=== PATIENT | male | born 1935 | race Caucasian/White ===

== ENCOUNTER 2016-10-10 18:34 | Inpatient (IN) | payer MEDICARE, OTHER ==
[2016-10-10] MEDS: Acetaminophen 325 MG Tab PO PRN (19:20)
--- NOTE | 2016-10-10 19:22 | EDM.PDOC ---
ED HPI GENERAL MEDICAL PROBLEM - General Chief Complaint: Respiratory Problem Stated Complaint: SHORT OF BREATH Time Seen by Provider: 10/10/16 18:40 Source of Information: Reports: Patient History Limitations: Reports: No Limitations - History of Present Illness INITIAL COMMENTS - FREE TEXT/NARRATIVE: Pt is 81 year old male with PMH of COPD, bladder CA with CAD. Who claims was fine until today afternoon. He had sudden onset of chills around 2 PM and did not feel good. Soon fever started and mild cough. He claims he started to feel weak and short of breath around 5 PM which progressively got worse and hence EMT was called. When EMT went home.Pt's SPO2 was 80% and hence was placed on ` 15 litres non-rebreather and brought into emergency room. PT is not severely short of breath but very anxious. No chest pain, or chest tightness. No sweating. No nausea or vomiting. He is maintaining SPO2 around 91-92% on 3 litres of oxygen. breathing around 16-18/minutes. Pt claims he has not had appetite and has been drinking fluid today, feels dry in his mouth. Onset: Today Onset Date: 10/10/16 Onset Time: 14:00 Duration: Getting Worse Location: Reports: Chest Quality: Reports: Other (shortness ) Severity: Moderate Improves with: Reports: None Worsens with: Reports: None Associated Symptoms: Reports: Cough, Fever/Chills, Shortness of Breath, Weakness. Denies: Confusion, Chest Pain, Diaphoresis, Headaches, Loss of Appetite, Nausea/Vomiting - Related Data Allergies Allergy/AdvReac Type Severity Reaction Status Date / Time quinine [Quinine] Allergy Rash Verified 06/14/16 22:02 monohydrochloride Allergy Rash Uncoded 06/14/16 22:02 Home Meds: Home Meds Fluticasone/Salmeterol [Advair 250-50] 1 puff INH BID 08/27/14 [History] Lisinopril 20 mg PO DAILY 08/27/14 [History] Nebivolol [Bystolic] 10 mg PO DAILY 08/27/14 [History] Simvastatin 40 mg PO QPM 08/27/14 [History] Multivit-Min/FA/Lycopene/Lut [Sentry Senior Tablet] 1 each PO DAILY 02/19/15 [ History] Sertraline HCl 50 mg PO DAILY 02/19/15 [History] Aspirin/Dipyridamole [Aggrenox 200-25 MG] 1 cap PO BID 11/02/15 [History] Naproxen Sodium [Aleve] 220 mg PO BID PRN 03/14/16 [History] Oxybutynin [Oxybutynin ER] 10 mg PO BID 03/14/16 [History] Albuterol/Ipratropium [DuoNeb 3.0-0.5 MG/3 ML] 3 ml NEB QID PRN 03/28/16 [ History] Docusate Sodium [Colace] 100 mg PO DAILY PRN 03/28/16 [History] Levofloxacin [Levaquin] 750 mg PO Q24H 06/14/16 [History] Furosemide [Lasix] 20 mg PO DAILY #30 tab 06/15/16 [Rx] Past Medical History HEENT History: Reports: Hard of Hearing, Other (See Below) Other HEENT History: Wears hearing aids Cardiovascular History: Reports: CAD, Heart Failure, High Cholesterol, Hypertension, [place], SOB on Exertion, Stents Respiratory History: Reports: COPD Genitourinary History: Reports: Other (See Below) Other Genitourinary History: Bladder Ca Neurological History: Reports: CVA 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 Oncologic (Cancer) History: Reports: Bladder - Infectious Disease History Infectious Disease History: Reports: Chicken Pox, Measles, Mumps, Shingles - Past Surgical History HEENT Surgical History: Reports: Cataract Surgery Cardiovascular Surgical History: Reports: Coronary Artery Stent GI Surgical History: Reports: Colonoscopy, Hernia, Inguinal, Hernia Repair/Other Social & Family History - Family History Family Medical History: Noncontributory - Tobacco Use Smoking Status *Q: Former Smoker Years of Tobacco use: 60 Packs/Tins Daily: 2 Used Tobacco, but Quit: Yes Month Tobacco Last Used: October Second Hand Smoke Exposure: No - Caffeine Use Caffeine Use: Reports: Coffee Caffeine Use Comment: 3 cups coffee a day - Alcohol Use Days Per Week of Alcohol Use: 0 Number of Drinks Per Day: 1 Total Drinks Per Week: 0 - Recreational Drug Use Recreational Drug Use: No ED ROS GENERAL - Review of Systems Review Of Systems: See Below Constitutional: Reports: Fever, Chills, Weakness. Denies: Night Sweats, Diaphoresis HEENT: Denies: Rhinitis, Throat Pain, Throat Swelling Respiratory: Reports: Shortness of Breath, Wheezing, Cough, Sputum Cardiovascular: Denies: Chest Pain, Lightheadedness GI/Abdominal: Denies: Abdominal Pain, Nausea, Vomiting Musculoskeletal: Denies: Foot Pain, Joint Pain, Joint Swelling Skin: Denies: Pruritis, Rash Neurological: Reports: Weakness. Denies: Dizziness, Headache, Numbness, Syncope , Tingling Psychiatric: Reports: Anxiety. Denies: Agitation ED EXAM, GENERAL - Physical Exam Exam: See Below Exam Limited By: No Limitations General Appearance: Alert, WD/WN, No Apparent Distress, Anxious Eye Exam: Bilateral Eye: EOMI, PERRL Ears: Normal External Exam, Normal Canal, Hearing Grossly Normal, Normal TMs Ear Exam: Bilateral Ear: TM normal Nose: Normal Inspection, Normal Mucosa, No Blood Throat/Mouth: Normal Inspection, Normal Lips, Normal Teeth, Normal Gums, Normal Oropharynx, Normal Voice, No Airway Compromise Head: Atraumatic, Normocephalic Neck: Normal Inspection, Supple, Non-Tender, Full Range of Motion Respiratory/Chest: No Respiratory Distress, Lungs Clear, Normal Breath Sounds, No Accessory Muscle Use, Chest Non-Tender, Decreased Breath Sounds (left base), Crackles (left base), Rhonchi (scatterred all over the lung [place]) Cardiovascular: Regular Rate, Rhythm, No Edema Peripheral Pulses: 2+: Radial (L), Radial (R), Posterior Tibial (L), Posterior Tibial (R) GI/Abdominal: Normal Bowel Sounds, Soft, Non-Tender, No Organomegaly, No Distention, No Abnormal Bruit, No Mass Back Exam: Normal Inspection, Full Range of Motion, NT Extremities: Normal Inspection, Normal Range of Motion, Non-Tender, Normal Capillary Refill, No Pedal Edema Neurological: Alert, Oriented, CN II-XII Intact, Normal Cognition Skin Exam: Warm, Intact Course - Vital Signs Text/Narrative:: Pt's Temp was 105.9F, we did recheck and it was 105.9F. Pt is shaky with chills. He is not acutely short of breath. he is breathing around 16-18 breaths a minutes. No use of accessory msucles. He does have decreased breath sound in the left base, with crackles. His chest xray shows left lower lobe consolidation.His white count is 10K with neutros of 87%. He has acute left lower lobe pneumonia. Pt was started on oxygen he is maintaining SPO2 of 92-93% on 3 litres oxygen. He did receive Duonebs and his breathing improved. Blood culture was drawn. He was started on rocephin 1gm and zithromax 500mg IV. Pt will be admitted to hosptial as inpatient and closely monitroed. Will repeat CBC in Am - Orders/Labs/Meds Orders: Active Orders 24 hr Category Date Time Status RT Aerosol Therapy [RC] ASDIRECTED Care 10/10/16 19:15 Ordered Chest 1V Frontal [CR] Stat Exams 10/10/16 18:52 Taken COMPREHENSIVE METABOLIC PN,CMP [CHEM] Stat Lab 10/10/16 19:12 Ordered CULTURE BLOOD [BC] Stat Lab 10/10/16 19:12 Ordered Acetaminophen [Tylenol] Med 10/10/16 19:13 Ordered 650 mg PO Q6H PRN Medication Orders Acetaminophen (Tylenol) 650 mg PO Q6H PRN PRN Reason: Fever Labs: Laboratory Tests 10/10/16 Range/Units 19:00 WBC 10.0 D (4.0-11.0) K/uL RBC 4.49 L (4.50-6.50) M/uL Hgb 13.5 (13.0-18.0) g/dL Hct 40.6 (40.0-54.0) % MCV 90 (76-96) fL MCH 30.1 (27.0-32.0) pg MCHC 33.3 (31.0-35.0) g/dL RDW 14.0 (11.0-16.0) % Plt Count 182 D (150-400) K/uL MPV 8.7 (6.0-10.0) fL Neut % (Auto) 86.5 H (45.0-70.0) % Lymph % (Auto) 6.3 L (20.0-40.0) % [place] % (Auto) 6.6 (3.0-10.0) % Eos % (Auto) 0.5 L (1.0-5.0) % Baso % (Auto) 0.1 (0.0-0.5) % Neut # (Auto) 8.62 H (2.00-7.50) K/uL Lymph # (Auto) 0.63 L (1.50-4.00) K/uL [place] # (Auto) 0.66 (0.20-0.80) K/uL Eos # (Auto) 0.05 (0.04-0.40) K/uL Baso # (Auto) 0.01 L (0.02-0.10) K/uL Meds: Medications Generic Name Dose Route Start Last Admin Trade Name Freq PRN Reason Stop Dose Admin Acetaminophen 650 mg 10/10/16 19:13 Tylenol PO Q6H PRN Fever Discontinued Medications Generic Name Dose Route Start Last Admin Trade Name Freq PRN Reason Stop Dose Admin Albuterol/Ipratropium 3 ml 10/10/16 19:14 Duoneb 3.0-0.5 Mg/3 Ml NEB 10/10/16 19:15 STAT STA Departure - Departure Time of Disposition: 20:00 Disposition: Admitted As Inpatient 65 Condition: fair Clinical Impression: Left lower lobe pneumonia - Discharge Information Forms: ED Department Discharge - Problem List & Annotations (1) Left lower lobe pneumonia SNOMED Code(s): 581000524 Code(s): J18.1 - LOBAR PNEUMONIA, UNSPECIFIED ORGANISM Status: Acute - Problem List Review Problem List Initiated/Reviewed/Updated: Yes - My Orders Last 24 Hours: My Active Orders 10/10/16 18:52 Chest 1V Frontal [CR] Stat 10/10/16 19:12 COMPREHENSIVE METABOLIC PN,CMP [CHEM] Stat CULTURE BLOOD [BC] Stat 10/10/16 19:13 Acetaminophen [Tylenol] 650 mg PO Q6H PRN 10/10/16 19:15 RT Aerosol Therapy [RC] ASDIRECTED - Assessment/Plan Last 24 Hours: My Active Orders 10/10/16 18:52 Chest 1V Frontal [CR] Stat 10/10/16 19:12 COMPREHENSIVE METABOLIC PN,CMP [CHEM] Stat CULTURE BLOOD [BC] Stat 10/10/16 19:13 Acetaminophen [Tylenol] 650 mg PO Q6H PRN 10/10/16 19:15 RT Aerosol Therapy [RC] ASDIRECTED Assessment:: Left lower lobe pneumonia Plan: Pt's Temp was 105.9F, we did recheck and it was 105.9F. Pt is shaky with chills. He is not acutely short of breath. he is breathing around 16-18 breaths a minutes. No use of accessory msucles. He does have decreased breath sound in the left base, with crackles. His chest xray shows left lower lobe consolidation.His white count is 10K with neutros of 87%. He has acute left lower lobe pneumonia. Pt was started on oxygen he is maintaining SPO2 of 92-93% on 3 litres oxygen. He did receive Duonebs and his breathing improved. Blood culture was drawn. He was started on rocephin 1gm and zithromax 500mg IV. Pt will be admitted to hospital as inpatient and closely monitored. Will repeat CBC in Am
[2016-10-10] MEDS: Albuterol/Ipratropium 3.0-0.5 MG/3 ML Neb Soln NEB STA (19:24)
[2016-10-10] MEDS: cefTRIAXone 1 GM in Sodium Chloride 0.9% 50 ML IV SCH (19:37)
[2016-10-10] MEDS ORDERED: Sodium Chloride 0.9% 10 ML Syringe FLUSH PRN (19:39)
[2016-10-10] MEDS ORDERED: Sodium Chloride 0.9% 500 ML IV SCH (19:45)
[2016-10-10] MEDS: Azithromycin 500 MG in Sodium Chloride 0.9% 250 ML IV SCH (20:42)
[2016-10-10] MEDS: Sodium Chloride 0.9% 1,000 ML IV SCH (23:45)
[2016-10-11] MEDS ORDERED: Docusate Sodium 100 MG Cap PO PRN (00:42)
[2016-10-11] MEDS: Acetaminophen 325 MG Tab PO PRN ×2 (00:57→12:50)
[2016-10-11] MEDS: Albuterol/Ipratropium 3.0-0.5 MG/3 ML Neb Soln NEB SCH ×4 (00:58→19:26)
[2016-10-11] MEDS: guaiFENesin 600 MG Tab.ER PO SCH ×3 (00:58→19:54)
[2016-10-11] MEDS: Albuterol/Ipratropium 3.0-0.5 MG/3 ML Neb Soln NEB STA (00:58)
[2016-10-11] MEDS: Fluticasone/Salmeterol 250-50 MCG Inhalation Powder 14/Diskus INH SCH ×2 (07:55→20:38)
[2016-10-11] MEDS: Oxybutynin 5 MG Tab.ER PO SCH ×2 (07:57→19:54)
[2016-10-11] MEDS: Furosemide 20 MG Tab PO SCH (07:57)
[2016-10-11] MEDS: Aspirin/Dipyridamole 200-25 MG Cap.ER PO SCH ×2 (07:57→19:55)
[2016-10-11] MEDS: Lisinopril 20 MG Tab PO SCH (07:57)
[2016-10-11] MEDS: Sertraline 50 MG Tab PO SCH (07:58)
[2016-10-11] MEDS: NEBIVOLOL 10 MG PO SCH (07:58)
[2016-10-11] MEDS: MINERALS PO SCH (08:45)
[2016-10-11] MEDS: MULTIVITAMINS PO SCH (08:45)
[2016-10-11] MEDS: LUTEIN PO SCH (08:45)
[2016-10-11] MEDS: Sodium Chloride 0.9% 1,000 ML IV SCH (12:04)
--- NOTE | 2016-10-11 12:50 | PCM.PN ---
- General Info Date of Service: 10/11/16 Subjective Update: Pt claims that he feels fine. His morning temp was 99.1F. He claims he is not short of breath any more. He is maintain SPO2 of 94-95 % on 2 litres [place] oxygen. HE has noticed some cough today and has been getting mucoid sputum. No chest pain or discomfort. tolerating diet, but does not have good appetite. Still on IV fluids at 75cc/hr. Functional Status: Reports: tolerating diet, ambulating, urinating, incentive spirometry - Review of Systems General: Denies: Fever, Weakness, Fatigue HEENT: Denies: headaches, sinus congestion Pulmonary: Reports: cough, sputum. Denies: shortness of breath, hemoptysis, wheezing Cardiovascular: Denies: Chest Pain, Lightheadedness Gastrointestinal: Denies: Abdominal pain, Nausea, Vomiting Genitourinary: Denies: frequency, burning Musculoskeletal: Denies: joint pain, joint swelling Skin: Denies: pruritis, rash Neurological: Denies: Dizziness, Headache, Weakness - Patient Data Vitals - most recent: Last Vital Signs Temp 99.3 F 10/11/16 06:17 Pulse 62 10/11/16 06:17 Resp 20 10/11/16 06:17 BP 102/58 L 10/11/16 07:57 Pulse Ox 90 L 10/11/16 06:17 Weight - most recent: 75.863 kg Lab Results last 24 hrs: Laboratory Results - last 24 hr 10/11/16 Range/Units 08:50 WBC 14.5 H D (4.0-11.0) K/uL RBC 3.93 L (4.50-6.50) M/uL Hgb 12.0 L (13.0-18.0) g/dL Hct 36.0 L (40.0-54.0) % MCV 92 (76-96) fL MCH 30.5 (27.0-32.0) pg MCHC 33.3 (31.0-35.0) g/dL RDW 13.8 (11.0-16.0) % Plt Count 149 L (150-400) K/uL MPV 9.2 (6.0-10.0) fL Neut % (Auto) 83.7 H (45.0-70.0) % Lymph % (Auto) 8.4 L (20.0-40.0) % [place] % (Auto) 7.2 (3.0-10.0) % Eos % (Auto) 0.5 L (1.0-5.0) % Baso % (Auto) 0.2 (0.0-0.5) % Neut # (Auto) 12.16 H (2.00-7.50) K/uL Lymph # (Auto) 1.22 L (1.50-4.00) K/uL [place] # (Auto) 1.04 H (0.20-0.80) K/uL Eos # (Auto) 0.07 (0.04-0.40) K/uL Baso # (Auto) 0.03 (0.02-0.10) K/uL Med Orders - Current: Current Medications Acetaminophen (Tylenol) 650 mg PO Q6H PRN PRN Reason: Fever Last Admin: 10/11/16 00:57 Dose: 650 mg Albuterol/Ipratropium (Duoneb 3.0-0.5 Mg/3 Ml) 3 ml NEB Q6H [facility] Last Admin: 10/11/16 11:13 Dose: 3 ml Dipyridamole/Aspirin (Aggrenox 200-25 Mg) 1 cap PO BID [facility] Last Admin: 10/11/16 07:57 Dose: 1 cap Docusate Sodium (Colace) 100 mg PO DAILY PRN PRN Reason: Constipation Furosemide (Lasix) 20 mg PO DAILY [facility] Last Admin: 10/11/16 07:57 Dose: 20 mg Guaifenesin (Mucinex) 600 mg PO BID [facility] Last Admin: 10/11/16 07:57 Dose: 600 mg Azithromycin 500 mg/ Sodium (Chloride) 250 mls @ 250 mls/hr IV Q24H [facility] Last Admin: 10/10/16 20:42 Dose: 250 mls/hr Ceftriaxone Sodium 1 gm/ (Sodium Chloride) 50 mls @ 100 mls/hr IV Q24H [facility] Last Admin: 10/10/16 19:37 Dose: 100 mls/hr Sodium Chloride (Normal Saline) 500 mls @ 999 mls/hr IV .BOLUS [facility] Last Admin: 10/10/16 19:07 Dose: 500 mls/hr Sodium Chloride (Normal Saline) 1,000 mls @ 75 mls/hr IV ASDIRECTED [facility] Last Admin: 10/11/16 12:04 Dose: 75 mls/hr Lisinopril (Prinivil) 20 mg PO DAILY [facility] Last Admin: 10/11/16 07:57 Dose: Not Given Multivitamins/Minerals (Certavite Sr With Lutein) 1 tab PO DAILY [facility] Last Admin: 10/11/16 08:45 Dose: 1 tab Naproxen (Naproxen Sodium) 220 mg PO BID PRN PRN Reason: Pain Non-Formulary Medication (Nebivolol [Bystolic]) 10 mg PO DAILY [facility] Last Admin: 10/11/16 07:58 Dose: 10 mg Oxybutynin Chloride (Oxybutynin Er) 10 mg PO BID [facility] Last Admin: 10/11/16 07:57 Dose: 10 mg Fluticasone/Salmeterol (Advair Diskus 250-50) 1 puff INH BID [facility] Last Admin: 10/11/16 07:55 Dose: 1 puff Sertraline HCl (Zoloft) 50 mg PO DAILY [facility] Last Admin: 10/11/16 07:58 Dose: 50 mg Simvastatin (Zocor) 40 mg PO QPM [facility] Sodium Chloride (Saline Flush) 10 ml FLUSH ASDIRECTED PRN PRN Reason: Keep Vein Open Discontinued Medications Albuterol/Ipratropium (Duoneb 3.0-0.5 Mg/3 Ml) 3 ml NEB STAT STA Stop: 10/10/16 19:15 Last Admin: 10/11/16 00:58 Dose: 3 ml - Exam Quality Assessment: supplemental oxygen General: alert, oriented HEENT: Pupils equal, Pupils reactive, EOMI, Mucous membr. moist/pink Neck: supple Lungs: Normal respiratory effort, Decreased breath sounds (left base), Crackles (coarswe expiratory in left base) Cardiovascular: Regular Rate, Regular Rhythm Abdomen: bowel sounds present, soft, no tenderness, no distension Skin: warm, intact Neurological: no new focal deficit Psy/Mental Status: alert, normal mood - Problem List & Annotations (1) Left lower lobe pneumonia SNOMED Code(s): 678891042 Code(s): J18.1 - LOBAR PNEUMONIA, UNSPECIFIED ORGANISM Status: Acute Current Visit: Yes - Problem List Review Problem List Initiated/Reviewed/Updated: Yes - My Orders Last 24 Hours: My Active Orders 10/10/16 19:47 Incentive Spirometry [RT Incentive Spirometry] [RC] 16,20 10/10/16 20:00 guaiFENesin [Mucinex] 600 mg PO BID 10/10/16 22:00 CULTURE MRSA SURVEY [RM] Routine 10/10/16 22:49 RT Aerosol Therapy [RC] ASDIRECTED 10/10/16 23:00 Albuterol/Ipratropium [DuoNeb 3.0-0.5 MG/3 ML] 3 ml NEB Q6H 10/11/16 00:42 Docusate Sodium [Colace] 100 mg PO DAILY PRN 10/11/16 00:45 Sodium Chloride 0.9% [Normal Saline] 1,000 ml IV ASDIRECTED 10/11/16 01:00 Naproxen Sodium 220 mg PO BID PRN 10/11/16 08:00 Aspirin/Dipyridamole [Aggrenox 200-25 MG] 1 cap PO BID Fluticasone/Salmeterol [Advair Diskus 250-50] 1 puff INH BID Furosemide [Lasix] 20 mg PO DAILY Lisinopril [Prinivil] 20 mg PO DAILY Multivitamins/Minerals/Lutein [Certavite SR with Lutein] 1 tab PO DAILY Nebivolol [Bystolic] 10 mg PO DAILY Oxybutynin [Oxybutynin ER] 10 mg PO BID Sertraline [Zoloft] 50 mg PO DAILY 10/11/16 20:00 Simvastatin [Zocor] 40 mg PO QPM - Assessment Assessment:: Acute left lower lobe pneumonia - Plan Plan:: 10/11/16 : pt is feeling better. No shortness or breath. He is starting ot cough. I have encourage incentive spirometry every 2 hrs. Will continue rocephin and zithromax. I have continued his IV fluids at 75cc/hr due to poor oral intake. His cbc shows white count of 14.5 but his differential shows dropping neutrophils. In the next 24 hrs his white count should improving, considering significant clinical improvement in patient condition. Will repeat CBC in am and followup.
[2016-10-11] MEDS: Azithromycin 500 MG in Sodium Chloride 0.9% 250 ML IV SCH ×2 (19:28→19:29)
[2016-10-11] MEDS: Simvastatin 40 MG Tab PO SCH (19:54)
[2016-10-11] MEDS: cefTRIAXone 1 GM in Sodium Chloride 0.9% 50 ML IV SCH (20:37)
[2016-10-12] MEDS: Albuterol/Ipratropium 3.0-0.5 MG/3 ML Neb Soln NEB SCH ×4 (00:53→18:38)
[2016-10-12] MEDS: Fluticasone/Salmeterol 250-50 MCG Inhalation Powder 14/Diskus INH SCH ×2 (08:03→20:07)
[2016-10-12] MEDS: Furosemide 20 MG Tab PO SCH (08:03)
[2016-10-12] MEDS: LUTEIN PO SCH (08:04)
[2016-10-12] MEDS: Oxybutynin 5 MG Tab.ER PO SCH ×2 (08:04→20:07)
[2016-10-12] MEDS: NEBIVOLOL 10 MG PO SCH (08:04)
[2016-10-12] MEDS: Aspirin/Dipyridamole 200-25 MG Cap.ER PO SCH ×2 (08:04→20:07)
[2016-10-12] MEDS: MULTIVITAMINS PO SCH (08:04)
[2016-10-12] MEDS: MINERALS PO SCH (08:04)
[2016-10-12] MEDS: Sertraline 50 MG Tab PO SCH (08:04)
[2016-10-12] MEDS: guaiFENesin 600 MG Tab.ER PO SCH ×2 (08:04→20:07)
[2016-10-12] MEDS: Lisinopril 20 MG Tab PO SCH (08:04)
--- NOTE | 2016-10-12 09:05 | PCM.PN ---
- General Info Date of Service: 10/12/16 Subjective Update: Pt is feeling better. HE claims that he had lot of productive cough all night, but feels better now. He is still spiking fever. Tmax of 101.4 F and Tc of 100.1F. Pt has been feeding well. Appetite has improved. No shortness of breath. No chest pain or tightness. His WBC today is at 11.9 down from14.5. Functional Status: Reports: pain controlled, tolerating diet, ambulating, urinating, incentive spirometry - Review of Systems General: Reports: Fever. Denies: Weakness, Fatigue HEENT: Denies: sinus congestion, sore throat Pulmonary: Reports: cough, sputum. Denies: shortness of breath, pleuritic chest pain, wheezing Cardiovascular: Denies: Chest Pain, Lightheadedness Gastrointestinal: Denies: Abdominal pain, Nausea, Vomiting Genitourinary: Denies: dysuria, frequency Musculoskeletal: Denies: joint pain, joint swelling Skin: Denies: pruritis, rash Neurological: Denies: Confusion, Dizziness - Patient Data Vitals - most recent: Last Vital Signs Temp 100.1 F 10/12/16 06:52 Pulse 72 10/12/16 06:52 Resp 19 10/12/16 06:52 BP 133/71 10/12/16 08:04 Pulse Ox 90 L 10/12/16 06:52 Weight - most recent: 75.863 kg I&O - last 24 hours: Intake & Output 10/11/16 10/12/16 10/12/16 22:59 06:59 14:59 Intake Total 3460 750 Output Total 1080 1350 Balance 2380 -600 Lab Results last 24 hrs: Laboratory Results - last 24 hr 10/11/16 10/12/16 Range/Units 08:50 08:00 WBC 14.5 H D 11.9 H (4.0-11.0) K/uL RBC 3.93 L 4.23 L (4.50-6.50) M/uL Hgb 12.0 L 12.8 L (13.0-18.0) g/dL Hct 36.0 L 38.0 L (40.0-54.0) % MCV 92 90 (76-96) fL MCH 30.5 30.3 (27.0-32.0) pg MCHC 33.3 33.7 (31.0-35.0) g/dL RDW 13.8 13.7 (11.0-16.0) % Plt Count 149 L 154 (150-400) K/uL MPV 9.2 9.1 (6.0-10.0) fL Neut % (Auto) 83.7 H 83.1 H (45.0-70.0) % Lymph % (Auto) 8.4 L 9.0 L (20.0-40.0) % [place] % (Auto) 7.2 6.8 (3.0-10.0) % Eos % (Auto) 0.5 L 0.8 L (1.0-5.0) % Baso % (Auto) 0.2 0.3 (0.0-0.5) % Neut # (Auto) 12.16 H 9.86 H (2.00-7.50) K/uL Lymph # (Auto) 1.22 L 1.07 L (1.50-4.00) K/uL [place] # (Auto) 1.04 H 0.80 (0.20-0.80) K/uL Eos # (Auto) 0.07 0.09 (0.04-0.40) K/uL Baso # (Auto) 0.03 0.03 (0.02-0.10) K/uL Ilya Results last 24 hrs: Microbiology 10/10/16 22:00 MRSA Surveillance Culture - Final Nasal, Left NO MRSA ISOLATED Med Orders - Current: Current Medications Acetaminophen (Tylenol) 650 mg PO Q6H PRN PRN Reason: Fever Last Admin: 10/11/16 12:50 Dose: 650 mg Albuterol/Ipratropium (Duoneb 3.0-0.5 Mg/3 Ml) 3 ml NEB Q6H [facility] Last Admin: 10/12/16 06:38 Dose: 3 ml Dipyridamole/Aspirin (Aggrenox 200-25 Mg) 1 cap PO BID [facility] Last Admin: 10/12/16 08:04 Dose: 1 cap Docusate Sodium (Colace) 100 mg PO DAILY PRN PRN Reason: Constipation Furosemide (Lasix) 20 mg PO DAILY [facility] Last Admin: 10/12/16 08:03 Dose: 20 mg Guaifenesin (Mucinex) 600 mg PO BID [facility] Last Admin: 10/12/16 08:04 Dose: 600 mg Azithromycin 500 mg/ Sodium (Chloride) 250 mls @ 250 mls/hr IV Q24H [facility] Last Admin: 10/11/16 19:29 Dose: Not Given Ceftriaxone Sodium 1 gm/ (Sodium Chloride) 50 mls @ 100 mls/hr IV Q24H [facility] Last Admin: 10/11/16 20:37 Dose: 100 mls/hr Sodium Chloride (Normal Saline) 500 mls @ 999 mls/hr IV .BOLUS [facility] Last Admin: 10/10/16 19:07 Dose: 500 mls/hr Sodium Chloride (Normal Saline) 1,000 mls @ 75 mls/hr IV ASDIRECTED [facility] Last Admin: 10/11/16 12:04 Dose: 75 mls/hr Lisinopril (Prinivil) 20 mg PO DAILY [facility] Last Admin: 10/12/16 08:04 Dose: 20 mg Multivitamins/Minerals (Certavite Sr With Lutein) 1 tab PO DAILY [facility] Last Admin: 10/12/16 08:04 Dose: 1 tab Naproxen (Naproxen Sodium) 220 mg PO BID PRN PRN Reason: Pain Non-Formulary Medication (Nebivolol [Bystolic]) 10 mg PO DAILY [facility] Last Admin: 10/12/16 08:04 Dose: 10 mg Oxybutynin Chloride (Oxybutynin Er) 10 mg PO BID [facility] Last Admin: 10/12/16 08:04 Dose: 10 mg Fluticasone/Salmeterol (Advair Diskus 250-50) 1 puff INH BID [facility] Last Admin: 10/12/16 08:03 Dose: 1 puff Sertraline HCl (Zoloft) 50 mg PO DAILY [facility] Last Admin: 10/12/16 08:04 Dose: 50 mg Simvastatin (Zocor) 40 mg PO QPM [facility] Last Admin: 10/11/16 19:54 Dose: 40 mg Sodium Chloride (Saline Flush) 10 ml FLUSH ASDIRECTED PRN PRN Reason: Keep Vein Open Discontinued Medications Albuterol/Ipratropium (Duoneb 3.0-0.5 Mg/3 Ml) 3 ml NEB STAT STA Stop: 10/10/16 19:15 Last Admin: 10/11/16 00:58 Dose: 3 ml - Exam Quality Assessment: supplemental oxygen General: alert, oriented HEENT: Pupils equal, Pupils reactive, EOMI, Mucous membr. moist/pink Neck: supple Lungs: Normal respiratory effort, Crackles (fine expiratory crakles in left base , good air entry) Cardiovascular: Regular Rate, Regular Rhythm Abdomen: bowel sounds present, soft, no tenderness, no distension Extremities: no edema Peripheral Pulses: 2+: Radial (L), Radial (R) Skin: warm, intact Neurological: no new focal deficit - Problem List & Annotations (1) Left lower lobe pneumonia SNOMED Code(s): 641033844 Code(s): J18.1 - LOBAR PNEUMONIA, UNSPECIFIED ORGANISM Status: Acute Current Visit: Yes - Problem List Review Problem List Initiated/Reviewed/Updated: Yes - My Orders Last 24 Hours: My Active Orders 10/11/16 08:00 Aspirin/Dipyridamole [Aggrenox 200-25 MG] 1 cap PO BID Fluticasone/Salmeterol [Advair Diskus 250-50] 1 puff INH BID Furosemide [Lasix] 20 mg PO DAILY Lisinopril [Prinivil] 20 mg PO DAILY Multivitamins/Minerals/Lutein [Certavite SR with Lutein] 1 tab PO DAILY Nebivolol [Bystolic] 10 mg PO DAILY Oxybutynin [Oxybutynin ER] 10 mg PO BID Sertraline [Zoloft] 50 mg PO DAILY 10/11/16 14:35 CULTURE SPUTUM + SMEAR [RM] Routine 10/11/16 19:26 CULTURE MRSA SURVEY [RM] Routine 10/11/16 20:00 Simvastatin [Zocor] 40 mg PO QPM 10/11/16 21:24 Convert IV to Peripheral Lock [Convert IV to Saline Lock] [OM.PC] Stat - Assessment Assessment:: Acute left lower lobe pneumonia improving - Plan Plan:: 10/11/16 : pt is feeling better. No shortness or breath. He is starting ot cough. I have encourage incentive spirometry every 2 hrs. Will continue rocephin and zithromax. I have continued his IV fluids at 75cc/hr due to poor oral intake. His cbc shows white count of 14.5 but his differential shows dropping neutrophils. In the next 24 hrs his white count should improving, considering significant clinical improvement in patient condition. Will repeat CBC in am and followup. 10/12/16L: Pt has been feeling better. Still spiking low grade fever. His white count is down to 11.9. Blood culture is negative. Significant clinical improvement. Will continue IV antibiotics. Encourage ambulation. Continue incentive spirometry and deep breathing exercise.
[2016-10-12] MEDS: Sodium Chloride 0.9% 10 ML Syringe FLUSH SCH ×2 (10:06→20:08)
[2016-10-12] MEDS: Simvastatin 40 MG Tab PO SCH (20:07)
[2016-10-12] MEDS: cefTRIAXone 1 GM in Sodium Chloride 0.9% 50 ML IV SCH (20:08)
[2016-10-12] MEDS ORDERED: Magnesium Hydroxide 400 MG/5 ML Susp 30 ML Cup PO PRN (20:42)
[2016-10-12] MEDS ORDERED: Magnesium Hydroxide 400 MG/5 ML Susp 30 ML Cup ONE (20:47)
[2016-10-12] MEDS: Azithromycin 500 MG in Sodium Chloride 0.9% 250 ML IV SCH (21:03)
--- NOTE | 2016-10-13 00:09 | CR ---
DATE OF SERVICE: 10/10/2016 CLINICAL DATA: Fever, dyspnea. PA CHEST Comparison is made to a prior exam dated 06/14/2016. The heart is enlarged. It does appear to be slightly larger than on a prior exam. The pulmonary vascular congestion on the prior exam does appear to be slightly improved. The interstitial infiltrates on the prior exam do appear to be slightly improved. There is a new poorly defined infiltrate in the left mid and lower lung. There is also increased density in the right lung base consistent with infiltrate or atelectasis. Pneumonia is suspected. The exam is otherwise unchanged from the prior. No pleural effusion. [id number] [facility]
[2016-10-13] MEDS: Furosemide 20 MG Tab PO SCH (07:58)
[2016-10-13] MEDS: Albuterol/Ipratropium 3.0-0.5 MG/3 ML Neb Soln NEB SCH ×3 (07:58→14:28)
[2016-10-13] MEDS: Fluticasone/Salmeterol 250-50 MCG Inhalation Powder 14/Diskus INH SCH (07:58)
[2016-10-13] MEDS: Aspirin/Dipyridamole 200-25 MG Cap.ER PO SCH (07:58)
[2016-10-13] MEDS: guaiFENesin 600 MG Tab.ER PO SCH (07:59)
[2016-10-13] MEDS: Oxybutynin 5 MG Tab.ER PO SCH (07:59)
[2016-10-13] MEDS: Lisinopril 20 MG Tab PO SCH (07:59)
[2016-10-13] MEDS: NEBIVOLOL 10 MG PO SCH (08:00)
[2016-10-13] MEDS: Sodium Chloride 0.9% 10 ML Syringe FLUSH SCH (08:00)
[2016-10-13] MEDS: Sertraline 50 MG Tab PO SCH (08:00)
[2016-10-13] MEDS: MINERALS PO SCH (08:04)
[2016-10-13] MEDS: MULTIVITAMINS PO SCH (08:04)
[2016-10-13] MEDS: LUTEIN PO SCH (08:04)
--- NOTE | 2016-10-13 09:53 | PCM.PN ---
- General Info Date of Service: 10/13/16 Functional Status: Reports: tolerating diet, ambulating - Review of Systems General: Reports: No Symptoms HEENT: Reports: no symptoms Pulmonary: Reports: cough Cardiovascular: Reports: No Symptoms Gastrointestinal: Reports: No symptoms Genitourinary: Reports: no symptoms Musculoskeletal: Reports: no symptoms Skin: Reports: no symptoms Neurological: Reports: No Symptoms Psychiatric: Reports: no symptoms - Patient Data Vitals - most recent: Last Vital Signs Temp 37.1 C 10/13/16 08:00 Pulse 62 10/13/16 08:00 Resp 18 10/13/16 08:00 BP 116/66 10/13/16 08:00 Pulse Ox 95 10/13/16 08:00 Weight - most recent: 75.75 kg I&O - last 24 hours: Intake & Output 10/12/16 10/13/16 10/13/16 22:59 06:59 14:59 Intake Total 960 791 Output Total 1400 Balance 960 -609 Lab Results last 24 hrs: Laboratory Results - last 24 hr 10/12/16 10/13/16 Range/Units 13:40 08:30 WBC 8.9 D (4.0-11.0) K/uL RBC 4.15 L (4.50-6.50) M/uL Hgb 12.6 L (13.0-18.0) g/dL Hct 37.4 L (40.0-54.0) % MCV 90 (76-96) fL MCH 30.4 (27.0-32.0) pg MCHC 33.7 (31.0-35.0) g/dL RDW 13.6 (11.0-16.0) % Plt Count 162 (150-400) K/uL MPV 9.0 (6.0-10.0) fL Neut % (Auto) 74.6 H (45.0-70.0) % Lymph % (Auto) 14.5 L (20.0-40.0) % [place] % (Auto) 9.3 (3.0-10.0) % Eos % (Auto) 1.4 (1.0-5.0) % Baso % (Auto) 0.2 (0.0-0.5) % Neut # (Auto) 6.61 (2.00-7.50) K/uL Lymph # (Auto) 1.28 L (1.50-4.00) K/uL [place] # (Auto) 0.82 H (0.20-0.80) K/uL Eos # (Auto) 0.12 (0.04-0.40) K/uL Baso # (Auto) 0.02 (0.02-0.10) K/uL POC Glucose Cancelled Ilya Results last 24 hrs: Microbiology 10/11/16 14:35 Gram Stain - Final Sputum - Expectorated 10/10/16 22:00 MRSA Surveillance Culture - Final Nasal, Left NO MRSA ISOLATED Med Orders - Current: Current Medications Acetaminophen (Tylenol) 650 mg PO Q6H PRN PRN Reason: Fever Last Admin: 10/11/16 12:50 Dose: 650 mg Albuterol/Ipratropium (Duoneb 3.0-0.5 Mg/3 Ml) 3 ml NEB Q6H [facility] Last Admin: 10/13/16 08:27 Dose: Not Given Dipyridamole/Aspirin (Aggrenox 200-25 Mg) 1 cap PO BID [facility] Last Admin: 10/13/16 07:58 Dose: 1 cap Docusate Sodium (Colace) 100 mg PO DAILY PRN PRN Reason: Constipation Last Admin: 10/12/16 20:49 Dose: 100 mg Furosemide (Lasix) 20 mg PO DAILY [facility] Last Admin: 10/13/16 07:58 Dose: 20 mg Guaifenesin (Mucinex) 600 mg PO BID [facility] Last Admin: 10/13/16 07:59 Dose: 600 mg Azithromycin 500 mg/ Sodium (Chloride) 250 mls @ 250 mls/hr IV Q24H [facility] Last Admin: 10/12/16 21:03 Dose: 250 mls/hr Ceftriaxone Sodium 1 gm/ (Sodium Chloride) 50 mls @ 100 mls/hr IV Q24H [facility] Last Admin: 10/12/16 20:08 Dose: 100 mls/hr Lisinopril (Prinivil) 20 mg PO DAILY [facility] Last Admin: 10/13/16 07:59 Dose: 20 mg Magnesium Hydroxide (Milk Of Magnesia) 30 ml PO BEDTIME PRN PRN Reason: Constipation Last Admin: 10/12/16 20:51 Dose: 30 ml Multivitamins/Minerals (Certavite Sr With Lutein) 1 tab PO DAILY [facility] Last Admin: 10/13/16 08:04 Dose: 1 tab Naproxen (Naproxen Sodium) 220 mg PO BID PRN PRN Reason: Pain Nebivolol [Bystolic] (10 MgOwn Med) 10 mg PO DAILY [facility] Last Admin: 10/13/16 08:00 Dose: 10 mg Oxybutynin Chloride (Oxybutynin Er) 10 mg PO BID [facility] Last Admin: 10/13/16 07:59 Dose: 10 mg Fluticasone/Salmeterol (Advair Diskus 250-50) 1 puff INH BID [facility] Last Admin: 10/13/16 07:58 Dose: 1 puff Sertraline HCl (Zoloft) 50 mg PO DAILY [facility] Last Admin: 10/13/16 08:00 Dose: 50 mg Simvastatin (Zocor) 40 mg PO QPM [facility] Last Admin: 10/12/16 20:07 Dose: 40 mg Sodium Chloride (Saline Flush) 10 ml FLUSH ASDIRECTED PRN PRN Reason: Keep Vein Open Sodium Chloride (Saline Flush) 10 ml FLUSH BID [facility] Last Admin: 10/13/16 08:00 Dose: 10 ml Discontinued Medications Albuterol/Ipratropium (Duoneb 3.0-0.5 Mg/3 Ml) 3 ml NEB STAT STA Stop: 10/10/16 19:15 Last Admin: 10/11/16 00:58 Dose: 3 ml Sodium Chloride (Normal Saline) 500 mls @ 999 mls/hr IV .BOLUS [facility] Last Admin: 10/10/16 19:07 Dose: 500 mls/hr Sodium Chloride (Normal Saline) 1,000 mls @ 75 mls/hr IV ASDIRECTED [facility] Last Admin: 10/11/16 12:04 Dose: 75 mls/hr Magnesium Hydroxide (Milk Of Magnesia) Confirm Administered Dose 30 ml .ROUTE .STK-MED ONE Stop: 10/12/16 20:48 Last Admin: 10/12/16 21:02 Dose: Not Given - Exam General: alert, oriented HEENT: Pupils equal, Pupils reactive, EOMI Neck: supple Lungs: Crackles (b/l lower bases), Rales Cardiovascular: Regular Rate, Regular Rhythm Abdomen: bowel sounds present, soft, no tenderness Extremities: no edema Peripheral Pulses: 2+: Dorsalis Pedis (L), Dorsalis Pedis (R) Skin: warm, dry, intact Neurological: no new focal deficit Psy/Mental Status: alert, normal affect, normal mood - Problem List Review Problem List Initiated/Reviewed/Updated: Yes - Assessment Assessment:: Acute left lower lobe pneumonia improving - Plan Plan:: 10/11/16 : pt is feeling better. No shortness or breath. He is starting ot cough. I have encourage incentive spirometry every 2 hrs. Will continue rocephin and zithromax. I have continued his IV fluids at 75cc/hr due to poor oral intake. His cbc shows white count of 14.5 but his differential shows dropping neutrophils. In the next 24 hrs his white count should improving, considering significant clinical improvement in patient condition. Will repeat CBC in am and followup. 10/12/16L: Pt has been feeling better. Still spiking low grade fever. His white count is down to 11.9. Blood culture is negative. Significant clinical improvement. Will continue IV antibiotics. Encourage ambulation. Continue incentive spirometry and deep breathing exercise. 10/13/16: Patient states he feels well and would like to go home but was told he needs to be afebrile for 24hrs. We will f/u CBC today and monitor vitals for further assessment and discharge planning.
[2016-10-13 14:12] VITALS: BP 110/68
[2016-10-13] MEDS: Azithromycin 500 MG in Sodium Chloride 0.9% 250 ML IV SCH (14:32)
[2016-10-13] MEDS: cefTRIAXone 1 GM in Sodium Chloride 0.9% 50 ML IV SCH (14:33)
[2016-10-13] MEDS ORDERED: Pneumococcal 13-Valent Conjugate Vaccine 0.5 ML Syringe IM ONE ×2 (15:19→15:45)
--- NOTE | 2016-10-13 15:32 | PCM.DCSUM1 ---
Discharge Summary - Discharge Data Discharge Date: 10/13/16 Discharge Disposition: Home, Self-Care 01 Condition: Good - Patient Instructions Diet: Heart Healthy Diet Activity: As Tolerated Driving: Do Not Drive - Discharge Plan Home Medications: Home Meds Fluticasone/Salmeterol [Advair 250-50] 1 puff INH BID 08/27/14 [History] Lisinopril 20 mg PO DAILY 08/27/14 [History] Nebivolol [Bystolic] 10 mg PO DAILY 08/27/14 [History] Simvastatin 40 mg PO QPM 08/27/14 [History] Multivit-Min/FA/Lycopene/Lut [Sentry Senior Tablet] 1 each PO DAILY 02/19/15 [ History] Sertraline HCl 50 mg PO DAILY 02/19/15 [History] Aspirin/Dipyridamole [Aggrenox 200-25 MG] 1 cap PO BID 11/02/15 [History] Naproxen Sodium [Aleve] 220 mg PO BID PRN 03/14/16 [History] Oxybutynin [Oxybutynin ER] 10 mg PO BID 03/14/16 [History] Albuterol/Ipratropium [DuoNeb 3.0-0.5 MG/3 ML] 3 ml NEB QID PRN 03/28/16 [ History] Docusate Sodium [Colace] 100 mg PO DAILY PRN 03/28/16 [History] Furosemide [Lasix] 20 mg PO DAILY #30 tab 06/15/16 [Rx] Patient Handouts: Community-Acquired Pneumonia, Adult Forms: ED Department Discharge - Discharge Summary/Plan Comment DC Time >30 min.: Yes Discharge Summary/Plan Comment: Patient counseled on close monitoring and finishing course of oral antibiotics. Patient to f/u in clinic with PCP and f/u as needed in ER or clinic if symptoms return. - Patient Data Vitals - Most Recent: Last Vital Signs Temp 37.1 C 10/13/16 12:00 Pulse 59 L 10/13/16 12:00 Resp 18 10/13/16 12:00 BP 110/68 10/13/16 12:00 Pulse Ox 97 10/13/16 12:00 Weight - Most Recent: 76.657 kg I&O - Last 24 hours: Intake & Output 10/13/16 10/13/16 10/13/16 06:59 14:59 22:59 Intake Total 791 Output Total 1400 Balance -609 Lab Results - Last 24 hrs: Laboratory Results - last 24 hr 10/12/16 10/13/16 Range/Units 13:40 08:30 WBC 8.9 D (4.0-11.0) K/uL RBC 4.15 L (4.50-6.50) M/uL Hgb 12.6 L (13.0-18.0) g/dL Hct 37.4 L (40.0-54.0) % MCV 90 (76-96) fL MCH 30.4 (27.0-32.0) pg MCHC 33.7 (31.0-35.0) g/dL RDW 13.6 (11.0-16.0) % Plt Count 162 (150-400) K/uL MPV 9.0 (6.0-10.0) fL Neut % (Auto) 74.6 H (45.0-70.0) % Lymph % (Auto) 14.5 L (20.0-40.0) % [place] % (Auto) 9.3 (3.0-10.0) % Eos % (Auto) 1.4 (1.0-5.0) % Baso % (Auto) 0.2 (0.0-0.5) % Neut # (Auto) 6.61 (2.00-7.50) K/uL Lymph # (Auto) 1.28 L (1.50-4.00) K/uL [place] # (Auto) 0.82 H (0.20-0.80) K/uL Eos # (Auto) 0.12 (0.04-0.40) K/uL Baso # (Auto) 0.02 (0.02-0.10) K/uL POC Glucose Cancelled Med Orders - Current: Current Medications Acetaminophen (Tylenol) 650 mg PO Q6H PRN PRN Reason: Fever Last Admin: 10/11/16 12:50 Dose: 650 mg Albuterol/Ipratropium (Duoneb 3.0-0.5 Mg/3 Ml) 3 ml NEB Q6H [facility] Last Admin: 10/13/16 14:28 Dose: 3 ml Dipyridamole/Aspirin (Aggrenox 200-25 Mg) 1 cap PO BID [facility] Last Admin: 10/13/16 07:58 Dose: 1 cap Docusate Sodium (Colace) 100 mg PO DAILY PRN PRN Reason: Constipation Last Admin: 10/12/16 20:49 Dose: 100 mg Furosemide (Lasix) 20 mg PO DAILY [facility] Last Admin: 10/13/16 07:58 Dose: 20 mg Guaifenesin (Mucinex) 600 mg PO BID [facility] Last Admin: 10/13/16 07:59 Dose: 600 mg Azithromycin 500 mg/ Sodium (Chloride) 250 mls @ 250 mls/hr IV Q24H [facility] Last Admin: 10/13/16 14:32 Dose: 250 mls/hr Ceftriaxone Sodium 1 gm/ (Sodium Chloride) 50 mls @ 100 mls/hr IV Q24H [facility] Last Admin: 10/13/16 14:33 Dose: 100 mls/hr Lisinopril (Prinivil) 20 mg PO DAILY [facility] Last Admin: 10/13/16 07:59 Dose: 20 mg Magnesium Hydroxide (Milk Of Magnesia) 30 ml PO BEDTIME PRN PRN Reason: Constipation Last Admin: 10/12/16 20:51 Dose: 30 ml Multivitamins/Minerals (Certavite Sr With Lutein) 1 tab PO DAILY [facility] Last Admin: 10/13/16 08:04 Dose: 1 tab Naproxen (Naproxen Sodium) 220 mg PO BID PRN PRN Reason: Pain Nebivolol [Bystolic] (10 MgOwn Med) 10 mg PO DAILY [facility] Last Admin: 10/13/16 08:00 Dose: 10 mg Oxybutynin Chloride (Oxybutynin Er) 10 mg PO BID [facility] Last Admin: 10/13/16 07:59 Dose: 10 mg Fluticasone/Salmeterol (Advair Diskus 250-50) 1 puff INH BID [facility] Last Admin: 10/13/16 07:58 Dose: 1 puff Sertraline HCl (Zoloft) 50 mg PO DAILY [facility] Last Admin: 10/13/16 08:00 Dose: 50 mg Simvastatin (Zocor) 40 mg PO QPM [facility] Last Admin: 10/12/16 20:07 Dose: 40 mg Sodium Chloride (Saline Flush) 10 ml FLUSH ASDIRECTED PRN PRN Reason: Keep Vein Open Sodium Chloride (Saline Flush) 10 ml FLUSH BID [facility] Last Admin: 10/13/16 08:00 Dose: 10 ml Discontinued Medications Albuterol/Ipratropium (Duoneb 3.0-0.5 Mg/3 Ml) 3 ml NEB STAT STA Stop: 10/10/16 19:15 Last Admin: 10/11/16 00:58 Dose: 3 ml Sodium Chloride (Normal Saline) 500 mls @ 999 mls/hr IV .BOLUS [facility] Last Admin: 10/10/16 19:07 Dose: 500 mls/hr Sodium Chloride (Normal Saline) 1,000 mls @ 75 mls/hr IV ASDIRECTED [facility] Last Admin: 10/11/16 12:04 Dose: 75 mls/hr Magnesium Hydroxide (Milk Of Magnesia) Confirm Administered Dose 30 ml .ROUTE .STK-MED ONE Stop: 10/12/16 20:48 Last Admin: 10/12/16 21:02 Dose: Not Given Pneumococcal 13-Valent Conj Vacc (Prevnar 13) 0.5 ml IM .ONCE ONE Stop: 10/13/16 15:20 *Q Meaningful Use (DIS) - VTE *Q VTE Criteria *Q: - Stroke *Q Stroke Criteria *Q: - AMI *Q AMI Criteria *Q:
== END 2016-10-13 16:35 | disposition home or self-care (01) | DRG 190 ==
LOC: LB.ED 18:34 → LB.MS 19:39 → UNDOADMIN 20:30
PROVIDERS: ADMIT Family Medicine; ATTEND Family Medicine
PROC: 3E0234Z Introduction of Serum, Toxoid and Vaccine into Muscle, Percutaneous Approach (ICD-10-PCS; principal; 2016-10-13)
DX: J44.0 Chronic obstructive pulmonary disease with (acute) lower respiratory infection (principal); J18.1 Lobar pneumonia, unspecified organism; I69.354 Hemiplegia and hemiparesis following cerebral infarction affecting left non-dominant side; C67.9 Malignant neoplasm of bladder, unspecified; I25.10 Atherosclerotic heart disease of native coronary artery without angina pectoris; I50.9 Heart failure, unspecified; E78.5 Hyperlipidemia, unspecified; I25.2 Old myocardial infarction; Z23 Encounter for immunization
CPT/HCPCS: 36415; 71010; 80053; 85025; 87040; A9270; J0696; J7040; J7050; J7620; 82962; 87070; 87205; 90670; 96365; 99284-25; A0425; A0429; G0009; J0456

== ENCOUNTER 2017-06-08 21:47 | Inpatient (IN) | payer MEDICARE, OTHER ==
[2017-06-08] MEDS: Albuterol/Ipratropium 3.0-0.5 MG/3 ML Neb Soln NEB SCH (22:10)
--- NOTE | 2017-06-08 22:10 | EDM.PDOC ---
ED HPI GENERAL MEDICAL PROBLEM - General Chief Complaint: Fever Stated Complaint: fall at home , fever Time Seen by Provider: 06/08/17 22:10 Source of Information: Reports: Patient, EMS, Family, RN - History of Present Illness INITIAL COMMENTS - FREE TEXT/NARRATIVE: 81 yr male presents from EMS, had fallen at home some time after 3pm and called 911 for assist. Pt states pain to left chest with coughing and he tries to not cough. States not coughing anything up. States fell onto left side at home. No bruising to chest noted. Skin tear to left forearm. EMS states temp 103 at home, family states cough for several days. Has been doctoring for prostate concerns and had scans done for this. In process of clinic visit to see Dr Vidales this week and possibly check on urology visits in [place] if needed. Congested cough noted and bradycardia noted. He does take Bistolic and lisinopril. He does not have a medical alert bracelet to access EMS in emergencies, but will consider after this visit. Nebulizer, duoneb on admit. EKG done with sinus bradycardia. Left Chest Pain Score (Numeric/FACES): 7 - Related Data Allergies Allergy/AdvReac Type Severity Reaction Status Date / Time quinine [Quinine] Allergy Rash Verified 10/10/16 19:57 monohydrochloride Allergy Rash Uncoded 06/14/16 22:02 Home Meds: Home Meds Fluticasone/Salmeterol [Advair 250-50] 1 puff INH BID 08/27/14 [History] Lisinopril 20 mg PO DAILY 08/27/14 [History] Nebivolol [Bystolic] 10 mg PO DAILY 08/27/14 [History] Simvastatin 40 mg PO QPM 08/27/14 [History] Multivit-Min/FA/Lycopene/Lut [Sentry Senior Tablet] 1 each PO DAILY 02/19/15 [ History] Sertraline HCl 50 mg PO DAILY 02/19/15 [History] Aspirin/Dipyridamole [Aggrenox 200-25 MG] 1 cap PO BID 11/02/15 [History] Naproxen Sodium [Aleve] 220 mg PO BID PRN 03/14/16 [History] Oxybutynin [Oxybutynin ER] 10 mg PO BID 03/14/16 [History] Albuterol/Ipratropium [DuoNeb 3.0-0.5 MG/3 ML] 3 ml NEB QID PRN 03/28/16 [ History] Docusate Sodium [Colace] 100 mg PO DAILY PRN 03/28/16 [History] Furosemide [Lasix] 20 mg PO DAILY #30 tab 06/15/16 [Rx] Past Medical History HEENT History: Reports: Hard of Hearing, Other (See Below) Other HEENT History: Wears hearing aids Cardiovascular History: Reports: CAD, Heart Failure, High Cholesterol, Hypertension, CO, SOB on Exertion, Stents Respiratory History: Reports: COPD Genitourinary History: Reports: Other (See Below) Other Genitourinary History: Bladder Ca Neurological History: Reports: CVA 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 Oncologic (Cancer) History: Reports: Bladder - Infectious Disease History Infectious Disease History: Reports: Chicken Pox, Measles, Mumps, Shingles - Past Surgical History HEENT Surgical History: Reports: Cataract Surgery Cardiovascular Surgical History: Reports: Coronary Artery Stent GI Surgical History: Reports: Colonoscopy, Hernia, Inguinal, Hernia Repair/Other Social & Family History - Family History Family Medical History: Noncontributory - Tobacco Use Smoking Status *Q: Former Smoker Years of Tobacco use: 50 Packs/Tins Daily: 1 Used Tobacco, but Quit: Yes Month Tobacco Last Used: none Second Hand Smoke Exposure: No - Caffeine Use Caffeine Use: Reports: Coffee Caffeine Use Comment: 3 cups coffee a day - Alcohol Use Days Per Week of Alcohol Use: 0 Number of Drinks Per Day: 1 Total Drinks Per Week: 0 - Recreational Drug Use Recreational Drug Use: No ED ROS GENERAL - Review of Systems Review Of Systems: See Below Constitutional: Reports: Fever, Weakness HEENT: Reports: No Symptoms Respiratory: Reports: Shortness of Breath, Cough. Denies: Sputum Cardiovascular: Reports: Chest Pain. Denies: Edema GI/Abdominal: Reports: No Symptoms, Other (Thinks he had supper, but can't remember what he ate) : Reports: No Symptoms Musculoskeletal: Reports: Other (pain to left chest/ribs) Skin: Reports: Other (Skin tear left forearm) Neurological: Reports: Other (Forgot son's phone number and was able to call 911 ) ED EXAM, GENERAL - Physical Exam Exam: See Below Exam Limited By: No Limitations General Appearance: Alert, Mild Distress Ears: Hearing Loss, Other (bilateral hearing aides) Nose: Normal Inspection Throat/Mouth: Normal Inspection, Normal Lips, No Airway Compromise Head: Atraumatic, Normocephalic Neck: Normal Inspection, Supple, Non-Tender Respiratory/Chest: Decreased Breath Sounds (bases bilaterally), Crackles (Right lower lobe). No: Wheezing Cardiovascular: Normal Peripheral Pulses, Regular Rate, Rhythm, No Edema GI/Abdominal: Soft, Non-Tender, No Distention Back Exam: Normal Inspection Extremities: Non-Tender, No Pedal Edema, Normal Capillary Refill Neurological: Alert, Normal Cognition Skin Exam: Warm, Dry, Normal Color EKG INTERPRETATION EKG Date: 06/08/17 Time: 21:57 Rhythm: Other (bradycardia 46) P-Wave: Present QRS: Wide Course - Vital Signs Last Recorded V/S: Last Vital Signs Temp 98.6 F 06/09/17 04:00 Pulse 58 L 06/09/17 04:00 Resp 22 H 06/09/17 04:00 BP 110/57 L 06/09/17 04:00 Pulse Ox 86 L 06/09/17 07:15 - Orders/Labs/Meds Orders: Active Orders 24 hr Category Date Time Status Cardiac Monitoring [RC] CONTINUOUS Care 06/08/17 22:40 Active EKG Documentation Completion [RC] ASDIRECTED Care 06/08/17 22:22 Active Blood Catheter Insertion [Insert Urinary Catheter] [OM. Care 06/08/17 23:30 Ordered PC] Q24H Oxygen Therapy [RC] PRN Care 06/08/17 22:40 Active RT Aerosol Therapy [RC] ASDIRECTED Care 06/08/17 22:23 Active Urinary Catheter Assessment [RC] ASDIRECTED Care 06/08/17 23:26 Active Chest 1V Frontal [CR] Stat Exams 06/08/17 22:13 Taken CULTURE BLOOD [BC] Stat Lab 06/08/17 22:45 Received Albuterol/Ipratropium [DuoNeb 3.0-0.5 MG/3 ML] Med 06/08/17 22:30 Active 3 ml NEB Q6H Azithromycin [Zithromax] 500 mg Med 06/08/17 23:30 Active Sodium Chloride 0.9% [Normal Saline] 250 ml IV Q24H Sodium Chloride 0.9% [Normal Saline] 1,000 ml Med 06/08/17 22:15 Active IV ASDIRECTED cefTRIAXone [Rocephin] 1 gm Med 06/08/17 22:45 Active Sodium Chloride 0.9% [Normal Saline] 50 ml IV Q24H Medication Orders Acetaminophen (Tylenol) 650 mg PO Q6H PRN PRN Reason: analgesia/fever Last Admin: 06/09/17 06:44 Dose: 650 mg Albuterol/Ipratropium (Duoneb 3.0-0.5 Mg/3 Ml) 3 ml NEB Q6H [facility] Last Admin: 06/09/17 04:05 Dose: 3 ml Admin: 06/08/17 22:10 Dose: 3 ml Dipyridamole/Aspirin (Aggrenox 200-25 Mg) 1 cap PO BID [facility] Docusate Sodium (Colace) 100 mg PO DAILY PRN PRN Reason: Constipation Furosemide (Lasix) 20 mg PO DAILY [facility] Last Admin: 06/09/17 07:52 Dose: Sodium Chloride (Normal Saline) 1,000 mls @ 100 mls/hr IV ASDIRECTED [facility] Last Admin: 06/08/17 22:20 Dose: 100 mls/hr Ceftriaxone Sodium 1 gm/ (Sodium Chloride) 50 mls @ 200 mls/hr IV Q24H [facility] Last Admin: 06/08/17 22:52 Dose: 200 mls/hr Azithromycin 500 mg/ Sodium (Chloride) 250 mls @ 250 mls/hr IV Q24H [facility] Last Admin: 06/08/17 23:49 Dose: 250 mls/hr Lisinopril (Prinivil) 20 mg PO DAILY [facility] Multivitamins/Minerals (Thera M Plus) 1 tab PO DAILY [facility] Non-Formulary Medication (Fluticasone/Salmeterol [Advair 250-50]) 1 puff INH BID [facility] Oxybutynin Chloride (Oxybutynin Er) 10 mg PO BID [facility] Sertraline HCl (Zoloft) 50 mg PO DAILY [facility] Simvastatin (Zocor) 40 mg PO QPM [facility] Labs: Laboratory Tests 06/08/17 06/08/17 06/08/17 Range/Units 22:45 22:45 22:45 WBC 11.2 H D (4.0-11.0) K/uL RBC 4.20 L (4.50-6.50) M/uL Hgb 12.5 L (13.0-18.0) g/dL Hct 37.4 L (40.0-54.0) % MCV 89 (76-96) fL MCH 29.8 (27.0-32.0) pg MCHC 33.4 (31.0-35.0) g/dL RDW 13.6 (11.0-16.0) % Plt Count 153 D (150-400) K/uL MPV 9.6 (6.0-10.0) fL Neut % (Auto) 85.9 H (45.0-70.0) % Lymph % (Auto) 5.6 L (20.0-40.0) % [place] % (Auto) 7.2 (3.0-10.0) % Eos % (Auto) 1.2 (1.0-5.0) % Baso % (Auto) 0.1 (0.0-0.5) % Neut # (Auto) 9.64 H (2.00-7.50) K/uL Lymph # (Auto) 0.63 L (1.50-4.00) K/uL [place] # (Auto) 0.81 H (0.20-0.80) K/uL Eos # (Auto) 0.14 (0.04-0.40) K/uL Baso # (Auto) 0.01 L (0.02-0.10) K/uL Sodium 143 (136-145) mmol/L Potassium 4.2 (3.5-5.1) mmol/L Chloride 106 (98-107) mmol/L Carbon Dioxide 26.0 (21.0-32.0) mmol/L Anion Gap 15.2 H (5.0-15.0) mmol/L BUN 22 D (8-26) mg/dL Creatinine 1.38 H D (0.70-1.30) mg/dL Est Cr Clr Drug Dosing 43.69 mL/min Estimated GFR (MDRD) 49 L (>60) MLS/MIN BUN/Creatinine Ratio 15.9 (6-25) Glucose 168 H D (74-100) mg/dL Calcium 8.5 (8.5-10.1) mg/dL Total Bilirubin 0.7 D (0.0-1.0) mg/dL AST 24 (15-37) U/L ALT 19 (12-78) U/L Alkaline Phosphatase 60 (46-116) U/L Troponin I 0.027 D (0.000-0.060) ng/mL B-Natriuretic Peptide 1159 H D (0-450) pg/mL Total Protein 7.3 (6.4-8.2) g/dL Albumin 3.4 (3.4-5.0) g/dL Globulin 3.9 (2.2-4.2) g/dL Albumin/Globulin Ratio 0.9 (0.8-2.0) Urine Color Urine Appearance (CLEAR) Urine pH (5.0-8.0) Ur Specific [place] (1.003-1.030) Urine Protein (NEGATIVE) mg/dL Urine Glucose (UA) (NEGATIVE) mg/dL Urine Ketones (NEGATIVE) mg/dL Urine Occult Blood (NEGATIVE) Urine Nitrite (NEGATIVE) Urine Bilirubin (NEGATIVE) Urine Urobilinogen (0.2-1.0) E.U./dL Ur Leukocyte Esterase (NEGATIVE) Urine RBC /HPF Urine WBC /HPF Urine Bacteria /HPF 06/08/17 Range/Units 23:28 WBC (4.0-11.0) K/uL RBC (4.50-6.50) M/uL Hgb (13.0-18.0) g/dL Hct (40.0-54.0) % MCV (76-96) fL MCH (27.0-32.0) pg MCHC (31.0-35.0) g/dL RDW (11.0-16.0) % Plt Count (150-400) K/uL MPV (6.0-10.0) fL Neut % (Auto) (45.0-70.0) % Lymph % (Auto) (20.0-40.0) % [place] % (Auto) (3.0-10.0) % Eos % (Auto) (1.0-5.0) % Baso % (Auto) (0.0-0.5) % Neut # (Auto) (2.00-7.50) K/uL Lymph # (Auto) (1.50-4.00) K/uL [place] # (Auto) (0.20-0.80) K/uL Eos # (Auto) (0.04-0.40) K/uL Baso # (Auto) (0.02-0.10) K/uL Sodium (136-145) mmol/L Potassium (3.5-5.1) mmol/L Chloride (98-107) mmol/L Carbon Dioxide (21.0-32.0) mmol/L Anion Gap (5.0-15.0) mmol/L BUN (8-26) mg/dL Creatinine (0.70-1.30) mg/dL Est Cr Clr Drug Dosing mL/min Estimated GFR (MDRD) (>60) MLS/MIN BUN/Creatinine Ratio (6-25) Glucose (74-100) mg/dL Calcium (8.5-10.1) mg/dL Total Bilirubin (0.0-1.0) mg/dL AST (15-37) U/L ALT (12-78) U/L Alkaline Phosphatase (46-116) U/L Troponin I (0.000-0.060) ng/mL B-Natriuretic Peptide (0-450) pg/mL Total Protein (6.4-8.2) g/dL Albumin (3.4-5.0) g/dL Globulin (2.2-4.2) g/dL Albumin/Globulin Ratio (0.8-2.0) Urine Color Yellow Urine Appearance Slightly cloudy (CLEAR) Urine pH 5.5 (5.0-8.0) Ur Specific [place] 1.025 (1.003-1.030) Urine Protein 100 H (NEGATIVE) mg/dL Urine Glucose (UA) Negative (NEGATIVE) mg/dL Urine Ketones Trace H (NEGATIVE) mg/dL Urine Occult Blood Large H (NEGATIVE) Urine Nitrite Negative (NEGATIVE) Urine Bilirubin Negative (NEGATIVE) Urine Urobilinogen 1.0 (0.2-1.0) E.U./dL Ur Leukocyte Esterase Small H (NEGATIVE) Urine RBC 20-30 H /HPF Urine WBC 10-20 H /HPF Urine Bacteria Many H /HPF Meds: Medications Generic Name Dose Route Start Last Admin Trade Name Freq PRN Reason Stop Dose Admin Acetaminophen 650 mg 06/08/17 23:57 06/09/17 06:44 Tylenol PO 650 mg Q6H PRN Administration analgesia/fever Albuterol/Ipratropium 3 ml 06/08/17 22:30 06/09/17 04:05 Duoneb 3.0-0.5 Mg/3 Ml NEB 3 ml Q6H JACOB Administration Dipyridamole/Aspirin 1 cap 06/09/17 08:00 Aggrenox 200-25 Mg PO BID JACOB Docusate Sodium 100 mg 06/09/17 00:03 Colace PO DAILY PRN Constipation Furosemide 20 mg 06/09/17 08:00 06/09/17 07:52 Lasix PO Not Given DAILY JACOB Sodium Chloride 1,000 mls @ 100 mls/hr 06/08/17 22:15 06/08/17 22:20 Normal Saline IV 100 mls/hr ASDIRECTED JACOB Administration Ceftriaxone Sodium 1 gm/ 50 mls @ 200 mls/hr 06/08/17 22:45 06/08/17 22:52 Sodium Chloride IV 200 mls/hr Q24H JACOB Administration Azithromycin 500 mg/ Sodium 250 mls @ 250 mls/hr 06/08/17 23:30 06/08/17 23: 49 Chloride IV 250 mls/hr Q24H JACOB Administration Lisinopril 20 mg 06/09/17 08:00 Prinivil PO DAILY [facility] Multivitamins/Minerals 1 tab 06/09/17 08:00 Thera M Plus PO DAILY [facility] Non-Formulary Medication 1 puff 06/09/17 08:00 Fluticasone/Salmeterol [Advair 250-50] INH BID [facility] Oxybutynin Chloride 10 mg 06/09/17 08:00 Oxybutynin Er PO BID [facility] Sertraline HCl 50 mg 06/09/17 08:00 Zoloft PO DAILY JACOB Simvastatin 40 mg 06/09/17 20:00 Zocor PO QPM JACOB Discontinued Medications Generic Name Dose Route Start Last Admin Trade Name Freq PRN Reason Stop Dose Admin Hydrocodone Bitart/Acetaminophen Confirm 06/09/17 07:15 [place] 325-5 Mg Administered 06/09/17 07:16 Dose 1 tab .ROUTE .STK-MED ONE Albuterol Confirm 06/09/17 07:03 06/09/17 07:06 Proventil Neb Soln Administered 06/09/17 07:04 2.5 mg Dose Administration 2.5 mg .ROUTE .STK-MED ONE Ceftriaxone Sodium Confirm 06/08/17 22:53 06/09/17 01:49 Rocephin Administered 06/08/17 22:54 Not Given Dose 1 gm .ROUTE .STK-MED ONE Furosemide Confirm 06/08/17 23:24 06/08/17 23:40 Lasix Administered 06/08/17 23:25 Not Given Dose 40 mg .ROUTE .STK-MED ONE Furosemide 20 mg 06/08/17 23:29 06/08/17 23:41 Lasix IVPUSH 06/08/17 23:30 20 mg NOW ONE Administration Furosemide Confirm 06/09/17 07:23 Lasix Administered 06/09/17 07:24 Dose 20 mg .ROUTE .STK-MED ONE Morphine Sulfate Confirm 06/09/17 07:15 Morphine Administered 06/09/17 07:16 Dose 2 mg .ROUTE .STK-MED ONE - Re-Assessments/Exams Free Text/Narrative Re-Assessment/Exam: 06/08/17 23:38 Chest x-ray completed and quick read done with no consolidation noted, but chronic COPD noted. WBC elevated with temperature. Will draw blood cultures and U/A and start Rocephin 1 gm IV. BNP elevated with crackles to right base, will give Lasix 20mg IV and indwelling blood catheter for I/O. Noted pt has had Azithromycin in past, will start Azithromycin 500mg IV. Will continue with duoneb every 6 hour. Troponins are negative. Pt states feeling some better. SpO2 96% with non-rebreather face mask. Pt trying to have BM now on bedpan. Will admit with acute on chronic bronchitis. Departure - Departure Time of Disposition: 23:57 Disposition: Admitted As Inpatient 65 Condition: Good Clinical Impression: Acute bronchitis with COPD, CHF exacerbation - Discharge Information - Problem List & Annotations (1) Acute bronchitis with COPD SNOMED Code(s): 111099902234998 Code(s): J44.0 - CHRONIC OBSTRUCTIVE PULMON DISEASE W ACUTE LOWER RESP INFCT ; J20.9 - ACUTE BRONCHITIS, UNSPECIFIED Status: Acute Current Visit: Yes (2) CHF exacerbation SNOMED Code(s): 40200914 Code(s): I50.9 - HEART FAILURE, UNSPECIFIED Status: Acute Current Visit: Yes Onset Date: 06/08/17 Annotation/Comment:: 06-08-2017- Congestive heart failure exacerbation. Also an elevated temperature. - Problem List Review Problem List Initiated/Reviewed/Updated: Yes - My Orders Last 24 Hours: My Active Orders 06/08/17 22:13 Chest 1V Frontal [CR] Stat 06/08/17 22:15 Sodium Chloride 0.9% [Normal Saline] 1,000 ml IV ASDIRECTED 06/08/17 22:22 EKG Documentation Completion [RC] ASDIRECTED 06/08/17 22:23 RT Aerosol Therapy [RC] ASDIRECTED 06/08/17 22:30 Albuterol/Ipratropium [DuoNeb 3.0-0.5 MG/3 ML] 3 ml NEB Q6H 06/08/17 22:40 Cardiac Monitoring [RC] CONTINUOUS Oxygen Therapy [RC] PRN 06/08/17 22:45 CULTURE BLOOD [BC] Stat cefTRIAXone [Rocephin] 1 gm Sodium Chloride 0.9% [Normal Saline] 50 ml IV Q24H 06/08/17 23:26 Urinary Catheter Assessment [RC] ASDIRECTED 06/08/17 23:30 Blood Catheter Insertion [Insert Urinary Catheter] [OM.PC] Q24H Azithromycin [Zithromax] 500 mg Sodium Chloride 0.9% [Normal Saline] 250 ml IV Q24H - Assessment/Plan Last 24 Hours: My Active Orders 06/08/17 22:13 Chest 1V Frontal [CR] Stat 06/08/17 22:15 Sodium Chloride 0.9% [Normal Saline] 1,000 ml IV ASDIRECTED 06/08/17 22:22 EKG Documentation Completion [RC] ASDIRECTED 06/08/17 22:23 RT Aerosol Therapy [RC] ASDIRECTED 06/08/17 22:30 Albuterol/Ipratropium [DuoNeb 3.0-0.5 MG/3 ML] 3 ml NEB Q6H 06/08/17 22:40 Cardiac Monitoring [RC] CONTINUOUS Oxygen Therapy [RC] PRN 06/08/17 22:45 CULTURE BLOOD [BC] Stat cefTRIAXone [Rocephin] 1 gm Sodium Chloride 0.9% [Normal Saline] 50 ml IV Q24H 06/08/17 23:26 Urinary Catheter Assessment [RC] ASDIRECTED 06/08/17 23:30 Blood Catheter Insertion [Insert Urinary Catheter] [OM.PC] Q24H Azithromycin [Zithromax] 500 mg Sodium Chloride 0.9% [Normal Saline] 250 ml IV Q24H Assessment:: Acute on chronic bronchitis: CHF exacerbation: Plan: Will admit pt with acute bronchitis and chronic COPD with CHF exacerbation. Will continue with Rocephin 1 gm IV daily and Azithromycin 250 mg daily after the 500 mg IV one time in ER. Indwelling blood catheter for I/O with use of Lasix 20 mg IV in ER. Blood cultures pending. Influenza screen negative. Leukocytosis noted with elevated temperature of 103 at home per EMS. Temperature 100.5 on admit to ER. Continue with duoneb every 6 hour and Oxygen continuous, wean to Oxygen cannula as able to keep SpO2>92 %. IV fluid NACL.
[2017-06-08] MEDS: Sodium Chloride 0.9% 1,000 ML IV SCH (22:20)
[2017-06-08] MEDS ORDERED: Albuterol/Ipratropium 3.0-0.5 MG/3 ML Neb Soln ONE (22:45)
[2017-06-08] MEDS: cefTRIAXone 1 GM in Sodium Chloride 0.9% 50 ML IV SCH (22:52)
[2017-06-08] MEDS ORDERED: cefTRIAXone 1 GM Vial ONE (22:53)
[2017-06-08] MEDS ORDERED: Furosemide 40 MG/4 ML VIAL ONE (23:24)
[2017-06-08] MEDS ORDERED: Furosemide 40 MG/4 ML VIAL IVPUSH ONE (23:29)
[2017-06-08] MEDS: Azithromycin 500 MG in Sodium Chloride 0.9% 250 ML IV SCH (23:49)
[2017-06-08] MEDS ORDERED: Acetaminophen 325 MG Tab PO PRN (23:57)
[2017-06-09] MEDS ORDERED: Docusate Sodium 100 MG Cap PO PRN (00:03)
[2017-06-09] MEDS: Albuterol/Ipratropium 3.0-0.5 MG/3 ML Neb Soln NEB SCH ×5 (04:05→22:42)
[2017-06-09] MEDS ORDERED: Albuterol 0.083% 2.5 MG/3 ML Neb Soln ONE (07:03)
[2017-06-09] MEDS ORDERED: Acetaminophen/HYDROcodone 325-5 MG Tab ONE ×2 (07:15→12:37)
[2017-06-09] MEDS ORDERED: Morphine 2 MG/ML Syringe ONE ×2 (07:15→22:20)
[2017-06-09] MEDS ORDERED: Furosemide 20 MG/2 ML VIAL ONE (07:23)
[2017-06-09] MEDS ORDERED: Furosemide 20 MG Tab PO SCH (08:00)
[2017-06-09] MEDS ORDERED: Non-Formulary Medication 1 Each (Fluticasone/Salmeterol [Advair 250-50] 1 PUFF) INH SCH (08:00)
[2017-06-09] MEDS: Formoterol/Mometasone 200-5 MCG 8.8 GM Inhaler IH SCH ×2 (08:30→20:20)
[2017-06-09] MEDS: Oxybutynin 5 MG Tab.ER PO SCH ×2 (08:31→20:20)
[2017-06-09] MEDS: Aspirin/Dipyridamole 200-25 MG Cap.ER PO SCH ×2 (08:31→20:20)
[2017-06-09] MEDS: Lisinopril 20 MG Tab PO SCH (08:32)
[2017-06-09] MEDS: Multivitamins with Iron/Calcium/Folic Acid/Minerals Tab PO SCH (08:33)
[2017-06-09] MEDS: Sertraline 50 MG Tab PO SCH (08:34)
--- NOTE | 2017-06-09 08:34 | PCM.PN ---
- General Info Date of Service: 06/09/17 Admission Dx/Problem (Free Text): Acute bronchitis with COPD and exacerbation CHF Functional Status: Reports: Pain Controlled, Incentive Spirometry - Review of Systems General: Reports: Weakness Cardiovascular: Reports: Other (left rib pain) Gastrointestinal: Reports: Decreased Appetite Skin: Reports: No Symptoms Neurological: Reports: No Symptoms Psychiatric: Reports: No Symptoms - Patient Data Vitals - Most Recent: Last Vital Signs Temp 98.6 F 06/09/17 04:00 Pulse 58 L 06/09/17 04:00 Resp 22 H 06/09/17 04:00 BP 110/57 L 06/09/17 04:00 Pulse Ox 86 L 06/09/17 07:15 Weight - Most Recent: 165 lb I&O - Last 24 Hours: Intake & Output 06/08/17 06/09/17 06/09/17 22:59 06:59 14:59 Intake Total 1131 Output Total 900 Balance 231 Lab Results Last 24 Hours: Laboratory Results - last 24 hr 06/09/17 Range/Units 07:30 WBC 12.2 H (4.0-11.0) K/uL RBC 4.76 (4.50-6.50) M/uL Hgb 14.0 (13.0-18.0) g/dL Hct 42.7 (40.0-54.0) % MCV 90 (76-96) fL MCH 29.4 (27.0-32.0) pg MCHC 32.8 (31.0-35.0) g/dL RDW 13.9 (11.0-16.0) % Plt Count 213 D (150-400) K/uL MPV 9.1 (6.0-10.0) fL Neut % (Auto) 72.9 H (45.0-70.0) % Lymph % (Auto) 19.3 L (20.0-40.0) % [place] % (Auto) 7.5 (3.0-10.0) % Eos % (Auto) 0.1 L (1.0-5.0) % Baso % (Auto) 0.2 (0.0-0.5) % Neut # (Auto) 8.90 H (2.00-7.50) K/uL Lymph # (Auto) 2.35 (1.50-4.00) K/uL [place] # (Auto) 0.91 H (0.20-0.80) K/uL Eos # (Auto) 0.01 L (0.04-0.40) K/uL Baso # (Auto) 0.02 (0.02-0.10) K/uL Med Orders - Current: Current Medications Acetaminophen (Tylenol) 650 mg PO Q6H PRN PRN Reason: analgesia/fever Last Admin: 06/09/17 06:44 Dose: 650 mg Albuterol/Ipratropium (Duoneb 3.0-0.5 Mg/3 Ml) 3 ml NEB Q6H JACOB Last Admin: 06/09/17 04:05 Dose: 3 ml Dipyridamole/Aspirin (Aggrenox 200-25 Mg) 1 cap PO BID JACOB Docusate Sodium (Colace) 100 mg PO DAILY PRN PRN Reason: Constipation Furosemide (Lasix) 20 mg PO DAILY [facility] Last Admin: 06/09/17 07:52 Dose: Not Given Sodium Chloride (Normal Saline) 1,000 mls @ 100 mls/hr IV ASDIRECTED [facility] Last Admin: 06/08/17 22:20 Dose: 100 mls/hr Ceftriaxone Sodium 1 gm/ (Sodium Chloride) 50 mls @ 200 mls/hr IV Q24H [facility] Last Admin: 06/08/17 22:52 Dose: 200 mls/hr Azithromycin 500 mg/ Sodium (Chloride) 250 mls @ 250 mls/hr IV Q24H [facility] Last Admin: 06/08/17 23:49 Dose: 250 mls/hr Lisinopril (Prinivil) 20 mg PO DAILY [facility] Mometasone Furoate/Formoterol Fumar (Dulera 200-5 Mcg) 2 puff IH BID [facility] Multivitamins/Minerals (Thera M Plus) 1 tab PO DAILY [facility] Oxybutynin Chloride (Oxybutynin Er) 10 mg PO BID [facility] Sertraline HCl (Zoloft) 50 mg PO DAILY [facility] Simvastatin (Zocor) 40 mg PO QPM [facility] Discontinued Medications Hydrocodone Bitart/Acetaminophen ([place] 325-5 Mg) Confirm Administered Dose 1 tab .ROUTE .STK-MED ONE Stop: 06/09/17 07:16 Albuterol (Proventil Neb Soln) Confirm Administered Dose 2.5 mg .ROUTE .STK-MED ONE Stop: 06/09/17 07:04 Last Admin: 06/09/17 07:06 Dose: 2.5 mg Ceftriaxone Sodium (Rocephin) Confirm Administered Dose 1 gm .ROUTE .STK-MED ONE Stop: 06/08/17 22:54 Last Admin: 06/09/17 01:49 Dose: Not Given Furosemide (Lasix) Confirm Administered Dose 40 mg .ROUTE .STK-MED ONE Stop: 06/08/17 23:25 Last Admin: 06/08/17 23:40 Dose: Not Given Furosemide (Lasix) 20 mg IVPUSH NOW ONE Stop: 06/08/17 23:30 Last Admin: 06/08/17 23:41 Dose: 20 mg Furosemide (Lasix) Confirm Administered Dose 20 mg .ROUTE .STK-MED ONE Stop: 06/09/17 07:24 Morphine Sulfate (Morphine) Confirm Administered Dose 2 mg .ROUTE .STK-MED ONE Stop: 06/09/17 07:16 - Exam Quality Assessment: Supplemental Oxygen, Urine Catheter General: Alert, Oriented, Cooperative HEENT: Mucous Membr. Moist/[place] Neck: Supple Lungs: Decreased Breath Sounds (to bases), Rhonchi (end expiratory bilaterally) GI/Abdominal Exam: Normal Bowel Sounds, Soft, Non-Tender Extremities: Normal Inspection, Non-Tender, No Pedal Edema, Normal Capillary Refill Skin: Warm, Dry Neurological: No New Focal Deficit Psy/Mental Status: Alert, Normal Affect, Normal Mood - Problem List & Annotations (1) Acute bronchitis with COPD SNOMED Code(s): 930580926784824 Code(s): J44.0 - CHRONIC OBSTRUCTIVE PULMON DISEASE W ACUTE LOWER RESP INFCT ; J20.9 - ACUTE BRONCHITIS, UNSPECIFIED Status: Acute Current Visit: Yes (2) CHF exacerbation SNOMED Code(s): 39971500 Code(s): I50.9 - HEART FAILURE, UNSPECIFIED Status: Acute Current Visit: Yes Onset Date: 06/08/17 Annotation/Comment:: 06-08-2017- Congestive heart failure exacerbation. Also an elevated temperature. - Problem List Review Problem List Initiated/Reviewed/Updated: Yes - My Orders Last 24 Hours: My Active Orders 06/09/17 00:03 Docusate Sodium [Colace] 100 mg PO DAILY PRN 06/09/17 01:16 CULTURE MRSA SURVEY [RM] Stat 06/09/17 08:00 Aspirin/Dipyridamole [Aggrenox 200-25 MG] 1 cap PO BID Furosemide [Lasix] 20 mg PO DAILY Lisinopril [Prinivil] 20 mg PO DAILY Multivitamins w-Iron/Ca/FA/Min [Thera M Plus] 1 tab PO DAILY Oxybutynin [Oxybutynin ER] 10 mg PO BID Sertraline [Zoloft] 50 mg PO DAILY 06/09/17 20:00 Mometasone/Formoterol [Dulera 200-5 MCG] 2 puff IH BID Simvastatin [Zocor] 40 mg PO QPM - Plan Plan:: Pt is feeling some better this am. He continues to have shortness of breath, but improved. He states he doesn't want to take a deep breath or cough related to pain to his ribs. SpO2 is improved and on nasal cannula at 4LPM. MS 2 mg IV this am and will start [place] every 4-6 hr for pain relief. Lasix 20 mg IV this am and continue blood catheter for I/O. Heart rate continues at 48. Will continue with telemetry. WBC slighlty elevated this am, but improved neutrophils noted. Will continue with IV Rocephin and IV Azithromycin. Will continue with incentive spirometry and nebulizers and inhalers. U/A shows small positive leuk estrase and WBC. Will discuss pt status with Dr Vidales,his primary physician.
--- NOTE | 2017-06-09 10:47 | CR ---
DATE OF SERVICE: 06/08/17 CLINICAL DATA: cough AP PORTABLE CHEST: Comparison is made to a prior exam dated 01/22/17. The heart size is stable. The patient has taken a poor inspiration. The pulmonary vasculature does appear more prominent than on the prior exam with some cephalization of flow suggesting mild pulmonary venous congestion. There are mild interstitial changes throughout both lungs with progression from the prior exam. There are mild atelectatic changes in the left lung base. The lungs are otherwise clear. No pneumothorax. No pleural effusions. [id number] [facility]
[2017-06-09] MEDS: Sodium Chloride 0.9% 1,000 ML IV SCH ×2 (12:44→22:51)
[2017-06-09] MEDS: Furosemide 40 MG/4 ML VIAL IVPUSH SCH (16:05)
--- NOTE | 2017-06-09 16:09 | PCM.SN ---
- Free Text/Narrative Note: Called one call [phone] and discussed plan of care with Dr. Mars and Dr. Catalan. Discussed plan of care and per Cardiology - they feel he is not a candidate due to recent fractures and contusion of the lungs. He would only be a candidate for Cardiac monitoring. Discussed plan if troponins were to elevated and the plan for monitoring would not change and patient would not go for any intervention either. Discussed monitoring Bradycardia and only if it were symptomatic hong would he require further intervention. Patient plan will be to continue monitoring here in inpatient services and will not be transferred.
[2017-06-09] MEDS ORDERED: Simvastatin 40 MG Tab PO SCH (20:00)
[2017-06-09] MEDS: Acetaminophen/HYDROcodone 325-5 MG Tab PO PRN (20:18)
--- NOTE | 2017-06-09 21:03 | CT ---
DATE OF SERVICE: 06/09/2017 CLINICAL DATA: Fall, abdominal pain. UNENHANCED CHEST CT: Multislice acquisition through the chest without IV contrast was performed. No priors. There are emphysematous changes throughout both lungs. There is extensive infiltrate and consolidation in the left lower lobe with air bronchograms. There is a small area of atelectasis and consolidation in the right lung base posteriorly also. There are linear densities in both lower lungs consistent with linear atelectasis or fibrosis. No other pulmonary parenchymal abnormalities. No pleural effusions. The heart is enlarged. There are coronary artery calcifications. No hilar or mediastinal adenopathy. There are atherosclerotic changes of the thoracic aorta. No aneurysm. There are multiple rib fractures posterolaterally on the left. No other significant findings. IMPRESSION: Multiple left rib fractures. Infiltrate and consolidation of left lower lobe. The differential includes pneumonia and pulmonary contusion. There is also a small area of consolidation in the right lower lobe and pneumonia should be considered. No pneumothorax. Followup exam is recommended to confirm resolution. UNENHANCED ABDOMEN AND PELVIC CT: Multislice acquisition through the abdomen and pelvis without IV or oral contrast was performed. The extensive consolidation in the left lower lobe is again seen. See chest CT dictation. The unenhanced liver appears normal. There are multiple calcified gallstones in the dependent gallbladder. No pericholecystic fluid. The spleen appears normal. The pancreas appears normal. The right adrenal appears normal. There is a 2.2 cm low-density mass within the left adrenal. It is most likely benign. 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 There is a small nonobstructing renal calculi on the left. The kidneys otherwise appear normal. No hydronephrosis or hydroureter. The appendix is minimally dilated measuring 7 mm in outside diameter. No periappendiceal fat stranding or fluid. There is severe diverticulosis of the descending and sigmoid colon. No evidence of diverticulitis. There is Ghosh catheter within the bladder. The bladder is not adequately seen to exclude pathology. No free air. No free fluid. No dilated loops of bowel. There is a bilobed abdominal aortic aneurysm. 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 The maximum diameter of the abdominal aorta is 4.2 cm. No evidence of leakage. It does not appear changed from a prior CT scan dated . The remainder of the exam is unchanged from the prior. IMPRESSION: Multiple findings as discussed above. [id number] [facility]
[2017-06-09] MEDS: cefTRIAXone 1 GM in Sodium Chloride 0.9% 50 ML IV SCH (22:42)
[2017-06-09] MEDS: Azithromycin 500 MG in Sodium Chloride 0.9% 250 ML IV SCH (23:51)
[2017-06-10] MEDS: Albuterol/Ipratropium 3.0-0.5 MG/3 ML Neb Soln NEB SCH ×5 (03:33→22:27)
[2017-06-10] MEDS: Acetaminophen/HYDROcodone 325-5 MG Tab PO PRN ×4 (03:33→20:39)
[2017-06-10] MEDS: Sertraline 50 MG Tab PO SCH (07:31)
[2017-06-10] MEDS: Multivitamins with Iron/Calcium/Folic Acid/Minerals Tab PO SCH (07:32)
[2017-06-10] MEDS: Oxybutynin 5 MG Tab.ER PO SCH ×2 (07:32→20:39)
[2017-06-10] MEDS: Aspirin/Dipyridamole 200-25 MG Cap.ER PO SCH ×2 (07:32→20:39)
--- NOTE | 2017-06-10 08:34 | PCM.PN ---
- General Info Date of Service: 06/10/17 Subjective Update: Patient states he feels much better. He is currently sitting comfortably in the recliner eating breakfast. He continues to have left chest wall and abdominal pain and tenderness. He states that has improved greatly with the medication. Denies any shortness of breath or chest pain. Functional Status: Reports: Pain Controlled - Review of Systems General: Reports: Weakness HEENT: Reports: No Symptoms Pulmonary: Reports: Pleuritic Chest Pain Cardiovascular: Reports: No Symptoms Gastrointestinal: Reports: No Symptoms Genitourinary: Reports: No Symptoms Musculoskeletal: Reports: No Symptoms Neurological: Reports: Weakness Psychiatric: Reports: No Symptoms - Patient Data Vitals - Most Recent: Last Vital Signs Temp 37.1 C 06/10/17 03:40 Pulse 83 06/10/17 03:40 Resp 17 06/10/17 03:40 BP 96/59 L 06/10/17 03:40 Pulse Ox 86 L 06/10/17 05:58 Weight - Most Recent: 74.843 kg I&O - Last 24 Hours: Intake & Output 06/09/17 06/10/17 06/10/17 22:59 06:59 14:59 Intake Total 1140 930 Output Total 400 150 Balance 740 780 Lab Results Last 24 Hours: Laboratory Results - last 24 hr 06/09/17 06/10/17 06/10/17 Range/Units 14:30 07:10 07:10 WBC 12.8 H (4.0-11.0) K/uL RBC 4.22 L (4.50-6.50) M/uL Hgb 12.4 L (13.0-18.0) g/dL Hct 37.6 L (40.0-54.0) % MCV 89 (76-96) fL MCH 29.4 (27.0-32.0) pg MCHC 33.0 (31.0-35.0) g/dL RDW 14.0 (11.0-16.0) % Plt Count 189 (150-400) K/uL MPV 9.1 (6.0-10.0) fL Neut % (Auto) 87.3 H (45.0-70.0) % Lymph % (Auto) 6.0 L (20.0-40.0) % [place] % (Auto) 6.2 (3.0-10.0) % Eos % (Auto) 0.3 L (1.0-5.0) % Baso % (Auto) 0.2 (0.0-0.5) % Neut # (Auto) 11.19 H (2.00-7.50) K/uL Lymph # (Auto) 0.77 L (1.50-4.00) K/uL [place] # (Auto) 0.79 (0.20-0.80) K/uL Eos # (Auto) 0.04 (0.04-0.40) K/uL Baso # (Auto) 0.03 (0.02-0.10) K/uL Sodium 140 (136-145) mmol/L Potassium 3.7 (3.5-5.1) mmol/L Chloride 103 (98-107) mmol/L Carbon Dioxide 27.0 (21.0-32.0) mmol/L Anion Gap 13.7 (5.0-15.0) mmol/L BUN 34 H D (8-26) mg/dL Creatinine 1.44 H (0.70-1.30) mg/dL Est Cr Clr Drug Dosing 41.87 mL/min Estimated GFR (MDRD) 47 L (>60) MLS/MIN BUN/Creatinine Ratio 23.6 (6-25) Glucose 125 H (74-100) mg/dL Calcium 8.3 L (8.5-10.1) mg/dL Total Bilirubin 0.8 (0.0-1.0) mg/dL AST 21 (15-37) U/L ALT 16 (12-78) U/L Alkaline Phosphatase 55 (46-116) U/L Troponin I 0.077 H* D (0.000-0.060) ng/mL Total Protein 7.0 (6.4-8.2) g/dL Albumin 3.0 L (3.4-5.0) g/dL Globulin 4.0 (2.2-4.2) g/dL Albumin/Globulin Ratio 0.8 (0.8-2.0) 06/10/17 Range/Units 07:10 WBC (4.0-11.0) K/uL RBC (4.50-6.50) M/uL Hgb (13.0-18.0) g/dL Hct (40.0-54.0) % MCV (76-96) fL MCH (27.0-32.0) pg MCHC (31.0-35.0) g/dL RDW (11.0-16.0) % Plt Count (150-400) K/uL MPV (6.0-10.0) fL Neut % (Auto) (45.0-70.0) % Lymph % (Auto) (20.0-40.0) % [place] % (Auto) (3.0-10.0) % Eos % (Auto) (1.0-5.0) % Baso % (Auto) (0.0-0.5) % Neut # (Auto) (2.00-7.50) K/uL Lymph # (Auto) (1.50-4.00) K/uL [place] # (Auto) (0.20-0.80) K/uL Eos # (Auto) (0.04-0.40) K/uL Baso # (Auto) (0.02-0.10) K/uL Sodium (136-145) mmol/L Potassium (3.5-5.1) mmol/L Chloride (98-107) mmol/L Carbon Dioxide (21.0-32.0) mmol/L Anion Gap (5.0-15.0) mmol/L BUN (8-26) mg/dL Creatinine (0.70-1.30) mg/dL Est Cr Clr Drug Dosing mL/min Estimated GFR (MDRD) (>60) MLS/MIN BUN/Creatinine Ratio (6-25) Glucose (74-100) mg/dL Calcium (8.5-10.1) mg/dL Total Bilirubin (0.0-1.0) mg/dL AST (15-37) U/L ALT (12-78) U/L Alkaline Phosphatase (46-116) U/L Troponin I 0.024 D (0.000-0.060) ng/mL Total Protein (6.4-8.2) g/dL Albumin (3.4-5.0) g/dL Globulin (2.2-4.2) g/dL Albumin/Globulin Ratio (0.8-2.0) Med Orders - Current: Current Medications Acetaminophen (Tylenol) 650 mg PO Q6H PRN PRN Reason: analgesia/fever Last Admin: 06/09/17 06:44 Dose: 650 mg Hydrocodone Bitart/Acetaminophen ([place] 325-5 Mg) 1 tab PO Q4H PRN PRN Reason: Pain Last Admin: 06/10/17 07:31 Dose: 1 tab Albuterol/Ipratropium (Duoneb 3.0-0.5 Mg/3 Ml) 3 ml NEB Q6H [facility] Last Admin: 06/10/17 03:33 Dose: 3 ml Dipyridamole/Aspirin (Aggrenox 200-25 Mg) 1 cap PO BID [facility] Last Admin: 06/10/17 07:32 Dose: 1 cap Docusate Sodium (Colace) 100 mg PO DAILY PRN PRN Reason: Constipation Furosemide (Lasix) 40 mg IVPUSH DAILY [facility] Last Admin: 06/09/17 16:05 Dose: Not Given Ceftriaxone Sodium 1 gm/ (Sodium Chloride) 50 mls @ 200 mls/hr IV Q24H [facility] Last Admin: 06/09/17 22:42 Dose: 200 mls/hr Azithromycin 500 mg/ Sodium (Chloride) 250 mls @ 250 mls/hr IV Q24H [facility] Last Admin: 06/09/17 23:51 Dose: 250 mls/hr Sodium Chloride (Normal Saline) 1,000 mls @ 30 mls/hr IV ASDIRECTED [facility] Last Admin: 06/09/17 22:51 Dose: 30 mls/hr Lisinopril (Prinivil) 20 mg PO DAILY [facility] Last Admin: 06/09/17 08:32 Dose: 20 mg Mometasone Furoate/Formoterol Fumar (Dulera 200-5 Mcg) 2 puff IH BID [facility] Last Admin: 06/09/17 20:20 Dose: 2 puff Morphine Sulfate (Morphine) 1 mg IVPUSH Q2H PRN PRN Reason: Breakthrough Pain Multivitamins/Minerals (Thera M Plus) 1 tab PO DAILY [facility] Last Admin: 06/10/17 07:32 Dose: 1 tab Oxybutynin Chloride (Oxybutynin Er) 10 mg PO BID [facility] Last Admin: 06/10/17 07:32 Dose: 10 mg Senna/Docusate Sodium (Senna Plus) 1 tab PO BID [facility] Last Admin: 06/10/17 07:32 Dose: 1 tab Sertraline HCl (Zoloft) 50 mg PO DAILY [facility] Last Admin: 06/10/17 07:31 Dose: 50 mg Simvastatin (Zocor) 40 mg PO QPM [facility] Discontinued Medications Hydrocodone Bitart/Acetaminophen ([place] 325-5 Mg) Confirm Administered Dose 1 tab .ROUTE .STK-MED ONE Stop: 06/09/17 07:16 Last Admin: 06/09/17 07:30 Dose: 1 tab Hydrocodone Bitart/Acetaminophen ([place] 325-5 Mg) Confirm Administered Dose 1 tab .ROUTE .STK-MED ONE Stop: 06/09/17 12:38 Last Admin: 06/09/17 12:40 Dose: 1 tab Albuterol (Proventil Neb Soln) Confirm Administered Dose 2.5 mg .ROUTE .STK-MED ONE Stop: 06/09/17 07:04 Last Admin: 06/09/17 07:06 Dose: 2.5 mg Albuterol/Ipratropium (Duoneb 3.0-0.5 Mg/3 Ml) 3 ml .ROUTE .STK-MED ONE Stop: 06/08/17 22:46 Ceftriaxone Sodium (Rocephin) Confirm Administered Dose 1 gm .ROUTE .STK-MED ONE Stop: 06/08/17 22:54 Last Admin: 06/09/17 01:49 Dose: Not Given Furosemide (Lasix) Confirm Administered Dose 40 mg .ROUTE .STK-MED ONE Stop: 06/08/17 23:25 Last Admin: 06/08/17 23:40 Dose: Not Given Furosemide (Lasix) 20 mg IVPUSH NOW ONE Stop: 06/08/17 23:30 Last Admin: 06/08/17 23:41 Dose: 20 mg Furosemide (Lasix) 20 mg PO DAILY [facility] Last Admin: 06/09/17 07:52 Dose: Not Given Furosemide (Lasix) Confirm Administered Dose 20 mg .ROUTE .STK-MED ONE Stop: 06/09/17 07:24 Last Admin: 06/09/17 07:15 Dose: 20 mg Sodium Chloride (Normal Saline) 1,000 mls @ 100 mls/hr IV ASDIRECTED [facility] Last Admin: 06/09/17 12:44 Dose: 100 mls/hr Morphine Sulfate (Morphine) Confirm Administered Dose 2 mg .ROUTE .STK-MED ONE Stop: 06/09/17 07:16 Last Admin: 06/09/17 07:10 Dose: 2 mg Morphine Sulfate (Morphine) Confirm Administered Dose 2 mg .ROUTE .STK-MED ONE Stop: 06/09/17 22:21 Last Admin: 06/09/17 22:30 Dose: 1 mg Simvastatin (Zocor) 40 mg PO QPM [facility] Last Admin: 06/09/17 20:20 Dose: 40 mg - Exam Quality Assessment: Supplemental Oxygen General: Alert, Oriented, Cooperative HEENT: Pupils Equal, Pupils Reactive, EOMI Neck: Supple Lungs: Normal Respiratory Effort, Rales Cardiovascular: Regular Rhythm, Bradycardia GI/Abdominal Exam: Normal Bowel Sounds, Soft Back Exam: Normal Inspection Extremities: Normal Inspection - Problem List Review Problem List Initiated/Reviewed/Updated: Yes - My Orders Last 24 Hours: My Active Orders 06/09/17 14:15 Furosemide [Lasix] 40 mg IVPUSH DAILY 06/09/17 20:00 Docusate Sodium/Sennosides [Senna Plus] 1 tab PO BID 06/09/17 22:14 Morphine 1 mg IVPUSH Q2H PRN 06/09/17 22:15 Sodium Chloride 0.9% [Normal Saline] 1,000 ml IV ASDIRECTED 06/10/17 00:16 Resuscitation Status Routine - Plan Plan:: Pt is feeling some better this am. He continues to have shortness of breath, but improved. He states he doesn't want to take a deep breath or cough related to pain to his ribs. SpO2 is improved and on nasal cannula at 4LPM. MS 2 mg IV this am and will start [place] every 4-6 hr for pain relief. Lasix 20 mg IV this am and continue blood catheter for I/O. Heart rate continues at 48. Will continue with telemetry. WBC slighlty elevated this am, but improved neutrophils noted. Will continue with IV Rocephin and IV Azithromycin. Will continue with incentive spirometry and nebulizers and inhalers. U/A shows small positive leuk estrase and WBC. Will discuss pt status with Dr Vidales,his primary physician. 06/10/17 Improved symptoms. Patient states he is much better day to day and even much more today. He is able to get out of bed with assistance into the recliner. Discussed labs and discussed troponins elevating and normalizing today. Discussed renal dysfunction, pulmonary contusion, rib fractures, PT/OT and further management. Discussed re-evaluation and possible swing patient admission tomorrow.
[2017-06-10] MEDS: Furosemide 40 MG/4 ML VIAL IVPUSH SCH (09:17)
[2017-06-10] MEDS: Lisinopril 20 MG Tab PO SCH (09:18)
[2017-06-10] MEDS: Formoterol/Mometasone 200-5 MCG 8.8 GM Inhaler IH SCH ×2 (09:46→20:43)
[2017-06-10] MEDS ORDERED: Levofloxacin/Dextrose 5%-Water 100 ML IV SCH (10:30)
[2017-06-10] MEDS: Morphine 2 MG/ML Syringe IVPUSH PRN (13:13)
[2017-06-10] MEDS: Simvastatin 40 MG Tab PO SCH (20:39)
[2017-06-10] MEDS: Sodium Chloride 0.9% 1,000 ML IV SCH (22:21)
[2017-06-11] MEDS: Ondansetron 4 MG Tab.DIS PO PRN (00:05)
[2017-06-11] MEDS ORDERED: Aluminum Hydroxide/Magnesium Hydroxide/Simethicone Susp 30 ML Cup ONE (02:27)
[2017-06-11] MEDS ORDERED: Ondansetron 4 MG/2 ML SDV ONE (02:55)
[2017-06-11] MEDS ORDERED: Promethazine 25 MG/ML SDV ONE (04:15)
[2017-06-11] MEDS: Albuterol/Ipratropium 3.0-0.5 MG/3 ML Neb Soln NEB SCH ×4 (04:26→23:05)
[2017-06-11] MEDS: Promethazine 12.5 MG in Sodium Chloride 0.9% 50 ML IV PRN ×2 (04:27→07:34)
[2017-06-11] MEDS: Multivitamins with Iron/Calcium/Folic Acid/Minerals Tab PO SCH (07:30)
[2017-06-11] MEDS: Sertraline 50 MG Tab PO SCH (07:31)
[2017-06-11] MEDS: Aspirin/Dipyridamole 200-25 MG Cap.ER PO SCH ×2 (07:31→19:57)
[2017-06-11] MEDS: Furosemide 40 MG/4 ML VIAL IVPUSH SCH (07:31)
[2017-06-11] MEDS: Lisinopril 20 MG Tab PO SCH (07:31)
[2017-06-11] MEDS: Oxybutynin 5 MG Tab.ER PO SCH ×2 (07:31→19:57)
[2017-06-11] MEDS: Levofloxacin/Dextrose 5%-Water 50 ML IV SCH (07:32)
[2017-06-11] MEDS: Formoterol/Mometasone 200-5 MCG 8.8 GM Inhaler IH SCH ×2 (10:47→20:02)
[2017-06-11] MEDS ORDERED: Metoprolol Tartrate 25 MG Tab PO ONE (13:05)
[2017-06-11] MEDS: Metoclopramide 10 MG/2 ML SDV IV PRN (13:26)
--- NOTE | 2017-06-11 14:08 | PCM.PN ---
- General Info Date of Service: 06/11/17 Subjective Update: Patient feels nauseated today. He was nauseated all last night and threw up once last night and once after getting his pills and feels improved. He denies any chest pain or shortness of breath. Patient does continue to have left sided rib pain and abdominal pain. He has had a BM yesterday. Functional Status: Reports: Pain Controlled, New Symptoms (nausea, vomiting) - Review of Systems General: Reports: Weakness HEENT: Reports: No Symptoms Pulmonary: Reports: Pleuritic Chest Pain Cardiovascular: Reports: No Symptoms Gastrointestinal: Reports: Nausea, Vomiting Genitourinary: Reports: No Symptoms Musculoskeletal: Reports: No Symptoms Skin: Reports: No Symptoms Neurological: Reports: No Symptoms Psychiatric: Reports: No Symptoms - Patient Data Vitals - Most Recent: Last Vital Signs Temp 37.8 C 06/11/17 08:00 Pulse 106 H 06/11/17 13:27 Resp 16 06/11/17 08:00 BP 109/67 06/11/17 13:27 Pulse Ox 91 L 06/11/17 08:00 Weight - Most Recent: 76.566 kg I&O - Last 24 Hours: Intake & Output 06/10/17 06/11/17 06/11/17 22:59 06:59 14:59 Intake Total 730 832 Output Total 250 450 Balance 480 382 Lab Results Last 24 Hours: Laboratory Results - last 24 hr 06/11/17 06/11/17 06/11/17 Range/Units 07:00 07:10 07:10 WBC 12.3 H (4.0-11.0) K/uL RBC 4.15 L (4.50-6.50) M/uL Hgb 12.4 L (13.0-18.0) g/dL Hct 36.7 L (40.0-54.0) % MCV 88 (76-96) fL MCH 29.9 (27.0-32.0) pg MCHC 33.8 (31.0-35.0) g/dL RDW 13.8 (11.0-16.0) % Plt Count 193 (150-400) K/uL MPV 9.2 (6.0-10.0) fL Neut % (Auto) 89.3 H (45.0-70.0) % Lymph % (Auto) 4.6 L (20.0-40.0) % [place] % (Auto) 5.9 (3.0-10.0) % Eos % (Auto) 0.2 L (1.0-5.0) % Baso % (Auto) 0.0 (0.0-0.5) % Neut # (Auto) 10.94 H (2.00-7.50) K/uL Lymph # (Auto) 0.57 L (1.50-4.00) K/uL [place] # (Auto) 0.72 (0.20-0.80) K/uL Eos # (Auto) 0.03 L (0.04-0.40) K/uL Baso # (Auto) 0.00 L (0.02-0.10) K/uL Sodium 140 (136-145) mmol/L Potassium 3.7 (3.5-5.1) mmol/L Chloride 101 (98-107) mmol/L Carbon Dioxide 28.0 (21.0-32.0) mmol/L Anion Gap 14.7 (5.0-15.0) mmol/L BUN 34 H (8-26) mg/dL Creatinine 1.36 H (0.70-1.30) mg/dL Est Cr Clr Drug Dosing 44.60 mL/min Estimated GFR (MDRD) 50 L (>60) MLS/MIN BUN/Creatinine Ratio 25.0 (6-25) Glucose 126 H (74-100) mg/dL Calcium 8.7 (8.5-10.1) mg/dL Total Bilirubin 0.8 (0.0-1.0) mg/dL AST 27 (15-37) U/L ALT 17 (12-78) U/L Alkaline Phosphatase 59 (46-116) U/L Troponin I < 0.017 D (0.000-0.060) ng/mL Total Protein 7.2 (6.4-8.2) g/dL Albumin 3.0 L (3.4-5.0) g/dL Globulin 4.2 (2.2-4.2) g/dL Albumin/Globulin Ratio 0.7 L (0.8-2.0) Ilya Results Last 24 Hours: Microbiology 06/09/17 08:00 Urine Culture - Final Urine, Catheterized NO GROWTH AFTER 2 DAYS 06/09/17 01:16 MRSA Surveillance Culture - Final Nose, Unspecified NO MRSA ISOLATED Med Orders - Current: Current Medications Acetaminophen (Tylenol) 650 mg PO Q6H PRN PRN Reason: analgesia/fever Last Admin: 06/09/17 06:44 Dose: 650 mg Hydrocodone Bitart/Acetaminophen ([place] 325-5 Mg) 1 tab PO Q4H PRN PRN Reason: Pain Last Admin: 06/10/17 20:39 Dose: 1 tab Albuterol/Ipratropium (Duoneb 3.0-0.5 Mg/3 Ml) 3 ml NEB Q6H [facility] Last Admin: 06/11/17 10:30 Dose: 3 ml Dipyridamole/Aspirin (Aggrenox 200-25 Mg) 1 cap PO BID [facility] Last Admin: 06/11/17 07:31 Dose: 1 cap Docusate Sodium (Colace) 100 mg PO DAILY PRN PRN Reason: Constipation Furosemide (Lasix) 40 mg IVPUSH DAILY [facility] Last Admin: 06/11/17 07:31 Dose: 40 mg Sodium Chloride (Normal Saline) 1,000 mls @ 80 mls/hr IV ASDIRECTED [facility] Last Infusion: 06/11/17 00:06 Dose: 80 mls/hr Levofloxacin/Dextrose (Levaquin In D5w 250 Mg/50 Ml) 50 mls @ 50 mls/hr IV DAILY [facility] Stop: 06/17/17 12:00 Last Admin: 06/11/17 07:32 Dose: 50 mls/hr Promethazine HCl 12.5 mg/ (Sodium Chloride) 50.5 mls @ 200 mls/hr IV Q6H PRN PRN Reason: Nausea/Vomiting Last Admin: 06/11/17 07:34 Dose: 200 mls/hr Lisinopril (Prinivil) 20 mg PO DAILY [facility] Last Admin: 06/11/17 07:31 Dose: 20 mg Metoclopramide HCl (Reglan) 5 mg IV Q4H PRN PRN Reason: Nausea Last Admin: 06/11/17 13:26 Dose: 5 mg Mometasone Furoate/Formoterol Fumar (Dulera 200-5 Mcg) 2 puff IH BID [facility] Last Admin: 06/11/17 10:47 Dose: 2 puff Morphine Sulfate (Morphine) 1 mg IVPUSH Q2H PRN PRN Reason: Breakthrough Pain Last Admin: 06/10/17 13:13 Dose: 1 mg Multivitamins/Minerals (Thera M Plus) 1 tab PO DAILY [facility] Last Admin: 06/11/17 07:30 Dose: 1 tab Nebivolol (Bystolic) 10 mg PO DAILY [facility] Last Admin: 06/11/17 13:28 Dose: Not Given Ondansetron HCl (Zofran Odt) 4 mg PO Q4H PRN PRN Reason: Nausea/Vomiting Last Admin: 06/11/17 00:05 Dose: 4 mg Oxybutynin Chloride (Oxybutynin Er) 10 mg PO BID [facility] Last Admin: 06/11/17 07:31 Dose: 10 mg Senna/Docusate Sodium (Senna Plus) 1 tab PO BID [facility] Last Admin: 06/11/17 07:31 Dose: 1 tab Sertraline HCl (Zoloft) 50 mg PO DAILY [facility] Last Admin: 06/11/17 07:31 Dose: 50 mg Simvastatin (Zocor) 40 mg PO QPM [facility] Last Admin: 06/10/17 20:39 Dose: 40 mg Discontinued Medications Hydrocodone Bitart/Acetaminophen ([place] 325-5 Mg) Confirm Administered Dose 1 tab .ROUTE .STK-MED ONE Stop: 06/09/17 07:16 Last Admin: 06/09/17 07:30 Dose: 1 tab Hydrocodone Bitart/Acetaminophen ([place] 325-5 Mg) Confirm Administered Dose 1 tab .ROUTE .STK-MED ONE Stop: 06/09/17 12:38 Last Admin: 06/09/17 12:40 Dose: 1 tab Al Hydroxide/Mg Hydroxide (Mag-Al Plus) Confirm Administered Dose 30 ml .ROUTE .STK-MED ONE Stop: 06/11/17 02:28 Last Admin: 06/11/17 02:30 Dose: 30 ml Albuterol (Proventil Neb Soln) Confirm Administered Dose 2.5 mg .ROUTE .STK-MED ONE Stop: 06/09/17 07:04 Last Admin: 06/09/17 07:06 Dose: 2.5 mg Albuterol/Ipratropium (Duoneb 3.0-0.5 Mg/3 Ml) 3 ml .ROUTE .STK-MED ONE Stop: 06/08/17 22:46 Ceftriaxone Sodium (Rocephin) Confirm Administered Dose [address] .[address] .[facility] ONE Stop: 06/08/17 22:54 Last Admin: 06/09/17 01:49 Dose: Not Given Furosemide (Lasix) Confirm Administered Dose 40 mg .ROUTE .[facility] ONE Stop: 06/08/17 23:25 Last Admin: 06/08/17 23:40 Dose: Not Given Furosemide (Lasix) 20 mg IVPUSH NOW ONE Stop: 06/08/17 23:30 Last Admin: 06/08/17 23:41 Dose: 20 mg Furosemide (Lasix) 20 mg PO DAILY [facility] Last Admin: 06/09/17 07:52 Dose: Not Given Furosemide (Lasix) Confirm Administered Dose 20 mg .ROUTE .[facility] ONE Stop: 06/09/17 07:24 Last Admin: 06/09/17 07:15 Dose: 20 mg Sodium Chloride (Normal Saline) 1,000 mls @ 100 mls/hr IV ASDIRECTED [facility] Last Admin: 06/09/17 12:44 Dose: 100 mls/hr Ceftriaxone Sodium 1 gm/ (Sodium Chloride) 50 mls @ 200 mls/hr IV Q24H [facility] Last Admin: 06/09/17 22:42 Dose: 200 mls/hr Azithromycin 500 mg/ Sodium (Chloride) 250 mls @ 250 mls/hr IV Q24H [facility] Last Admin: 06/09/17 23:51 Dose: 250 mls/hr Levofloxacin/Dextrose (Levaquin In D5w 500 Mg/100 Ml) 100 mls @ 100 mls/hr IV ASDIRECTED [facility] Stop: 06/10/17 13:00 Last Admin: 06/10/17 10:40 Dose: 100 mls/hr Morphine Sulfate (Morphine) Confirm Administered Dose 2 mg .ROUTE .[facility] ONE Stop: 06/09/17 07:16 Last Admin: 06/09/17 07:10 Dose: 2 mg Morphine Sulfate (Morphine) Confirm Administered Dose 2 mg .ROUTE .[facility] ONE Stop: 06/09/17 22:21 Last Admin: 06/09/17 22:30 Dose: 1 mg Ondansetron HCl (Zofran) Confirm Administered Dose 4 mg .ROUTE .[facility] ONE Stop: 06/11/17 02:56 Last Admin: 06/11/17 03:00 Dose: 4 mg Promethazine HCl (Phenergan) Confirm Administered Dose 25 mg .ROUTE .STK-MED ONE Stop: 06/11/17 04:16 Last Admin: 06/11/17 04:28 Dose: Not Given Simvastatin (Zocor) 40 mg PO QPM [facility] Last Admin: 06/09/17 20:20 Dose: 40 mg - Exam Quality Assessment: Supplemental Oxygen General: Alert, Oriented HEENT: Pupils Equal, Pupils Reactive, EOMI Neck: Supple Lungs: Clear to Auscultation, Normal Respiratory Effort Cardiovascular: Regular Rate, Regular Rhythm GI/Abdominal Exam: Normal Bowel Sounds, Soft, Non-Tender Back Exam: Normal Inspection Extremities: Normal Inspection, No Pedal Edema Peripheral Pulses: 2+: Dorsalis Pedis (L), Dorsalis Pedis (R) Skin: Warm, Dry, Intact Neurological: No New Focal Deficit Psy/Mental Status: Alert, Normal Affect, Normal Mood - Problem List & Annotations (1) Paroxysmal atrial fibrillation with RVR SNOMED Code(s): 070279972 Code(s): I48.0 - PAROXYSMAL ATRIAL FIBRILLATION Status: Acute Priority: High Current Visit: Yes (2) Nausea and vomiting SNOMED Code(s): 12182650 Code(s): R11.2 - NAUSEA WITH VOMITING, UNSPECIFIED Status: Acute Priority : High Current Visit: Yes Qualifiers: Vomiting type: bilious vomiting Qualified Code(s): R11.14 - Bilious vomiting - Problem List Review Problem List Initiated/Reviewed/Updated: Yes - My Orders Last 24 Hours: My Active Orders 06/10/17 23:56 Ondansetron [Zofran ODT] 4 mg PO Q4H PRN 06/11/17 04:12 Promethazine [Phenergan] 12.5 mg Sodium Chloride 0.9% [Normal Saline] 50 ml IV Q6H 06/11/17 08:27 Abdomen Pelvis wo Cont [CT] Routine 06/11/17 12:59 EKG Documentation Completion [RC] ASDIRECTED 06/11/17 13:00 Metoclopramide [Reglan] 5 mg IV Q4H PRN - Plan Plan:: Pt is feeling some better this am. He continues to have shortness of breath, but improved. He states he doesn't want to take a deep breath or cough related to pain to his ribs. SpO2 is improved and on nasal cannula at 4LPM. MS 2 mg IV this am and will start [place] every 4-6 hr for pain relief. Lasix 20 mg IV this am and continue blood catheter for I/O. Heart rate continues at 48. Will continue with telemetry. WBC slighlty elevated this am, but improved neutrophils noted. Will continue with IV Rocephin and IV Azithromycin. Will continue with incentive spirometry and nebulizers and inhalers. U/A shows small positive leuk estrase and WBC. Will discuss pt status with Dr Vidales,his primary physician. 06/10/17 Improved symptoms. Patient states he is much better day to day and even much more today. He is able to get out of bed with assistance into the recliner. Discussed labs and discussed troponins elevating and normalizing today. Discussed renal dysfunction, pulmonary contusion, rib fractures, PT/OT and further management. Discussed re-evaluation and possible swing patient admission tomorrow. 06/11/17 Nausea and vomiting last night and this am. Patient was given phenergan and has improved symptoms. CT abd/pelvis repeated due to increasing nausea and vomit with bile present. Patient labs stable with no acute changes. WBC continues to be elevated. During the day nursing reported irregular rhythm and what appears to be paroxysmal atrial fibrillation. He was on Bystolic but that was discontinued after discussion with Cardiology when he was bradycardic. Now patient is tachycardic and shows irregular rhythm and elevated rate. We will start on Bystolic again, follow up CT results and consider swing bed admission after management of paroxysmal atrial fibrillation.
[2017-06-11] MEDS: Morphine 2 MG/ML Syringe IVPUSH PRN (14:11)
[2017-06-11] MEDS: Dextrose 5%-0.9% NaCl 1,000 ML IV SCH (15:17)
[2017-06-11] MEDS: Simvastatin 40 MG Tab PO SCH (19:57)
[2017-06-11] MEDS: Acetaminophen/HYDROcodone 325-5 MG Tab PO PRN (20:05)
--- NOTE | 2017-06-11 20:09 | CT ---
DATE OF SERVICE: 06/11/2017 CLINICAL DATA: Abdominal discomfort, intractable vomiting. UNENHANCED ABDOMEN AND PELVIC CT: Multislice acquisition through the abdomen and pelvis without IV or oral contrast was performed. Comparison is made to a prior unenhanced abdomen and pelvic CT dated 06/09/2017. There is progressive infiltrate and consolidation in the left lower lobe. There is also extensive infiltrate and consolidation in the right lower and right middle lobes with marked progression from the prior exam. Pulmonary contusion versus pneumonia. No pleural effusion. The multiple left rib fractures are again seen. The unenhanced liver is stable. The gallbladder is distended when compared to the prior exam. There is persistent cholelithiasis. No definite pericholecystic fluid. The spleen, pancreas, and both adrenals are stable when compared to the prior study. There is minimal hydronephrosis and hydroureter on the right on today's study that was not present on the prior exam. The kidneys and collecting systems are otherwise stable. The stomach is gas and fluid filled and significantly distended. There are multiple gas and fluid filled, distended loops of small bowel throughout the abdomen containing air-fluid levels. Findings are consistent with an ileus or obstruction. There is a Ghosh catheter within the bladder. It is not adequately seen to evaluate for bladder pathology. The exam is otherwise unchanged from the prior. No free air. IMPRESSION: Abnormal exam. Changes as discussed above from the prior exam. [id number]
[2017-06-12] MEDS: Dextrose 5%-0.9% NaCl 1,000 ML IV SCH (00:57)
[2017-06-12] MEDS: Albuterol/Ipratropium 3.0-0.5 MG/3 ML Neb Soln NEB SCH ×4 (04:23→23:32)
[2017-06-12] MEDS ORDERED: Non-Formulary Medication 1 Each PO SCH (08:00)
[2017-06-12] MEDS: Oxybutynin 5 MG Tab.ER PO SCH (08:05)
[2017-06-12] MEDS: Lisinopril 20 MG Tab PO SCH (08:05)
[2017-06-12] MEDS: Formoterol/Mometasone 200-5 MCG 8.8 GM Inhaler IH SCH ×2 (08:05→20:10)
[2017-06-12] MEDS: Aspirin/Dipyridamole 200-25 MG Cap.ER PO SCH (08:05)
[2017-06-12] MEDS: Sertraline 50 MG Tab PO SCH (08:05)
[2017-06-12] MEDS: Multivitamins with Iron/Calcium/Folic Acid/Minerals Tab PO SCH (08:06)
[2017-06-12] MEDS: Furosemide 40 MG/4 ML VIAL IVPUSH SCH (08:12)
[2017-06-12] MEDS: Levofloxacin/Dextrose 5%-Water 50 ML IV SCH (08:18)
--- NOTE | 2017-06-12 10:33 | PCM.PN ---
- General Info Date of Service: 06/12/17 Subjective Update: Pt is still distended. He claims he has passed some flatus last night. No nausea or vomiting. NG insertion was tried to decompress stomach, but was unsuccessful. No fever or chills. No SOB. No other compalints. Functional Status: Reports: Ambulating, Incentive Spirometry. Denies: Tolerating Diet - Review of Systems General: Reports: Weakness. Denies: Fever, Fatigue, Malaise HEENT: Denies: Sinus Congestion, Rhinitis Pulmonary: Reports: Pleuritic Chest Pain. Denies: Shortness of Breath, Cough, Sputum Cardiovascular: Denies: Chest Pain, Palpitations, Dyspnea on Exertion Gastrointestinal: Reports: Abdominal Pain. Denies: Nausea, Vomiting Genitourinary: Denies: Dysuria, Frequency Musculoskeletal: Denies: Joint Pain, Joint Swelling Skin: Denies: Jaundice, Mottled, Pallor Neurological: Denies: Dizziness, Headache, Numbness, Syncope, Tingling, Trouble Speaking Psychiatric: Denies: Anxiety, Agitation - Patient Data Vitals - Most Recent: Last Vital Signs Temp 98.4 F 06/12/17 08:00 Pulse 71 06/12/17 08:06 Resp 20 06/12/17 08:00 BP 132/73 06/12/17 08:12 Pulse Ox 87 L 06/12/17 08:00 Weight - Most Recent: 76.566 kg I&O - Last 24 Hours: Intake & Output 06/11/17 06/12/17 06/12/17 22:59 06:59 14:59 Intake Total 30 1300 Output Total 600 375 Balance -570 925 Lab Results Last 24 Hours: Laboratory Results - last 24 hr 06/12/17 06/12/17 Range/Units 07:15 07:15 WBC 11.4 H (4.0-11.0) K/uL RBC 3.94 L (4.50-6.50) M/uL Hgb 11.7 L (13.0-18.0) g/dL Hct 34.9 L (40.0-54.0) % MCV 89 (76-96) fL MCH 29.7 (27.0-32.0) pg MCHC 33.5 (31.0-35.0) g/dL RDW 13.9 (11.0-16.0) % Plt Count 207 (150-400) K/uL MPV 9.4 (6.0-10.0) fL Neut % (Auto) 85.1 H (45.0-70.0) % Lymph % (Auto) 7.7 L (20.0-40.0) % [place] % (Auto) 6.7 (3.0-10.0) % Eos % (Auto) 0.4 L (1.0-5.0) % Baso % (Auto) 0.1 (0.0-0.5) % Neut # (Auto) 9.72 H (2.00-7.50) K/uL Lymph # (Auto) 0.88 L (1.50-4.00) K/uL [place] # (Auto) 0.77 (0.20-0.80) K/uL Eos # (Auto) 0.05 (0.04-0.40) K/uL Baso # (Auto) 0.01 L (0.02-0.10) K/uL Sodium 143 (136-145) mmol/L Potassium 3.3 L (3.5-5.1) mmol/L Chloride 103 (98-107) mmol/L Carbon Dioxide 30.2 (21.0-32.0) mmol/L Anion Gap 13.1 (5.0-15.0) mmol/L BUN 29 H (8-26) mg/dL Creatinine 1.04 D (0.70-1.30) mg/dL Est Cr Clr Drug Dosing 58.33 mL/min Estimated GFR (MDRD) > 60 (>60) MLS/MIN BUN/Creatinine Ratio 27.9 H (6-25) Glucose 151 H (74-100) mg/dL Calcium 8.7 (8.5-10.1) mg/dL Total Bilirubin 0.9 (0.0-1.0) mg/dL AST 30 (15-37) U/L ALT 16 (12-78) U/L Alkaline Phosphatase 55 (46-116) U/L Total Protein 6.6 (6.4-8.2) g/dL Albumin 2.7 L (3.4-5.0) g/dL Globulin 3.9 (2.2-4.2) g/dL Albumin/Globulin Ratio 0.7 L (0.8-2.0) Ilya Results Last 24 Hours: Microbiology 06/09/17 08:00 Urine Culture - Final Urine, Catheterized NO GROWTH AFTER 2 DAYS Med Orders - Current: Current Medications Albuterol/Ipratropium (Duoneb 3.0-0.5 Mg/3 Ml) [address] [facility] Last Admin: 06/12/17 04:23 Dose: 3 ml Docusate Sodium (Colace) 100 mg PO DAILY PRN PRN Reason: Constipation Furosemide (Lasix) [address] [facility] Last Admin: 06/12/17 08:12 Dose: 40 mg Levofloxacin/Dextrose (Levaquin In D5w 250 Mg/50 Ml) 50 mls @ 50 mls/hr IV DAILY [facility] Stop: 06/17/17 12:00 Last Admin: 06/12/17 08:18 Dose: 50 mls/hr Promethazine HCl 12.5 mg/ (Sodium Chloride) 50.5 mls @ 200 mls/hr IV Q6H PRN PRN Reason: Nausea/Vomiting Last Admin: 06/11/17 07:34 Dose: 200 mls/hr Dextrose/Sodium Chloride (Dextrose 5%-Normal Saline) 1,000 mls @ 100 mls/hr IV ASDIRECTED [facility] Last Admin: 06/12/17 00:57 Dose: 100 mls/hr Potassium Chloride/Dextrose/Sod Cl (D5 Ns With 20 Meq Kcl) 1,000 mls @ 125 mls/ hr IV ASDIRECTED [facility] Metoclopramide HCl (Reglan) 5 mg IV Q4H PRN PRN Reason: Nausea Last Admin: 06/11/17 13:26 Dose: 5 mg Mometasone Furoate/Formoterol Fumar (Dulera 200-5 Mcg) [address] [facility] Last Admin: 06/12/17 08:05 Dose: 2 puff Morphine Sulfate (Morphine) 1 mg IVPUSH Q2H PRN PRN Reason: Breakthrough Pain Last Admin: 06/11/17 14:11 Dose: 1 mg Multivitamins/Minerals (Thera M Plus) [address] [facility] Last Admin: 06/12/17 08:06 Dose: 1 tab Ondansetron HCl (Zofran Odt) 4 mg PO Q4H PRN PRN Reason: Nausea/Vomiting Last Admin: 06/11/17 00:05 Dose: 4 mg Discontinued Medications Acetaminophen (Tylenol) 650 mg PO Q6H PRN PRN Reason: analgesia/fever Last Admin: 06/09/17 06:44 Dose: 650 mg Hydrocodone Bitart/Acetaminophen ([place] 325-5 Mg) Confirm Administered Dose 1 tab .ROUTE .STK-MED ONE Stop: 06/09/17 07:16 Last Admin: 06/09/17 07:30 Dose: 1 tab Hydrocodone Bitart/Acetaminophen ([place] 325-5 Mg) Confirm Administered Dose 1 tab .ROUTE .STK-MED ONE Stop: 06/09/17 12:38 Last Admin: 06/09/17 12:40 Dose: 1 tab Hydrocodone Bitart/Acetaminophen ([place] 325-5 Mg) 1 tab PO Q4H PRN PRN Reason: Pain Last Admin: 06/11/17 20:05 Dose: 1 tab Al Hydroxide/Mg Hydroxide (Mag-Al Plus) Confirm Administered Dose 30 ml .ROUTE .STK-MED ONE Stop: 06/11/17 02:28 Last Admin: 06/11/17 02:30 Dose: 30 ml Albuterol (Proventil Neb Soln) Confirm Administered Dose 2.5 mg .ROUTE .STK-MED ONE Stop: 06/09/17 07:04 Last Admin: 06/09/17 07:06 Dose: 2.5 mg Albuterol/Ipratropium (Duoneb 3.0-0.5 Mg/3 Ml) 3 ml .ROUTE .STK-MED ONE Stop: 06/08/17 22:46 Ceftriaxone Sodium (Rocephin) Confirm Administered Dose 1 gm .ROUTE .STK-MED ONE Stop: 06/08/17 22:54 Last Admin: 06/09/17 01:49 Dose: Not Given Dipyridamole/Aspirin (Aggrenox 200-25 Mg) 1 cap PO BID [facility] Last Admin: 06/12/17 08:05 Dose: 1 cap Furosemide (Lasix) Confirm Administered Dose 40 mg .ROUTE .STK-MED ONE Stop: 06/08/17 23:25 Last Admin: 06/08/17 23:40 Dose: Not Given Furosemide (Lasix) 20 mg IVPUSH NOW ONE Stop: 06/08/17 23:30 Last Admin: 06/08/17 23:41 Dose: 20 mg Furosemide (Lasix) [address] [facility] Last Admin: 06/09/17 07:52 Dose: Not Given Furosemide (Lasix) Confirm Administered Dose [address] ONE Stop: 06/09/17 07:24 Last Admin: 06/09/17 07:15 Dose: 20 mg Sodium Chloride (Normal Saline) 1,000 mls @ 100 mls/hr IV ASDIRECTED [facility] Last Admin: 06/09/17 12:44 Dose: 100 mls/hr Ceftriaxone Sodium 1 gm/ (Sodium Chloride) 50 mls @ 200 mls/hr IV Q24H [facility] Last Admin: 06/09/17 22:42 Dose: 200 mls/hr Azithromycin 500 mg/ Sodium (Chloride) 250 mls @ 250 mls/hr IV Q24H [facility] Last Admin: 06/09/17 23:51 Dose: 250 mls/hr Sodium Chloride (Normal Saline) 1,000 mls @ 80 mls/hr IV ASDIRECTED [facility] Last Infusion: 06/11/17 00:06 Dose: 80 mls/hr Levofloxacin/Dextrose (Levaquin In D5w 500 Mg/100 Ml) 100 mls @ 100 mls/hr IV ASDIRECTED [facility] Stop: 06/10/17 13:00 Last Admin: 06/10/17 10:40 Dose: 100 mls/hr Lisinopril (Prinivil) [address] [facility] Last Admin: 06/12/17 08:05 Dose: 20 mg Morphine Sulfate (Morphine) Confirm Administered Dose [address] ONE Stop: 06/09/17 07:16 Last Admin: 06/09/17 07:10 Dose: 2 mg Morphine Sulfate (Morphine) Confirm Administered Dose 2 [address] .[facility] ONE Stop: 06/09/17 22:21 Last Admin: 06/09/17 22:30 Dose: 1 mg Nebivolol (Bystolic) [address] [facility] Last Admin: 06/12/17 08:06 Dose: 10 mg Ondansetron HCl (Zofran) Confirm Administered Dose 4 mg .ROUTE .[facility] Stop: 06/11/17 02:56 Last Admin: 06/11/17 03:00 Dose: 4 mg Oxybutynin Chloride (Oxybutynin Er) [address] [facility] Last Admin: 06/12/17 08:05 Dose: 10 mg Promethazine HCl (Phenergan) Confirm Administered Dose 25 mg .ROUTE .STK-MED ONE Stop: 06/11/17 04:16 Last Admin: 06/11/17 04:28 Dose: Not Given Senna/Docusate Sodium (Senna Plus) [address] [facility] Last Admin: 06/12/17 08:06 Dose: 1 tab Sertraline HCl (Zoloft) [address] [facility] Last Admin: 06/12/17 08:05 Dose: 50 mg Simvastatin (Zocor) [address] [facility] Last Admin: 06/09/17 20:20 Dose: 40 mg Simvastatin (Zocor) [address] [facility] Last Admin: 06/11/17 19:57 Dose: 40 mg - Exam General: Alert, Oriented HEENT: Pupils Equal, Pupils Reactive, EOMI, Mucous Membr. Moist/[place] Neck: Supple Lungs: Clear to Auscultation, Normal Respiratory Effort, Other (chest wqall tenderness with palpation from rib fractures) Cardiovascular: Regular Rate, Regular Rhythm GI/Abdominal Exam: Non-Tender, No Mass, Distended, Abnormal Bowel Sounds ( hypoactive) Extremities: Normal Inspection, Normal Range of Motion, No Pedal Edema, Normal Capillary Refill - Problem List & Annotations (1) Small bowel obstruction SNOMED Code(s): 408292725 Code(s): K56.609 - UNSP INTESTNL OBST, UNSP TO PARTIAL VERSUS COMPLETE OBST Status: Acute Current Visit: Yes (2) Pneumonia SNOMED Code(s): 388680600 Code(s): J18.9 - PNEUMONIA, UNSPECIFIED ORGANISM Status: Acute Priority: High Current Visit: No Onset Date: 11/05/15 Qualifiers: Pneumonia type: due to unspecified organism Laterality: bilateral Lung location: unspecified part of lung Qualified Code(s): J18.9 - Pneumonia, unspecified organism - Problem List Review Problem List Initiated/Reviewed/Updated: Yes - My Orders Last 24 Hours: My Active Orders 06/12/17 08:09 Abdomen 1V Upright [CR] Routine 06/12/17 10:30 Dextrose 5%-Normal Saline with KCl 20 mEq @ 125 mL/Hr (1000 mL) Dextrose 5%-0.9 % NaCl with KCl [D5 NS with 20 mEq KCl] 1,000 ml IV ASDIRECTED 06/13/17 07:30 BASIC METABOLIC PANEL,BMP [CHEM] Routine - Assessment Assessment:: Rib fractures Small bowel obstruction possible Opiod induced - Plan Plan:: Pt is feeling some better this am. He continues to have shortness of breath, but improved. He states he doesn't want to take a deep breath or cough related to pain to his ribs. SpO2 is improved and on nasal cannula at 4LPM. MS 2 mg IV this am and will start [place] every 4-6 hr for pain relief. Lasix 20 mg IV this am and continue blood catheter for I/O. Heart rate continues at 48. Will continue with telemetry. WBC slighlty elevated this am, but improved neutrophils noted. Will continue with IV Rocephin and IV Azithromycin. Will continue with incentive spirometry and nebulizers and inhalers. U/A shows small positive leuk estrase and WBC. Will discuss pt status with Dr Vidales,his primary physician. 06/10/17 Improved symptoms. Patient states he is much better day to day and even much more today. He is able to get out of bed with assistance into the recliner. Discussed labs and discussed troponins elevating and normalizing today. Discussed renal dysfunction, pulmonary contusion, rib fractures, PT/OT and further management. Discussed re-evaluation and possible swing patient admission tomorrow. 06/11/17 Nausea and vomiting last night and this am. Patient was given phenergan and has improved symptoms. CT abd/pelvis repeated due to increasing nausea and vomit with bile present. Patient labs stable with no acute changes. WBC continues to be elevated. During the day nursing reported irregular rhythm and what appears to be paroxysmal atrial fibrillation. He was on Bystolic but that was discontinued after discussion with Cardiology when he was bradycardic. Now patient is tachycardic and shows irregular rhythm and elevated rate. We will start on Bystolic again, follow up CT results and consider swing bed admission after management of paroxysmal atrial fibrillation. 06/12/17 Pt claims he feels better. His AXR done today still shows multiple air fluid levels with a large gastric distension with air fluid level. I have stopped all oral medication, as it will not be absorbed secondary to obstruction. Will continue Injectable and nebulizers. Also his potassium is at 3.3, and hence have added KCl 20 meq to his IV fluids. Plan is to keep him NPO, repeat AXR and BMP in am. I have advised patient to sit in the chair and be active which would help with resolving SBO.If his obstruction does not relive in 72 hrs, might need surgical intervention. Will monitor patient closely.
--- NOTE | 2017-06-12 12:33 | CR ---
DATE OF SERVICE: 06/12/17 CLINICAL DATA: Small bowel obstruction SUPINE AND UPRIGHT ABDOMEN: There are gas-filled distended loops of small bowel throughout the abdomen and pelvis that contain air-fluid levels on the upright film. There is gas and stool present throughout the colon and rectum. Findings are consistent with a small bowel ileus or partial obstruction. No free air. There are numerous surgical clips in the pelvis. [id number] [facility]
[2017-06-12] MEDS: Dextrose 5%-0.9% NaCl with KCl 1,000 ML IV SCH ×2 (12:35→20:09)
[2017-06-12] MEDS: Morphine 2 MG/ML Syringe IVPUSH PRN (18:11)
[2017-06-13] MEDS: Albuterol/Ipratropium 3.0-0.5 MG/3 ML Neb Soln NEB SCH ×5 (03:47→22:30)
[2017-06-13] MEDS: Dextrose 5%-0.9% NaCl with KCl 1,000 ML IV SCH ×3 (03:47→19:46)
[2017-06-13] MEDS: Levofloxacin/Dextrose 5%-Water 50 ML IV SCH (08:48)
[2017-06-13] MEDS: Morphine 2 MG/ML Syringe IVPUSH PRN ×3 (09:01→20:50)
[2017-06-13] MEDS: Formoterol/Mometasone 200-5 MCG 8.8 GM Inhaler IH SCH ×2 (09:09→19:47)
[2017-06-13] MEDS: Multivitamins with Iron/Calcium/Folic Acid/Minerals Tab PO SCH (09:24)
[2017-06-13] MEDS: Furosemide 40 MG/4 ML VIAL IVPUSH SCH (09:24)
--- NOTE | 2017-06-13 19:18 | PCM.PN ---
- General Info Date of Service: 06/13/17 Admission Dx/Problem (Free Text): Acute bronchitis with COPD and exacerbation CHF Subjective Update: Pt is still distended. He claims he has passed some flatus last night. No nausea or vomiting. NG insertion was tried to decompress stomach, but was unsuccessful. No fever or chills. No SOB. No other compalints. Functional Status: Reports: Pain Controlled - Review of Systems General: Reports: Fatigue, Other (Insomnia) HEENT: Reports: No Symptoms Pulmonary: Reports: Shortness of Breath, Cough Cardiovascular: Reports: No Symptoms Gastrointestinal: Reports: No Symptoms Genitourinary: Reports: No Symptoms Musculoskeletal: Reports: Other (Rib pain.) Skin: Reports: No Symptoms Neurological: Reports: No Symptoms Psychiatric: Reports: No Symptoms - Patient Data Vitals - Most Recent: Last Vital Signs Temp 37.7 C 06/13/17 12:00 Pulse 71 06/13/17 16:00 Resp 20 06/13/17 03:54 BP 155/76 H 06/13/17 16:00 Pulse Ox 97 06/13/17 16:00 Weight - Most Recent: 76.204 kg I&O - Last 24 Hours: Intake & Output 06/13/17 06/13/17 06/13/17 06:59 14:59 22:59 Intake Total 1385 1435 Output Total 450 1925 Balance 935 -490 Lab Results Last 24 Hours: Laboratory Results - last 24 hr 06/13/17 06/13/17 Range/Units 05:40 05:40 WBC 9.8 (4.0-11.0) K/uL RBC 3.51 L (4.50-6.50) M/uL Hgb 10.3 L (13.0-18.0) g/dL Hct 31.4 L (40.0-54.0) % MCV 90 (76-96) fL MCH 29.3 (27.0-32.0) pg MCHC 32.8 (31.0-35.0) g/dL RDW 14.1 (11.0-16.0) % Plt Count 178 (150-400) K/uL MPV 8.9 (6.0-10.0) fL Neut % (Auto) 83.1 H (45.0-70.0) % Lymph % (Auto) 6.2 L (20.0-40.0) % [place] % (Auto) 10.5 H (3.0-10.0) % Eos % (Auto) 0.2 L (1.0-5.0) % Baso % (Auto) 0.0 (0.0-0.5) % Neut # (Auto) 8.14 H (2.00-7.50) K/uL Lymph # (Auto) 0.61 L (1.50-4.00) K/uL [place] # (Auto) 1.03 H (0.20-0.80) K/uL Eos # (Auto) 0.02 L (0.04-0.40) K/uL Baso # (Auto) 0.00 L (0.02-0.10) K/uL Sodium 144 (136-145) mmol/L Potassium 3.5 (3.5-5.1) mmol/L Chloride 110 H (98-107) mmol/L Carbon Dioxide 28.6 (21.0-32.0) mmol/L Anion Gap 8.9 (5.0-15.0) mmol/L BUN 22 D (8-26) mg/dL Creatinine 0.93 (0.70-1.30) mg/dL Est Cr Clr Drug Dosing 65.22 mL/min Estimated GFR (MDRD) > 60 (>60) MLS/MIN BUN/Creatinine Ratio 23.7 (6-25) Glucose 153 H (74-100) mg/dL Calcium 8.1 L (8.5-10.1) mg/dL Med Orders - Current: Current Medications Albuterol/Ipratropium (Duoneb 3.0-0.5 Mg/3 Ml) 3 ml NEB Q6H [facility] Last Admin: 06/13/17 16:32 Dose: 3 ml Docusate Sodium (Colace) 100 mg PO DAILY PRN PRN Reason: Constipation Furosemide (Lasix) 40 mg IVPUSH DAILY [facility] Last Admin: 06/13/17 09:24 Dose: 40 mg Levofloxacin/Dextrose (Levaquin In D5w 250 Mg/50 Ml) 50 mls @ 50 mls/hr IV DAILY [facility] Stop: 06/17/17 12:00 Last Admin: 06/13/17 08:48 Dose: 50 mls/hr Promethazine HCl 12.5 mg/ (Sodium Chloride) 50.5 mls @ 200 mls/hr IV Q6H PRN PRN Reason: Nausea/Vomiting Last Admin: 06/11/17 07:34 Dose: 200 mls/hr Potassium Chloride/Dextrose/Sod Cl (D5 Ns With 20 Meq Kcl) 1,000 mls @ 125 mls/ hr IV ASDIRECTED [facility] Last Admin: 06/13/17 13:01 Dose: 125 mls/hr Metoclopramide HCl (Reglan) 5 mg IV Q4H PRN PRN Reason: Nausea Last Admin: 06/11/17 13:26 Dose: 5 mg Mometasone Furoate/Formoterol Fumar (Dulera 200-5 Mcg) 2 puff IH BID [facility] Last Admin: 06/13/17 09:09 Dose: 2 puff Morphine Sulfate (Morphine) 1 mg IVPUSH Q2H PRN PRN Reason: Breakthrough Pain Last Admin: 06/13/17 15:48 Dose: 1 mg Multivitamins/Minerals (Thera M Plus) 1 tab PO DAILY [facility] Last Admin: 06/13/17 09:24 Dose: Not Given Ondansetron HCl (Zofran Odt) 4 mg PO Q4H PRN PRN Reason: Nausea/Vomiting Last Admin: 06/11/17 00:05 Dose: 4 mg Discontinued Medications Acetaminophen (Tylenol) 650 mg PO Q6H PRN PRN Reason: analgesia/fever Last Admin: 06/09/17 06:44 Dose: 650 mg Hydrocodone Bitart/Acetaminophen ([place] 325-5 Mg) Confirm Administered Dose 1 tab .ROUTE .[facility] ONE Stop: 06/09/17 07:16 Last Admin: 06/09/17 07:30 Dose: 1 tab Hydrocodone Bitart/Acetaminophen ([place] 325-5 Mg) Confirm Administered Dose 1 tab .ROUTE .ST[facility]-MED ONE Stop: 06/09/17 12:38 Last Admin: 06/09/17 12:40 Dose: 1 tab Hydrocodone Bitart/Acetaminophen ([place] 325-5 Mg) 1 tab PO Q4H PRN PRN Reason: Pain Last Admin: 06/11/17 20:05 Dose: 1 tab Al Hydroxide/Mg Hydroxide (Mag-Al Plus) Confirm Administered Dose 30 ml .ROUTE .[facility]-MED ONE Stop: 06/11/17 02:28 Last Admin: 06/11/17 02:30 Dose: 30 ml Albuterol (Proventil Neb Soln) Confirm Administered Dose 2.5 mg .ROUTE .[facility] ONE Stop: 06/09/17 07:04 Last Admin: 06/09/17 07:06 Dose: 2.5 mg Albuterol/Ipratropium (Duoneb 3.0-0.5 Mg/3 Ml) 3 ml .ROUTE .[facility] ONE Stop: 06/08/17 22:46 Ceftriaxone Sodium (Rocephin) Confirm Administered Dose 1 gm .ROUTE .[facility] ONE Stop: 06/08/17 22:54 Last Admin: 06/09/17 01:49 Dose: Not Given Dipyridamole/Aspirin (Aggrenox 200-25 Mg) 1 cap PO BID [facility] Last Admin: 06/12/17 08:05 Dose: 1 cap Furosemide (Lasix) Confirm Administered Dose 40 mg .ROUTE .[facility] ONE Stop: 06/08/17 23:25 Last Admin: 06/08/17 23:40 Dose: Not Given Furosemide (Lasix) 20 mg IVPUSH NOW ONE Stop: 06/08/17 23:30 Last Admin: 06/08/17 23:41 Dose: 20 mg Furosemide (Lasix) 20 mg PO DAILY [facility] Last Admin: 06/09/17 07:52 Dose: Not Given Furosemide (Lasix) Confirm Administered Dose 20 mg .ROUTE .[facility] ONE Stop: 06/09/17 07:24 Last Admin: 06/09/17 07:15 Dose: 20 mg Sodium Chloride (Normal Saline) 1,000 mls @ 100 mls/hr IV ASDIRECTED [facility] Last Admin: 06/09/17 12:44 Dose: 100 mls/hr Ceftriaxone Sodium 1 gm/ (Sodium Chloride) 50 mls @ 200 mls/hr IV Q24H [facility] Last Admin: 06/09/17 22:42 Dose: 200 mls/hr Azithromycin 500 mg/ Sodium (Chloride) 250 mls @ 250 mls/hr IV Q24H [facility] Last Admin: 06/09/17 23:51 Dose: 250 mls/hr Sodium Chloride (Normal Saline) 1,000 mls @ 80 mls/hr IV ASDIRECTED [facility] Last Infusion: 06/11/17 00:06 Dose: 80 mls/hr Levofloxacin/Dextrose (Levaquin In D5w 500 Mg/100 Ml) 100 mls @ 100 mls/hr IV ASDIRECTED [facility] Stop: 06/10/17 13:00 Last Admin: 06/10/17 10:40 Dose: 100 mls/hr Dextrose/Sodium Chloride (Dextrose 5%-Normal Saline) 1,000 mls @ 100 mls/hr IV ASDIRECTED [facility] Last Admin: 06/12/17 00:57 Dose: 100 mls/hr Lisinopril (Prinivil) 20 mg PO DAILY [facility] Last Admin: 06/12/17 08:05 Dose: 20 mg Morphine Sulfate (Morphine) Confirm Administered Dose 2 mg .ROUTE .[facility] ONE Stop: 06/09/17 07:16 Last Admin: 06/09/17 07:10 Dose: 2 mg Morphine Sulfate (Morphine) Confirm Administered Dose 2 mg .ROUTE .[facility] ONE Stop: 06/09/17 22:21 Last Admin: 06/09/17 22:30 Dose: 1 mg Nebivolol (Bystolic) 10 mg PO DAILY [facility] Last Admin: 06/12/17 08:06 Dose: 10 mg Ondansetron HCl (Zofran) Confirm Administered Dose 4 mg .ROUTE .[facility] ONE Stop: 06/11/17 02:56 Last Admin: 06/11/17 03:00 Dose: 4 mg Oxybutynin Chloride (Oxybutynin Er) 10 mg PO BID [facility] Last Admin: 06/12/17 08:05 Dose: 10 mg Promethazine HCl (Phenergan) Confirm Administered Dose 25 mg .ROUTE .[facility] ONE Stop: 06/11/17 04:16 Last Admin: 06/11/17 04:28 Dose: Not Given Senna/Docusate Sodium (Senna Plus) 1 tab PO BID [facility] Last Admin: 06/12/17 08:06 Dose: 1 tab Sertraline HCl (Zoloft) 50 mg PO DAILY [facility] Last Admin: 06/12/17 08:05 Dose: 50 mg Simvastatin (Zocor) 40 mg PO QPM [facility] Last Admin: 06/09/17 20:20 Dose: 40 mg Simvastatin (Zocor) 40 mg PO QPM [facility] Last Admin: 06/11/17 19:57 Dose: 40 mg - Exam Quality Assessment: Supplemental Oxygen General: Alert, Oriented HEENT: Pupils Equal, Pupils Reactive, EOMI, Mucous Membr. Moist/Media Neck: Supple Lungs: Clear to Auscultation Cardiovascular: Regular Rate, Regular Rhythm GI/Abdominal Exam: Normal Bowel Sounds, Soft, Non-Tender, No Organomegaly, No Distention, No Abnormal Bruit, No Mass, Pelvis Stable - Problem List Review Problem List Initiated/Reviewed/Updated: Yes - My Orders Last 24 Hours: My Active Orders 06/13/17 09:27 Abdomen 2V AP Flat Upright [CR] Urgent - Assessment Assessment:: Rib fractures Small bowel obstruction possible Opiod induced - Plan Plan:: Pt is feeling some better this am. He continues to have shortness of breath, but improved. He states he doesn't want to take a deep breath or cough related to pain to his ribs. SpO2 is improved and on nasal cannula at 4LPM. MS 2 mg IV this am and will start [place] every 4-6 hr for pain relief. Lasix 20 mg IV this am and continue blood catheter for I/O. Heart rate continues at 48. Will continue with telemetry. WBC slighlty elevated this am, but improved neutrophils noted. Will continue with IV Rocephin and IV Azithromycin. Will continue with incentive spirometry and nebulizers and inhalers. U/A shows small positive leuk estrase and WBC. Will discuss pt status with Dr Vidales,his primary physician. 06/10/17 Improved symptoms. Patient states he is much better day to day and even much more today. He is able to get out of bed with assistance into the recliner. Discussed labs and discussed troponins elevating and normalizing today. Discussed renal dysfunction, pulmonary contusion, rib fractures, PT/OT and further management. Discussed re-evaluation and possible swing patient admission tomorrow. 06/11/17 Nausea and vomiting last night and this am. Patient was given phenergan and has improved symptoms. CT abd/pelvis repeated due to increasing nausea and vomit with bile present. Patient labs stable with no acute changes. WBC continues to be elevated. During the day nursing reported irregular rhythm and what appears to be paroxysmal atrial fibrillation. He was on Bystolic but that was discontinued after discussion with Cardiology when he was bradycardic. Now patient is tachycardic and shows irregular rhythm and elevated rate. We will start on Bystolic again, follow up CT results and consider swing bed admission after management of paroxysmal atrial fibrillation. 06/12/17 Pt claims he feels better. His AXR done today still shows multiple air fluid levels with a large gastric distension with air fluid level. I have stopped all oral medication, as it will not be absorbed secondary to obstruction. Will continue Injectable and nebulizers. Also his potassium is at 3.3, and hence have added KCl 20 meq to his IV fluids. Plan is to keep him NPO, repeat AXR and BMP in am. I have advised patient to sit in the chair and be active which would help with resolving SBO.If his obstruction does not relive in 72 hrs, might need surgical intervention. Will monitor patient closely.
[2017-06-13] MEDS: Zolpidem 5 MG Tab PO SCH (19:46)
[2017-06-14] MEDS: Albuterol/Ipratropium 3.0-0.5 MG/3 ML Neb Soln NEB SCH ×4 (04:26→21:47)
[2017-06-14] MEDS: Morphine 2 MG/ML Syringe IVPUSH PRN ×5 (04:28→22:41)
[2017-06-14] MEDS: Dextrose 5%-0.9% NaCl with KCl 1,000 ML IV SCH ×3 (04:29→21:44)
[2017-06-14] MEDS: Multivitamins with Iron/Calcium/Folic Acid/Minerals Tab PO SCH (09:11)
[2017-06-14] MEDS: Levofloxacin/Dextrose 5%-Water 50 ML IV SCH (09:15)
[2017-06-14] MEDS: Formoterol/Mometasone 200-5 MCG 8.8 GM Inhaler IH SCH ×2 (09:33→19:44)
[2017-06-14] MEDS: Furosemide 40 MG/4 ML VIAL IVPUSH SCH (09:41)
[2017-06-14] MEDS ORDERED: Bisacodyl 10 MG Supp RECTAL ONE (11:55)
--- NOTE | 2017-06-14 13:28 | PCM.PN ---
- General Info Date of Service: 06/14/17 Functional Status: Reports: Pain Controlled, Tolerating Diet - Review of Systems General: Reports: No Symptoms HEENT: Reports: No Symptoms Pulmonary: Reports: No Symptoms Cardiovascular: Reports: No Symptoms Gastrointestinal: Reports: Decreased Appetite, Flatus Genitourinary: Reports: No Symptoms Musculoskeletal: Reports: No Symptoms Skin: Reports: No Symptoms Neurological: Reports: No Symptoms Psychiatric: Reports: No Symptoms - Patient Data Vitals - Most Recent: Last Vital Signs Temp 36.6 C 06/14/17 08:00 Pulse 70 06/14/17 08:00 Resp 18 06/14/17 04:00 BP 128/80 06/14/17 09:41 Pulse Ox 92 L 06/14/17 04:00 Weight - Most Recent: 76.204 kg I&O - Last 24 Hours: Intake & Output 06/13/17 06/14/17 06/14/17 22:59 06:59 14:59 Intake Total 1435 1740 Output Total 1925 450 Balance -490 1290 Med Orders - Current: Current Medications Albuterol/Ipratropium (Duoneb 3.0-0.5 Mg/3 Ml) 3 ml NEB Q6H [facility] Last Admin: 06/14/17 04:26 Dose: 3 ml Docusate Sodium (Colace) 100 mg PO DAILY PRN PRN Reason: Constipation Furosemide (Lasix) 40 mg IVPUSH DAILY [facility] Last Admin: 06/14/17 09:41 Dose: 40 mg Levofloxacin/Dextrose (Levaquin In D5w 250 Mg/50 Ml) 50 mls @ 50 mls/hr IV DAILY [facility] Stop: 06/17/17 12:00 Last Admin: 06/14/17 09:15 Dose: 50 mls/hr Promethazine HCl 12.5 mg/ (Sodium Chloride) 50.5 mls @ 200 mls/hr IV Q6H PRN PRN Reason: Nausea/Vomiting Last Admin: 06/11/17 07:34 Dose: 200 mls/hr Potassium Chloride/Dextrose/Sod Cl (D5 Ns With 20 Meq Kcl) 1,000 mls @ 125 mls/ hr IV ASDIRECTED [facility] Last Admin: 06/14/17 04:29 Dose: 125 mls/hr Metoclopramide HCl (Reglan) 5 mg IV Q4H PRN PRN Reason: Nausea Last Admin: 06/11/17 13:26 Dose: 5 mg Mometasone Furoate/Formoterol Fumar (Dulera 200-5 Mcg) 2 puff IH BID [facility] Last Admin: 06/14/17 09:33 Dose: 2 puff Morphine Sulfate (Morphine) 1 mg IVPUSH Q2H PRN PRN Reason: Breakthrough Pain Last Admin: 06/14/17 09:55 Dose: 1 mg Multivitamins/Minerals (Thera M Plus) 1 tab PO DAILY [facility] Last Admin: 06/14/17 09:11 Dose: Not Given Ondansetron HCl (Zofran Odt) 4 mg PO Q4H PRN PRN Reason: Nausea/Vomiting Last Admin: 06/11/17 00:05 Dose: 4 mg Zolpidem Tartrate (Ambien) 5 mg PO BEDTIME [facility] Last Admin: 06/13/17 19:46 Dose: 5 mg Discontinued Medications Acetaminophen (Tylenol) 650 mg PO Q6H PRN PRN Reason: analgesia/fever Last Admin: 06/09/17 06:44 Dose: 650 mg Hydrocodone Bitart/Acetaminophen ([place] 325-5 Mg) Confirm Administered Dose 1 tab .ROUTE .[facility] ONE Stop: 06/09/17 07:16 Last Admin: 06/09/17 07:30 Dose: 1 tab Hydrocodone Bitart/Acetaminophen ([place] 325-5 Mg) Confirm Administered Dose 1 tab .ROUTE .[facility] ONE Stop: 06/09/17 12:38 Last Admin: 06/09/17 12:40 Dose: 1 tab Hydrocodone Bitart/Acetaminophen ([place] 325-5 Mg) 1 tab PO Q4H PRN PRN Reason: Pain Last Admin: 06/11/17 20:05 Dose: 1 tab Al Hydroxide/Mg Hydroxide (Mag-Al Plus) Confirm Administered Dose 30 ml .ROUTE .[facility] ONE Stop: 06/11/17 02:28 Last Admin: 06/11/17 02:30 Dose: 30 ml Albuterol (Proventil Neb Soln) Confirm Administered Dose 2.5 mg .ROUTE .[facility] ONE Stop: 06/09/17 07:04 Last Admin: 06/09/17 07:06 Dose: 2.5 mg Albuterol/Ipratropium (Duoneb 3.0-0.5 Mg/3 Ml) 3 ml .ROUTE .[facility] ONE Stop: 06/08/17 22:46 Bisacodyl (Dulcolax) 10 mg RECTAL ONETIME ONE Stop: 06/14/17 11:56 Ceftriaxone Sodium (Rocephin) Confirm Administered Dose 1 gm .ROUTE .[facility] ONE Stop: 06/08/17 22:54 Last Admin: 06/09/17 01:49 Dose: Not Given Dipyridamole/Aspirin (Aggrenox 200-25 Mg) 1 cap PO BID [facility] Last Admin: 06/12/17 08:05 Dose: 1 cap Furosemide (Lasix) Confirm Administered Dose 40 mg .ROUTE .[facility] ONE Stop: 06/08/17 23:25 Last Admin: 06/08/17 23:40 Dose: Not Given Furosemide (Lasix) 20 mg IVPUSH NOW ONE Stop: 06/08/17 23:30 Last Admin: 06/08/17 23:41 Dose: 20 mg Furosemide (Lasix) 20 mg PO DAILY [facility] Last Admin: 06/09/17 07:52 Dose: Not Given Furosemide (Lasix) Confirm Administered Dose 20 mg .ROUTE .[facility] ONE Stop: 06/09/17 07:24 Last Admin: 06/09/17 07:15 Dose: 20 mg Sodium Chloride (Normal Saline) 1,000 mls @ 100 mls/hr IV ASDIRECTED [facility] Last Admin: 06/09/17 12:44 Dose: 100 mls/hr Ceftriaxone Sodium 1 gm/ (Sodium Chloride) 50 mls @ 200 mls/hr IV Q24H [facility] Last Admin: 06/09/17 22:42 Dose: 200 mls/hr Azithromycin 500 mg/ Sodium (Chloride) 250 mls @ 250 mls/hr IV Q24H [facility] Last Admin: 06/09/17 23:51 Dose: 250 mls/hr Sodium Chloride (Normal Saline) 1,000 mls @ 80 mls/hr IV ASDIRECTED [facility] Last Infusion: 06/11/17 00:06 Dose: 80 mls/hr Levofloxacin/Dextrose (Levaquin In D5w 500 Mg/100 Ml) 100 mls @ 100 mls/hr IV ASDIRECTED [facility] Stop: 06/10/17 13:00 Last Admin: 06/10/17 10:40 Dose: 100 mls/hr Dextrose/Sodium Chloride (Dextrose 5%-Normal Saline) 1,000 mls @ 100 mls/hr IV ASDIRECTED [facility] Last Admin: 06/12/17 00:57 Dose: 100 mls/hr Lisinopril (Prinivil) 20 mg PO DAILY [facility] Last Admin: 06/12/17 08:05 Dose: 20 mg Morphine Sulfate (Morphine) Confirm Administered Dose 2 mg .ROUTE .STK-MED ONE Stop: 06/09/17 07:16 Last Admin: 06/09/17 07:10 Dose: 2 mg Morphine Sulfate (Morphine) Confirm Administered Dose 2 mg .ROUTE .STK-MED ONE Stop: 06/09/17 22:21 Last Admin: 06/09/17 22:30 Dose: 1 mg Nebivolol (Bystolic) 10 mg PO DAILY [facility] Last Admin: 06/12/17 08:06 Dose: 10 mg Ondansetron HCl (Zofran) Confirm Administered Dose 4 mg .ROUTE [facility] ONE Stop: 06/11/17 02:56 Last Admin: 06/11/17 03:00 Dose: 4 mg Oxybutynin Chloride (Oxybutynin Er) 10 mg PO BID [facility] Last Admin: 06/12/17 08:05 Dose: 10 mg Promethazine HCl (Phenergan) Confirm Administered Dose 25 mg .ROUTE [facility] ONE Stop: 06/11/17 04:16 Last Admin: 06/11/17 04:28 Dose: Not Given Senna/Docusate Sodium (Senna Plus) 1 tab PO BID [facility] Last Admin: 06/12/17 08:06 Dose: 1 tab Sertraline HCl (Zoloft) 50 mg PO DAILY [facility] Last Admin: 06/12/17 08:05 Dose: 50 mg Simvastatin (Zocor) 40 mg PO QPM [facility] Last Admin: 06/09/17 20:20 Dose: 40 mg Simvastatin (Zocor) 40 mg PO QPM [facility] Last Admin: 06/11/17 19:57 Dose: 40 mg - Exam Quality Assessment: Supplemental Oxygen General: Alert, Oriented Neck: Supple Lungs: Clear to Auscultation, Normal Respiratory Effort Cardiovascular: Regular Rate, Regular Rhythm GI/Abdominal Exam: Normal Bowel Sounds, Soft, Non-Tender, No Organomegaly, No Distention, No Abnormal Bruit, No Mass, Pelvis Stable - Problem List Review Problem List Initiated/Reviewed/Updated: Yes - My Orders Last 24 Hours: My Active Orders 06/13/17 20:00 Zolpidem [Ambien] 5 mg PO BEDTIME 06/14/17 Dinner Clear Liquid Diet [DIET] - Assessment Assessment:: Rib fractures Small bowel obstruction possible Opiod induced - Plan Plan:: Pt is feeling some better this am. He continues to have shortness of breath, but improved. He states he doesn't want to take a deep breath or cough related to pain to his ribs. SpO2 is improved and on nasal cannula at 4LPM. MS 2 mg IV this am and will start [place] every 4-6 hr for pain relief. Lasix 20 mg IV this am and continue blood catheter for I/O. Heart rate continues at 48. Will continue with telemetry. WBC slighlty elevated this am, but improved neutrophils noted. Will continue with IV Rocephin and IV Azithromycin. Will continue with incentive spirometry and nebulizers and inhalers. U/A shows small positive leuk estrase and WBC. Will discuss pt status with Dr Vidales,his primary physician. 06/10/17 Improved symptoms. Patient states he is much better day to day and even much more today. He is able to get out of bed with assistance into the recliner. Discussed labs and discussed troponins elevating and normalizing today. Discussed renal dysfunction, pulmonary contusion, rib fractures, PT/OT and further management. Discussed re-evaluation and possible swing patient admission tomorrow. 06/11/17 Nausea and vomiting last night and this am. Patient was given phenergan and has improved symptoms. CT abd/pelvis repeated due to increasing nausea and vomit with bile present. Patient labs stable with no acute changes. WBC continues to be elevated. During the day nursing reported irregular rhythm and what appears to be paroxysmal atrial fibrillation. He was on Bystolic but that was discontinued after discussion with Cardiology when he was bradycardic. Now patient is tachycardic and shows irregular rhythm and elevated rate. We will start on Bystolic again, follow up CT results and consider swing bed admission after management of paroxysmal atrial fibrillation. 06/12/17 Pt claims he feels better. His AXR done today still shows multiple air fluid levels with a large gastric distension with air fluid level. I have stopped all oral medication, as it will not be absorbed secondary to obstruction. Will continue Injectable and nebulizers. Also his potassium is at 3.3, and hence have added KCl 20 meq to his IV fluids. Plan is to keep him NPO, repeat AXR and BMP in am. I have advised patient to sit in the chair and be active which would help with resolving SBO.If his obstruction does not relive in 72 hrs, might need surgical intervention. Will monitor patient closely.
[2017-06-14] MEDS: Zolpidem 5 MG Tab PO SCH (19:44)
[2017-06-15] MEDS: Morphine 2 MG/ML Syringe IVPUSH PRN ×4 (01:24→13:38)
[2017-06-15] MEDS: Albuterol/Ipratropium 3.0-0.5 MG/3 ML Neb Soln NEB SCH ×4 (04:44→22:19)
[2017-06-15] MEDS: Dextrose 5%-0.9% NaCl with KCl 1,000 ML IV SCH ×3 (05:56→23:39)
--- NOTE | 2017-06-15 07:57 | CR ---
DATE OF SERVICE: 06/13/17 CLINICAL DATA: Bowel obstruction SUPINE AND UPRIGHT ABDOMEN: Comparison is made to a prior exam dated 06/12/17. There is a moderate amount of gas and stool present throughout the colon and rectum. The stomach is gas and fluid-filled and mildly distended. There are multiple gas-filled loops of small bowel within the mid and upper abdomen that do contain scattered air-fluid levels on the upright film. These are moderately distended. The findings are consistent with a localized ileus or small bowel obstruction. No free air. No other significant interval changes from the prior study. [id number] [facility]
[2017-06-15] MEDS: Levofloxacin/Dextrose 5%-Water 50 ML IV SCH (08:01)
[2017-06-15] MEDS: Multivitamins with Iron/Calcium/Folic Acid/Minerals Tab PO SCH (08:01)
[2017-06-15] MEDS: Furosemide 40 MG/4 ML VIAL IVPUSH SCH (08:01)
[2017-06-15] MEDS: Formoterol/Mometasone 200-5 MCG 8.8 GM Inhaler IH SCH ×2 (08:02→20:16)
--- NOTE | 2017-06-15 09:02 | PCM.PN ---
- General Info Date of Service: 06/15/17 Subjective Update: Patient denies any concerns today. He is tolerating his diet. He is drinking and pain is under control. Patient denies any shortness of breath or chest pains. Functional Status: Reports: Pain Controlled, Tolerating Diet, Other (up to chair and PT/OT) - Review of Systems General: Reports: Weakness HEENT: Reports: No Symptoms Pulmonary: Reports: Pleuritic Chest Pain Cardiovascular: Reports: No Symptoms Gastrointestinal: Reports: Decreased Appetite Genitourinary: Reports: No Symptoms Musculoskeletal: Reports: Other (rib pain) Skin: Reports: No Symptoms Neurological: Reports: Weakness Psychiatric: Reports: No Symptoms - Patient Data Vitals - Most Recent: Last Vital Signs Temp 37.2 C 06/15/17 04:45 Pulse 112 H 06/15/17 06:25 Resp 20 06/15/17 04:45 BP 121/80 06/15/17 06:25 Pulse Ox 94 L 06/15/17 04:45 Weight - Most Recent: 76.204 kg I&O - Last 24 Hours: Intake & Output 06/14/17 06/15/17 06/15/17 22:59 06:59 14:59 Intake Total 1949 1590 Output Total 1600 475 Balance 349 1115 Lab Results Last 24 Hours: Laboratory Results - last 24 hr 06/15/17 06/15/17 06/15/17 Range/Units 07:30 07:30 07:30 WBC 8.3 (4.0-11.0) K/uL RBC 3.78 L (4.50-6.50) M/uL Hgb 11.2 L (13.0-18.0) g/dL Hct 33.7 L (40.0-54.0) % MCV 89 (76-96) fL MCH 29.6 (27.0-32.0) pg MCHC 33.2 (31.0-35.0) g/dL RDW 14.8 (11.0-16.0) % Plt Count 226 D (150-400) K/uL MPV 8.9 (6.0-10.0) fL Neut % (Auto) 75.8 H (45.0-70.0) % Lymph % (Auto) 12.3 L (20.0-40.0) % [place] % (Auto) 9.8 (3.0-10.0) % Eos % (Auto) 1.9 (1.0-5.0) % Baso % (Auto) 0.2 (0.0-0.5) % Neut # (Auto) 6.29 (2.00-7.50) K/uL Lymph # (Auto) 1.02 L (1.50-4.00) K/uL [place] # (Auto) 0.81 H (0.20-0.80) K/uL Eos # (Auto) 0.16 (0.04-0.40) K/uL Baso # (Auto) 0.02 (0.02-0.10) K/uL Sodium 142 (136-145) mmol/L Potassium 3.7 (3.5-5.1) mmol/L Chloride 110 H (98-107) mmol/L Carbon Dioxide 25.7 (21.0-32.0) mmol/L Anion Gap 10.0 (5.0-15.0) mmol/L BUN 10 D (8-26) mg/dL Creatinine 0.86 (0.70-1.30) mg/dL Est Cr Clr Drug Dosing 70.53 mL/min Estimated GFR (MDRD) > 60 (>60) MLS/MIN BUN/Creatinine Ratio 11.6 (6-25) Glucose 149 H (74-100) mg/dL Calcium 8.3 L (8.5-10.1) mg/dL Total Bilirubin 1.9 H D (0.0-1.0) mg/dL AST 28 (15-37) U/L ALT 23 (12-78) U/L Alkaline Phosphatase 65 (46-116) U/L Troponin I 0.038 D (0.000-0.060) ng/mL Total Protein 6.2 L (6.4-8.2) g/dL Albumin 2.3 L (3.4-5.0) g/dL Globulin 3.9 (2.2-4.2) g/dL Albumin/Globulin Ratio 0.6 L (0.8-2.0) Med Orders - Current: Current Medications Albuterol/Ipratropium (Duoneb 3.0-0.5 Mg/3 Ml) 3 ml NEB Q6H [facility] Last Admin: 06/15/17 04:44 Dose: 3 ml Docusate Sodium (Colace) 100 mg PO DAILY PRN PRN Reason: Constipation Furosemide (Lasix) 40 mg IVPUSH DAILY [facility] Last Admin: 06/15/17 08:01 Dose: 40 mg Levofloxacin/Dextrose (Levaquin In D5w 250 Mg/50 Ml) 50 mls @ 50 mls/hr IV DAILY [facility] Stop: 06/17/17 12:00 Last Admin: 06/15/17 08:01 Dose: 50 mls/hr Promethazine HCl 12.5 mg/ (Sodium Chloride) 50.5 mls @ 200 mls/hr IV Q6H PRN PRN Reason: Nausea/Vomiting Last Admin: 06/11/17 07:34 Dose: 200 mls/hr Potassium Chloride/Dextrose/Sod Cl (D5 Ns With 20 Meq Kcl) 1,000 mls @ 125 mls/ hr IV ASDIRECTED [facility] Last Admin: 06/15/17 05:56 Dose: 125 mls/hr Metoclopramide HCl (Reglan) 5 mg IV Q4H PRN PRN Reason: Nausea Last Admin: 06/11/17 13:26 Dose: 5 mg Mometasone Furoate/Formoterol Fumar (Dulera 200-5 Mcg) 2 puff IH BID [facility] Last Admin: 06/15/17 08:02 Dose: 2 puff Morphine Sulfate (Morphine) 1 mg IVPUSH Q2H PRN PRN Reason: Breakthrough Pain Last Admin: 06/15/17 05:43 Dose: 1 mg Multivitamins/Minerals (Thera M Plus) 1 tab PO DAILY [facility] Last Admin: 06/15/17 08:01 Dose: 1 tab Nebivolol (Bystolic) 10 mg PO DAILY [facility] Last Admin: 06/15/17 08:00 Dose: Not Given Ondansetron HCl (Zofran Odt) 4 mg PO Q4H PRN PRN Reason: Nausea/Vomiting Last Admin: 06/11/17 00:05 Dose: 4 mg Zolpidem Tartrate (Ambien) 5 mg PO BEDTIME [facility] Last Admin: 06/14/17 19:44 Dose: 5 mg Discontinued Medications Acetaminophen (Tylenol) 650 mg PO Q6H PRN PRN Reason: analgesia/fever Last Admin: 06/09/17 06:44 Dose: 650 mg Hydrocodone Bitart/Acetaminophen ([place] 325-5 Mg) Confirm Administered Dose 1 tab .ROUTE .STK-MED ONE Stop: 06/09/17 07:16 Last Admin: 06/09/17 07:30 Dose: 1 tab Hydrocodone Bitart/Acetaminophen ([place] 325-5 Mg) Confirm Administered Dose 1 tab .ROUTE .STK-MED ONE Stop: 06/09/17 12:38 Last Admin: 06/09/17 12:40 Dose: 1 tab Hydrocodone Bitart/Acetaminophen ([place] 325-5 Mg) 1 tab PO Q4H PRN PRN Reason: Pain Last Admin: 06/11/17 20:05 Dose: 1 tab Al Hydroxide/Mg Hydroxide (Mag-Al Plus) Confirm Administered Dose 30 ml .ROUTE .STK-MED ONE Stop: 06/11/17 02:28 Last Admin: 06/11/17 02:30 Dose: 30 ml Albuterol (Proventil Neb Soln) Confirm Administered Dose 2.5 mg .ROUTE .STK-MED ONE Stop: 06/09/17 07:04 Last Admin: 06/09/17 07:06 Dose: 2.5 mg Albuterol/Ipratropium (Duoneb 3.0-0.5 Mg/3 Ml) 3 ml .ROUTE .STK-MED ONE Stop: 06/08/17 22:46 Bisacodyl (Dulcolax) 10 mg RECTAL ONETIME ONE Stop: 06/14/17 11:56 Last Admin: 06/14/17 13:34 Dose: 10 mg Ceftriaxone Sodium (Rocephin) Confirm Administered Dose 1 gm .ROUTE .STK-MED ONE Stop: 06/08/17 22:54 Last Admin: 06/09/17 01:49 Dose: Not Given Dipyridamole/Aspirin (Aggrenox 200-25 Mg) 1 cap PO BID [facility] Last Admin: 06/12/17 08:05 Dose: 1 cap Furosemide (Lasix) Confirm Administered Dose 40 mg .ROUTE .STK-MED ONE Stop: 06/08/17 23:25 Last Admin: 06/08/17 23:40 Dose: Not Given Furosemide (Lasix) 20 mg IVPUSH NOW ONE Stop: 06/08/17 23:30 Last Admin: 06/08/17 23:41 Dose: 20 mg Furosemide (Lasix) 20 mg PO DAILY [facility] Last Admin: 06/09/17 07:52 Dose: Not Given Furosemide (Lasix) Confirm Administered Dose 20 mg .ROUTE .STK-MED ONE Stop: 06/09/17 07:24 Last Admin: 06/09/17 07:15 Dose: 20 mg Sodium Chloride (Normal Saline) 1,000 mls @ 100 mls/hr IV ASDIRECTED [facility] Last Admin: 06/09/17 12:44 Dose: 100 mls/hr Ceftriaxone Sodium 1 gm/ (Sodium Chloride) 50 mls @ 200 mls/hr IV Q24H [facility] Last Admin: 06/09/17 22:42 Dose: 200 mls/hr Azithromycin 500 mg/ Sodium (Chloride) 250 mls @ 250 mls/hr IV Q24H [facility] Last Admin: 06/09/17 23:51 Dose: 250 mls/hr Sodium Chloride (Normal Saline) 1,000 mls @ 80 mls/hr IV ASDIRECTED [facility] Last Infusion: 06/11/17 00:06 Dose: 80 mls/hr Levofloxacin/Dextrose (Levaquin In D5w 500 Mg/100 Ml) 100 mls @ 100 mls/hr IV ASDIRECTED [facility] Stop: 06/10/17 13:00 Last Admin: 06/10/17 10:40 Dose: 100 mls/hr Dextrose/Sodium Chloride (Dextrose 5%-Normal Saline) 1,000 mls @ 100 mls/hr IV ASDIRECTED [facility] Last Admin: 06/12/17 00:57 Dose: 100 mls/hr Lisinopril (Prinivil) 20 mg PO DAILY [facility] Last Admin: 06/12/17 08:05 Dose: 20 mg Morphine Sulfate (Morphine) Confirm Administered Dose 2 mg .ROUTE .STK-MED ONE Stop: 06/09/17 07:16 Last Admin: 06/09/17 07:10 Dose: 2 mg Morphine Sulfate (Morphine) Confirm Administered Dose 2 mg .ROUTE .[facility] ONE Stop: 06/09/17 22:21 Last Admin: 06/09/17 22:30 Dose: 1 mg Nebivolol (Bystolic) 10 mg PO DAILY [facility] Last Admin: 06/12/17 08:06 Dose: 10 mg Ondansetron HCl (Zofran) Confirm Administered Dose 4 mg .ROUTE .[facility] ONE Stop: 06/11/17 02:56 Last Admin: 06/11/17 03:00 Dose: 4 mg Oxybutynin Chloride (Oxybutynin Er) 10 mg PO BID [facility] Last Admin: 06/12/17 08:05 Dose: 10 mg Promethazine HCl (Phenergan) Confirm Administered Dose 25 mg .ROUTE .STK-MED ONE Stop: 06/11/17 04:16 Last Admin: 06/11/17 04:28 Dose: Not Given Senna/Docusate Sodium (Senna Plus) 1 tab PO BID [facility] Last Admin: 06/12/17 08:06 Dose: 1 tab Sertraline HCl (Zoloft) 50 mg PO DAILY [facility] Last Admin: 06/12/17 08:05 Dose: 50 mg Simvastatin (Zocor) 40 mg PO QPM [facility] Last Admin: 06/09/17 20:20 Dose: 40 mg Simvastatin (Zocor) 40 mg PO QPM [facility] Last Admin: 06/11/17 19:57 Dose: 40 mg - Exam Quality Assessment: Supplemental Oxygen General: Alert, Oriented, Cooperative HEENT: Pupils Equal, Pupils Reactive Neck: Supple Lungs: Decreased Breath Sounds Cardiovascular: Regular Rate, Regular Rhythm GI/Abdominal Exam: Abnormal Bowel Sounds (decreased) Extremities: Normal Inspection - Problem List & Annotations (1) Paroxysmal atrial fibrillation with RVR SNOMED Code(s): 971629547 Code(s): I48.0 - PAROXYSMAL ATRIAL FIBRILLATION Status: Acute Priority: High Current Visit: Yes (2) Nausea and vomiting SNOMED Code(s): 54658941 Code(s): R11.2 - NAUSEA WITH VOMITING, UNSPECIFIED Status: Acute Priority : High Current Visit: Yes Qualifiers: Vomiting type: bilious vomiting Qualified Code(s): R11.14 - Bilious vomiting (3) CHF exacerbation SNOMED Code(s): 66808333 Code(s): I50.9 - HEART FAILURE, UNSPECIFIED Status: Chronic Current Visit : Yes Onset Date: 06/08/17 Qualifiers: Congestive heart failure type: unspecified congestive heart failure type Qualified Code(s): I50.9 - Heart failure, unspecified Annotation/Comment:: 06-08-2017- Congestive heart failure exacerbation. Also an elevated temperature. (4) Small bowel obstruction SNOMED Code(s): 545561900 Code(s): K56.609 - UNSP INTESTNL OBST, UNSP TO PARTIAL VERSUS COMPLETE OBST Status: Acute Current Visit: Yes Annotation/Comment:: Resolving - advancing diet as tolerated and monitoring (5) Left lower lobe pneumonia SNOMED Code(s): 720728817 Code(s): J18.1 - LOBAR PNEUMONIA, UNSPECIFIED ORGANISM Status: Suspected Priority: High Current Visit: Yes Qualifiers: Pneumonia type: due to unspecified organism Qualified Code(s): J18.1 - Lobar pneumonia, unspecified organism (6) COLD, Chronic obstructive lung disease SNOMED Code(s): 18585587 Code(s): J44.9 - CHRONIC OBSTRUCTIVE PULMONARY DISEASE, UNSPECIFIED Status : Chronic Priority: Medium Current Visit: Yes - Problem List Review Problem List Initiated/Reviewed/Updated: Yes - My Orders Last 24 Hours: My Active Orders 06/15/17 06:27 EKG Documentation Completion [RC] ASDIRECTED 06/15/17 08:00 Nebivolol [Bystolic] 10 mg PO DAILY - Assessment Assessment:: Rib fractures Small bowel obstruction possible Opiod induced - Plan Plan:: Pt is feeling some better this am. He continues to have shortness of breath, but improved. He states he doesn't want to take a deep breath or cough related to pain to his ribs. SpO2 is improved and on nasal cannula at 4LPM. MS 2 mg IV this am and will start [place] every 4-6 hr for pain relief. Lasix 20 mg IV this am and continue blood catheter for I/O. Heart rate continues at 48. Will continue with telemetry. WBC slighlty elevated this am, but improved neutrophils noted. Will continue with IV Rocephin and IV Azithromycin. Will continue with incentive spirometry and nebulizers and inhalers. U/A shows small positive leuk estrase and WBC. Will discuss pt status with Dr Vidales,his primary physician. 06/10/17 Improved symptoms. Patient states he is much better day to day and even much more today. He is able to get out of bed with assistance into the recliner. Discussed labs and discussed troponins elevating and normalizing today. Discussed renal dysfunction, pulmonary contusion, rib fractures, PT/OT and further management. Discussed re-evaluation and possible swing patient admission tomorrow. 06/11/17 Nausea and vomiting last night and this am. Patient was given phenergan and has improved symptoms. CT abd/pelvis repeated due to increasing nausea and vomit with bile present. Patient labs stable with no acute changes. WBC continues to be elevated. During the day nursing reported irregular rhythm and what appears to be paroxysmal atrial fibrillation. He was on Bystolic but that was discontinued after discussion with Cardiology when he was bradycardic. Now patient is tachycardic and shows irregular rhythm and elevated rate. We will start on Bystolic again, follow up CT results and consider swing bed admission after management of paroxysmal atrial fibrillation. 06/12/17 Pt claims he feels better. His AXR done today still shows multiple air fluid levels with a large gastric distension with air fluid level. I have stopped all oral medication, as it will not be absorbed secondary to obstruction. Will continue Injectable and nebulizers. Also his potassium is at 3.3, and hence have added KCl 20 meq to his IV fluids. Plan is to keep him NPO, repeat AXR and BMP in am. I have advised patient to sit in the chair and be active which would help with resolving SBO.If his obstruction does not relive in 72 hrs, might need surgical intervention. Will monitor patient closely. 06/15/17 Patient will be monitored for tachycardia. Patient had some changing ST segments during telemetry this am. No elevation in troponins. EKG done with no changes. Patient currently in sinus and normal rate. Bystolic given early in AM. Patient tolerating diet and we will advance slowly as tolerated. Up to chair and PT/OT as regular. Repeat labs in am.
[2017-06-15] MEDS ORDERED: LORazepam 2 MG/ML SDV IVPUSH PRN ×2 (15:26→16:49)
[2017-06-15] MEDS ORDERED: Diltiazem IR 60 MG Tab ONE (15:53)
[2017-06-15] MEDS: Diltiazem IR 60 MG Tab PO SCH ×2 (15:56→20:14)
[2017-06-15] MEDS ORDERED: Ketorolac 30 MG/ML SDV ONE (17:02)
[2017-06-15] MEDS: Metoclopramide 10 MG/2 ML SDV IV PRN ×3 (17:20→23:08)
[2017-06-15] MEDS: Ketorolac 30 MG/ML SDV IVPUSH SCH ×2 (17:22→22:48)
[2017-06-15] MEDS: Promethazine 12.5 MG in Sodium Chloride 0.9% 50 ML IV PRN (17:23)
[2017-06-15] MEDS: Zolpidem 5 MG Tab PO SCH (20:14)
[2017-06-16] MEDS ORDERED: Furosemide 40 MG/4 ML VIAL IVPUSH ONE (00:09)
[2017-06-16] MEDS: Ketorolac 30 MG/ML SDV IVPUSH SCH ×4 (00:25→16:15)
[2017-06-16] MEDS: Albuterol/Ipratropium 3.0-0.5 MG/3 ML Neb Soln NEB SCH ×4 (05:30→23:45)
[2017-06-16] MEDS: Diltiazem IR 60 MG Tab PO SCH ×2 (07:40→20:01)
[2017-06-16] MEDS: Furosemide 40 MG/4 ML VIAL IVPUSH SCH (07:40)
[2017-06-16] MEDS: Levofloxacin/Dextrose 5%-Water 50 ML IV SCH (07:42)
[2017-06-16] MEDS: Dextrose 5%-0.9% NaCl with KCl 1,000 ML IV SCH (07:43)
[2017-06-16] MEDS: Multivitamins with Iron/Calcium/Folic Acid/Minerals Tab PO SCH (07:43)
[2017-06-16] MEDS: Formoterol/Mometasone 200-5 MCG 8.8 GM Inhaler IH SCH ×2 (08:00→20:03)
[2017-06-16] MEDS ORDERED: Sodium Chloride 0.45% with KCl 1,000 ML ONE (09:21)
[2017-06-16] MEDS ORDERED: Sodium Chloride 0.45% with KCl 1,000 ML IV SCH (10:00)
--- NOTE | 2017-06-16 14:23 | PCM.PN ---
- General Info Date of Service: 06/16/17 Subjective Update: Patient was having increasing difficulty with breathing, pain of the abdomen and distension last night around midnight. Patient assessed and abdomen was distended with gas, crackles b/l bases of the lungs, with oxygen saturation at 92%. Patient was placed on IV lasix, given toradol IV, and placed back on NPO status. This was likely due to worsening ileus or small bowel obstruction from his advancing diet. He was continually tachcardic and his Bystolic was raised to BID. Patient doing well this am. He has no concerns and states he is feeling the best he has been without any pain. Functional Status: Reports: Pain Controlled - Review of Systems General: Reports: Weakness HEENT: Reports: No Symptoms Pulmonary: Reports: No Symptoms Cardiovascular: Reports: No Symptoms Gastrointestinal: Reports: No Symptoms Genitourinary: Reports: No Symptoms Musculoskeletal: Reports: No Symptoms Skin: Reports: No Symptoms Neurological: Reports: No Symptoms - Patient Data Vitals - Most Recent: Last Vital Signs Temp 36.7 C 06/16/17 12:00 Pulse 63 06/16/17 12:00 Resp 20 06/16/17 12:00 BP 119/60 06/16/17 12:00 Pulse Ox 92 L 06/16/17 12:00 Weight - Most Recent: 76.204 kg I&O - Last 24 Hours: Intake & Output 06/15/17 06/16/17 06/16/17 22:59 06:59 14:59 Intake Total 1660 1830 Output Total 2300 750 Balance -640 1080 Lab Results Last 24 Hours: Laboratory Results - last 24 hr 06/16/17 06/16/17 Range/Units 07:20 07:20 WBC 7.7 (4.0-11.0) K/uL RBC 3.71 L (4.50-6.50) M/uL Hgb 10.8 L (13.0-18.0) g/dL Hct 33.2 L (40.0-54.0) % MCV 90 (76-96) fL MCH 29.1 (27.0-32.0) pg MCHC 32.5 (31.0-35.0) g/dL RDW 15.1 (11.0-16.0) % Plt Count 283 D (150-400) K/uL MPV 9.2 (6.0-10.0) fL Neut % (Auto) 74.9 H (45.0-70.0) % Lymph % (Auto) 13.0 L (20.0-40.0) % [place] % (Auto) 10.1 H (3.0-10.0) % Eos % (Auto) 1.7 (1.0-5.0) % Baso % (Auto) 0.3 (0.0-0.5) % Neut # (Auto) 5.78 (2.00-7.50) K/uL Lymph # (Auto) 1.00 L (1.50-4.00) K/uL [place] # (Auto) 0.78 (0.20-0.80) K/uL Eos # (Auto) 0.13 (0.04-0.40) K/uL Baso # (Auto) 0.02 (0.02-0.10) K/uL Sodium 149 H (136-145) mmol/L Potassium 3.8 (3.5-5.1) mmol/L Chloride 111 H (98-107) mmol/L Carbon Dioxide 27.3 (21.0-32.0) mmol/L Anion Gap 14.5 (5.0-15.0) mmol/L BUN 16 D (8-26) mg/dL Creatinine 0.96 (0.70-1.30) mg/dL Est Cr Clr Drug Dosing 63.19 mL/min Estimated GFR (MDRD) > 60 (>60) MLS/MIN BUN/Creatinine Ratio 16.7 (6-25) Glucose 141 H (74-100) mg/dL Calcium 8.1 L (8.5-10.1) mg/dL Total Bilirubin 2.0 H (0.0-1.0) mg/dL AST 28 (15-37) U/L ALT 26 (12-78) U/L Alkaline Phosphatase 63 (46-116) U/L Total Protein 6.2 L (6.4-8.2) g/dL Albumin 2.3 L (3.4-5.0) g/dL Globulin 3.9 (2.2-4.2) g/dL Albumin/Globulin Ratio 0.6 L (0.8-2.0) Med Orders - Current: Current Medications Albuterol/Ipratropium (Duoneb 3.0-0.5 Mg/3 Ml) 3 ml NEB Q6H [facility] Last Admin: 06/16/17 11:30 Dose: 3 ml Diltiazem HCl (Cardizem) 60 mg PO Q12HR [facility] Last Admin: 06/16/17 07:40 Dose: 60 mg Docusate Sodium (Colace) 100 mg PO DAILY PRN PRN Reason: Constipation Last Admin: 06/15/17 13:51 Dose: 100 mg Furosemide (Lasix) 40 mg IVPUSH DAILY [facility] Last Admin: 06/16/17 07:40 Dose: 40 mg Levofloxacin/Dextrose (Levaquin In D5w 250 Mg/50 Ml) 50 mls @ 50 mls/hr IV DAILY [facility] Stop: 06/17/17 12:00 Last Admin: 06/16/17 07:42 Dose: 50 mls/hr Promethazine HCl 12.5 mg/ (Sodium Chloride) 50.5 mls @ 200 mls/hr IV Q6H PRN PRN Reason: Nausea/Vomiting Last Admin: 06/15/17 17:23 Dose: 200 mls/hr Potassium Chloride/Sodium Chloride (1/2 Ns With 20 Meq Kcl) 1,000 mls @ 125 mls /hr IV ASDIRECTED [facility] Ketorolac Tromethamine (Toradol) 15 mg IVPUSH Q6H [facility] Stop: 06/20/17 16:48 Last Admin: 06/16/17 12:30 Dose: 15 mg Lorazepam (Ativan) 0.5 mg IVPUSH Q6H PRN PRN Reason: Agitation Last Admin: 06/16/17 03:48 Dose: 0.5 mg Metoclopramide HCl (Reglan) 5 mg IV Q4H PRN PRN Reason: Nausea Last Admin: 06/15/17 23:08 Dose: 5 mg Mometasone Furoate/Formoterol Fumar (Dulera 200-5 Mcg) 2 puff IH BID [facility] Last Admin: 06/16/17 08:00 Dose: 2 puff Multivitamins/Minerals (Thera M Plus) 1 tab PO DAILY [facility] Last Admin: 06/16/17 07:43 Dose: Not Given Nebivolol (Bystolic) 10 mg PO BID [facility] Last Admin: 06/16/17 11:48 Dose: Not Given Ondansetron HCl (Zofran Odt) 4 mg PO Q4H PRN PRN Reason: Nausea/Vomiting Last Admin: 06/11/17 00:05 Dose: 4 mg Zolpidem Tartrate (Ambien) 5 mg PO BEDTIME [facility] Last Admin: 06/15/17 20:14 Dose: 5 mg Discontinued Medications Acetaminophen (Tylenol) 650 mg PO Q6H PRN PRN Reason: analgesia/fever Last Admin: 06/09/17 06:44 Dose: 650 mg Hydrocodone Bitart/Acetaminophen ([place] 325-5 Mg) Confirm Administered Dose 1 tab .ROUTE .STK-MED ONE Stop: 06/09/17 07:16 Last Admin: 06/09/17 07:30 Dose: 1 tab Hydrocodone Bitart/Acetaminophen ([place] 325-5 Mg) Confirm Administered Dose 1 tab .ROUTE .STK-MED ONE Stop: 06/09/17 12:38 Last Admin: 06/09/17 12:40 Dose: 1 tab Hydrocodone Bitart/Acetaminophen ([place] 325-5 Mg) 1 tab PO Q4H PRN PRN Reason: Pain Last Admin: 06/11/17 20:05 Dose: 1 tab Al Hydroxide/Mg Hydroxide (Mag-Al Plus) Confirm Administered Dose 30 ml .ROUTE .STK-MED ONE Stop: 06/11/17 02:28 Last Admin: 06/11/17 02:30 Dose: 30 ml Albuterol (Proventil Neb Soln) Confirm Administered Dose 2.5 mg .ROUTE .STK-MED ONE Stop: 06/09/17 07:04 Last Admin: 06/09/17 07:06 Dose: 2.5 mg Albuterol/Ipratropium (Duoneb 3.0-0.5 Mg/3 Ml) 3 ml .ROUTE .STK-MED ONE Stop: 06/08/17 22:46 Bisacodyl (Dulcolax) 10 mg RECTAL ONETIME ONE Stop: 06/14/17 11:56 Last Admin: 06/14/17 13:34 Dose: 10 mg Ceftriaxone Sodium (Rocephin) Confirm Administered Dose 1 gm .ROUTE .STK-MED ONE Stop: 06/08/17 22:54 Last Admin: 06/09/17 01:49 Dose: Not Given Diltiazem HCl (Cardizem) Confirm Administered Dose 60 mg .ROUTE .[facility] ONE Stop: 06/15/17 15:54 Last Admin: 06/15/17 21:29 Dose: Not Given Dipyridamole/Aspirin (Aggrenox 200-25 Mg) 1 cap PO BID [facility] Last Admin: 06/12/17 08:05 Dose: 1 cap Furosemide (Lasix) Confirm Administered Dose 40 mg .ROUTE .[facility] ONE Stop: 06/08/17 23:25 Last Admin: 06/08/17 23:40 Dose: Not Given Furosemide (Lasix) 20 mg IVPUSH NOW ONE Stop: 06/08/17 23:30 Last Admin: 06/08/17 23:41 Dose: 20 mg Furosemide (Lasix) 20 mg PO DAILY [facility] Last Admin: 06/09/17 07:52 Dose: Not Given Furosemide (Lasix) Confirm Administered Dose 20 mg .ROUTE .[facility] ONE Stop: 06/09/17 07:24 Last Admin: 06/09/17 07:15 Dose: 20 mg Furosemide (Lasix) 40 mg IVPUSH NOW ONE Stop: 06/16/17 00:10 Last Admin: 06/16/17 00:28 Dose: 40 mg Sodium Chloride (Normal Saline) 1,000 mls @ 100 mls/hr IV ASDIRECTED [facility] Last Admin: 06/09/17 12:44 Dose: 100 mls/hr Ceftriaxone Sodium 1 gm/ (Sodium Chloride) 50 mls @ 200 mls/hr IV Q24H [facility] Last Admin: 06/09/17 22:42 Dose: 200 mls/hr Azithromycin 500 mg/ Sodium (Chloride) 250 mls @ 250 mls/hr IV Q24H [facility] Last Admin: 06/09/17 23:51 Dose: 250 mls/hr Sodium Chloride (Normal Saline) 1,000 mls @ 80 mls/hr IV ASDIRECTED [facility] Last Infusion: 06/11/17 00:06 Dose: 80 mls/hr Levofloxacin/Dextrose (Levaquin In D5w 500 Mg/100 Ml) 100 mls @ 100 mls/hr IV ASDIRECTED [facility] Stop: 06/10/17 13:00 Last Admin: 06/10/17 10:40 Dose: 100 mls/hr Dextrose/Sodium Chloride (Dextrose 5%-Normal Saline) 1,000 mls @ 100 mls/hr IV ASDIRECTED [facility] Last Admin: 06/12/17 00:57 Dose: 100 mls/hr Potassium Chloride/Dextrose/Sod Cl (D5 Ns With 20 Meq Kcl) 1,000 mls @ 125 mls/ hr IV ASDIRECTED [facility] Last Admin: 06/16/17 07:43 Dose: 125 mls/hr Potassium Chloride/Sodium Chloride (1/2 Ns With 20 Meq Kcl) Confirm Administered Dose 1,000 mls @ as directed .ROUTE .[facility] ONE Stop: 06/16/17 09:22 Last Admin: 06/16/17 09:25 Dose: 125 ml Ketorolac Tromethamine (Toradol) Confirm Administered Dose 30 mg .ROUTE .[facility] ONE Stop: 06/15/17 17:03 Last Admin: 06/15/17 21:29 Dose: Not Given Lisinopril (Prinivil) 20 mg PO DAILY [facility] Last Admin: 06/12/17 08:05 Dose: 20 mg Lorazepam (Ativan) 0.25 mg IVPUSH Q6H PRN PRN Reason: Agitation Last Admin: 06/15/17 15:57 Dose: 0.25 mg Morphine Sulfate (Morphine) Confirm Administered Dose 2 mg .ROUTE .[facility] ONE Stop: 06/09/17 07:16 Last Admin: 06/09/17 07:10 Dose: 2 mg Morphine Sulfate (Morphine) 1 mg IVPUSH Q2H PRN PRN Reason: Breakthrough Pain Last Admin: 06/15/17 13:38 Dose: 1 mg Morphine Sulfate (Morphine) Confirm Administered Dose 2 mg .ROUTE .[facility] ONE Stop: 06/09/17 22:21 Last Admin: 06/09/17 22:30 Dose: 1 mg Nebivolol (Bystolic) 10 mg PO DAILY [facility] Last Admin: 06/12/17 08:06 Dose: 10 mg Nebivolol (Bystolic) 10 mg PO DAILY [facility] Last Admin: 06/15/17 08:00 Dose: Not Given Ondansetron HCl (Zofran) Confirm Administered Dose 4 mg .ROUTE .[facility] ONE Stop: 06/11/17 02:56 Last Admin: 06/11/17 03:00 Dose: 4 mg Oxybutynin Chloride (Oxybutynin Er) 10 mg PO BID [facility] Last Admin: 06/12/17 08:05 Dose: 10 mg Promethazine HCl (Phenergan) Confirm Administered Dose 25 mg .ROUTE .STK-MED ONE Stop: 06/11/17 04:16 Last Admin: 06/11/17 04:28 Dose: Not Given Senna/Docusate Sodium (Senna Plus) 1 tab PO BID [facility] Last Admin: 06/12/17 08:06 Dose: 1 tab Sertraline HCl (Zoloft) 50 mg PO DAILY [facility] Last Admin: 06/12/17 08:05 Dose: 50 mg Simvastatin (Zocor) 40 mg PO QPM [facility] Last Admin: 06/09/17 20:20 Dose: 40 mg Simvastatin (Zocor) 40 mg PO QPM [facility] Last Admin: 06/11/17 19:57 Dose: 40 mg - Exam General: Alert, Oriented HEENT: Pupils Equal, Pupils Reactive Neck: Supple Lungs: Normal Respiratory Effort, Crackles Cardiovascular: Regular Rate, Regular Rhythm GI/Abdominal Exam: Normal Bowel Sounds, Soft, Non-Tender Back Exam: Normal Inspection Extremities: Normal Inspection - Problem List & Annotations (1) Paroxysmal atrial fibrillation with RVR SNOMED Code(s): 961793081 Code(s): I48.0 - PAROXYSMAL ATRIAL FIBRILLATION Status: Acute Priority: High Current Visit: Yes (2) Nausea and vomiting SNOMED Code(s): 39483212 Code(s): R11.2 - NAUSEA WITH VOMITING, UNSPECIFIED Status: Acute Priority : High Current Visit: Yes Qualifiers: Vomiting type: bilious vomiting Qualified Code(s): R11.14 - Bilious vomiting (3) CHF exacerbation SNOMED Code(s): 76311193 Code(s): I50.9 - HEART FAILURE, UNSPECIFIED Status: Chronic Current Visit : Yes Onset Date: 06/08/17 Qualifiers: Congestive heart failure type: unspecified congestive heart failure type Qualified Code(s): I50.9 - Heart failure, unspecified Annotation/Comment:: 06-08-2017- Congestive heart failure exacerbation. Also an elevated temperature. (4) Small bowel obstruction SNOMED Code(s): 914694952 Code(s): K56.609 - UNSP INTESTNL OBST, UNSP TO PARTIAL VERSUS COMPLETE OBST Status: Acute Priority: High Current Visit: Yes Annotation/Comment: : Resolving - advancing diet as tolerated and monitoring (5) Left lower lobe pneumonia SNOMED Code(s): 033542326 Code(s): J18.1 - LOBAR PNEUMONIA, UNSPECIFIED ORGANISM Status: Suspected Priority: High Current Visit: Yes Qualifiers: Pneumonia type: due to unspecified organism Qualified Code(s): J18.1 - Lobar pneumonia, unspecified organism (6) COLD, Chronic obstructive lung disease SNOMED Code(s): 32870395 Code(s): J44.9 - CHRONIC OBSTRUCTIVE PULMONARY DISEASE, UNSPECIFIED Status : Chronic Priority: Medium Current Visit: Yes - Problem List Review Problem List Initiated/Reviewed/Updated: Yes - My Orders Last 24 Hours: My Active Orders 06/15/17 16:49 LORazepam [Ativan] 0.5 mg IVPUSH Q6H PRN 06/15/17 17:00 Ketorolac [Toradol] 15 mg IVPUSH Q6H 06/15/17 20:00 Diltiazem IR [Cardizem] 60 mg PO Q12HR 06/15/17 Dinner Full Liquid Diet [DIET] 06/16/17 08:00 Nebivolol [Bystolic] 10 mg PO BID 06/16/17 10:00 Sodium Chloride 0.45% with KCl [1/2 NS with 20 mEq KCl] 1,000 ml IV ASDIRECTED 06/16/17 Breakfast NPO [Nothing Per Oral Diet] [DIET] - Assessment Assessment:: Rib fractures Small bowel obstruction possible Opiod induced - Plan Plan:: Pt is feeling some better this am. He continues to have shortness of breath, but improved. He states he doesn't want to take a deep breath or cough related to pain to his ribs. SpO2 is improved and on nasal cannula at 4LPM. MS 2 mg IV this am and will start [place] every 4-6 hr for pain relief. Lasix 20 mg IV this am and continue blood catheter for I/O. Heart rate continues at 48. Will continue with telemetry. WBC slighlty elevated this am, but improved neutrophils noted. Will continue with IV Rocephin and IV Azithromycin. Will continue with incentive spirometry and nebulizers and inhalers. U/A shows small positive leuk estrase and WBC. Will discuss pt status with Dr Vidales,his primary physician. 06/10/17 Improved symptoms. Patient states he is much better day to day and even much more today. He is able to get out of bed with assistance into the recliner. Discussed labs and discussed troponins elevating and normalizing today. Discussed renal dysfunction, pulmonary contusion, rib fractures, PT/OT and further management. Discussed re-evaluation and possible swing patient admission tomorrow. 06/11/17 Nausea and vomiting last night and this am. Patient was given phenergan and has improved symptoms. CT abd/pelvis repeated due to increasing nausea and vomit with bile present. Patient labs stable with no acute changes. WBC continues to be elevated. During the day nursing reported irregular rhythm and what appears to be paroxysmal atrial fibrillation. He was on Bystolic but that was discontinued after discussion with Cardiology when he was bradycardic. Now patient is tachycardic and shows irregular rhythm and elevated rate. We will start on Bystolic again, follow up CT results and consider swing bed admission after management of paroxysmal atrial fibrillation. 06/12/17 Pt claims he feels better. His AXR done today still shows multiple air fluid levels with a large gastric distension with air fluid level. I have stopped all oral medication, as it will not be absorbed secondary to obstruction. Will continue Injectable and nebulizers. Also his potassium is at 3.3, and hence have added KCl 20 meq to his IV fluids. Plan is to keep him NPO, repeat AXR and BMP in am. I have advised patient to sit in the chair and be active which would help with resolving SBO.If his obstruction does not relive in 72 hrs, might need surgical intervention. Will monitor patient closely. 06/15/17 Patient will be monitored for tachycardia. Patient had some changing ST segments during telemetry this am. No elevation in troponins. EKG done with no changes. Patient currently in sinus and normal rate. Bystolic given early in AM. Patient tolerating diet and we will advance slowly as tolerated. Up to chair and PT/OT as regular. Repeat labs in am. 06/15/17 1150pm Patient was placed on Bystolic 10mg BID given 40mg IV lasix, given extra dose of toradol 15mg IV, and placed NPO due to complication of returning SBO or ileus. His abdomen was distended and tender to touch. 06/16/17 Patient to remain NPO. Discussed NG tube but patient refuses. His abdomen is very soft and Bowel Sounds are good at this time. Morphine was d/c yesterday. Continue Toradol. Monitor BP and pulse. Consider decreased Cardizem.
[2017-06-16] MEDS: Zolpidem 5 MG Tab PO SCH (20:04)
[2017-06-17] MEDS: Ketorolac 30 MG/ML SDV IVPUSH SCH ×5 (00:05→22:56)
[2017-06-17] MEDS: Albuterol/Ipratropium 3.0-0.5 MG/3 ML Neb Soln NEB SCH ×3 (05:00→16:39)
[2017-06-17] MEDS: Diltiazem IR 60 MG Tab PO SCH (09:14)
[2017-06-17] MEDS: Formoterol/Mometasone 200-5 MCG 8.8 GM Inhaler IH SCH (09:15)
[2017-06-17] MEDS: Multivitamins with Iron/Calcium/Folic Acid/Minerals Tab PO SCH (09:15)
[2017-06-17] MEDS: Furosemide 40 MG/4 ML VIAL IVPUSH SCH (09:16)
[2017-06-17] MEDS: Levofloxacin/Dextrose 5%-Water 50 ML IV SCH (09:19)
[2017-06-17 09:21] VITALS: BP 136/80
--- NOTE | 2017-06-17 09:38 | PCM.DCSUM1 ---
Discharge Summary - Discharge Data Discharge Date: 06/17/17 Discharge Disposition: DC/Tfer W/I Hosp To Swing [facility] Condition: Good - Discharge Diagnosis/Problem(s) (1) Paroxysmal atrial fibrillation with RVR SNOMED Code(s): 096054178 ICD Code: I48.0 - PAROXYSMAL ATRIAL FIBRILLATION Status: Acute Priority: High Current Visit: Yes (2) Nausea and vomiting SNOMED Code(s): 65024705 ICD Code: R11.2 - NAUSEA WITH VOMITING, UNSPECIFIED Status: Acute Priority: High Current Visit: Yes Qualifiers: Vomiting type: bilious vomiting Qualified Code(s): R11.14 - Bilious vomiting (3) CHF exacerbation SNOMED Code(s): 61791431 ICD Code: I50.9 - HEART FAILURE, UNSPECIFIED Status: Chronic Current Visit: Yes Onset Date: 06/08/17 Problem Details: 06-08-2017- Congestive heart failure exacerbation. Also an elevated temperature. (4) Small bowel obstruction SNOMED Code(s): 122126106 ICD Code: K56.609 - UNSP INTESTNL OBST, UNSP TO PARTIAL VERSUS COMPLETE OBST Status: Acute Priority: High Current Visit: Yes Problem Details: Resolving - advancing diet as tolerated and monitoring (5) Left lower lobe pneumonia SNOMED Code(s): 155328119 ICD Code: J18.1 - LOBAR PNEUMONIA, UNSPECIFIED ORGANISM Status: Suspected Priority: High Current Visit: Yes (6) COLD, Chronic obstructive lung disease SNOMED Code(s): 56896824 ICD Code: J44.9 - CHRONIC OBSTRUCTIVE PULMONARY DISEASE, UNSPECIFIED Status : Chronic Priority: Medium Current Visit: Yes - Patient Summary/Data Consults: Consultations 06/10/17 08:35 OT Evaluation and Treatment [CONS] Routine Please Evaluate and Treat. OT Reason for Consult: ADL's This query below is only for informational purposes and is not editable. Admission Diagnosis/Problem: Acute bronchitis with chronic obstructive pulmonary disease (COPD) PT Evaluation and Treatment [CONS] Routine Please Evaluate and Treat. PT Reason for Consult: Strengthening This query below is only for informational purposes and is not editable. Admission Diagnosis/Problem: Acute bronchitis with chronic obstructive pulmonary disease (COPD) - Discharge Plan Home Medications: Home Meds Fluticasone/Salmeterol [Advair 250-50] 1 puff INH BID 08/27/14 [History] Lisinopril 20 mg PO DAILY 08/27/14 [History] Nebivolol [Bystolic] 10 mg PO DAILY 08/27/14 [History] Simvastatin 40 mg PO QPM 08/27/14 [History] Multivit-Min/FA/Lycopene/Lut [Sentry Senior Tablet] 1 each PO DAILY 02/19/15 [ History] Sertraline HCl 50 mg PO DAILY 02/19/15 [History] Aspirin/Dipyridamole [Aggrenox 200-25 MG] 1 cap PO BID 11/02/15 [History] Naproxen Sodium [Aleve] 220 mg PO BID PRN 03/14/16 [History] Oxybutynin [Oxybutynin ER] 10 mg PO BID 03/14/16 [History] Albuterol/Ipratropium [DuoNeb 3.0-0.5 MG/3 ML] 3 ml NEB QID PRN 03/28/16 [ History] Docusate Sodium [Colace] 100 mg PO DAILY PRN 03/28/16 [History] Furosemide [Lasix] 20 mg PO DAILY #30 tab 06/15/16 [Rx] Forms: ED Department Discharge Referrals: PCP,None [Primary Care Provider] - - Discharge Summary/Plan Comment Discharge Summary/Plan Comment: Patient to be discharged to Swing bed for further monitoring of pain and management and rehabilitation for muscle deconditioning. Patient will be continually monitored for abdominal distention and SBO. We will advance diet very gradually. - Patient Data Vitals - Most Recent: Last Vital Signs Temp 37.2 C 06/17/17 04:00 Pulse 64 06/17/17 09:14 Resp 18 06/16/17 20:00 BP 136/80 06/17/17 09:14 Pulse Ox 94 L 06/17/17 04:00 Weight - Most Recent: 76.204 kg I&O - Last 24 hours: Intake & Output 06/16/17 06/17/17 06/17/17 22:59 06:59 14:59 Intake Total 300 1490 Output Total 1650 325 Balance -1350 1165 Med Orders - Current: Current Medications Albuterol/Ipratropium (Duoneb 3.0-0.5 Mg/3 Ml) 3 ml NEB Q6H JACOB Last Admin: 06/17/17 05:00 Dose: 3 ml Diltiazem HCl (Cardizem) 60 mg PO Q12HR [facility] Last Admin: 06/17/17 09:14 Dose: 60 mg Docusate Sodium (Colace) 100 mg PO DAILY PRN PRN Reason: Constipation Last Admin: 06/15/17 13:51 Dose: 100 mg Furosemide (Lasix) 40 mg IVPUSH DAILY [facility] Last Admin: 06/17/17 09:16 Dose: 40 mg Levofloxacin/Dextrose (Levaquin In D5w 250 Mg/50 Ml) 50 mls @ 50 mls/hr IV DAILY [facility] Stop: 06/17/17 12:00 Last Admin: 06/17/17 09:19 Dose: 50 mls/hr Promethazine HCl 12.5 mg/ (Sodium Chloride) 50.5 mls @ 200 mls/hr IV Q6H PRN PRN Reason: Nausea/Vomiting Last Admin: 06/15/17 17:23 Dose: 200 mls/hr Potassium Chloride/Sodium Chloride (1/2 Ns With 20 Meq Kcl) 1,000 mls @ 125 mls /hr IV ASDIRECTED [facility] Ketorolac Tromethamine (Toradol) 15 mg IVPUSH Q6H [facility] Stop: 06/20/17 16:48 Last Admin: 06/17/17 09:16 Dose: 15 mg Lorazepam (Ativan) 0.5 mg IVPUSH Q6H PRN PRN Reason: Agitation Last Admin: 06/16/17 03:48 Dose: 0.5 mg Metoclopramide HCl (Reglan) 5 mg IV Q4H PRN PRN Reason: Nausea Last Admin: 06/15/17 23:08 Dose: 5 mg Mometasone Furoate/Formoterol Fumar (Dulera 200-5 Mcg) 2 puff IH BID [facility] Last Admin: 06/17/17 09:15 Dose: 2 puff Multivitamins/Minerals (Thera M Plus) 1 tab PO DAILY [facility] Last Admin: 06/17/17 09:15 Dose: 1 tab Nebivolol (Bystolic) 10 mg PO BID [facility] Last Admin: 06/17/17 09:14 Dose: 10 mg Ondansetron HCl (Zofran Odt) 4 mg PO Q4H PRN PRN Reason: Nausea/Vomiting Last Admin: 06/11/17 00:05 Dose: 4 mg Zolpidem Tartrate (Ambien) 5 mg PO BEDTIME JACOB Last Admin: 06/16/17 20:04 Dose: 5 mg Discontinued Medications Acetaminophen (Tylenol) 650 mg PO Q6H PRN PRN Reason: analgesia/fever Last Admin: 06/09/17 06:44 Dose: 650 mg Hydrocodone Bitart/Acetaminophen ([place] 325-5 Mg) Confirm Administered Dose 1 tab .ROUTE .STK-MED ONE Stop: 06/09/17 07:16 Last Admin: 06/09/17 07:30 Dose: 1 tab Hydrocodone Bitart/Acetaminophen ([place] 325-5 Mg) Confirm Administered Dose 1 tab .ROUTE .STK-MED ONE Stop: 06/09/17 12:38 Last Admin: 06/09/17 12:40 Dose: 1 tab Hydrocodone Bitart/Acetaminophen ([place] 325-5 Mg) 1 tab PO Q4H PRN PRN Reason: Pain Last Admin: 06/11/17 20:05 Dose: 1 tab Al Hydroxide/Mg Hydroxide (Mag-Al Plus) Confirm Administered Dose 30 ml .ROUTE .STK-MED ONE Stop: 06/11/17 02:28 Last Admin: 06/11/17 02:30 Dose: 30 ml Albuterol (Proventil Neb Soln) Confirm Administered Dose 2.5 mg .ROUTE .STK-MED ONE Stop: 06/09/17 07:04 Last Admin: 06/09/17 07:06 Dose: 2.5 mg Albuterol/Ipratropium (Duoneb 3.0-0.5 Mg/3 Ml) 3 ml .ROUTE .STK-MED ONE Stop: 06/08/17 22:46 Bisacodyl (Dulcolax) 10 mg RECTAL ONETIME ONE Stop: 06/14/17 11:56 Last Admin: 06/14/17 13:34 Dose: 10 mg Ceftriaxone Sodium (Rocephin) Confirm Administered Dose 1 gm .ROUTE .STK-MED ONE Stop: 06/08/17 22:54 Last Admin: 06/09/17 01:49 Dose: Not Given Diltiazem HCl (Cardizem) Confirm Administered Dose 60 mg .ROUTE .STK-MED ONE Stop: 06/15/17 15:54 Last Admin: 06/15/17 21:29 Dose: Not Given Dipyridamole/Aspirin (Aggrenox 200-25 Mg) 1 cap PO BID [facility] Last Admin: 06/12/17 08:05 Dose: 1 cap Furosemide (Lasix) Confirm Administered Dose 40 mg .ROUTE .STK-MED ONE Stop: 06/08/17 23:25 Last Admin: 06/08/17 23:40 Dose: Not Given Furosemide (Lasix) 20 mg IVPUSH NOW ONE Stop: 06/08/17 23:30 Last Admin: 06/08/17 23:41 Dose: 20 mg Furosemide (Lasix) 20 mg PO DAILY [facility] Last Admin: 06/09/17 07:52 Dose: Not Given Furosemide (Lasix) Confirm Administered Dose 20 mg .ROUTE .[facility] ONE Stop: 06/09/17 07:24 Last Admin: 06/09/17 07:15 Dose: 20 mg Furosemide (Lasix) 40 mg IVPUSH NOW ONE Stop: 06/16/17 00:10 Last Admin: 06/16/17 00:28 Dose: 40 mg Sodium Chloride (Normal Saline) 1,000 mls @ 100 mls/hr IV ASDIRECTED [facility] Last Admin: 06/09/17 12:44 Dose: 100 mls/hr Ceftriaxone Sodium 1 gm/ (Sodium Chloride) 50 mls @ 200 mls/hr IV Q24H [facility] Last Admin: 06/09/17 22:42 Dose: 200 mls/hr Azithromycin 500 mg/ Sodium (Chloride) 250 mls @ 250 mls/hr IV Q24H [facility] Last Admin: 06/09/17 23:51 Dose: 250 mls/hr Sodium Chloride (Normal Saline) 1,000 mls @ 80 mls/hr IV ASDIRECTED [facility] Last Infusion: 06/11/17 00:06 Dose: 80 mls/hr Levofloxacin/Dextrose (Levaquin In D5w 500 Mg/100 Ml) 100 mls @ 100 mls/hr IV ASDIRECTED [facility] Stop: 06/10/17 13:00 Last Admin: 06/10/17 10:40 Dose: 100 mls/hr Dextrose/Sodium Chloride (Dextrose 5%-Normal Saline) 1,000 mls @ 100 mls/hr IV ASDIRECTED [facility] Last Admin: 06/12/17 00:57 Dose: 100 mls/hr Potassium Chloride/Dextrose/Sod Cl (D5 Ns With 20 Meq Kcl) 1,000 mls @ 125 mls/ hr IV ASDIRECTED [facility] Last Admin: 06/16/17 07:43 Dose: 125 mls/hr Potassium Chloride/Sodium Chloride (1/2 Ns With 20 Meq Kcl) Confirm Administered Dose 1,000 mls @ as directed .ROUTE .[facility] ONE Stop: 06/16/17 09:22 Last Admin: 06/16/17 09:25 Dose: 125 ml Ketorolac Tromethamine (Toradol) Confirm Administered Dose 30 mg .ROUTE .[facility] ONE Stop: 06/15/17 17:03 Last Admin: 06/15/17 21:29 Dose: Not Given Lisinopril (Prinivil) 20 mg PO DAILY [facility] Last Admin: 06/12/17 08:05 Dose: 20 mg Lorazepam (Ativan) 0.25 mg IVPUSH Q6H PRN PRN Reason: Agitation Last Admin: 06/15/17 15:57 Dose: 0.25 mg Morphine Sulfate (Morphine) Confirm Administered Dose 2 mg .ROUTE .[facility] ONE Stop: 06/09/17 07:16 Last Admin: 06/09/17 07:10 Dose: 2 mg Morphine Sulfate (Morphine) 1 mg IVPUSH Q2H PRN PRN Reason: Breakthrough Pain Last Admin: 06/15/17 13:38 Dose: 1 mg Morphine Sulfate (Morphine) Confirm Administered Dose 2 mg .ROUTE .[facility] ONE Stop: 06/09/17 22:21 Last Admin: 06/09/17 22:30 Dose: 1 mg Nebivolol (Bystolic) 10 mg PO DAILY [facility] Last Admin: 06/12/17 08:06 Dose: 10 mg Nebivolol (Bystolic) 10 mg PO DAILY [facility] Last Admin: 06/15/17 08:00 Dose: Not Given Ondansetron HCl (Zofran) Confirm Administered Dose 4 mg .ROUTE .[facility] ONE Stop: 06/11/17 02:56 Last Admin: 06/11/17 03:00 Dose: 4 mg Oxybutynin Chloride (Oxybutynin Er) 10 mg PO BID [facility] Last Admin: 06/12/17 08:05 Dose: 10 mg Promethazine HCl (Phenergan) Confirm Administered Dose 25 mg .ROUTE .[facility] ONE Stop: 06/11/17 04:16 Last Admin: 06/11/17 04:28 Dose: Not Given Senna/Docusate Sodium (Senna Plus) 1 tab PO BID [facility] Last Admin: 06/12/17 08:06 Dose: 1 tab Sertraline HCl (Zoloft) 50 mg PO DAILY [facility] Last Admin: 06/12/17 08:05 Dose: 50 mg Simvastatin (Zocor) 40 mg PO QPM [facility] Last Admin: 06/09/17 20:20 Dose: 40 mg Simvastatin (Zocor) 40 mg PO QPM [facility] Last Admin: 06/11/17 19:57 Dose: 40 mg *Q Meaningful Use (DIS) - VTE *Q VTE Criteria *Q: - Stroke *Q Stroke Criteria *Q: - AMI *Q AMI Criteria *Q:
[2017-06-17] MEDS: Ondansetron 4 MG Tab.DIS PO PRN (16:37)
[2017-06-17] MEDS: Metoclopramide 10 MG/2 ML SDV IV PRN (16:37)
== END 2017-06-17 17:00 | disposition swing bed (61) | DRG 190 ==
LOC: LB.ED 21:47 → LB.MS 23:57 → LB.ED 06-09 → UNDOADMIN 06-09 → LB.MS 06-09
PROVIDERS: ADMIT Nurse Practitioner Family; ATTEND Family Medicine
DX: J44.0 Chronic obstructive pulmonary disease with (acute) lower respiratory infection (principal); J18.1 Lobar pneumonia, unspecified organism; K56.609 Unspecified intestinal obstruction, unspecified as to partial versus complete obstruction; I69.954 Hemiplegia and hemiparesis following unspecified cerebrovascular disease affecting left non-dominant side; S22.42XA Multiple fractures of ribs, left side, initial encounter for closed fracture; J20.9 Acute bronchitis, unspecified; I50.9 Heart failure, unspecified; R00.1 Bradycardia, unspecified; Z87.891 Personal history of nicotine dependence; R05 Cough; R50.9 Fever, unspecified; I25.10 Atherosclerotic heart disease of native coronary artery without angina pectoris; W19.XXXA Unspecified fall, initial encounter; Y92.009 Unspecified place in unspecified non-institutional (private) residence as the place of occurrence of the external cause; Z66 Do not resuscitate; R74.8 Abnormal levels of other serum enzymes; R11.14 Bilious vomiting; I48.0 Paroxysmal atrial fibrillation; E87.6 Hypokalemia; E78.00 Pure hypercholesterolemia, unspecified; Z85.51 Personal history of malignant neoplasm of bladder; I25.2 Old myocardial infarction; H91.90 Unspecified hearing loss, unspecified ear; Z95.5 Presence of coronary angioplasty implant and graft; Z79.82 Long term (current) use of aspirin; Z88.8 Allergy status to other drugs, medicaments and biological substances
CPT/HCPCS: 36415; 51702; 71045; 80053; 81001; 83880; 84484; 85025; 87040; 87804 ×2; 93005; 96374; 99285; A0425; A0429; J0456; J0696; J1940; J7040; J7050 ×2; J7620 ×2; 71250; 74018; 74019; 74176; 80048; 87086; 97116-GP; 97161-GP; 97165-GO; 97530-GO; 97530-GP; 97535-GO; A9270-GY; J1885; J1956; J2060; J2270; J2405; J2550; J2765; J3480; J7030

== ENCOUNTER 2017-06-11 11:02 | Inpatient (IN) | payer MEDICARE, OTHER ==
[2017-06-17] MEDS ORDERED: Ondansetron 4 MG/2 ML SDV IV PRN (14:17)
[2017-06-17] MEDS ORDERED: Ketorolac 60 MG/2 ML SDV IVPUSH PRN (14:17)
[2017-06-17] MEDS ORDERED: Albuterol/Ipratropium 3.0-0.5 MG/3 ML Neb Soln NEB PRN ×2 (14:20→14:33)
[2017-06-17] MEDS ORDERED: Non-Formulary Medication 1 Each (Naproxen Sodium [Aleve] 220 MG) PO PRN (14:33)
--- NOTE | 2017-06-17 14:51 | PCM.HP ---
H&P History of Present Illness - General Date of Service: 06/17/17 Admit Problem/Dx: Admission Diagnosis/Problem Admission Diagnosis/Problem Weakness Source of Information: Patient History Limitations: Reports: No Limitations - History of Present Illness Initial Comments - Free Text/Narative: This is an 81yo M who was admitted for a recent fall, lung contusion, pneumonia , CHF and rib fractures. Patient had complications during his stay with small bowel obstruction and emesis with increasing abdominal distension and increasing pain and weakness. Other complications during his stay was his paroxysmal atrial fibrillation with RVR. His bowel obstruction has improved and has had some BM but started to get distended 3-4 days ago with advancement of diet and placed back on NPO and then symptoms improved with another BM and is not back on clear fluids. He requires further PT/OT for deconditioning. Onset of Symptoms: Reports: Gradual Duration of Symptoms: Reports: Day(s): Location: Reports: Generalized Associated Symptoms: Reports: Chest Pain (ribs and with deep breaths), Weakness - Related Data Allergies/Adverse Reactions: Allergies Allergy/AdvReac Type Severity Reaction Status Date / Time quinine [Quinine] Allergy Rash Verified 10/10/16 19:57 monohydrochloride Allergy Rash Uncoded 06/14/16 22:02 Home Medications: Home Meds Fluticasone/Salmeterol [Advair 250-50] 1 puff INH BID 08/27/14 [History] Lisinopril 20 mg PO DAILY 08/27/14 [History] Nebivolol [Bystolic] 10 mg PO DAILY 08/27/14 [History] Simvastatin 40 mg PO QPM 08/27/14 [History] Multivit-Min/FA/Lycopene/Lut [Sentry Senior Tablet] 1 each PO DAILY 02/19/15 [ History] Sertraline HCl 50 mg PO DAILY 02/19/15 [History] Aspirin/Dipyridamole [Aggrenox 200-25 MG] 1 cap PO BID 11/02/15 [History] Naproxen Sodium [Aleve] 220 mg PO BID PRN 03/14/16 [History] Oxybutynin [Oxybutynin ER] 10 mg PO BID 03/14/16 [History] Albuterol/Ipratropium [DuoNeb 3.0-0.5 MG/3 ML] 3 ml NEB QID PRN 03/28/16 [ History] Docusate Sodium [Colace] 100 mg PO DAILY PRN 03/28/16 [History] Furosemide [Lasix] 20 mg PO DAILY #30 tab 06/15/16 [Rx] Past Medical History HEENT History: Reports: Hard of Hearing, Other (See Below) Other HEENT History: Wears hearing aids Cardiovascular History: Reports: CAD, Heart Failure, High Cholesterol, Hypertension, AL, SOB on Exertion, Stents Respiratory History: Reports: COPD Genitourinary History: Reports: Other (See Below) Other Genitourinary History: Bladder Ca Neurological History: Reports: CVA 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 Oncologic (Cancer) History: Reports: Bladder - Infectious Disease History Infectious Disease History: Reports: Chicken Pox, Measles, Mumps, Shingles - Past Surgical History HEENT Surgical History: Reports: Cataract Surgery Cardiovascular Surgical History: Reports: Coronary Artery Stent GI Surgical History: Reports: Colonoscopy, Hernia, Inguinal, Hernia Repair/Other Social & Family History - Family History Family Medical History: Noncontributory - Tobacco Use Smoking Status *Q: Former Smoker Years of Tobacco use: 50 Packs/Tins Daily: 1 Used Tobacco, but Quit: Yes Month Tobacco Last Used: none Second Hand Smoke Exposure: No - Caffeine Use Caffeine Use: Reports: Coffee Caffeine Use Comment: 3 cups coffee a day - Alcohol Use Days Per Week of Alcohol Use: 0 Number of Drinks Per Day: 1 Total Drinks Per Week: 0 - Recreational Drug Use Recreational Drug Use: No H&P Review of Systems - Review of Systems: Review Of Systems: ROS reveals no pertinent complaints other than HPI. Exam - Exam Exam: See Below - Exam General: Alert, Oriented, Cooperative HEENT: PERRLA, Conjunctiva Clear Neck: Supple, Trachea Midline Lungs: Normal Respiratory Effort, Rales Cardiovascular: Regular Rate, Regular Rhythm GI/Abdominal Exam: Normal Bowel Sounds Back Exam: Normal Inspection Extremities: Normal Inspection *Q Meaningful Use (ADM) - VTE *Q VTE Criteria *Q: - Stroke *Q Stroke Criteria *Q: - AMI *Q AMI Criteria *Q: - Problem List (1) Severe muscle deconditioning SNOMED Code(s): 748844945 ICD Code: R29.898 - OTH SYMPTOMS AND SIGNS INVOLVING THE MUSCULOSKELETAL SYSTEM Status: Acute (2) Weakness generalized SNOMED Code(s): 63238417 ICD Code: R53.1 - WEAKNESS Status: Acute (3) Rib fractures SNOMED Code(s): 71351289 ICD Code: S22.39XA - FRACTURE OF ONE RIB, UNSP SIDE, INIT FOR CLOS FX Status: Acute (4) Pain management SNOMED Code(s): 877282814 ICD Code: R52 - PAIN, UNSPECIFIED Status: Acute (5) Paroxysmal atrial fibrillation with RVR SNOMED Code(s): 440245370 ICD Code: I48.0 - PAROXYSMAL ATRIAL FIBRILLATION Status: Acute Priority: High (6) Small bowel obstruction SNOMED Code(s): 414303815 ICD Code: K56.609 - UNSP INTESTNL OBST, UNSP TO PARTIAL VERSUS COMPLETE OBST Status: Acute Priority: High Problem Details: Resolving - advancing diet as tolerated and monitoring (7) CHF exacerbation SNOMED Code(s): 27475437 ICD Code: I50.9 - HEART FAILURE, UNSPECIFIED Status: Chronic Onset Date: 06/08/17 Problem Details: 06-08-2017- Congestive heart failure exacerbation. Also an elevated temperature. Qualifiers: (8) COLD, Chronic obstructive lung disease SNOMED Code(s): 03110347 ICD Code: J44.9 - CHRONIC OBSTRUCTIVE PULMONARY DISEASE, UNSPECIFIED Status : Chronic Priority: Medium (9) Left lower lobe pneumonia SNOMED Code(s): 105160984 ICD Code: J18.1 - LOBAR PNEUMONIA, UNSPECIFIED ORGANISM Status: Suspected Priority: High Qualifiers: Problem List Initiated/Reviewed/Updated: Yes Orders Last 24hrs: Active Orders 24 hr Category Date Time Status Patient Status [ADT] Routine ADT 06/17/17 14:17 Ordered Blood Glucose Check, Bedside [RC] BIDMEALS Care 06/17/17 14:17 Ordered Height and Weight [RC] DAILY Care 06/17/17 14:20 Ordered Insert Urinary Catheter [OM.PC] Q24H Care 06/17/17 14:30 Ordered Oxygen Therapy [RC] PRN Care 06/17/17 14:17 Ordered RT Aerosol Therapy [RC] ASDIRECTED Care 06/17/17 14:21 Ordered Urinary Catheter Assessment [RC] ASDIRECTED Care 06/17/17 14:21 Ordered VTE/DVT Education [RC] Per Unit Routine Care 06/17/17 14:17 Ordered Vital Signs [RC] PER UNIT ROUTINE Care 06/17/17 14:17 Ordered Consult to Case Management [CONS] Routine Cons 06/17/17 14:17 Ordered Consult to Bellstand Attendant [CONS] Routine Cons 06/17/17 14:17 Ordered OT Evaluation and Treatment [CONS] Routine Cons 06/17/17 14:17 Ordered PT Evaluation and Treatment [CONS] Routine Cons 06/17/17 14:17 Ordered Clear Liquid Diet [DIET] Diet 06/17/17 Dinner Ordered Acetaminophen [Tylenol] Med 06/17/17 14:20 Ordered 325 mg PO Q4H PRN Albuterol/Ipratropium [DuoNeb 3.0-0.5 MG/3 ML] Med 06/17/17 14:33 Ordered 3 ml NEB QID PRN Aspirin/Dipyridamole [Aggrenox 200-25 MG] Med 06/17/17 20:00 Ordered 1 cap PO BID Docusate Sodium [Colace] Med 06/17/17 14:33 Ordered 100 mg PO DAILY PRN Fluticasone/Salmeterol [Advair 250-50] Med 06/17/17 20:00 Ordered 1 puff INH BID Furosemide [Lasix] Med 06/18/17 08:00 Ordered 20 mg PO DAILY Ketorolac [Toradol] Med 06/17/17 14:17 Ordered 15 mg IVPUSH Q6H PRN Lisinopril [Prinivil] Med 06/18/17 08:00 Ordered 10 mg PO DAILY Multivit-Min/FA/Lycopene/Lut [Sentry Senior Tablet] Med 06/18/17 08:00 Ordered 1 each PO DAILY Naproxen Sodium [Aleve] Med 06/17/17 14:33 Ordered 220 mg PO BID PRN Nebivolol [Bystolic] Med 06/17/17 20:00 Ordered 10 mg PO BID Ondansetron [Zofran] Med 06/17/17 14:17 Ordered 4 mg IV Q4H PRN Oxybutynin [Oxybutynin ER] Med 06/17/17 20:00 Ordered 10 mg PO BID Sertraline [Zoloft] Med 06/18/17 08:00 Ordered 50 mg PO DAILY Simvastatin [Zocor] Med 06/17/17 20:00 Ordered 40 mg PO QPM Medication Orders Acetaminophen (Tylenol) 325 mg PO Q4H PRN PRN Reason: Pain Albuterol/Ipratropium (Duoneb 3.0-0.5 Mg/3 Ml) 3 ml NEB QID PRN PRN Reason: Shortness of Breath Dipyridamole/Aspirin (Aggrenox 200-25 Mg) 1 cap PO BID [facility] Docusate Sodium (Colace) 100 mg PO DAILY PRN PRN Reason: Constipation Furosemide (Lasix) 20 mg PO DAILY [facility] Ketorolac Tromethamine (Toradol) 15 mg IVPUSH Q6H PRN PRN Reason: Pain (moderate 4-6) Stop: 06/17/17 14:19 Lisinopril (Prinivil) 10 mg PO DAILY [facility] Nebivolol (Bystolic) 10 mg PO BID [facility] Non-Formulary Medication (Fluticasone/Salmeterol [Advair 250-50]) 1 puff INH BID [facility] Non-Formulary Medication (Multivit-Min/Fa/Lycopene/Lut [Sentry Senior Tablet]) 1 each PO DAILY [facility] Non-Formulary Medication (Naproxen Sodium [Aleve]) 220 mg PO BID PRN PRN Reason: Pain Ondansetron HCl (Zofran) 4 mg IV Q4H PRN PRN Reason: Nausea/Vomiting Oxybutynin Chloride (Oxybutynin Er) 10 mg PO BID [facility] Sertraline HCl (Zoloft) 50 mg PO DAILY JACOB Simvastatin (Zocor) 40 mg PO QPM [facility] Assessment/Plan Comment:: Patient admitted to Swing bed services for PT/OT due to deconditioning and weakness. We will continue to closely monitor CHF, Lung contusion, COPD, HTN, paroxysmal atrial fibrillation. Meds continued and adjusted to Bystolic 10mg BID, Colace as directed, and lisinopril decreased to 10mg daily. We will maintain telemetry for another 24hours and discontinue if no further rhythm changes. Toradol for pain control. We will not restart any narcotics due to recent obstruction of the small bowel. Follow up PT/OT plans.
[2017-06-17] MEDS ORDERED: Naproxen 250 MG Tab PO PRN (14:56)
[2017-06-17] MEDS ORDERED: Ketorolac 30 MG/ML SDV IVPUSH SCH (15:00)
[2017-06-17] MEDS ORDERED: Ketorolac 30 MG/ML SDV IVPUSH PRN (15:00)
[2017-06-17] MEDS ORDERED: Sertraline 50 MG Tab PO SCH (20:00)
[2017-06-17] MEDS ORDERED: Oxybutynin 5 MG Tab.ER PO SCH (20:00)
[2017-06-17] MEDS ORDERED: Non-Formulary Medication 1 Each (Fluticasone/Salmeterol [Advair 250-50] 1 PUFF) INH SCH (20:00)
[2017-06-17] MEDS ORDERED: Simvastatin 40 MG Tab PO SCH (20:00)
[2017-06-17] MEDS ORDERED: Aspirin/Dipyridamole 200-25 MG Cap.ER PO SCH (20:00)
[2017-06-17] MEDS: Formoterol/Mometasone 200-5 MCG 8.8 GM Inhaler IH SCH (20:49)
[2017-06-17] MEDS: Simvastatin 40 MG Tab PO SCH (20:51)
[2017-06-17] MEDS: Aspirin/Dipyridamole 200-25 MG Cap.ER PO SCH (20:51)
[2017-06-17] MEDS: Oxybutynin 5 MG Tab.ER PO SCH (20:51)
[2017-06-18] MEDS ORDERED: Zolpidem 5 MG Tab ONE ×2 (00:18→23:30)
[2017-06-18] MEDS: Acetaminophen 325 MG Tab PO PRN ×2 (01:09→23:38)
[2017-06-18] MEDS ORDERED: Lisinopril 20 MG Tab PO SCH ×2 (08:00)
[2017-06-18] MEDS ORDERED: [UNRECOGNIZED DRUG - OTHER] PO SCH (08:00)
[2017-06-18] MEDS ORDERED: Docusate Sodium 100 MG Cap PO SCH (08:00)
[2017-06-18] MEDS ORDERED: Furosemide 20 MG Tab PO SCH ×2 (08:00)
[2017-06-18] MEDS: Oxybutynin 5 MG Tab.ER PO SCH ×2 (09:00→19:49)
[2017-06-18] MEDS: Aspirin/Dipyridamole 200-25 MG Cap.ER PO SCH ×2 (09:00→19:49)
[2017-06-18] MEDS: Sertraline 50 MG Tab PO SCH (09:00)
[2017-06-18] MEDS: Formoterol/Mometasone 200-5 MCG 8.8 GM Inhaler IH SCH ×2 (09:00→19:50)
[2017-06-18] MEDS: Furosemide 40 MG Tab PO SCH (09:01)
[2017-06-18] MEDS: Multivitamins with Iron/Calcium/Folic Acid/Minerals Tab PO SCH (09:01)
[2017-06-18] MEDS: Lisinopril 20 MG Tab PO SCH (09:02)
[2017-06-18] MEDS: Dextrose 5%-0.45% NaCl 1,000 ML IV SCH (16:46)
[2017-06-18] MEDS: Simvastatin 40 MG Tab PO SCH (19:50)
[2017-06-19] MEDS: Aspirin/Dipyridamole 200-25 MG Cap.ER PO SCH ×2 (08:48→20:05)
[2017-06-19] MEDS: Furosemide 40 MG Tab PO SCH (08:53)
[2017-06-19] MEDS: Formoterol/Mometasone 200-5 MCG 8.8 GM Inhaler IH SCH ×2 (08:53→20:11)
[2017-06-19] MEDS: Oxybutynin 5 MG Tab.ER PO SCH ×2 (08:54→20:06)
[2017-06-19] MEDS: Lisinopril 20 MG Tab PO SCH (08:56)
[2017-06-19] MEDS: Sertraline 50 MG Tab PO SCH (08:57)
[2017-06-19] MEDS: Multivitamins with Iron/Calcium/Folic Acid/Minerals Tab PO SCH (08:57)
[2017-06-19] MEDS: Simvastatin 40 MG Tab PO SCH (20:05)
[2017-06-19] MEDS: Dextrose 5%-0.45% NaCl 1,000 ML IV SCH (21:29)
[2017-06-19] MEDS: Zolpidem 5 MG Tab PO PRN (23:57)
[2017-06-20] MEDS: Aspirin/Dipyridamole 200-25 MG Cap.ER PO SCH ×2 (08:21→19:38)
[2017-06-20] MEDS: Oxybutynin 5 MG Tab.ER PO SCH ×2 (08:23→19:37)
[2017-06-20] MEDS: Furosemide 40 MG Tab PO SCH (08:23)
[2017-06-20] MEDS: Formoterol/Mometasone 200-5 MCG 8.8 GM Inhaler IH SCH ×2 (08:23→19:38)
[2017-06-20] MEDS: Lisinopril 20 MG Tab PO SCH (08:24)
[2017-06-20] MEDS: Multivitamins with Iron/Calcium/Folic Acid/Minerals Tab PO SCH (08:25)
[2017-06-20] MEDS: Sertraline 50 MG Tab PO SCH (08:28)
[2017-06-20] MEDS: Simvastatin 40 MG Tab PO SCH (19:38)
[2017-06-20] MEDS: Sodium Chloride 0.9% 10 ML Syringe FLUSH SCH (19:54)
[2017-06-20] MEDS: Zolpidem 5 MG Tab PO PRN (22:14)
[2017-06-21] MEDS: Aspirin/Dipyridamole 200-25 MG Cap.ER PO SCH ×2 (08:40→19:51)
[2017-06-21] MEDS: Formoterol/Mometasone 200-5 MCG 8.8 GM Inhaler IH SCH ×2 (08:42→19:53)
[2017-06-21] MEDS: Furosemide 40 MG Tab PO SCH (08:42)
[2017-06-21] MEDS: Oxybutynin 5 MG Tab.ER PO SCH ×2 (08:42→19:51)
[2017-06-21] MEDS: Lisinopril 20 MG Tab PO SCH (08:43)
[2017-06-21] MEDS: Sodium Chloride 0.9% 10 ML Syringe FLUSH SCH ×2 (08:44→19:52)
[2017-06-21] MEDS: Multivitamins with Iron/Calcium/Folic Acid/Minerals Tab PO SCH (08:45)
[2017-06-21] MEDS: Sertraline 50 MG Tab PO SCH (08:47)
[2017-06-21] MEDS ORDERED: Oxybutynin 5 MG Tab ONE (19:22)
[2017-06-21] MEDS: Simvastatin 40 MG Tab PO SCH (19:53)
[2017-06-22] MEDS: Aspirin/Dipyridamole 200-25 MG Cap.ER PO SCH ×2 (08:09→19:59)
[2017-06-22] MEDS: Formoterol/Mometasone 200-5 MCG 8.8 GM Inhaler IH SCH ×2 (08:12→19:59)
[2017-06-22] MEDS: Furosemide 40 MG Tab PO SCH (08:12)
[2017-06-22] MEDS: Oxybutynin 5 MG Tab.ER PO SCH ×2 (08:12→19:59)
[2017-06-22] MEDS: Lisinopril 20 MG Tab PO SCH (08:13)
[2017-06-22] MEDS: Multivitamins with Iron/Calcium/Folic Acid/Minerals Tab PO SCH (08:14)
[2017-06-22] MEDS: Sertraline 50 MG Tab PO SCH (08:15)
[2017-06-22] MEDS ORDERED: Bisacodyl 10 MG Supp RECTAL ONE (10:19)
[2017-06-22] MEDS: Sodium Chloride 0.9% 10 ML Syringe FLUSH SCH (12:51)
[2017-06-22] MEDS ORDERED: Oxybutynin 5 MG Tab ONE (19:43)
[2017-06-22] MEDS: Simvastatin 40 MG Tab PO SCH (19:59)
[2017-06-23] MEDS: Sodium Chloride 0.9% 10 ML Syringe FLUSH SCH ×3 (05:25→20:00)
[2017-06-23] MEDS: Furosemide 40 MG Tab PO SCH (07:41)
[2017-06-23] MEDS: Multivitamins with Iron/Calcium/Folic Acid/Minerals Tab PO SCH (07:41)
[2017-06-23] MEDS: Lisinopril 20 MG Tab PO SCH (07:41)
[2017-06-23] MEDS: Sertraline 50 MG Tab PO SCH (07:42)
[2017-06-23] MEDS: Formoterol/Mometasone 200-5 MCG 8.8 GM Inhaler IH SCH ×2 (07:42→20:00)
[2017-06-23] MEDS: Aspirin/Dipyridamole 200-25 MG Cap.ER PO SCH ×2 (07:42→19:59)
[2017-06-23] MEDS: Oxybutynin 5 MG Tab.ER PO SCH ×2 (07:47→19:59)
[2017-06-23] MEDS ORDERED: Oxybutynin 5 MG Tab ONE (07:47)
--- NOTE | 2017-06-23 13:38 | PCM.PN ---
- General Info Date of Service: 06/23/17 Functional Status: Reports: Pain Controlled, Tolerating Diet, Ambulating - Review of Systems General: Reports: Weakness HEENT: Reports: No Symptoms Pulmonary: Reports: No Symptoms Cardiovascular: Reports: No Symptoms Gastrointestinal: Reports: No Symptoms Genitourinary: Reports: No Symptoms Musculoskeletal: Reports: Joint Pain Neurological: Reports: No Symptoms Psychiatric: Reports: No Symptoms - Patient Data Vitals - Most Recent: Last Vital Signs Temp 36.8 C 06/23/17 07:58 Pulse 57 L 06/23/17 07:58 Resp 20 06/23/17 07:58 BP 114/69 06/23/17 07:58 Pulse Ox 93 L 06/23/17 07:58 Weight - Most Recent: 70.035 kg I&O - Last 24 Hours: Intake & Output 06/22/17 06/23/17 06/23/17 22:59 06:59 14:59 Intake Total 240 240 Output Total 450 Balance 240 -210 Med Orders - Current: Current Medications Acetaminophen (Tylenol) 325 mg PO Q4H PRN PRN Reason: Pain Last Admin: 06/18/17 23:38 Dose: 325 mg Albuterol/Ipratropium (Duoneb 3.0-0.5 Mg/3 Ml) 3 ml NEB QID PRN PRN Reason: Shortness of Breath Dipyridamole/Aspirin (Aggrenox 200-25 Mg) 1 cap PO BID [facility] Last Admin: 06/23/17 07:42 Dose: 1 cap Docusate Sodium (Colace) 100 mg PO DAILY PRN PRN Reason: Constipation Furosemide (Lasix) 40 mg PO DAILY [facility] Last Admin: 06/23/17 07:41 Dose: 40 mg Ketorolac Tromethamine (Toradol) 15 mg IVPUSH Q6H PRN PRN Reason: PAIN Lisinopril (Prinivil) 20 mg PO DAILY [facility] Last Admin: 06/23/17 07:41 Dose: 20 mg Mometasone Furoate/Formoterol Fumar (Dulera 200-5 Mcg) 2 puff IH BID [facility] Last Admin: 06/23/17 07:42 Dose: 2 puff Multivitamins/Minerals (Thera M Plus) 1 tab PO DAILY [facility] Last Admin: 06/23/17 07:41 Dose: 1 tab Naproxen (Naprosyn) 250 mg PO BID PRN PRN Reason: MILD PAIN Nebivolol (Bystolic) 10 mg PO BID [facility] Last Admin: 06/23/17 07:41 Dose: 10 mg Ondansetron HCl (Zofran Odt) 4 mg PO Q4H PRN PRN Reason: NAUSEA Oxybutynin Chloride (Oxybutynin Er) 10 mg PO BID [facility] Last Admin: 06/23/17 07:47 Dose: 10 mg Sertraline HCl (Zoloft) 50 mg PO DAILY [facility] Last Admin: 06/23/17 07:42 Dose: 50 mg Simvastatin (Zocor) 40 mg PO QPM [facility] Last Admin: 06/22/17 19:59 Dose: 40 mg Sodium Chloride (Saline Flush) 10 ml FLUSH Q12HR [facility] Last Admin: 06/23/17 07:48 Dose: Not Given Zolpidem Tartrate (Ambien) 5 mg PO BEDTIME PRN PRN Reason: Insomnia Last Admin: 06/20/17 22:14 Dose: 5 mg Discontinued Medications Albuterol/Ipratropium (Duoneb 3.0-0.5 Mg/3 Ml) 3 ml NEB Q4H PRN PRN Reason: Shortness of Breath Bisacodyl (Dulcolax) 10 mg RECTAL ONETIME ONE Stop: 06/22/17 10:20 Last Admin: 06/22/17 10:30 Dose: 10 mg Dipyridamole/Aspirin (Aggrenox 200-25 Mg) 1 cap PO BID [facility] Docusate Sodium (Colace) 100 mg PO DAILY [facility] Furosemide (Lasix) 20 mg PO DAILY [facility] Dextrose/Sodium Chloride (Dextrose 5%-1/2 Ns) 1,000 mls @ 85 mls/hr IV ASDIRECTED [facility] Last Admin: 06/19/17 21:29 Dose: 85 mls/hr Ketorolac Tromethamine (Toradol) 15 mg IVPUSH Q6H [facility] Lisinopril (Prinivil) 20 mg PO DAILY [facility] Nebivolol (Bystolic) 10 mg PO BID [facility] Oxybutynin Chloride (Oxybutynin Er) 5 mg PO BEDTIME [facility] Oxybutynin Chloride (Oxybutynin) Confirm Administered Dose 10 mg .ROUTE .STK- MED ONE Stop: 06/21/17 19:23 Last Admin: 06/21/17 19:51 Dose: 10 mg Oxybutynin Chloride (Oxybutynin) Confirm Administered Dose 10 mg .ROUTE .STK- MED ONE Stop: 06/22/17 19:44 Last Admin: 06/22/17 19:58 Dose: Not Given Oxybutynin Chloride (Oxybutynin) Confirm Administered Dose 10 mg .ROUTE .STK- MED ONE Stop: 06/23/17 07:48 Last Admin: 06/23/17 08:56 Dose: Not Given Sertraline HCl (Zoloft) 50 mg PO BEDTIME [facility] Simvastatin (Zocor) 40 mg PO BEDTIME [facility] Zolpidem Tartrate (Ambien) Confirm Administered Dose 5 mg .ROUTE .STK-MED ONE Stop: 06/18/17 00:19 Last Admin: 06/18/17 01:08 Dose: 5 mg Zolpidem Tartrate (Ambien) Confirm Administered Dose 5 mg .ROUTE .STK-MED ONE Stop: 06/18/17 23:31 Last Admin: 06/18/17 23:37 Dose: 5 mg - Exam General: Alert, Oriented, Cooperative HEENT: Pupils Equal, Pupils Reactive Neck: Supple Lungs: Clear to Auscultation, Normal Respiratory Effort Cardiovascular: Regular Rate, Irregular Rhythm GI/Abdominal Exam: Normal Bowel Sounds Back Exam: Normal Inspection Extremities: Normal Inspection - Problem List & Annotations (1) Severe muscle deconditioning SNOMED Code(s): 084465426 Code(s): R29.898 - OTH SYMPTOMS AND SIGNS INVOLVING THE MUSCULOSKELETAL SYSTEM Status: Acute Current Visit: Yes (2) Weakness generalized SNOMED Code(s): 92577651 Code(s): R53.1 - WEAKNESS Status: Acute Current Visit: Yes (3) Rib fractures SNOMED Code(s): 29106846 Code(s): S22.39XA - FRACTURE OF ONE RIB, UNSP SIDE, INIT FOR CLOS FX Status : Acute Current Visit: Yes (4) Pain management SNOMED Code(s): 154525977 Code(s): R52 - PAIN, UNSPECIFIED Status: Acute Current Visit: Yes (5) Paroxysmal atrial fibrillation with RVR SNOMED Code(s): 918100136 Code(s): I48.0 - PAROXYSMAL ATRIAL FIBRILLATION Status: Acute Priority: High Current Visit: No (6) Small bowel obstruction SNOMED Code(s): 175274476 Code(s): K56.609 - UNSP INTESTNL OBST, UNSP TO PARTIAL VERSUS COMPLETE OBST Status: Acute Priority: High Current Visit: No Annotation/Comment: : Resolving - advancing diet as tolerated and monitoring (7) CHF exacerbation SNOMED Code(s): 35412186 Code(s): I50.9 - HEART FAILURE, UNSPECIFIED Status: Chronic Current Visit : No Onset Date: 06/08/17 Annotation/Comment:: 06-08-2017- Congestive heart failure exacerbation. Also an elevated temperature. (8) COLD, Chronic obstructive lung disease SNOMED Code(s): 39024816 Code(s): J44.9 - CHRONIC OBSTRUCTIVE PULMONARY DISEASE, UNSPECIFIED Status : Chronic Priority: Medium Current Visit: No (9) Left lower lobe pneumonia SNOMED Code(s): 923889978 Code(s): J18.1 - LOBAR PNEUMONIA, UNSPECIFIED ORGANISM Status: Suspected Priority: High Current Visit: No - Problem List Review Problem List Initiated/Reviewed/Updated: Yes - Plan Plan:: Patient admitted to Swing bed services for PT/OT due to deconditioning and weakness. We will continue to closely monitor CHF, Lung contusion, COPD, HTN, paroxysmal atrial fibrillation. Meds continued and adjusted to Bystolic 10mg BID, Colace as directed, and lisinopril decreased to 10mg daily. We will maintain telemetry for another 24hours and discontinue if no further rhythm changes. Toradol for pain control. We will not restart any narcotics due to recent obstruction of the small bowel. Follow up PT/OT plans. 06/22/17 Weakness/Deconditioning - continue with PT/OT at this time Vitals as directed and each shift - monitoring CHF, COPD and atrial fibrillation Patient doing well on Bystolic twice a day dosing. BP controlled. Rib fractures - Pain controlled.
[2017-06-23] MEDS: Simvastatin 40 MG Tab PO SCH (19:59)
[2017-06-23] MEDS: Ondansetron 4 MG Tab.DIS PO PRN (20:10)
[2017-06-24] MEDS: Formoterol/Mometasone 200-5 MCG 8.8 GM Inhaler IH SCH ×2 (08:58→19:43)
[2017-06-24] MEDS: Aspirin/Dipyridamole 200-25 MG Cap.ER PO SCH ×2 (09:00→19:42)
[2017-06-24] MEDS: Multivitamins with Iron/Calcium/Folic Acid/Minerals Tab PO SCH (09:00)
[2017-06-24] MEDS: Sodium Chloride 0.9% 10 ML Syringe FLUSH SCH ×2 (09:00→22:22)
[2017-06-24] MEDS: Sertraline 50 MG Tab PO SCH (09:00)
[2017-06-24] MEDS: Oxybutynin 5 MG Tab.ER PO SCH ×2 (09:00→19:42)
[2017-06-24] MEDS: Lisinopril 20 MG Tab PO SCH (09:04)
[2017-06-24] MEDS: Furosemide 40 MG Tab PO SCH (09:04)
[2017-06-24] MEDS: Simvastatin 40 MG Tab PO SCH (19:42)
[2017-06-24] MEDS: Docusate Sodium 100 MG Cap PO PRN (20:01)
[2017-06-25] MEDS: Ondansetron 4 MG Tab.DIS PO PRN (04:11)
[2017-06-25] MEDS: Formoterol/Mometasone 200-5 MCG 8.8 GM Inhaler IH SCH ×2 (08:33→19:46)
[2017-06-25] MEDS: Aspirin/Dipyridamole 200-25 MG Cap.ER PO SCH ×2 (08:33→19:46)
[2017-06-25] MEDS: Sodium Chloride 0.9% 10 ML Syringe FLUSH SCH ×2 (08:34→19:48)
[2017-06-25] MEDS: Multivitamins with Iron/Calcium/Folic Acid/Minerals Tab PO SCH (08:34)
[2017-06-25] MEDS: Sertraline 50 MG Tab PO SCH (08:34)
[2017-06-25] MEDS: Oxybutynin 5 MG Tab.ER PO SCH ×2 (08:34→19:46)
[2017-06-25] MEDS: Docusate Sodium 100 MG Cap PO PRN (08:37)
[2017-06-25] MEDS: Lisinopril 20 MG Tab PO SCH (08:43)
[2017-06-25] MEDS: Furosemide 40 MG Tab PO SCH (08:43)
[2017-06-25] MEDS: Simvastatin 40 MG Tab PO SCH (19:45)
[2017-06-26] MEDS: Aspirin/Dipyridamole 200-25 MG Cap.ER PO SCH ×2 (08:15→19:26)
[2017-06-26] MEDS: Multivitamins with Iron/Calcium/Folic Acid/Minerals Tab PO SCH (08:15)
[2017-06-26] MEDS: Sertraline 50 MG Tab PO SCH (08:15)
[2017-06-26] MEDS: Formoterol/Mometasone 200-5 MCG 8.8 GM Inhaler IH SCH ×2 (08:16→19:24)
[2017-06-26] MEDS: Furosemide 40 MG Tab PO SCH (08:16)
[2017-06-26] MEDS: Lisinopril 20 MG Tab PO SCH (08:17)
[2017-06-26] MEDS: Oxybutynin 5 MG Tab.ER PO SCH ×2 (08:18→19:25)
[2017-06-26] MEDS: Sodium Chloride 0.9% 10 ML Syringe FLUSH SCH (08:25)
[2017-06-26] MEDS: Simvastatin 40 MG Tab PO SCH (19:25)
[2017-06-27] MEDS: Aspirin/Dipyridamole 200-25 MG Cap.ER PO SCH ×2 (08:19→20:33)
[2017-06-27] MEDS: Furosemide 40 MG Tab PO SCH (08:19)
[2017-06-27] MEDS: Sertraline 50 MG Tab PO SCH (08:19)
[2017-06-27] MEDS: Multivitamins with Iron/Calcium/Folic Acid/Minerals Tab PO SCH (08:19)
[2017-06-27] MEDS: Oxybutynin 5 MG Tab.ER PO SCH ×2 (08:19→20:17)
[2017-06-27] MEDS: Lisinopril 20 MG Tab PO SCH (08:19)
[2017-06-27] MEDS: Formoterol/Mometasone 200-5 MCG 8.8 GM Inhaler IH SCH ×2 (08:20→20:21)
[2017-06-27] MEDS ORDERED: Bisacodyl 10 MG Supp RECTAL PRN (12:39)
[2017-06-27] MEDS: Simvastatin 40 MG Tab PO SCH (20:19)
[2017-06-28] MEDS: Multivitamins with Iron/Calcium/Folic Acid/Minerals Tab PO SCH (08:21)
[2017-06-28] MEDS: Sertraline 50 MG Tab PO SCH (08:22)
[2017-06-28] MEDS: Lisinopril 20 MG Tab PO SCH (08:22)
[2017-06-28] MEDS: Oxybutynin 5 MG Tab.ER PO SCH ×2 (08:22→19:47)
[2017-06-28] MEDS: Furosemide 40 MG Tab PO SCH (08:22)
[2017-06-28] MEDS: Aspirin/Dipyridamole 200-25 MG Cap.ER PO SCH ×2 (08:22→19:47)
[2017-06-28] MEDS: Formoterol/Mometasone 200-5 MCG 8.8 GM Inhaler IH SCH ×2 (08:23→23:41)
[2017-06-28] MEDS: Simvastatin 40 MG Tab PO SCH (19:46)
[2017-06-29] MEDS: Aspirin/Dipyridamole 200-25 MG Cap.ER PO SCH ×2 (08:16→19:49)
[2017-06-29] MEDS: Sertraline 50 MG Tab PO SCH (08:17)
[2017-06-29] MEDS: Oxybutynin 5 MG Tab.ER PO SCH ×2 (08:17→19:49)
[2017-06-29] MEDS: Multivitamins with Iron/Calcium/Folic Acid/Minerals Tab PO SCH (08:17)
[2017-06-29] MEDS: Formoterol/Mometasone 200-5 MCG 8.8 GM Inhaler IH SCH ×2 (08:17→19:56)
[2017-06-29] MEDS: Lisinopril 20 MG Tab PO SCH (08:18)
[2017-06-29] MEDS: Furosemide 40 MG Tab PO SCH (08:18)
--- NOTE | 2017-06-29 12:25 | PCM.PN ---
- General Info Date of Service: 06/29/17 Functional Status: Reports: Tolerating Diet - Review of Systems General: Reports: Weakness HEENT: Reports: No Symptoms Pulmonary: Reports: No Symptoms Cardiovascular: Reports: No Symptoms Gastrointestinal: Reports: No Symptoms Genitourinary: Reports: No Symptoms Musculoskeletal: Reports: No Symptoms Skin: Reports: No Symptoms Neurological: Reports: No Symptoms Psychiatric: Reports: No Symptoms - Patient Data Vitals - Most Recent: Last Vital Signs Temp 37.3 C 06/29/17 08:00 Pulse 57 L 06/29/17 08:17 Resp 18 06/28/17 20:00 BP 94/59 L 06/29/17 08:18 Pulse Ox 92 L 06/29/17 08:00 Weight - Most Recent: 67.585 kg I&O - Last 24 Hours: Intake & Output 06/28/17 06/29/17 06/29/17 22:59 06:59 14:59 Intake Total 240 Output Total 500 Balance -260 Med Orders - Current: Current Medications Acetaminophen (Tylenol) 325 mg PO Q4H PRN PRN Reason: Pain Last Admin: 06/18/17 23:38 Dose: 325 mg Albuterol/Ipratropium (Duoneb 3.0-0.5 Mg/3 Ml) 3 ml NEB QID PRN PRN Reason: Shortness of Breath Last Admin: 06/23/17 20:10 Dose: 3 ml Bisacodyl (Dulcolax) 10 mg RECTAL DAILY PRN PRN Reason: Constipation Last Admin: 06/27/17 13:02 Dose: 10 mg Dipyridamole/Aspirin (Aggrenox 200-25 Mg) 1 cap PO BID [facility] Last Admin: 06/29/17 08:16 Dose: 1 cap Docusate Sodium (Colace) 100 mg PO DAILY PRN PRN Reason: Constipation Last Admin: 06/25/17 08:37 Dose: 100 mg Furosemide (Lasix) 40 mg PO DAILY [facility] Last Admin: 06/29/17 08:18 Dose: Not Given Ketorolac Tromethamine (Toradol) 15 mg IVPUSH Q6H PRN PRN Reason: PAIN Lisinopril (Prinivil) 20 mg PO DAILY [facility] Last Admin: 06/29/17 08:18 Dose: Not Given Mometasone Furoate/Formoterol Fumar (Dulera 200-5 Mcg) 2 puff IH BID [facility] Last Admin: 06/29/17 08:17 Dose: 2 puff Multivitamins/Minerals (Thera M Plus) 1 tab PO DAILY [facility] Last Admin: 06/29/17 08:17 Dose: 1 tab Naproxen (Naprosyn) 250 mg PO BID PRN PRN Reason: MILD PAIN Nebivolol (Bystolic) 10 mg PO BID [facility] Last Admin: 06/29/17 08:17 Dose: Not Given Ondansetron HCl (Zofran Odt) 4 mg PO Q4H PRN PRN Reason: NAUSEA Last Admin: 06/25/17 04:11 Dose: 4 mg Oxybutynin Chloride (Oxybutynin Er) 10 mg PO BID [facility] Last Admin: 06/29/17 08:17 Dose: 10 mg Senna/Docusate Sodium (Senna Plus) 1 tab PO BID [facility] Last Admin: 06/29/17 08:16 Dose: 1 tab Sertraline HCl (Zoloft) 50 mg PO DAILY [facility] Last Admin: 06/29/17 08:17 Dose: 50 mg Simvastatin (Zocor) 40 mg PO QPM [facility] Last Admin: 06/28/17 19:46 Dose: 40 mg Zolpidem Tartrate (Ambien) 5 mg PO BEDTIME PRN PRN Reason: Insomnia Last Admin: 06/20/17 22:14 Dose: 5 mg Discontinued Medications Albuterol/Ipratropium (Duoneb 3.0-0.5 Mg/3 Ml) 3 ml NEB Q4H PRN PRN Reason: Shortness of Breath Bisacodyl (Dulcolax) 10 mg RECTAL ONETIME ONE Stop: 06/22/17 10:20 Last Admin: 06/22/17 10:30 Dose: 10 mg Dipyridamole/Aspirin (Aggrenox 200-25 Mg) 1 cap PO BID [facility] Docusate Sodium (Colace) 100 mg PO DAILY [facility] Furosemide (Lasix) 20 mg PO DAILY [facility] Dextrose/Sodium Chloride (Dextrose 5%-1/2 Ns) 1,000 mls @ 85 mls/hr IV ASDIRECTED [facility] Last Admin: 06/19/17 21:29 Dose: 85 mls/hr Ketorolac Tromethamine (Toradol) 15 mg IVPUSH Q6H [facility] Lisinopril (Prinivil) 20 mg PO DAILY [facility] Nebivolol (Bystolic) 10 mg PO BID [facility] Oxybutynin Chloride (Oxybutynin Er) 5 mg PO BEDTIME [facility] Oxybutynin Chloride (Oxybutynin) Confirm Administered Dose 10 mg .ROUTE .STK- MED ONE Stop: 06/21/17 19:23 Last Admin: 06/21/17 19:51 Dose: 10 mg Oxybutynin Chloride (Oxybutynin) Confirm Administered Dose 10 mg .ROUTE .STK- MED ONE Stop: 06/22/17 19:44 Last Admin: 06/22/17 19:58 Dose: Not Given Oxybutynin Chloride (Oxybutynin) Confirm Administered Dose 10 mg .ROUTE .Monaeo- MED ONE Stop: 06/23/17 07:48 Last Admin: 06/23/17 08:56 Dose: Not Given Sertraline HCl (Zoloft) 50 mg PO BEDTIME [facility] Simvastatin (Zocor) 40 mg PO BEDTIME [facility] Sodium Chloride (Saline Flush) 10 ml FLUSH Q12HR [facility] Last Admin: 06/26/17 08:25 Dose: Not Given Zolpidem Tartrate (Ambien) Confirm Administered Dose 5 mg .ROUTE .STK-MED ONE Stop: 06/18/17 00:19 Last Admin: 06/18/17 01:08 Dose: 5 mg Zolpidem Tartrate (Ambien) Confirm Administered Dose 5 mg .ROUTE .STMonaeo-MED ONE Stop: 06/18/17 23:31 Last Admin: 06/18/17 23:37 Dose: 5 mg - Exam General: Alert, Oriented HEENT: Pupils Equal, Pupils Reactive, EOMI Neck: Supple Lungs: Clear to Auscultation, Normal Respiratory Effort Cardiovascular: Regular Rate, Regular Rhythm GI/Abdominal Exam: Normal Bowel Sounds, Soft, Non-Tender Back Exam: Normal Inspection Peripheral Pulses: 2+: Dorsalis Pedis (L), Dorsalis Pedis (R) Skin: Warm, Dry, Intact Neurological: No New Focal Deficit Psy/Mental Status: Alert, Normal Affect, Normal Mood - Problem List & Annotations (1) Severe muscle deconditioning SNOMED Code(s): 298129603 Code(s): R29.898 - [facility] SYMPTOMS AND SIGNS INVOLVING THE MUSCULOSKELETAL SYSTEM Status: Acute Current Visit: Yes (2) Weakness generalized SNOMED Code(s): 00866461 Code(s): R53.1 - WEAKNESS Status: Acute Current Visit: Yes (3) Rib fractures SNOMED Code(s): 59368311 Code(s): S22.39XA - FRACTURE OF ONE RIB, UNSP SIDE, INIT FOR CLOS FX Status : Acute Current Visit: Yes (4) Pain management SNOMED Code(s): 412808004 Code(s): R52 - PAIN, UNSPECIFIED Status: Acute Current Visit: Yes (5) Paroxysmal atrial fibrillation with RVR SNOMED Code(s): 311949627 Code(s): I48.0 - PAROXYSMAL ATRIAL FIBRILLATION Status: Acute Priority: High Current Visit: No (6) Small bowel obstruction SNOMED Code(s): 222252809 Code(s): K56.609 - UNSP INTESTNL OBST, UNSP TO PARTIAL VERSUS COMPLETE OBST Status: Acute Priority: High Current Visit: No Annotation/Comment: : Resolving - advancing diet as tolerated and monitoring (7) CHF exacerbation SNOMED Code(s): 83790762 Code(s): I50.9 - HEART FAILURE, UNSPECIFIED Status: Chronic Current Visit : No Onset Date: 06/08/17 Annotation/Comment:: 06-08-2017- Congestive heart failure exacerbation. Also an elevated temperature. (8) COLD, Chronic obstructive lung disease SNOMED Code(s): 72116323 Code(s): J44.9 - CHRONIC OBSTRUCTIVE PULMONARY DISEASE, UNSPECIFIED Status : Chronic Priority: Medium Current Visit: No (9) Left lower lobe pneumonia SNOMED Code(s): 557104251 Code(s): J18.1 - LOBAR PNEUMONIA, UNSPECIFIED ORGANISM Status: Suspected Priority: High Current Visit: No - Problem List Review Problem List Initiated/Reviewed/Updated: Yes - Plan Plan:: Patient admitted to Swing bed services for PT/OT due to deconditioning and weakness. We will continue to closely monitor CHF, Lung contusion, COPD, HTN, paroxysmal atrial fibrillation. Meds continued and adjusted to Bystolic 10mg BID, Colace as directed, and lisinopril decreased to 10mg daily. We will maintain telemetry for another 24hours and discontinue if no further rhythm changes. Toradol for pain control. We will not restart any narcotics due to recent obstruction of the small bowel. Follow up PT/OT plans. 06/22/17 Weakness/Deconditioning - continue with PT/OT at this time Vitals as directed and each shift - monitoring CHF, COPD and atrial fibrillation Patient doing well on Bystolic twice a day dosing. BP controlled. Rib fractures - Pain controlled. 06/29/17 Improving symptoms. He has had likely ileus and slow advancement of diet. Each advancement has caused more abdominal tenderness and nausea/vomiting and we have gone back and forth. We will continue only on clears at this time which he is tolerating. Each time we advance to a soft diet his BM slow and he begins to have abdominal pains with nausea and vomiting. Continue current management. Monitoring BP as he has had complications with low BP and elevated BP or paroxysmal atrial fibrillation. He needs to be on Bystolic as every time we have stopped bystolic because of low BP he returned to atrial fibrillation within a few days. We have so far held lisinopril and lasix at times.
[2017-06-29] MEDS: Simvastatin 40 MG Tab PO SCH (19:49)
[2017-06-29] MEDS: Docusate Sodium 100 MG Cap PO PRN (19:49)
[2017-06-30] MEDS: Docusate Sodium 100 MG Cap PO PRN (08:32)
[2017-06-30] MEDS: Multivitamins with Iron/Calcium/Folic Acid/Minerals Tab PO SCH (08:32)
[2017-06-30] MEDS: Aspirin/Dipyridamole 200-25 MG Cap.ER PO SCH ×2 (08:32→20:56)
[2017-06-30] MEDS: Formoterol/Mometasone 200-5 MCG 8.8 GM Inhaler IH SCH ×2 (08:32→20:56)
[2017-06-30] MEDS: Sertraline 50 MG Tab PO SCH (08:33)
[2017-06-30] MEDS: Oxybutynin 5 MG Tab.ER PO SCH ×2 (08:33→20:56)
[2017-06-30] MEDS: Furosemide 40 MG Tab PO SCH (12:47)
[2017-06-30] MEDS: Lisinopril 20 MG Tab PO SCH (12:47)
[2017-06-30] MEDS ORDERED: Polyethylene Glycol 3350 Powder 17 GM Packet ONE (16:42)
[2017-06-30] MEDS: Simvastatin 40 MG Tab PO SCH (20:56)
[2017-06-30] MEDS: Polyethylene Glycol 3350 Powder 17 GM Packet PO SCH (20:56)
[2017-07-01] MEDS: Sertraline 50 MG Tab PO SCH (08:25)
[2017-07-01] MEDS: Polyethylene Glycol 3350 Powder 17 GM Packet PO SCH ×3 (08:25→20:15)
[2017-07-01] MEDS: Formoterol/Mometasone 200-5 MCG 8.8 GM Inhaler IH SCH ×2 (08:25→20:14)
[2017-07-01] MEDS: Multivitamins with Iron/Calcium/Folic Acid/Minerals Tab PO SCH (08:26)
[2017-07-01] MEDS: Aspirin/Dipyridamole 200-25 MG Cap.ER PO SCH ×2 (08:26→20:16)
[2017-07-01] MEDS: Oxybutynin 5 MG Tab.ER PO SCH ×2 (08:26→20:15)
[2017-07-01] MEDS: Furosemide 40 MG Tab PO SCH (09:36)
[2017-07-01] MEDS: Lisinopril 20 MG Tab PO SCH (09:37)
[2017-07-01] MEDS: Simvastatin 40 MG Tab PO SCH (20:15)
[2017-07-02] MEDS: Aspirin/Dipyridamole 200-25 MG Cap.ER PO SCH (07:38)
[2017-07-02] MEDS: Furosemide 40 MG Tab PO SCH (07:39)
[2017-07-02] MEDS: Oxybutynin 5 MG Tab.ER PO SCH (07:40)
[2017-07-02] MEDS: Lisinopril 20 MG Tab PO SCH (07:40)
[2017-07-02] MEDS: Multivitamins with Iron/Calcium/Folic Acid/Minerals Tab PO SCH (07:41)
[2017-07-02] MEDS: Sertraline 50 MG Tab PO SCH (07:41)
[2017-07-02 07:42] VITALS: BP 104/65
[2017-07-02] MEDS: Formoterol/Mometasone 200-5 MCG 8.8 GM Inhaler IH SCH (07:42)
[2017-07-02] MEDS: Polyethylene Glycol 3350 Powder 17 GM Packet PO SCH (07:44)
--- NOTE | 2017-07-02 13:04 | PCM.DCSUM1 ---
Discharge Summary - Discharge Data Discharge Date: 07/02/17 Discharge Disposition: Home, Self-Care 01 Condition: Good - Discharge Diagnosis/Problem(s) (1) Severe muscle deconditioning SNOMED Code(s): 405795568 ICD Code: R29.898 - [facility] SYMPTOMS AND SIGNS INVOLVING THE MUSCULOSKELETAL SYSTEM Status: Acute Current Visit: Yes (2) Weakness generalized SNOMED Code(s): 33102022 ICD Code: R53.1 - WEAKNESS Status: Acute Current Visit: Yes (3) Rib fractures SNOMED Code(s): 95921010 ICD Code: S22.39XA - FRACTURE OF ONE RIB, UNSP SIDE, INIT FOR CLOS FX Status: Acute Current Visit: Yes (4) Pain management SNOMED Code(s): 045898747 ICD Code: R52 - PAIN, UNSPECIFIED Status: Acute Current Visit: Yes (5) Paroxysmal atrial fibrillation with RVR SNOMED Code(s): 438196877 ICD Code: I48.0 - PAROXYSMAL ATRIAL FIBRILLATION Status: Acute Priority: High Current Visit: No (6) Small bowel obstruction SNOMED Code(s): 981200425 ICD Code: K56.609 - UNSP INTESTNL OBST, UNSP TO PARTIAL VERSUS COMPLETE OBST Status: Acute Priority: High Current Visit: No Problem Details: Resolving - advancing diet as tolerated and monitoring (7) CHF exacerbation SNOMED Code(s): 99516307 ICD Code: I50.9 - HEART FAILURE, UNSPECIFIED Status: Chronic Current Visit: No Onset Date: 06/08/17 Problem Details: 06-08-2017- Congestive heart failure exacerbation. Also an elevated temperature. (8) COLD, Chronic obstructive lung disease SNOMED Code(s): 79895442 ICD Code: J44.9 - CHRONIC OBSTRUCTIVE PULMONARY DISEASE, UNSPECIFIED Status : Chronic Priority: Medium Current Visit: No (9) Left lower lobe pneumonia SNOMED Code(s): 554228246 ICD Code: J18.1 - LOBAR PNEUMONIA, UNSPECIFIED ORGANISM Status: Suspected Priority: High Current Visit: No - Patient Summary/Data Consults: Consultations 06/17/17 14:17 Consult to Case Management [CONS] Routine Comment: Physician Instructions: Quantity: Consult to Signal [employer]r [CONS] Routine Comment: Physician Instructions: OT Evaluation and Treatment [CONS] Routine Please Evaluate and Treat. OT Reason for Consult: ADL's This query below is only for informational purposes and is not editable. PT Evaluation and Treatment [CONS] Routine Please Evaluate and Treat. PT Reason for Consult: Ambulation This query below is only for informational purposes and is not editable. - Patient Instructions Diet: Full Liquid Diet, Pureed Activity: As Tolerated Driving: Do Not Drive - Discharge Plan Prescriptions/Med Rec: RX: Nebivolol [Bystolic] 10 mg PO BID #60 tablet Home Medications: Home Meds RX: Fluticasone/Salmeterol [Advair 250-50] 1 puff INH BID 08/27/14 [History] RX: Simvastatin 40 mg PO QPM 08/27/14 [History] RX: Multivit-Min/FA/Lycopene/Lut [Sentry Senior Tablet] 1 each PO DAILY [History] RX: Sertraline HCl 50 mg PO DAILY 02/19/15 [History] RX: Aspirin/Dipyridamole [Aggrenox 200-25 MG] 1 cap PO BID 11/02/15 [History] RX: Naproxen Sodium [Aleve] 220 mg PO BID PRN 03/14/16 [History] RX: Albuterol/Ipratropium [DuoNeb 3.0-0.5 MG/3 ML] 3 ml NEB QID PRN 03/28/16 [ History] RX: Docusate Sodium [Colace] 100 mg PO DAILY PRN 03/28/16 [History] RX: Bisacodyl [Dulcolax] 10 mg RECTAL DAILY PRN supp 07/02/17 [Rx] RX: Furosemide [Lasix] 40 mg PO DAILY tablet 07/02/17 [Rx] RX: Nebivolol [Bystolic] 10 mg PO BID #60 tablet 07/02/17 [Rx] - Discharge Summary/Plan Comment DC Time >30 min.: Yes Discharge Summary/Plan Comment: Counseled on f/u in clinic for recheck. Discussed diet and slow advancement. Full liquid and pureed foods for at least 2 weeks. Counseled on slow advancement of diet. Discussed PT/OT and f/u evaluation. Meds adjusted - Lisinopril held due to low BP. Changed lasix to 40mg daily. Changed Bystolic to 10mg BID. Patient to f/u in clinic for evaluation of BP and any return of symptoms. - Patient Data Vitals - Most Recent: Last Vital Signs Temp 36.4 C 07/02/17 07:45 Pulse 54 L 07/02/17 07:45 Resp 18 07/02/17 07:45 BP 104/65 07/02/17 07:45 Pulse Ox 95 07/02/17 07:45 Weight - Most Recent: 67.755 kg Med Orders - Current: Current Medications Acetaminophen (Tylenol) 325 mg PO Q4H PRN PRN Reason: Pain Last Admin: 06/18/17 23:38 Dose: 325 mg Albuterol/Ipratropium (Duoneb 3.0-0.5 Mg/3 Ml) 3 ml NEB QID PRN PRN Reason: Shortness of Breath Last Admin: 06/23/17 20:10 Dose: 3 ml Bisacodyl (Dulcolax) 10 mg RECTAL DAILY PRN PRN Reason: Constipation Last Admin: 06/27/17 13:02 Dose: 10 mg Dipyridamole/Aspirin (Aggrenox 200-25 Mg) 1 cap PO BID [facility] Last Admin: 07/02/17 07:38 Dose: 1 cap Docusate Sodium (Colace) 100 mg PO DAILY PRN PRN Reason: Constipation Last Admin: 06/30/17 08:32 Dose: 100 mg Furosemide (Lasix) 40 mg PO DAILY [facility] Last Admin: 07/02/17 07:39 Dose: 40 mg Ketorolac Tromethamine (Toradol) 15 mg IVPUSH Q6H PRN PRN Reason: PAIN Lisinopril (Prinivil) 20 mg PO DAILY [facility] Last Admin: 07/02/17 07:40 Dose: Not Given Mometasone Furoate/Formoterol Fumar (Dulera 200-5 Mcg) 2 puff IH BID [facility] Last Admin: 07/02/17 07:42 Dose: 2 puff Multivitamins/Minerals (Thera M Plus) 1 tab PO DAILY [facility] Last Admin: 07/02/17 07:41 Dose: 1 tab Naproxen (Naprosyn) 250 mg PO BID PRN PRN Reason: MILD PAIN Nebivolol (Bystolic) 10 mg PO BID [facility] Last Admin: 07/02/17 07:38 Dose: 10 mg Ondansetron HCl (Zofran Odt) 4 mg PO Q4H PRN PRN Reason: NAUSEA Last Admin: 06/25/17 04:11 Dose: 4 mg Oxybutynin Chloride (Oxybutynin Er) 10 mg PO BID [facility] Last Admin: 07/02/17 07:40 Dose: 10 mg Polyethylene Glycol (Miralax) 17 gm PO TID [facility] Last Admin: 07/02/17 07:44 Dose: 17 gm Senna/Docusate Sodium (Senna Plus) 1 tab PO BID [facility] Last Admin: 07/02/17 07:41 Dose: 1 tab Sertraline HCl (Zoloft) 50 mg PO DAILY [facility] Last Admin: 07/02/17 07:41 Dose: 50 mg Simvastatin (Zocor) 40 mg PO QPM [facility] Last Admin: 07/01/17 20:15 Dose: 40 mg Zolpidem Tartrate (Ambien) 5 mg PO BEDTIME PRN PRN Reason: Insomnia Last Admin: 06/20/17 22:14 Dose: 5 mg Discontinued Medications Albuterol/Ipratropium (Duoneb 3.0-0.5 Mg/3 Ml) 3 ml NEB Q4H PRN PRN Reason: Shortness of Breath Bisacodyl (Dulcolax) 10 mg RECTAL ONETIME ONE Stop: 06/22/17 10:20 Last Admin: 06/22/17 10:30 Dose: 10 mg Dipyridamole/Aspirin (Aggrenox 200-25 Mg) 1 cap PO BID [facility] Docusate Sodium (Colace) 100 mg PO DAILY [facility] Furosemide (Lasix) 20 mg PO DAILY [facility] Dextrose/Sodium Chloride (Dextrose 5%-1/2 Ns) 1,000 mls @ 85 mls/hr IV ASDIRECTED [facility] Last Admin: 06/19/17 21:29 Dose: 85 mls/hr Ketorolac Tromethamine (Toradol) 15 mg IVPUSH Q6H [facility] Lisinopril (Prinivil) 20 mg PO DAILY [facility] Nebivolol (Bystolic) 10 mg PO BID [facility] Oxybutynin Chloride (Oxybutynin Er) 5 mg PO BEDTIME [facility] Oxybutynin Chloride (Oxybutynin) Confirm Administered Dose 10 mg .ROUTE .STK- MED ONE Stop: 06/21/17 19:23 Last Admin: 06/21/17 19:51 Dose: 10 mg Oxybutynin Chloride (Oxybutynin) Confirm Administered Dose 10 mg .ROUTE .ST- MED ONE Stop: 06/22/17 19:44 Last Admin: 06/22/17 19:58 Dose: Not Given Oxybutynin Chloride (Oxybutynin) Confirm Administered Dose 10 mg .ROUTE .STLoteda- MED ONE Stop: 06/23/17 07:48 Last Admin: 06/23/17 08:56 Dose: Not Given Polyethylene Glycol (Miralax) Confirm Administered Dose 17 gm .ROUTE .STLoteda-MED ONE Stop: 06/30/17 16:43 Last Admin: 06/30/17 16:51 Dose: 17 gm Sertraline HCl (Zoloft) 50 mg PO BEDTIME [facility] Simvastatin (Zocor) 40 mg PO BEDTIME [facility] Sodium Chloride (Saline Flush) 10 ml FLUSH Q12HR [facility] Last Admin: 06/26/17 08:25 Dose: Not Given Zolpidem Tartrate (Ambien) Confirm Administered Dose 5 mg .ROUTE .SlapVid-Trover ONE Stop: 06/18/17 00:19 Last Admin: 06/18/17 01:08 Dose: 5 mg Zolpidem Tartrate (Ambien) Confirm Administered Dose 5 mg .ROUTE .SlapVid-MED ONE Stop: 06/18/17 23:31 Last Admin: 06/18/17 23:37 Dose: 5 mg *Q Meaningful Use (DIS) - VTE *Q VTE Criteria *Q: - Stroke *Q Stroke Criteria *Q: - AMI *Q AMI Criteria *Q:
== END 2017-07-02 14:10 | disposition home or self-care (01) | DRG 948 ==
LOC: LB.MS 06-17 14:17
PROVIDERS: ADMIT Family Medicine; ATTEND Family Medicine
DX: R53.1 Weakness (principal); I69.854 Hemiplegia and hemiparesis following other cerebrovascular disease affecting left non-dominant side; R29.898 Other symptoms and signs involving the musculoskeletal system; S22.39XD Fracture of one rib, unspecified side, subsequent encounter for fracture with routine healing; R52 Pain, unspecified; I48.0 Paroxysmal atrial fibrillation; I50.9 Heart failure, unspecified; E78.00 Pure hypercholesterolemia, unspecified; I25.2 Old myocardial infarction; J44.9 Chronic obstructive pulmonary disease, unspecified; R42 Dizziness and giddiness; Z87.01 Personal history of pneumonia (recurrent); Z85.51 Personal history of malignant neoplasm of bladder; Z95.5 Presence of coronary angioplasty implant and graft; H91.90 Unspecified hearing loss, unspecified ear; Z87.891 Personal history of nicotine dependence; Z66 Do not resuscitate; Z79.82 Long term (current) use of aspirin; Z88.8 Allergy status to other drugs, medicaments and biological substances; Z87.19 Personal history of other diseases of the digestive system
CPT/HCPCS: 36415; 80053; 81001; 85025; 97110-GO; 97110-GP; 97116-GP; 97530-GP; 97535-GO; A9270-GY; J7050; J7620

== ENCOUNTER 2017-08-01 15:35 | Emergency (ER) | payer MEDICARE, OTHER ==
[2017-08-01 16:50] VITALS: BP 137/68
--- NOTE | 2017-08-01 17:18 | EDM.PDOC ---
ED HPI GENERAL MEDICAL PROBLEM - General Chief Complaint: General Stated Complaint: Blood in Urine, Inability to void Time Seen by Provider: 08/01/17 15:40 Source of Information: Reports: Patient History Limitations: Reports: No Limitations - History of Present Illness INITIAL COMMENTS - FREE TEXT/NARRATIVE: Patient is an 82 year old man who has had a history of prostate and bladder problems that occasionally cause hematuria and urinary retention. This morning he did have blood with his first urination and has not been able to urinate since then. His bladder is hurting and when this occurs he has had a urinary catheter placed to relieve the obstruction. No fever or chills and no other complaints. Onset: Today Onset Date: 08/01/17 Onset Time: 07:00 Duration: Hour(s): (8), Getting Worse Location: Reports: Pelvis Quality: Reports: Ache Severity: Mild Improves with: Reports: None Worsens with: Reports: Other (Inability to urinate.) Context: Reports: Other (History of prostate and bladder problems causing urinary retention.) Associated Symptoms: Reports: No Other Symptoms - Related Data Allergies Allergy/AdvReac Type Severity Reaction Status Date / Time quinine [Quinine] Allergy Rash Verified 08/01/17 16:45 monohydrochloride Allergy Rash Uncoded 08/01/17 16:45 Home Meds: Home Meds Fluticasone/Salmeterol [Advair 250-50] 1 puff INH BID 08/27/14 [History] Simvastatin 40 mg PO QPM 08/27/14 [History] Multivit-Min/FA/Lycopene/Lut [Sentry Senior Tablet] 1 each PO DAILY 02/19/15 [ History] Sertraline HCl 50 mg PO DAILY 02/19/15 [History] Aspirin/Dipyridamole [Aggrenox 200-25 MG] 1 cap PO BID 11/02/15 [History] Naproxen Sodium [Aleve] 220 mg PO BID PRN 03/14/16 [History] Albuterol/Ipratropium [DuoNeb 3.0-0.5 MG/3 ML] 3 ml NEB QID PRN 03/28/16 [ History] Docusate Sodium [Colace] 100 mg PO DAILY PRN 03/28/16 [History] Bisacodyl [Dulcolax] 10 mg RECTAL DAILY PRN supp 07/02/17 [Rx] Furosemide [Lasix] 40 mg PO DAILY tablet 07/02/17 [Rx] Nebivolol [Bystolic] 10 mg PO BID #60 tablet 07/02/17 [Rx] Past Medical History HEENT History: Reports: Hard of Hearing, Other (See Below) Other HEENT History: Wears hearing aids Cardiovascular History: Reports: CAD, Heart Failure, High Cholesterol, Hypertension, [place], SOB on Exertion, Stents Respiratory History: Reports: COPD Genitourinary History: Reports: Other (See Below) Other Genitourinary History: Bladder Ca Neurological History: Reports: CVA 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 Oncologic (Cancer) History: Reports: Bladder - Infectious Disease History Infectious Disease History: Reports: Chicken Pox, Measles, Mumps, Shingles - Past Surgical History HEENT Surgical History: Reports: Cataract Surgery Cardiovascular Surgical History: Reports: Coronary Artery Stent GI Surgical History: Reports: Colonoscopy, Hernia, Inguinal, Hernia Repair/Other Dermatological Surgical History: Reports: None Social & Family History - Family History Family Medical History: Noncontributory - Tobacco Use Smoking Status *Q: Former Smoker Years of Tobacco use: 50 Packs/Tins Daily: 1 Used Tobacco, but Quit: Yes Month Tobacco Last Used: none Second Hand Smoke Exposure: No - Caffeine Use Caffeine Use: Reports: Coffee Caffeine Use Comment: 3 cups coffee a day - Alcohol Use Days Per Week of Alcohol Use: 0 Number of Drinks Per Day: 1 Total Drinks Per Week: 0 - Recreational Drug Use Recreational Drug Use: No ED ROS GENERAL - Review of Systems Review Of Systems: See Below Constitutional: Reports: No Symptoms HEENT: Reports: No Symptoms Respiratory: Reports: No Symptoms Cardiovascular: Reports: No Symptoms Endocrine: Reports: No Symptoms GI/Abdominal: Reports: Abdominal Pain : Reports: Dysuria, Hematuria, Pain Musculoskeletal: Reports: No Symptoms Skin: Reports: No Symptoms Neurological: Reports: No Symptoms Psychiatric: Reports: No Symptoms Hematologic/Lymphatic: Reports: No Symptoms Immunologic: Reports: No Symptoms ED EXAM, GENERAL - Physical Exam Exam: See Below Exam Limited By: No Limitations General Appearance: Alert, WD/WN, No Apparent Distress Eye Exam: Bilateral Eye: EOMI, Normal Fundi, Normal Inspection, PERRL Ears: Normal External Exam, Normal Canal, Hearing Grossly Normal, Normal TMs Ear Exam: Bilateral Ear: Auricle Normal, Canal Normal, TM normal Nose: Normal Inspection, Normal Mucosa, No Blood Throat/Mouth: Normal Inspection, Normal Lips, Normal Teeth, Normal Gums, Normal Oropharynx, Normal Voice, No Airway Compromise Head: Atraumatic, Normocephalic Neck: Normal Inspection, Supple, Non-Tender, Full Range of Motion Respiratory/Chest: No Respiratory Distress, Lungs Clear, Normal Breath Sounds, No Accessory Muscle Use, Chest Non-Tender Cardiovascular: Normal Peripheral Pulses, Regular Rate, Rhythm, No Edema, No Gallop, No JVD, No Murmur, No Rub GI/Abdominal: Normal Bowel Sounds, Soft, Non-Tender, No Organomegaly, No Distention, No Abnormal Bruit, No Mass (Male) Exam: Suprapubic Fullness Back Exam: Normal Inspection, Full Range of Motion, NT Extremities: Normal Inspection, Normal Range of Motion, Non-Tender, Normal Capillary Refill, No Pedal Edema Neurological: Alert, Oriented, CN II-XII Intact, Normal Cognition, Normal Gait, Normal Reflexes, No Motor/Sensory Deficits Psychiatric: Normal Affect, Normal Mood Skin Exam: Warm, Dry, Intact, Normal Color, No Rash Lymphatic: No Adenopathy Course - Vital Signs Text/Narrative:: After the urinary catheter was placed he had immediate relief of pain in the bladder. He will be sent home on Cipro 500 mg po bid for 7 days and will follow up with Dr. Vidales in 2 days and his urologist soon after that. He will push fluids and take tylenol 500 mg po q 4 hours for any further pain. Return here in ED if any problems arise before seeing Dr. Vidales. Last Recorded V/S: Last Vital Signs Temp 36.7 C 08/01/17 16:46 Pulse 63 08/01/17 16:46 Resp 18 08/01/17 16:46 BP 137/68 08/01/17 16:46 Pulse Ox 95 08/01/17 16:46 - Orders/Labs/Meds Orders: Active Orders 24 hr Category Date Time Status Urinary Catheter Assessment [RC] ASDIRECTED Care 08/01/17 15:45 Active Urinary Catheter Insertion [Insert Urinary Catheter] [ Care 08/01/17 15:45 Ordered OM.PC] Q24H Labs: Laboratory Tests 08/01/17 08/01/17 08/01/17 Range/Units 16:15 16:15 16:15 WBC 5.7 D (4.0-11.0) K/uL RBC 3.61 L (4.50-6.50) M/uL Hgb 10.5 L (13.0-18.0) g/dL Hct 32.5 L (40.0-54.0) % MCV 90 (76-96) fL MCH 29.1 (27.0-32.0) pg MCHC 32.3 (31.0-35.0) g/dL RDW 14.7 (11.0-16.0) % Plt Count 245 D (150-400) K/uL MPV 8.8 (6.0-10.0) fL Neut % (Auto) 66.8 (45.0-70.0) % Lymph % (Auto) 20.9 (20.0-40.0) % Stone % (Auto) 9.4 (3.0-10.0) % Eos % (Auto) 2.4 (1.0-5.0) % Baso % (Auto) 0.5 (0.0-0.5) % Neut # (Auto) 3.82 (2.00-7.50) K/uL Lymph # (Auto) 1.20 L (1.50-4.00) K/uL Stone # (Auto) 0.54 (0.20-0.80) K/uL Eos # (Auto) 0.14 (0.04-0.40) K/uL Baso # (Auto) 0.03 (0.02-0.10) K/uL PT 10.3 (9.0-11.5) sec INR 1.1 (1.0-3.5) Sodium 147 H (136-145) mmol/L Potassium 4.0 (3.5-5.1) mmol/L Chloride 107 (98-107) mmol/L Carbon Dioxide 30.3 (21.0-32.0) mmol/L Anion Gap 13.7 (5.0-15.0) mmol/L BUN 23 D (8-26) mg/dL Creatinine 1.67 H D (0.70-1.30) mg/dL Est Cr Clr Drug Dosing TNP Estimated GFR (MDRD) 39 L (>60) MLS/MIN BUN/Creatinine Ratio 13.8 (6-25) Glucose 93 (74-100) mg/dL Calcium 8.7 (8.5-10.1) mg/dL Total Bilirubin 0.4 D (0.0-1.0) mg/dL AST 23 (15-37) U/L ALT 16 (12-78) U/L Alkaline Phosphatase 63 (46-116) U/L Total Protein 7.4 (6.4-8.2) g/dL Albumin 3.2 L (3.4-5.0) g/dL Globulin 4.2 (2.2-4.2) g/dL Albumin/Globulin Ratio 0.8 (0.8-2.0) Urine Color Urine Appearance (CLEAR) Urine pH (5.0-8.0) Ur Specific [place] (1.003-1.030) Urine Protein (NEGATIVE) mg/dL Urine Glucose (UA) (NEGATIVE) mg/dL Urine Ketones (NEGATIVE) mg/dL Urine Occult Blood (NEGATIVE) Urine Nitrite (NEGATIVE) Urine Bilirubin (NEGATIVE) Urine Urobilinogen (0.2-1.0) E.U./dL Ur Leukocyte Esterase (NEGATIVE) Urine RBC /HPF Urine WBC /HPF 08/01/17 Range/Units Unknown WBC (4.0-11.0) K/uL RBC (4.50-6.50) M/uL Hgb (13.0-18.0) g/dL Hct (40.0-54.0) % MCV (76-96) fL MCH (27.0-32.0) pg MCHC (31.0-35.0) g/dL RDW (11.0-16.0) % Plt Count (150-400) K/uL MPV (6.0-10.0) fL Neut % (Auto) (45.0-70.0) % Lymph % (Auto) (20.0-40.0) % Stone % (Auto) (3.0-10.0) % Eos % (Auto) (1.0-5.0) % Baso % (Auto) (0.0-0.5) % Neut # (Auto) (2.00-7.50) K/uL Lymph # (Auto) (1.50-4.00) K/uL Stone # (Auto) (0.20-0.80) K/uL Eos # (Auto) (0.04-0.40) K/uL Baso # (Auto) (0.02-0.10) K/uL PT (9.0-11.5) sec INR (1.0-3.5) Sodium (136-145) mmol/L Potassium (3.5-5.1) mmol/L Chloride (98-107) mmol/L Carbon Dioxide (21.0-32.0) mmol/L Anion Gap (5.0-15.0) mmol/L BUN (8-26) mg/dL Creatinine (0.70-1.30) mg/dL Est Cr Clr Drug Dosing Estimated GFR (MDRD) (>60) MLS/MIN BUN/Creatinine Ratio (6-25) Glucose (74-100) mg/dL Calcium (8.5-10.1) mg/dL Total Bilirubin (0.0-1.0) mg/dL AST (15-37) U/L ALT (12-78) U/L Alkaline Phosphatase (46-116) U/L Total Protein (6.4-8.2) g/dL Albumin (3.4-5.0) g/dL Globulin (2.2-4.2) g/dL Albumin/Globulin Ratio (0.8-2.0) Urine Color Red Urine Appearance Cloudy (CLEAR) Urine pH 6.0 (5.0-8.0) Ur Specific [place] 1.020 (1.003-1.030) Urine Protein 100 H (NEGATIVE) mg/dL Urine Glucose (UA) Negative (NEGATIVE) mg/dL Urine Ketones Negative (NEGATIVE) mg/dL Urine Occult Blood Large H (NEGATIVE) Urine Nitrite Negative (NEGATIVE) Urine Bilirubin Negative (NEGATIVE) Urine Urobilinogen 0.2 (0.2-1.0) E.U./dL Ur Leukocyte Esterase Negative (NEGATIVE) Urine RBC >100 H /HPF Urine WBC Not seen /HPF Departure - Departure Time of Disposition: 17:21 Disposition: Home, Self-Care 01 Condition: Good Clinical Impression: Hematuria due to cystitis - Discharge Information - My Orders Last 24 Hours: My Active Orders 08/01/17 15:45 Urinary Catheter Assessment [RC] ASDIRECTED Urinary Catheter Insertion [Insert Urinary Catheter] [OM.PC] Q24H - Assessment/Plan Last 24 Hours: My Active Orders 08/01/17 15:45 Urinary Catheter Assessment [RC] ASDIRECTED Urinary Catheter Insertion [Insert Urinary Catheter] [OM.PC] Q24H
[2017-08-01] MEDS ORDERED: Ciprofloxacin 500 MG Tab ONE (17:50)
== END 2017-08-01 17:25 | disposition home or self-care (01) ==
LOC: LB.ED 15:35
DX: N30.91 Cystitis, unspecified with hematuria (principal); J44.9 Chronic obstructive pulmonary disease, unspecified; Z88.8 Allergy status to other drugs, medicaments and biological substances; Z87.891 Personal history of nicotine dependence; Z79.82 Long term (current) use of aspirin; Z79.899 Other long term (current) drug therapy
CPT/HCPCS: 36415; 51702; 80053; 81001; 85025; 85610; 99283; A9270

== ENCOUNTER 2017-10-24 09:02 | Emergency (ER) | payer MEDICARE, OTHER ==
[2017-10-24 10:18] VITALS: BP 134/45
--- NOTE | 2017-10-24 11:54 | EDM.PDOC ---
ED HPI GENERAL MEDICAL PROBLEM - General Time Seen by Provider: 10/24/17 09:15 Source of Information: Reports: Patient History Limitations: Reports: No Limitations - History of Present Illness INITIAL COMMENTS - FREE TEXT/NARRATIVE: Pt is a 82 year old male with bladder cancer survivor. Pt does get hematuria on and off.Pt claims that he has not been able to urinate since 6 am today. He feels urge to urinate and has noticed from blood at the tip of the urethra. No fever or chills. No dysuria. No nausea or vomiting. No abdominal bloating or distension. No other complaints. Onset: Today Onset Date: 10/24/17 Onset Time: 06:00 Severity: Mild Improves with: Reports: None Worsens with: Reports: None Associated Symptoms: Denies: Confusion, Chest Pain, Cough, Diaphoresis, Fever/ Chills, Headaches, Loss of Appetite, Nausea/Vomiting, Rash, Seizure, Shortness of Breath, Syncope, Weakness - Related Data Allergies Allergy/AdvReac Type Severity Reaction Status Date / Time quinine [Quinine] Allergy Rash Verified 08/01/17 16:45 monohydrochloride Allergy Rash Uncoded 08/01/17 16:45 Home Meds: Home Meds Fluticasone/Salmeterol [Advair 250-50] 1 puff INH BID 08/27/14 [History] Simvastatin 40 mg PO QPM 08/27/14 [History] Multivit-Min/FA/Lycopene/Lut [Sentry Senior Tablet] 1 each PO DAILY 02/19/15 [ History] Sertraline HCl 50 mg PO DAILY 02/19/15 [History] Aspirin/Dipyridamole [Aggrenox 200-25 MG] 1 cap PO BID 11/02/15 [History] Naproxen Sodium [Aleve] 220 mg PO BID PRN 03/14/16 [History] Albuterol/Ipratropium [DuoNeb 3.0-0.5 MG/3 ML] 3 ml NEB QID PRN 03/28/16 [ History] Docusate Sodium [Colace] 100 mg PO DAILY PRN 03/28/16 [History] Bisacodyl [Dulcolax] 10 mg RECTAL DAILY PRN supp 07/02/17 [Rx] Furosemide [Lasix] 40 mg PO DAILY tablet 07/02/17 [Rx] Nebivolol [Bystolic] 10 mg PO BID #60 tablet 07/02/17 [Rx] Past Medical History HEENT History: Reports: Hard of Hearing, Other (See Below) Other HEENT History: Wears hearing aids Cardiovascular History: Reports: CAD, Heart Failure, High Cholesterol, Hypertension, [place], SOB on Exertion, Stents Respiratory History: Reports: COPD Gastrointestinal History: Reports: Bowel Obstruction Genitourinary History: Reports: Other (See Below) Other Genitourinary History: Bladder Ca Neurological History: Reports: CVA 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 Oncologic (Cancer) History: Reports: Bladder - Infectious Disease History Infectious Disease History: Reports: Chicken Pox, Measles, Mumps, Shingles - Past Surgical History HEENT Surgical History: Reports: Cataract Surgery Cardiovascular Surgical History: Reports: Coronary Artery Stent GI Surgical History: Reports: Colonoscopy, Hernia, Inguinal, Hernia Repair/Other Dermatological Surgical History: Reports: None Social & Family History - Family History Family Medical History: Noncontributory - Caffeine Use Caffeine Use: Reports: Coffee Caffeine Use Comment: 3 cups coffee a day ED ROS GENERAL - Review of Systems Review Of Systems: See Below Constitutional: Denies: Fever, Chills HEENT: Denies: Rhinitis, Sinus Problem, Throat Pain Respiratory: Denies: Shortness of Breath, Wheezing, Cough, Sputum Cardiovascular: Denies: Chest Pain, Lightheadedness, Syncope GI/Abdominal: Reports: Abdominal Pain, Flatus. Denies: Constipation, Diarrhea, Distension, Nausea, Vomiting : Reports: Hematuria, Urgency, Urinary Retention. Denies: Dysuria, Flank Pain , Frequency Musculoskeletal: Denies: Joint Pain, Joint Swelling Skin: Denies: Bruising, Pruritis, Rash ED EXAM, GENERAL - Physical Exam Exam: See Below Exam Limited By: No Limitations General Appearance: Alert, WD/WN, No Apparent Distress Eye Exam: Bilateral Eye: EOMI, PERRL Ears: Normal External Exam, Normal Canal, Hearing Grossly Normal, Normal TMs Ear Exam: Bilateral Ear: Auricle Normal, Canal Normal, TM normal Nose: Normal Inspection, Normal Mucosa, No Blood Throat/Mouth: Normal Inspection, Normal Lips, Normal Teeth, Normal Gums, Normal Oropharynx, Normal Voice, No Airway Compromise Head: Atraumatic, Normocephalic Neck: Normal Inspection, Supple, Non-Tender, Full Range of Motion Respiratory/Chest: No Respiratory Distress, Lungs Clear, Normal Breath Sounds, No Accessory Muscle Use, Chest Non-Tender Cardiovascular: Normal Peripheral Pulses, Regular Rate, Rhythm, No Edema, No Gallop, No JVD, No Murmur, No Rub Peripheral Pulses: 2+: Carotid (L), Carotid (R), Radial (L), Radial (R) GI/Abdominal: Normal Bowel Sounds, Soft, Non-Tender, No Organomegaly, No Abnormal Bruit, No Mass (Male) Exam: No Hernia, Normal Inspection, Circumcised, Suprapubic Fullness ( bladder is partially filled), Other (there is bloody clot at the urethral tip). No: Urethral Discharge Extremities: Normal Inspection, Normal Range of Motion, Non-Tender, Normal Capillary Refill, No Pedal Edema Course - Vital Signs Text/Narrative:: Pt has hematuria with possible clot obstructing the penile urethra. Simple 18 gauge Dominican Urinary catheter introduced and drained pinkish red urine with small multiple clots. Drained about 300cc urine. I have place in indwelling catheter to help drain the clots and prevent urinary obstruction for now. Advised patient to drink plenty of fluids to keep the urine dilute. Return to clinic on Thursday for recheck.Return to emergency room if the catheter is obstructed. Last Recorded V/S: Last Vital Signs Temp 98.7 F 10/24/17 10:17 Pulse 60 10/24/17 10:17 Resp 16 10/24/17 10:17 BP 134/45 L 10/24/17 10:17 Pulse Ox 92 L 10/24/17 10:17 Departure - Departure Time of Disposition: 10:00 Disposition: Home, Self-Care 01 Condition: Good Clinical Impression: Urinary outflow obstruction - Discharge Information Instructions: Indwelling Urinary Catheter Insertion, Care After Referrals: PCP,None [Primary Care Provider] - Additional Instructions: Advised patient to drink plenty of fluids to keep the urine dilute. Return to clinic on Thursday for recheck.Return to emergency room if the catheter is obstructed. - Problem List & Annotations (1) Urinary outflow obstruction SNOMED Code(s): 717950809 Code(s): N13.9 - OBSTRUCTIVE AND REFLUX UROPATHY, UNSPECIFIED Status: Acute - Problem List Review Problem List Initiated/Reviewed/Updated: Yes - Assessment/Plan Assessment:: Acute urinary obstruction from blood clots Plan: Pt has hematuria with possible clot obstructing the penile urethra. Simple 18 gauge [place] Urinary catheter introduced and drained pinkish red urine with small multiple clots. Drained about 300cc urine. I have place in indwelling catheter to help drain the clots and prevent urinary obstruction for now. Advised patient to drink plenty of fluids to keep the urine dilute. Return to clinic on Thursday for recheck.Return to emergency room if the catheter is obstructed.
== END 2017-10-24 10:00 | disposition home or self-care (01) ==
LOC: LB.ED 09:02
DX: N13.9 Obstructive and reflux uropathy, unspecified (principal); R31.9 Hematuria, unspecified; I11.0 Hypertensive heart disease with heart failure; I15.0 Renovascular hypertension; E78.00 Pure hypercholesterolemia, unspecified; I25.2 Old myocardial infarction; Z79.82 Long term (current) use of aspirin; Z79.899 Other long term (current) drug therapy; Z88.8 Allergy status to other drugs, medicaments and biological substances
CPT/HCPCS: 51702; 99283; 99283-25

== ENCOUNTER 2017-10-24 21:45 | Emergency (ER) | payer MEDICARE, OTHER | END 2017-10-24 22:07 | disposition home or self-care (01) | LOC: LB.ED 21:45 | DX: Z46.6 Encounter for fitting and adjustment of urinary device (principal) | CPT/HCPCS: 99281 ==

== ENCOUNTER 2017-10-28 20:41 | Emergency (ER) | payer MEDICARE, OTHER ==
--- NOTE | 2017-10-28 21:49 | EDM.PDOC ---
ED HPI GENERAL MEDICAL PROBLEM - General Chief Complaint: General Stated Complaint: seizure activity Time Seen by Provider: 10/28/17 20:45 Source of Information: Reports: Patient History Limitations: Reports: No Limitations - History of Present Illness INITIAL COMMENTS - FREE TEXT/NARRATIVE: Pt was brought in by EMS today. pt calims he has been dizzy. According to his daughter in law. pt was sitting on chair and felt dizzy. So she started him on oxygen and made him walk for few minutes and he sat and felt dizzy and weak, and ambulance was called. When EMS picked him up he was alert and awake. responding well. In the emergency room pt is alert and oriented. He does not c/o dizziness. No chest pain or shortness of breath. No sweating. He is on monitoring engineer and has regular rhythm. no fever or chills. no other complaints. Onset: Today Onset Date: 10/28/17 Onset Time: 21:00 Severity: Mild Associated Symptoms: Denies: Confusion, Chest Pain, Cough, Diaphoresis, Fever/ Chills, Headaches, Nausea/Vomiting, Rash, Seizure, Shortness of Breath, Syncope , Weakness - Related Data Allergies Allergy/AdvReac Type Severity Reaction Status Date / Time quinine [Quinine] Allergy Rash Verified 08/01/17 16:45 monohydrochloride Allergy Rash Uncoded 08/01/17 16:45 Home Meds: Home Meds Fluticasone/Salmeterol [Advair 250-50] 1 puff INH BID 08/27/14 [History] Simvastatin 40 mg PO QPM 08/27/14 [History] Multivit-Min/FA/Lycopene/Lut [Sentry Senior Tablet] 1 each PO DAILY 02/19/15 [ History] Sertraline HCl 50 mg PO DAILY 02/19/15 [History] Aspirin/Dipyridamole [Aggrenox 200-25 MG] 1 cap PO BID 11/02/15 [History] Naproxen Sodium [Aleve] 220 mg PO BID PRN 03/14/16 [History] Albuterol/Ipratropium [DuoNeb 3.0-0.5 MG/3 ML] 3 ml NEB QID PRN 03/28/16 [ History] Docusate Sodium [Colace] 100 mg PO DAILY PRN 03/28/16 [History] Bisacodyl [Dulcolax] 10 mg RECTAL DAILY PRN supp 07/02/17 [Rx] Furosemide [Lasix] 40 mg PO DAILY tablet 07/02/17 [Rx] Nebivolol [Bystolic] 10 mg PO BID #60 tablet 07/02/17 [Rx] Past Medical History HEENT History: Reports: Hard of Hearing, Other (See Below) Other HEENT History: Wears hearing aids Cardiovascular History: Reports: CAD, Heart Failure, High Cholesterol, Hypertension, [place], SOB on Exertion, Stents Respiratory History: Reports: COPD Gastrointestinal History: Reports: Bowel Obstruction Genitourinary History: Reports: Other (See Below) Other Genitourinary History: Bladder Ca Neurological History: Reports: CVA 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 Oncologic (Cancer) History: Reports: Bladder - Infectious Disease History Infectious Disease History: Reports: Chicken Pox, Measles, Mumps, Shingles - Past Surgical History HEENT Surgical History: Reports: Cataract Surgery Cardiovascular Surgical History: Reports: Coronary Artery Stent GI Surgical History: Reports: Colonoscopy, Hernia, Inguinal, Hernia Repair/Other Dermatological Surgical History: Reports: None Social & Family History - Family History Family Medical History: Noncontributory - Caffeine Use Caffeine Use: Reports: Coffee Caffeine Use Comment: 3 cups coffee a day ED ROS GENERAL - Review of Systems Review Of Systems: See Below Constitutional: Denies: Fever, Chills HEENT: Denies: Rhinitis, Sinus Problem, Throat Pain, Throat Swelling Respiratory: Denies: Shortness of Breath, Wheezing, Pleuritic Chest Pain, Cough , Sputum Cardiovascular: Denies: Chest Pain, Lightheadedness GI/Abdominal: Denies: Abdominal Pain, Nausea, Vomiting Musculoskeletal: Denies: Joint Pain, Joint Swelling Skin: Denies: Bruising, Pruritis, Rash Neurological: Reports: Dizziness. Denies: Confusion, Headache, Numbness, Syncope, Tingling, Gait Disturbance Psychiatric: Denies: Agitation, Anxiety Hematologic/Lymphatic: Denies: Anemia, Easy Bleeding ED EXAM, GENERAL - Physical Exam Exam: See Below Exam Limited By: No Limitations General Appearance: Alert, WD/WN, No Apparent Distress Eye Exam: Bilateral Eye: EOMI, PERRL Ears: Normal External Exam, Normal Canal, Hearing Grossly Normal, Normal TMs Ear Exam: Bilateral Ear: Auricle Normal, Canal Normal, TM normal Nose: Normal Inspection, Normal Mucosa, No Blood Throat/Mouth: Normal Inspection, Normal Lips, Normal Teeth, Normal Gums, Normal Oropharynx, Normal Voice, No Airway Compromise Head: Atraumatic, Normocephalic Neck: Normal Inspection, Supple, Non-Tender, Full Range of Motion Respiratory/Chest: No Respiratory Distress, Lungs Clear, Normal Breath Sounds, No Accessory Muscle Use, Chest Non-Tender Cardiovascular: Normal Peripheral Pulses, Regular Rate, Rhythm, No Edema, No Gallop, No JVD, No Murmur, No Rub Peripheral Pulses: 2+: Carotid (L), Carotid (R), Radial (L), Radial (R) GI/Abdominal: Normal Bowel Sounds, Soft, Non-Tender, No Organomegaly, No Distention, No Abnormal Bruit, No Mass Extremities: Normal Inspection, Normal Range of Motion, Non-Tender, Normal Capillary Refill, No Pedal Edema Neurological: Alert, Oriented, CN II-XII Intact, Normal Cognition, Normal Gait, Normal Reflexes, No Motor/Sensory Deficits Skin Exam: Warm, Intact EKG INTERPRETATION EKG Date: 10/28/17 Rhythm: NSR QRS: Wide ST-T: Normal QT: Normal Course - Vital Signs Text/Narrative:: Pt has been stable in the emergency room. Asymptomatic. His BP has been slightly elevated. He is not sure if he has been taking his bystolic for past few days. His CBC, CMP are normal. His chest X-ray has been stable. His troponin is negative. Pt trevino been asymptomatic for 2 hrs that he has been in the emergency room. he is able to stand up and walk and had no episode of dizziness. Feeling beer. Pt reassured, advised to go home and take his bystolic. Also he claims he does not drink more than 2 cups of fluids. I have advised patient to drink atleast 1500cc of fluids daily to prevent him from feeling dizzy. Change position of body slowly from sleeping to sitting to stqnding. followup in clinic for recheck. - Orders/Labs/Meds Orders: Active Orders 24 hr Category Date Time Status EKG Documentation Completion [RC] ASDIRECTED Care 10/28/17 21:06 Active Chest 1V Frontal [CR] Stat Exams 10/28/17 21:05 Taken Labs: Laboratory Tests 10/28/17 10/28/17 Range/Units 21:25 21:25 WBC 6.2 (4.0-11.0) K/uL RBC 3.71 L (4.50-6.50) M/uL Hgb 10.9 L (13.0-18.0) g/dL Hct 33.2 L (40.0-54.0) % MCV 90 (76-96) fL MCH 29.4 (27.0-32.0) pg MCHC 32.8 (31.0-35.0) g/dL RDW 13.8 (11.0-16.0) % Plt Count 179 D (150-400) K/uL MPV 9.2 (6.0-10.0) fL Neut % (Auto) 69.3 (45.0-70.0) % Lymph % (Auto) 19.1 L (20.0-40.0) % Edwards % (Auto) 8.9 (3.0-10.0) % Eos % (Auto) 2.4 (1.0-5.0) % Baso % (Auto) 0.3 (0.0-0.5) % Neut # (Auto) 4.27 (2.00-7.50) K/uL Lymph # (Auto) 1.18 L (1.50-4.00) K/uL Edwards # (Auto) 0.55 (0.20-0.80) K/uL Eos # (Auto) 0.15 (0.04-0.40) K/uL Baso # (Auto) 0.02 (0.02-0.10) K/uL Sodium 143 (136-145) mmol/L Potassium 5.0 D (3.5-5.1) mmol/L Chloride 108 H (98-107) mmol/L Carbon Dioxide 27.5 (21.0-32.0) mmol/L Anion Gap 12.5 (5.0-15.0) mmol/L BUN 27 H (8-26) mg/dL Creatinine 1.57 H (0.70-1.30) mg/dL Est Cr Clr Drug Dosing TNP Estimated GFR (MDRD) 42 L (>60) MLS/MIN BUN/Creatinine Ratio 17.2 (6-25) Glucose 115 H (74-100) mg/dL Calcium 8.8 (8.5-10.1) mg/dL Total Bilirubin 0.2 D (0.0-1.0) mg/dL AST 29 (15-37) U/L ALT 27 (12-78) U/L Alkaline Phosphatase 69 (46-116) U/L Troponin I 0.018 D (0.000-0.060) ng/mL Total Protein 7.5 (6.4-8.2) g/dL Albumin 3.6 (3.4-5.0) g/dL Globulin 3.9 (2.2-4.2) g/dL Albumin/Globulin Ratio 0.9 (0.8-2.0) Departure - Departure Time of Disposition: 22:45 Disposition: Home, Self-Care 01 Condition: Fair Clinical Impression: Dizziness - Discharge Information Forms: ED Department Discharge Additional Instructions: When dizziness occurs, lay down right away. Take extra time with positional changes (such as going from sitting to standing). Increase amount of water you drink daily. Should symptoms return, persist or worsen, follow up as needed. Call with any questions. - Problem List & Annotations (1) Dizziness SNOMED Code(s): 725413145, 687064735 Code(s): R42 - DIZZINESS AND GIDDINESS Status: Acute - Problem List Review Problem List Initiated/Reviewed/Updated: Yes - My Orders Last 24 Hours: My Active Orders 10/28/17 21:05 Chest 1V Frontal [CR] Stat 10/28/17 21:06 EKG Documentation Completion [RC] ASDIRECTED - Assessment/Plan Last 24 Hours: My Active Orders 10/28/17 21:05 Chest 1V Frontal [CR] Stat 10/28/17 21:06 EKG Documentation Completion [RC] ASDIRECTED Assessment:: Dizziness Plan: Pt has been stable in the emergency room. Asymptomatic. His BP has been slightly elevated. He is not sure if he has been taking his bystolic for past few days. His CBC, CMP are normal. His chest X-ray has been stable. His troponin is negative. Pt trevino been asymptomatic for 2 hrs that he has been in the emergency room. he is able to stand up and walk and had no episode of dizziness. Feeling beer. Pt reassured, advised to go home and take his bystolic. Also he claims he does not drink more than 2 cups of fluids. I have advised patient to drink atleast 1500cc of fluids daily to prevent him from feeling dizzy. Change position of body slowly from sleeping to sitting to stqnding. followup in clinic for recheck.
[2017-10-29 02:58] VITALS: BP 163/77
--- NOTE | 2017-10-29 07:45 | CR ---
DATE OF SERVICE: 10/28/17 CLINICAL DATA: dizziness AP PORTABLE CHEST: Breathing motion artifact degrades image quality. Comparison is made to a prior exam dated 06/08/17. The heart size is within normal limits. There is calcification of the aortic arch. The pulmonary vasculature remains prominent, unchanged from the prior exam. There are scattered reticular opacities throughout both lungs. The lungs are otherwise clear. No pneumothorax. No pleural effusions. No areas of consolidation. [id number] MTDD
== END 2017-10-28 22:30 | disposition home or self-care (01) ==
LOC: LB.ED 20:41
DX: R42 Dizziness and giddiness (principal); I11.0 Hypertensive heart disease with heart failure; I25.2 Old myocardial infarction; I50.9 Heart failure, unspecified; Z88.8 Allergy status to other drugs, medicaments and biological substances; Z79.899 Other long term (current) drug therapy
CPT/HCPCS: 36415; 71045; 80053; 84484; 85025; 93005; 99283; 99284; A0425; A0429

== ENCOUNTER 2017-11-04 19:54 | Emergency (ER) | payer MEDICARE, OTHER ==
[2017-11-05 02:36] VITALS: BP 148/61
--- NOTE | 2017-11-05 11:33 | EDM.PDOC ---
ED HPI GENERAL MEDICAL PROBLEM - General Chief Complaint: Genitourinary Problem Stated Complaint: urine retention Time Seen by Provider: 11/04/17 20:00 Source of Information: Reports: Patient History Limitations: Reports: No Limitations - History of Present Illness INITIAL COMMENTS - FREE TEXT/NARRATIVE: According to patient he has not bee able to void since today afternoon. He is not in any discomfort but does not want to go like this until morning. Pt was seen for same issue last week and has indwelling Ghosh, which was removed few days ago. Pt claims he was voiding well until today afternoon. No abdominal pain or discomfort. has been having bloody urine on and off.Pt has bladder cancer and has been following up with [facility]. No fever or chills. No nausea or vomiting. Onset: Today Onset Date: 11/04/17 Onset Time: 12:00 Location: Reports: Abdomen Severity: Mild Improves with: Reports: None Worsens with: Reports: None Associated Symptoms: Denies: Confusion, Chest Pain, Cough, Diaphoresis, Fever/ Chills, Headaches, Nausea/Vomiting, Rash, Seizure, Shortness of Breath, Syncope , Weakness - Related Data Allergies Allergy/AdvReac Type Severity Reaction Status Date / Time quinine [Quinine] Allergy Rash Verified 11/05/17 02:31 monohydrochloride Allergy Rash Uncoded 10/29/17 02:08 Home Meds: Home Meds Fluticasone/Salmeterol [Advair 250-50] 1 puff INH BID 08/27/14 [History] Simvastatin 40 mg PO QPM 08/27/14 [History] Multivit-Min/FA/Lycopene/Lut [Sentry Senior Tablet] 1 each PO DAILY 02/19/15 [ History] Sertraline HCl 50 mg PO DAILY 02/19/15 [History] Aspirin/Dipyridamole [Aggrenox 200-25 MG] 1 cap PO BID 11/02/15 [History] Albuterol/Ipratropium [DuoNeb 3.0-0.5 MG/3 ML] 3 ml NEB QID PRN 03/28/16 [ History] Acetaminophen [Tylenol Extra Strength] 500 mg PO Q6HR PRN 10/29/17 [History] Nebivolol [Bystolic] 5 mg PO BID 10/29/17 [History] Sennosides/Docusate Sodium [Senna-Docusate Sodium] 1 each PO BID 10/29/17 [ History] Past Medical History HEENT History: Reports: Hard of Hearing, Other (See Below) Other HEENT History: Wears hearing aids Cardiovascular History: Reports: CAD, Heart Failure, High Cholesterol, Hypertension, [place], SOB on Exertion, Stents Respiratory History: Reports: COPD Gastrointestinal History: Reports: Bowel Obstruction Genitourinary History: Reports: Other (See Below) Other Genitourinary History: Bladder Ca Musculoskeletal History: Reports: Arthritis Neurological History: Reports: CVA 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 Psychiatric History: Reports: Anxiety, Depression Hematologic History: Reports: Anticoagulation Therapy Oncologic (Cancer) History: Reports: Bladder - Infectious Disease History Infectious Disease History: Reports: Chicken Pox, Measles, Mumps, Shingles - Past Surgical History HEENT Surgical History: Reports: Cataract Surgery Cardiovascular Surgical History: Reports: Coronary Artery Stent GI Surgical History: Reports: Colonoscopy, Hernia, Inguinal, Hernia Repair/Other Dermatological Surgical History: Reports: None Social & Family History - Family History Family Medical History: Noncontributory - Caffeine Use Caffeine Use: Reports: Coffee Caffeine Use Comment: 3 cups coffee a day ED ROS GENERAL - Review of Systems Review Of Systems: See Below Constitutional: Denies: Fever, Chills HEENT: Denies: Ear Pain, Rhinitis, Throat Pain Respiratory: Denies: Shortness of Breath, Cough, Sputum Cardiovascular: Denies: Chest Pain, Lightheadedness GI/Abdominal: Denies: Abdominal Pain, Nausea, Vomiting : Reports: Hematuria, Urinary Retention. Denies: Dysuria, Flank Pain, Frequency ED EXAM, GENERAL - Physical Exam Exam: See Below Exam Limited By: No Limitations General Appearance: Alert, WD/WN, No Apparent Distress Eye Exam: Bilateral Eye: EOMI, PERRL Ears: Normal External Exam, Normal Canal, Hearing Grossly Normal, Normal TMs Ear Exam: Bilateral Ear: Auricle Normal, Canal Normal, TM normal Nose: Normal Inspection, Normal Mucosa, No Blood Throat/Mouth: Normal Inspection, Normal Lips, Normal Teeth, Normal Gums, Normal Oropharynx, Normal Voice, No Airway Compromise Head: Atraumatic, Normocephalic Neck: Normal Inspection, Supple, Non-Tender, Full Range of Motion Respiratory/Chest: No Respiratory Distress, Lungs Clear, Normal Breath Sounds, No Accessory Muscle Use, Chest Non-Tender Cardiovascular: Normal Peripheral Pulses, Regular Rate, Rhythm, No Edema, No Gallop, No JVD, No Murmur, No Rub GI/Abdominal: Normal Bowel Sounds, Soft, Non-Tender, No Organomegaly, No Distention, No Abnormal Bruit, No Mass, Other (Bladder is not palpable over the suprapubic area.) Course - Vital Signs Text/Narrative:: Pt does have bladder cancer and recently has been having frequent hematuria with urinary obstructions. Considering patient's concern and him not voiding since afternoon, Ghosh's catheter was placed and drained 300cc of bloody urine with plenty of clots. the bladder was irrigated with 500cc of Normal saline and clots removed. I have left the catheter in place with a thigh urobag. I have advised patient to leave the catheter in place until he see urologist. Pt has appointment for next Thursday with [facility] in [place]. Last Recorded V/S: Last Vital Signs Temp 99.9 F 11/04/17 20:14 Pulse 77 11/04/17 20:25 Resp 20 11/04/17 20:14 BP 148/61 H 11/04/17 20:25 Pulse Ox 93 L 11/04/17 20:25 Departure - Departure Time of Disposition: 21:00 Disposition: Home, Self-Care 01 Condition: Fair Clinical Impression: Urinary obstruction - Discharge Information Instructions: Indwelling Urinary Catheter Care, Adult Referrals: PCP,None [Primary Care Provider] - Forms: ED Department Discharge Additional Instructions: - Go home with Ghosh catheter. - Do Ghosh Catheter at home - Follow-up with urologist on 11/09/17. - Problem List & Annotations (1) Urinary obstruction SNOMED Code(s): 7984885 Code(s): N13.9 - OBSTRUCTIVE AND REFLUX UROPATHY, UNSPECIFIED Status: Acute - Problem List Review Problem List Initiated/Reviewed/Updated: Yes - Assessment/Plan Assessment:: Urinary outflow obstruction from hematuria Plan: Pt does have bladder cancer and recently has been having frequent hematuria with urinary obstructions. Considering patient's concern and him not voiding since afternoon, Ghosh's catheter was placed and drained 300cc of bloody urine with plenty of clots. the bladder was irrigated with 500cc of Normal saline and clots removed. I have left the catheter in place with a thigh urobag. I have advised patient to leave the catheter in place until he see urologist. Pt has appointment for next Thursday with [facility] in [place].
== END 2017-11-04 20:45 | disposition home or self-care (01) ==
LOC: LB.ED 19:54
DX: N13.9 Obstructive and reflux uropathy, unspecified (principal); I11.0 Hypertensive heart disease with heart failure; I50.9 Heart failure, unspecified; I10 Essential (primary) hypertension; I25.2 Old myocardial infarction; J44.9 Chronic obstructive pulmonary disease, unspecified; Z88.8 Allergy status to other drugs, medicaments and biological substances
CPT/HCPCS: 51702; 51798; 99283-25

== ENCOUNTER 2017-11-07 08:12 | Emergency (ER) | payer MEDICARE, OTHER ==
[2017-11-07 09:52] VITALS: BP 145/59
== END 2017-11-07 09:25 | disposition home or self-care (01) ==
LOC: LB.ED 08:12
DX: R33.9 Retention of urine, unspecified (principal)
CPT/HCPCS: 99283

== ENCOUNTER 2018-02-12 20:53 | Emergency (ER) | payer MEDICARE, OTHER ==
--- NOTE | 2018-02-12 21:02 | EDM.PDOC ---
ED HPI GENERAL MEDICAL PROBLEM - General Chief Complaint: General Stated Complaint: WEAKNESS Time Seen by Provider: 02/12/18 20:30 Source of Information: Reports: Patient, EMS History Limitations: Reports: No Limitations - History of Present Illness INITIAL COMMENTS - FREE TEXT/NARRATIVE: pt was brought in by EMS today. Pt called EMS as he was feeling very weak. Pt gives the history:Pt was discharged today from [facility]. He had Pacemaker placed in the right infra-clavicular region on 02/10/18 for severe bradycardia. He claims his son brought him home and patient went to bed. when he woke up he could not get out of the bed. Hence, he called his son to tell him he was weak, and son called EMS. Pt has bladder cancer and he was scheduled for surgery by Dr. Nuñez early this week and at that point he was noted to have severe bradycardia ended up getting pacemaker. Pt is awake and alert in the emergency room. he has strong voice. Onset: Today Onset Date: 02/12/18 Onset Time: 15:00 Associated Symptoms: Reports: Weakness. Denies: Confusion, Chest Pain, Cough, Diaphoresis, Fever/Chills, Headaches, Loss of Appetite, Malaise, Nausea/Vomiting , Rash, Seizure, Shortness of Breath, Syncope - Related Data Allergies Allergy/AdvReac Type Severity Reaction Status Date / Time quinine [Quinine] Allergy Rash Verified 11/05/17 02:31 monohydrochloride Allergy Rash Uncoded 10/29/17 02:08 Home Meds: Home Meds Fluticasone/Salmeterol [Advair 250-50] 1 puff INH BID 08/27/14 [History] Simvastatin 40 mg PO QPM 08/27/14 [History] Multivit-Min/FA/Lycopene/Lut [Sentry Senior Tablet] 1 each PO DAILY 02/19/15 [ History] Sertraline HCl 50 mg PO DAILY 02/19/15 [History] Aspirin/Dipyridamole [Aggrenox 200-25 MG] 1 cap PO BID 11/02/15 [History] Albuterol/Ipratropium [DuoNeb 3.0-0.5 MG/3 ML] 3 ml NEB QID PRN 03/28/16 [ History] Acetaminophen [Tylenol Extra Strength] 500 mg PO Q6HR PRN 10/29/17 [History] Nebivolol [Bystolic] 5 mg PO BID 10/29/17 [History] Sennosides/Docusate Sodium [Senna-Docusate Sodium] 1 each PO BID 10/29/17 [ History] Past Medical History HEENT History: Reports: Hard of Hearing, Other (See Below) Other HEENT History: Wears hearing aids Cardiovascular History: Reports: CAD, Heart Failure, High Cholesterol, Hypertension, [place], SOB on Exertion, Stents Respiratory History: Reports: COPD Gastrointestinal History: Reports: Bowel Obstruction Genitourinary History: Reports: Other (See Below) Other Genitourinary History: Bladder Ca Musculoskeletal History: Reports: Arthritis Neurological History: Reports: CVA 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 Psychiatric History: Reports: Anxiety, Depression Hematologic History: Reports: Anticoagulation Therapy Oncologic (Cancer) History: Reports: Bladder - Infectious Disease History Infectious Disease History: Reports: Chicken Pox, Measles, Mumps, Shingles - Past Surgical History HEENT Surgical History: Reports: Cataract Surgery Cardiovascular Surgical History: Reports: Coronary Artery Stent GI Surgical History: Reports: Colonoscopy, Hernia, Inguinal, Hernia Repair/Other Dermatological Surgical History: Reports: None Social & Family History - Family History Family Medical History: Noncontributory - Caffeine Use Caffeine Use: Reports: Coffee Caffeine Use Comment: 3 cups coffee a day ED ROS GENERAL - Review of Systems Review Of Systems: See Below Constitutional: Reports: Weakness. Denies: Fever, Chills, Night Sweats, Diaphoresis, Decreased Appetite HEENT: Denies: Rhinitis, Throat Pain, Throat Swelling, Vision Change Respiratory: Denies: Shortness of Breath, Wheezing, Cough, Sputum Cardiovascular: Denies: Chest Pain, Lightheadedness GI/Abdominal: Denies: Abdominal Pain, Constipation, Diarrhea, Nausea, Vomiting : Denies: Dysuria, Flank Pain, Frequency, Hematuria Musculoskeletal: Denies: Joint Pain, Joint Swelling Skin: Denies: Bruising, Pruritis, Rash ED EXAM, GENERAL - Physical Exam Exam: See Below Exam Limited By: No Limitations General Appearance: Alert, WD/WN, No Apparent Distress, Anxious Eye Exam: Bilateral Eye: EOMI, PERRL Ears: Normal External Exam, Normal Canal, Hearing Grossly Normal, Normal TMs Ear Exam: Bilateral Ear: Auricle Normal, Canal Normal, TM normal Nose: Normal Inspection, Normal Mucosa, No Blood Throat/Mouth: Normal Inspection, Normal Lips, Normal Teeth, Normal Gums, Normal Oropharynx, Normal Voice, No Airway Compromise Head: Atraumatic, Normocephalic Neck: Normal Inspection, Supple, Non-Tender, Full Range of Motion Respiratory/Chest: No Respiratory Distress, Lungs Clear, Normal Breath Sounds, No Accessory Muscle Use, Other (There is a clean sutured brusied wound over the left infraclavicular region from the pacemaker placement.) Cardiovascular: Normal Peripheral Pulses, Regular Rate, Rhythm, No Edema, No Murmur Peripheral Pulses: 2+: Carotid (L), Carotid (R), Radial (L), Radial (R) GI/Abdominal: Normal Bowel Sounds, Soft, Non-Tender, No Organomegaly, No Distention, No Abnormal Bruit, No Mass Back Exam: Normal Inspection, Full Range of Motion Extremities: Normal Inspection, Normal Range of Motion, Non-Tender, Normal Capillary Refill, No Pedal Edema Neurological: Alert, Oriented, CN II-XII Intact, Normal Cognition, Normal Gait, Normal Reflexes, No Motor/Sensory Deficits Course - Vital Signs Text/Narrative:: Pt is very alert and awake. apparently he has not moved from the bed since he felt weak. I did reassured patient that his blood pressure and pulse werenormal. Asked him if he would like to get up. His left arm is in shoulder immobiliser.he did get up with the support of right arm, got up and stood on the bed side with out feeling dizzy. he did walk more than 20 steps and was brought back to the bed. Pt was reassured that he was fine. Pt was just discharged from the hospital and had a long journey home, which might have made him feel tired and exhausted, but I do not think he has any acute illness. His vitals are stable and his CBC and BMP are normal. With reassurance, pt was able to function well and walk. advised to followup with and materials scientist per appointment. - Orders/Labs/Meds Labs: Laboratory Tests 02/12/18 02/12/18 Range/Units 20:52 20:52 WBC 11.7 H D (4.0-11.0) K/uL RBC 3.40 L (4.50-6.50) M/uL Hgb 9.9 L (13.0-18.0) g/dL Hct 30.6 L (40.0-54.0) % MCV 90 (76-96) fL MCH 29.1 (27.0-32.0) pg MCHC 32.4 (31.0-35.0) g/dL RDW 14.3 (11.0-16.0) % Plt Count 197 (150-400) K/uL MPV 9.4 (6.0-10.0) fL Neut % (Auto) 86.6 H (45.0-70.0) % Lymph % (Auto) 5.2 L (20.0-40.0) % Graves % (Auto) 8.0 (3.0-10.0) % Eos % (Auto) 0.1 L (1.0-5.0) % Baso % (Auto) 0.1 (0.0-0.5) % Neut # (Auto) 10.11 H (2.00-7.50) K/uL Lymph # (Auto) 0.61 L (1.50-4.00) K/uL Graves # (Auto) 0.93 H (0.20-0.80) K/uL Eos # (Auto) 0.01 L (0.04-0.40) K/uL Baso # (Auto) 0.01 L (0.02-0.10) K/uL Sodium 148 H (136-145) mmol/L Potassium 4.2 (3.5-5.1) mmol/L Chloride 111 H (98-107) mmol/L Carbon Dioxide 25.3 D (21.0-32.0) mmol/L Anion Gap 15.9 H (5.0-15.0) mmol/L BUN 33 H (8-26) mg/dL Creatinine 1.66 H (0.70-1.30) mg/dL Est Cr Clr Drug Dosing TNP Estimated GFR (MDRD) 40 L (>60) MLS/MIN BUN/Creatinine Ratio 19.9 (6-25) Glucose 128 H D (74-100) mg/dL Calcium 8.2 L (8.5-10.1) mg/dL Departure - Departure Time of Disposition: 21:30 Disposition: Home, Self-Care 01 Condition: Good Clinical Impression: Weakness - Discharge Information *PRESCRIPTION DRUG MONITORING PROGRAM REVIEWED*: Not Applicable *COPY OF PRESCRIPTION DRUG MONITORING REPORT IN PATIENT DESEAN: Not Applicable Instructions: Fatigue Referrals: PCP,None [Primary Care Provider] - Forms: ED Department Discharge Additional Instructions: Pt was reassured that his general exam and vitals are very stable. Pt was just discharged from the hospital and had a long journey home, which might have made him feel tired and exhausted, but I do not think he has any acute illness. He did get up and walk about 20 steps and did not feel weak or dizzy.His vitals are stable and his CBC and BMP are normal. Advised to followup with and materials scientist per appointment. - Problem List & Annotations (1) Weakness SNOMED Code(s): 16474514 Code(s): R53.1 - WEAKNESS Status: Acute Current Visit: Yes - Problem List Review Problem List Initiated/Reviewed/Updated: Yes - Assessment/Plan Assessment:: Weakness resolved Plan: Pt is very alert and awake. apparently he has not moved from the bed since he felt weak. I did reassured patient that his blood pressure and pulse werenormal. Asked him if he would like to get up. His left arm is in shoulder immobiliser.he did get up with the support of right arm, got up and stood on the bed side with out feeling dizzy. he did walk more than 20 steps and was brought back to the bed. Pt was reassured that he was fine. Pt was just discharged from the hospital and had a long journey home, which might have made him feel tired and exhausted, but I do not think he has any acute illness. His vitals are stable and his CBC and BMP are normal. With reassurance, pt was able to function well and walk. advised to followup with and materials scientist per appointment.
[2018-02-12 23:23] VITALS: BP 122/78
== END 2018-02-12 21:30 | disposition home or self-care (01) ==
LOC: LB.ED 20:53
DX: R53.1 Weakness (principal); I11.0 Hypertensive heart disease with heart failure; I50.9 Heart failure, unspecified; E78.00 Pure hypercholesterolemia, unspecified; I25.10 Atherosclerotic heart disease of native coronary artery without angina pectoris; J44.9 Chronic obstructive pulmonary disease, unspecified; F41.9 Anxiety disorder, unspecified; F32.9 Major depressive disorder, single episode, unspecified; Z88.8 Allergy status to other drugs, medicaments and biological substances; Z79.899 Other long term (current) drug therapy; Z86.73 Personal history of transient ischemic attack (TIA), and cerebral infarction without residual deficits; Z79.82 Long term (current) use of aspirin
CPT/HCPCS: 36415; 80048; 85025; 99284; A0425; A0429; 99282

== ENCOUNTER 2018-07-17 07:54 | Emergency (ER) | payer MEDICARE, OTHER ==
[2018-07-17] MEDS ORDERED: Tamsulosin 0.4 MG Cap.ER ONE ×2 (08:15→09:23)
[2018-07-17 08:26] VITALS: BP 118/64
--- NOTE | 2018-07-17 08:53 | EDM.PDOC ---
ED HPI GENERAL MEDICAL PROBLEM - General Chief Complaint: General Stated Complaint: anuria Time Seen by Provider: 07/17/18 08:05 Source of Information: Reports: Patient History Limitations: Reports: No Limitations - History of Present Illness INITIAL COMMENTS - FREE TEXT/NARRATIVE: "I have not been able to pee. I have the urge and now I have pain but nothing will come out." Patient states he has not voided since 0200. He also states this happened once before and he had a catheter placed for a few days. Patient acknowledges having an enlarged prostate. He denies fever, back pain, nausea, vomiting, other concerm or complaints. Lower Abdomen Pain Score (Numeric/FACES): 5 - Related Data Allergies Allergy/AdvReac Type Severity Reaction Status Date / Time quinine [Quinine] Allergy Rash Verified 07/17/18 09:06 monohydrochloride Allergy Rash Uncoded 02/12/18 22:29 Home Meds: Home Meds Fluticasone/Salmeterol [Advair 250-50] 1 puff INH BID 08/27/14 [History] Simvastatin 40 mg PO QPM 08/27/14 [History] Multivit-Min/FA/Lycopene/Lut [Sentry Senior Tablet] 1 each PO DAILY 02/19/15 [ History] Sertraline HCl 50 mg PO DAILY 02/19/15 [History] Aspirin/Dipyridamole [Aggrenox 200-25 MG] 1 cap PO BID 11/02/15 [History] Albuterol/Ipratropium [DuoNeb 3.0-0.5 MG/3 ML] 3 ml NEB QID PRN 03/28/16 [ History] Acetaminophen [Tylenol Extra Strength] 500 mg PO Q6HR PRN 10/29/17 [History] Sennosides/Docusate Sodium [Senna-Docusate Sodium] 1 each PO BID 10/29/17 [ History] Past Medical History HEENT History: Reports: Hard of Hearing, Other (See Below) Other HEENT History: Wears hearing aids Cardiovascular History: Reports: CAD, Heart Failure, High Cholesterol, Hypertension, [place], SOB on Exertion, Stents Respiratory History: Reports: COPD Gastrointestinal History: Reports: Bowel Obstruction Genitourinary History: Reports: Other (See Below) Other Genitourinary History: Bladder Ca Musculoskeletal History: Reports: Arthritis Neurological History: Reports: CVA 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 Psychiatric History: Reports: Anxiety, Depression Hematologic History: Reports: Anticoagulation Therapy Oncologic (Cancer) History: Reports: Bladder, Prostate 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 - Infectious Disease History Infectious Disease History: Reports: Chicken Pox, Measles, Mumps, Shingles - Past Surgical History HEENT Surgical History: Reports: Cataract Surgery Cardiovascular Surgical History: Reports: Coronary Artery Stent GI Surgical History: Reports: Colonoscopy, Hernia, Inguinal, Hernia Repair/Other Dermatological Surgical History: Reports: None Social & Family History - Family History Family Medical History: Noncontributory - Tobacco Use Smoking Status *Q: Former Smoker Years of Tobacco use: 60 Packs/Tins Daily: 2 Used Tobacco, but Quit: Yes Month/Year Tobacco Last Used: 2014 - Caffeine Use Caffeine Use: Reports: Coffee Other Caffeine Use: 2-3 cups/day Caffeine Use Comment: 3 cups coffee a day - Alcohol Use Date of Last Drink: 07/10/18 - Recreational Drug Use Recreational Drug Use: No ED ROS GENERAL - Review of Systems Review Of Systems: See Below Constitutional: Reports: Fever, Chills HEENT: Reports: No Symptoms Respiratory: Reports: No Symptoms Cardiovascular: Reports: No Symptoms GI/Abdominal: Reports: No Symptoms : Reports: Pain, Other (anuria) Skin: Reports: No Symptoms Neurological: Reports: No Symptoms ED EXAM, GENERAL - Physical Exam Exam: See Below Exam Limited By: No Limitations General Appearance: Alert, WD/WN, No Apparent Distress Eye Exam: Bilateral Eye: Normal Inspection Ears: Normal External Exam Nose: Normal Inspection Throat/Mouth: Normal Inspection Head: Atraumatic, Normocephalic Neck: Normal Inspection, Full Range of Motion Respiratory/Chest: No Respiratory Distress, Lungs Clear, Normal Breath Sounds, No Accessory Muscle Use Cardiovascular: Regular Rate, Rhythm GI/Abdominal: Soft, Non-Tender, No Distention, No Mass (Male) Exam: Normal Inspection Extremities: Normal Inspection, Normal Range of Motion Neurological: Alert, Oriented Psychiatric: Normal Affect, Normal Mood Skin Exam: Warm, Dry, Intact Course - Vital Signs Last Recorded V/S: Last Vital Signs Temp 37.4 C 07/17/18 08:24 Pulse Resp 22 H 07/17/18 08:24 BP 118/64 02/23/19 08:24 Pulse Ox 87 L 07/17/18 08:24 - Orders/Labs/Meds Orders: Active Orders 24 hr Category Date Time Status Blood Catheter Insertion [Insert Urinary Catheter] [OM. Care 07/17/18 09:00 Ordered PC] Q24H Urinary Catheter Assessment [RC] ASDIRECTED Care 07/17/18 08:47 Active Labs: Laboratory Tests 07/17/18 Range/Units 08:45 Urine Color Red Urine Appearance Slightly cloudy (CLEAR) Urine pH 5.5 (5.0-8.0) Ur Specific [place] 1.015 (1.003-1.030) Urine Protein 100 H (NEGATIVE) mg/dL Urine Glucose (UA) Negative (NEGATIVE) mg/dL Urine Ketones Negative (NEGATIVE) mg/dL Urine Occult Blood Large H (NEGATIVE) Urine Nitrite Negative (NEGATIVE) Urine Bilirubin Small H (NEGATIVE) Urine Urobilinogen 0.2 (0.2-1.0) E.U./dL Ur Leukocyte Esterase Negative (NEGATIVE) Urine RBC Packed H /HPF Urine WBC 5-10 H /HPF Ur Squamous Epith Cells Few /HPF Urine Bacteria Rare /HPF - Re-Assessments/Exams Free Text/Narrative Re-Assessment/Exam: This patient presents for evaluation of bladder pain and decreased urinary output. I considered a broad differential including diverticulitis, aneurysm, urinary retention, ureterolithiasis, UTI, pyelonephritis, neurologic causes (MS , cauda equina,etc), colitis, etc. The history and exam are consistent with acute urinary retention and this is confirmed after blood catheter placement. A urinalysis was obtained and was normal. Will send home with catheter and have patient followup with his PCP in 3-5 days. He was given Flomax 0.4 mg daily for 3 days as well. The cause of the acute urinary retention is unclear at this point and considered that this may be caused by opiate medication, other medications, constipation, prostate issues, bladder or urethral tumor, ureterolithaisis, etc. Medications for discharge noted above. Patient is stable for discharge home. 07/17/18 08:52 07/17/18 09:23 Departure - Departure Time of Disposition: 09:30 Disposition: Home, Self-Care 01 Condition: Good Clinical Impression: Urinary retention - Discharge Information *PRESCRIPTION DRUG MONITORING PROGRAM REVIEWED*: Not Applicable *COPY OF PRESCRIPTION DRUG MONITORING REPORT IN PATIENT DESEAN: Not Applicable Instructions: Indwelling Urinary Catheter Insertion, Care After, Acute Urinary Retention, Male Referrals: PCP,Unknown [Primary Care Provider] - Forms: ED Department Discharge - My Orders Last 24 Hours: My Active Orders 07/17/18 08:47 Urinary Catheter Assessment [RC] ASDIRECTED 07/17/18 09:00 Blood Catheter Insertion [Insert Urinary Catheter] [OM.PC] Q24H - Assessment/Plan Last 24 Hours: My Active Orders 07/17/18 08:47 Urinary Catheter Assessment [RC] ASDIRECTED 07/17/18 09:00 Blood Catheter Insertion [Insert Urinary Catheter] [OM.PC] Q24H
== END 2018-07-17 09:38 | disposition home or self-care (01) ==
LOC: LB.ED 07:54
DX: R33.9 Retention of urine, unspecified (principal); I11.0 Hypertensive heart disease with heart failure; I50.9 Heart failure, unspecified; I25.2 Old myocardial infarction; I25.10 Atherosclerotic heart disease of native coronary artery without angina pectoris; J44.9 Chronic obstructive pulmonary disease, unspecified; F41.9 Anxiety disorder, unspecified; F32.9 Major depressive disorder, single episode, unspecified; Z87.891 Personal history of nicotine dependence; Z88.8 Allergy status to other drugs, medicaments and biological substances; Z79.899 Other long term (current) drug therapy; Z79.82 Long term (current) use of aspirin
CPT/HCPCS: 51702; 81001; 99283; A9270

== ENCOUNTER 2018-08-11 08:56 | Emergency (ER) | payer MEDICARE, OTHER ==
--- NOTE | 2018-08-11 10:15 | EDM.PDOC ---
ED HPI GENERAL MEDICAL PROBLEM - General Chief Complaint: Genitourinary Problem Stated Complaint: UNABLE TO VOID Time Seen by Provider: 08/11/18 09:30 Source of Information: Reports: Patient History Limitations: Reports: No Limitations - History of Present Illness INITIAL COMMENTS - FREE TEXT/NARRATIVE: This is a 83yo M here for urinary obstruction. He is unable to void for the past day. He has had this issue in the past and has seen Urology and now has a follow up with Oncology. He denies any other issues at this time. Onset: Gradual Duration: Day(s):, Getting Worse Quality: Reports: Ache, Pressure Severity: Moderate Improves with: Reports: None Worsens with: Reports: None Associated Symptoms: Reports: No Other Symptoms - Related Data Allergies Allergy/AdvReac Type Severity Reaction Status Date / Time quinine [Quinine] Allergy Rash Verified 08/11/18 09:32 monohydrochloride Allergy Rash Uncoded 02/12/18 22:29 Home Meds: Home Meds Fluticasone/Salmeterol [Advair 250-50] 1 puff INH BID 08/27/14 [History] Simvastatin 40 mg PO QPM 08/27/14 [History] Multivit-Min/FA/Lycopene/Lut [Sentry Senior Tablet] 1 each PO DAILY 02/19/15 [ History] Sertraline HCl 50 mg PO DAILY 02/19/15 [History] Aspirin/Dipyridamole [Aggrenox 200-25 MG] 1 cap PO BID 11/02/15 [History] Albuterol/Ipratropium [DuoNeb 3.0-0.5 MG/3 ML] 3 ml NEB QID PRN 03/28/16 [ History] Acetaminophen [Tylenol Extra Strength] 500 mg PO Q6HR PRN 10/29/17 [History] Sennosides/Docusate Sodium [Senna-Docusate Sodium] 1 each PO BID 10/29/17 [ History] Past Medical History HEENT History: Reports: Hard of Hearing, Other (See Below) Other HEENT History: Wears hearing aids Cardiovascular History: Reports: CAD, Heart Failure, High Cholesterol, Hypertension, [place], SOB on Exertion, Stents Respiratory History: Reports: COPD Gastrointestinal History: Reports: Bowel Obstruction Genitourinary History: Reports: Other (See Below) Other Genitourinary History: Bladder Ca Musculoskeletal History: Reports: Arthritis Neurological History: Reports: CVA 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 Psychiatric History: Reports: Anxiety, Depression Hematologic History: Reports: Anticoagulation Therapy Oncologic (Cancer) History: Reports: Bladder, Prostate 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 - Infectious Disease History Infectious Disease History: Reports: Chicken Pox, Measles, Mumps, Shingles - Past Surgical History HEENT Surgical History: Reports: Cataract Surgery Cardiovascular Surgical History: Reports: Coronary Artery Stent GI Surgical History: Reports: Colonoscopy, Hernia, Inguinal, Hernia Repair/Other Dermatological Surgical History: Reports: None Social & Family History - Family History Family Medical History: Noncontributory - Caffeine Use Caffeine Use: Reports: Coffee Other Caffeine Use: 2-3 cups/day Caffeine Use Comment: 3 cups coffee a day ED ROS GENERAL - Review of Systems Review Of Systems: ROS reveals no pertinent complaints other than HPI. ED EXAM, RENAL/ - Physical Exam Exam: See Below Exam Limited By: No Limitations General Appearance: Alert, WD/WN, No Apparent Distress Eye Exam: Bilateral Eye: EOMI, PERRL Ears: Normal External Exam Nose: Normal Inspection Throat/Mouth: Normal Inspection Head: Atraumatic, Normocephalic Neck: Normal Inspection Respiratory/Chest: No Respiratory Distress, Lungs Clear, Normal Breath Sounds Cardiovascular: Normal Peripheral Pulses, Regular Rate, Rhythm (Male) Exam: Suprapubic Fullness Back Exam: Normal Inspection Extremities: Normal Inspection Course - Orders/Labs/Meds Orders: Active Orders 24 hr Category Date Time Status Bladder Scan [RC] ONETIME Care 08/11/18 10:01 Active Blood Catheter Insertion [Insert Urinary Catheter] [OM. Care 08/11/18 10:00 Ordered PC] Q24H Urinary Catheter Assessment [RC] ASDIRECTED Care 08/11/18 10:00 Active Departure - Departure Time of Disposition: 10:30 Disposition: Home, Self-Care 01 Condition: Good Clinical Impression: Retention of urine, Bladder outflow obstruction - Discharge Information Instructions: Indwelling Urinary Catheter Care, Adult Referrals: PCP,Unknown [Primary Care Provider] - Forms: ED Department Discharge - Problem List & Annotations (1) Urinary retention SNOMED Code(s): 461803430 Code(s): R33.9 - RETENTION OF URINE, UNSPECIFIED Status: Acute Priority: High Current Visit: Yes Onset Date: ~11/07/17 (2) Urinary outflow obstruction SNOMED Code(s): 688312314 Code(s): N13.9 - OBSTRUCTIVE AND REFLUX UROPATHY, UNSPECIFIED Status: Acute Priority: High Current Visit: Yes - Problem List Review Problem List Initiated/Reviewed/Updated: Yes - My Orders Last 24 Hours: My Active Orders 08/11/18 10:00 Blood Catheter Insertion [Insert Urinary Catheter] [OM.PC] Q24H Urinary Catheter Assessment [RC] ASDIRECTED 08/11/18 10:01 Bladder Scan [RC] ONETIME - Assessment/Plan Last 24 Hours: My Active Orders 08/11/18 10:00 Blood Catheter Insertion [Insert Urinary Catheter] [OM.PC] Q24H Urinary Catheter Assessment [RC] ASDIRECTED 08/11/18 10:01 Bladder Scan [RC] ONETIME Plan: Counseled on blood care and f/u in clinic. Discussed f/u with Oncology and Urology for further care and management. Discussed supportive care and f/u.
[2018-08-11 14:03] VITALS: BP 126/74
== END 2018-08-11 10:23 | disposition home or self-care (01) ==
LOC: LB.ED 08:56
DX: N32.0 Bladder-neck obstruction (principal); I11.0 Hypertensive heart disease with heart failure; I50.9 Heart failure, unspecified; I25.10 Atherosclerotic heart disease of native coronary artery without angina pectoris; I25.2 Old myocardial infarction; J44.9 Chronic obstructive pulmonary disease, unspecified; F41.9 Anxiety disorder, unspecified; F32.9 Major depressive disorder, single episode, unspecified; Z79.899 Other long term (current) drug therapy; Z88.8 Allergy status to other drugs, medicaments and biological substances; Z79.01 Long term (current) use of anticoagulants; Z85.51 Personal history of malignant neoplasm of bladder
CPT/HCPCS: 51702; 51798; 99283

== ENCOUNTER 2018-08-20 05:35 | Emergency (ER) | payer MEDICARE, OTHER ==
[2018-08-20] MEDS ORDERED: Lidocaine 2% Jelly 10 ML Urojet MUCMEM ONE (05:50)
--- NOTE | 2018-08-20 06:03 | EDM.PDOC ---
ED HPI GENERAL MEDICAL PROBLEM - General Chief Complaint: General Stated Complaint: URINARY RETENTIONS Time Seen by Provider: 08/20/18 05:50 Source of Information: Reports: Patient, RN History Limitations: Reports: No Limitations - History of Present Illness INITIAL COMMENTS - FREE TEXT/NARRATIVE: 83 yr male presents with urinary retention and unable to void for about 12 hour. He had a blood catheter about 5 days ago and had been voiding ok. Now this am, unable to void. 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 - Related Data Allergies Allergy/AdvReac Type Severity Reaction Status Date / Time quinine [Quinine] Allergy Rash Verified 08/11/18 09:32 monohydrochloride Allergy Rash Uncoded 02/12/18 22:29 Home Meds: Home Meds Fluticasone/Salmeterol [Advair 250-50] 1 puff INH BID 08/27/14 [History] Simvastatin 40 mg PO QPM 08/27/14 [History] Multivit-Min/FA/Lycopene/Lut [Sentry Senior Tablet] 1 each PO DAILY 02/19/15 [ History] Sertraline HCl 50 mg PO DAILY 02/19/15 [History] Aspirin/Dipyridamole [Aggrenox 200-25 MG] 1 cap PO BID 11/02/15 [History] Albuterol/Ipratropium [DuoNeb 3.0-0.5 MG/3 ML] 3 ml NEB QID PRN 03/28/16 [ History] Acetaminophen [Tylenol Extra Strength] 500 mg PO Q6HR PRN 10/29/17 [History] Sennosides/Docusate Sodium [Senna-Docusate Sodium] 1 each PO BID 10/29/17 [ History] Past Medical History HEENT History: Reports: Hard of Hearing, Other (See Below) Other HEENT History: Wears hearing aids Cardiovascular History: Reports: CAD, Heart Failure, High Cholesterol, Hypertension, [place], SOB on Exertion, Stents Respiratory History: Reports: COPD Gastrointestinal History: Reports: Bowel Obstruction Genitourinary History: Reports: Other (See Below) Other Genitourinary History: Bladder Ca Musculoskeletal History: Reports: Arthritis Neurological History: Reports: CVA 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 Psychiatric History: Reports: Anxiety, Depression Hematologic History: Reports: Anticoagulation Therapy Oncologic (Cancer) History: Reports: Bladder, Prostate 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 - Infectious Disease History Infectious Disease History: Reports: Chicken Pox, Measles, Mumps, Shingles - Past Surgical History HEENT Surgical History: Reports: Cataract Surgery Cardiovascular Surgical History: Reports: Coronary Artery Stent GI Surgical History: Reports: Colonoscopy, Hernia, Inguinal, Hernia Repair/Other Dermatological Surgical History: Reports: None Social & Family History - Family History Family Medical History: Noncontributory - Caffeine Use Caffeine Use: Reports: Coffee Other Caffeine Use: 2-3 cups/day Caffeine Use Comment: 3 cups coffee a day ED ROS GENERAL - Review of Systems Review Of Systems: See Below Constitutional: Reports: No Symptoms : Reports: Urinary Retention, Other (states blood in urine) ED EXAM, GENERAL - Physical Exam Exam: See Below Exam Limited By: No Limitations General Appearance: Alert, No Apparent Distress Respiratory/Chest: No Respiratory Distress (Male) Exam: Other (bladder scan of bladder with more than 100 cc urine. Urine is dark red in color.) Departure - Departure Time of Disposition: 06:15 Disposition: Home, Self-Care 01 Condition: Fair Clinical Impression: Retention of urine - Discharge Information *PRESCRIPTION DRUG MONITORING PROGRAM REVIEWED*: Not Applicable *COPY OF PRESCRIPTION DRUG MONITORING REPORT IN PATIENT DESEAN: Not Applicable Instructions: Indwelling Urinary Catheter Insertion, Care After Forms: ED Department Discharge Additional Instructions: Keep inserted catheter in place through weekend. Schedule appointment in clinic next week with regular provider for further treatment plan. Drink plenty of fluids and get plenty of rest. Catheter care as instructed. Call with any questions. - Assessment/Plan Plan: Area cleansed, lidocaine gel applied and adequate anesthesia noted. Blood catheter #16 inserted. Leg tape/foster is applied and blood catheter emptied of 200 cc urine. Pt is afebrile, taking fluids well and eating well. States he does get home delivered meals and family brings meals to him. Pt instructed to return to PCP next week for assessment and possible referral to urology/ oncology as needed.
[2018-08-20 06:43] VITALS: BP 137/63
== END 2018-08-20 06:15 | disposition home or self-care (01) ==
LOC: LB.ED 05:35
DX: R33.9 Retention of urine, unspecified (principal); I11.0 Hypertensive heart disease with heart failure; I50.9 Heart failure, unspecified; I25.10 Atherosclerotic heart disease of native coronary artery without angina pectoris; I25.2 Old myocardial infarction; E78.00 Pure hypercholesterolemia, unspecified; J44.9 Chronic obstructive pulmonary disease, unspecified; F41.9 Anxiety disorder, unspecified; F32.9 Major depressive disorder, single episode, unspecified; Z88.8 Allergy status to other drugs, medicaments and biological substances; Z79.899 Other long term (current) drug therapy; Z79.82 Long term (current) use of aspirin
CPT/HCPCS: 51702; 51798; 99283

== ENCOUNTER 2018-08-25 21:56 | Emergency (ER) | payer MEDICARE, OTHER ==
[2018-08-25] MEDS: Lidocaine 2% Jelly 10 ML Urojet MUCMEM ONE (22:12)
[2018-08-25 22:59] VITALS: BP 132/71
--- NOTE | 2018-08-26 13:02 | EDM.PDOC ---
ED HPI GENERAL MEDICAL PROBLEM - General Chief Complaint: General Stated Complaint: URINARY RETENTION Time Seen by Provider: 08/25/18 22:00 Source of Information: Reports: Patient History Limitations: Reports: No Limitations - History of Present Illness INITIAL COMMENTS - FREE TEXT/NARRATIVE: Pt is here as he has not been able to urinate since today evening.Pt had his urinary catheter removed about 2 days which again was placed in the emergency room 4 days ago for urinary retention. Does c/o suprapubic discomfort. No fever or chills. No dysuria or back pain. Pt has had Bladder cancer and has had chemotherapy in the past and has had several cystoscopy with excision of the tumour. Pt is a frequent flyer through the emergency room for urinary retention. Onset: Today, Sudden Location: Reports: Abdomen Quality: Reports: Ache Severity: Mild Improves with: Reports: None Worsens with: Reports: None Associated Symptoms: Denies: Confusion, Chest Pain, Cough, Diaphoresis, Fever/ Chills, Headaches, Loss of Appetite, Nausea/Vomiting, Rash, Seizure, Shortness of Breath, Syncope, Weakness Bladder Pain Score (Numeric/FACES): 3 - Related Data Allergies Allergy/AdvReac Type Severity Reaction Status Date / Time quinine [Quinine] Allergy Rash Verified 08/11/18 09:32 monohydrochloride Allergy Rash Uncoded 02/12/18 22:29 Home Meds: Home Meds Fluticasone/Salmeterol [Advair 250-50] 1 puff INH BID 08/27/14 [History] Simvastatin 40 mg PO QPM 08/27/14 [History] Multivit-Min/FA/Lycopene/Lut [Sentry Senior Tablet] 1 each PO DAILY 02/19/15 [ History] Sertraline HCl 50 mg PO DAILY 02/19/15 [History] Aspirin/Dipyridamole [Aggrenox 200-25 MG] 1 cap PO BID 11/02/15 [History] Albuterol/Ipratropium [DuoNeb 3.0-0.5 MG/3 ML] 3 ml NEB QID PRN 03/28/16 [ History] Acetaminophen [Tylenol Extra Strength] 500 mg PO Q6HR PRN 10/29/17 [History] Sennosides/Docusate Sodium [Senna-Docusate Sodium] 1 each PO BID 10/29/17 [ History] Past Medical History HEENT History: Reports: Hard of Hearing, Other (See Below) Other HEENT History: Wears hearing aids Cardiovascular History: Reports: CAD, Heart Failure, High Cholesterol, Hypertension, [place], SOB on Exertion, Stents Respiratory History: Reports: COPD Gastrointestinal History: Reports: Bowel Obstruction Genitourinary History: Reports: Other (See Below) Other Genitourinary History: Bladder Ca Musculoskeletal History: Reports: Arthritis Neurological History: Reports: CVA 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 Psychiatric History: Reports: Anxiety, Depression Hematologic History: Reports: Anticoagulation Therapy Oncologic (Cancer) History: Reports: Bladder, Prostate 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 - Infectious Disease History Infectious Disease History: Reports: Chicken Pox - Past Surgical History HEENT Surgical History: Reports: Cataract Surgery Cardiovascular Surgical History: Reports: Coronary Artery Stent GI Surgical History: Reports: Colonoscopy, Hernia, Inguinal, Hernia Repair/Other Dermatological Surgical History: Reports: None Social & Family History - Family History Family Medical History: Noncontributory - Tobacco Use Smoking Status *Q: Unknown Ever Smoked Second Hand Smoke Exposure: No - Caffeine Use Caffeine Use: Reports: Coffee Other Caffeine Use: 2-3 cups/day Caffeine Use Comment: 3 cups coffee a day - Recreational Drug Use Recreational Drug Use: No ED ROS GENERAL - Review of Systems Review Of Systems: See Below Constitutional: Denies: Fever, Chills, Malaise, Weakness, Weight Loss HEENT: Denies: Rhinitis, Throat Pain Respiratory: Denies: Cough, Sputum Cardiovascular: Denies: Chest Pain, Lightheadedness Endocrine: Denies: Fatigue GI/Abdominal: Reports: Abdominal Pain, Flatus. Denies: Constipation, Diarrhea, Nausea, Vomiting : Reports: Hematuria, Urinary Retention. Denies: Flank Pain, Frequency Musculoskeletal: Denies: Joint Pain, Joint Swelling Skin: Denies: Bruising, Pruritis, Rash Neurological: Denies: Confusion, Dizziness, Headache, Numbness, Tingling Psychiatric: Denies: Agitation, Anxiety, Confusion, Cravings Hematologic/Lymphatic: Denies: Anemia, Easy Bleeding, Easy Bruising ED EXAM, GENERAL - Physical Exam Exam: See Below Exam Limited By: No Limitations General Appearance: Alert, WD/WN, Mild Distress (from bladder distension) Ears: Normal External Exam, Normal Canal, Hearing Grossly Normal, Normal TMs Ear Exam: Bilateral Ear: Auricle Normal, Canal Normal, TM normal Nose: Normal Inspection, Normal Mucosa, No Blood Throat/Mouth: Normal Inspection, Normal Lips, Normal Teeth, Normal Gums, Normal Oropharynx, Normal Voice, No Airway Compromise Head: Atraumatic, Normocephalic Neck: Normal Inspection, Supple, Non-Tender, Full Range of Motion Respiratory/Chest: No Respiratory Distress, Lungs Clear, Normal Breath Sounds, No Accessory Muscle Use, Chest Non-Tender Cardiovascular: Normal Peripheral Pulses, Regular Rate, Rhythm, No Edema, No Gallop, No JVD, No Murmur, No Rub GI/Abdominal: Normal Bowel Sounds, No Organomegaly, Other (there is mild suprapubic distension and tense. tender to palpation) Course - Vital Signs Text/Narrative:: Pt has urinary retentions. Ghosh catheter was placed and there was bloody urine that was drained. The urine gradually cleared up. Pt has had recurrent retention. I have advised patient not to have the catheter removed. He should see his urologist and have something done regarding his hematuria and recurrent urinary obstruction. Pt claims His urologist Dr. Nuñez is retired. I have advised him to followup with Dr. Petty who still works at [facility]. He probably would benefit from catheter training and also self straight catheterizing when he gets obstruction from hematuria. Pt understand and agree to call his urologist office in AM. Last Recorded V/S: Last Vital Signs Temp 96.8 F 08/25/18 22:02 Pulse 80 08/25/18 22:02 Resp 20 08/25/18 22:02 BP 132/71 08/25/18 22:02 Pulse Ox 98 08/25/18 22:55 - Orders/Labs/Meds Orders: Active Orders 24 hr Category Date Time Status Bladder Scan [RC] ASDIRECTED Care 08/25/18 22:07 Active Insert Urinary Catheter [OM.PC] Q24H Care 08/25/18 22:06 Ordered Urinary Catheter Assessment [RC] ASDIRECTED Care 08/25/18 22:06 Active Meds: Medications Discontinued Medications Generic Name Dose Route Start Last Admin Trade Name Freq PRN Reason Stop Dose Admin Lidocaine HCl 10 ml 08/25/18 22:06 08/25/18 22:12 Xylocaine 2% Jelly MUCMEM 08/25/18 22:07 10 ml ONETIME ONE Administration Departure - Departure Time of Disposition: 22:40 Disposition: Home, Self-Care 01 Condition: Fair Clinical Impression: Urinary retention - Discharge Information *PRESCRIPTION DRUG MONITORING PROGRAM REVIEWED*: Not Applicable *COPY OF PRESCRIPTION DRUG MONITORING REPORT IN PATIENT DESEAN: Not Applicable Instructions: Indwelling Urinary Catheter Care, Adult, [id number] Referrals: PCP,None [Primary Care Provider] - Forms: ED Department Discharge Additional Instructions: Keep inserted catheter in place until follow up appointment in clinic next week. Call urology office at [facility] tomorrow to set up an appointment with Dr. Petty in his office there. At your appointment with Dr. Petty, talk to him about the option of self-catheterization at home. Drink plenty of fluids and get plenty of rest. Activity and diet as tolerated. Call with any questions. - Problem List & Annotations (1) Retention of urine SNOMED Code(s): 501007956 Code(s): R33.9 - RETENTION OF URINE, UNSPECIFIED Status: Acute - Problem List Review Problem List Initiated/Reviewed/Updated: Yes - My Orders Last 24 Hours: My Active Orders 08/25/18 22:06 Insert Urinary Catheter [OM.PC] Q24H Urinary Catheter Assessment [RC] ASDIRECTED 08/25/18 22:07 Bladder Scan [RC] ASDIRECTED - Assessment/Plan Last 24 Hours: My Active Orders 08/25/18 22:06 Insert Urinary Catheter [OM.PC] Q24H Urinary Catheter Assessment [RC] ASDIRECTED 08/25/18 22:07 Bladder Scan [RC] ASDIRECTED Assessment:: Urinary retention Plan: t has urinary retentions. Ghosh catheter was placed and there was bloody urine that was drained. The urine gradually cleared up. Pt has had recurrent retention. I have advised patient not to have the catheter removed. He should see his urologist and have something done regarding his hematuria and recurrent urinary obstruction. Pt claims His urologist Dr. Nuñez is retired. I have advised him to followup with Dr. Petty who still works at [facility]. He probably would benefit from catheter training and also self straight catheterizing when he gets obstruction from hematuria. Pt understand and agree to call his urologist office in AM.
== END 2018-08-25 22:35 | disposition home or self-care (01) ==
LOC: LB.ED 21:56
DX: R33.9 Retention of urine, unspecified (principal); I11.0 Hypertensive heart disease with heart failure; I50.9 Heart failure, unspecified; J44.9 Chronic obstructive pulmonary disease, unspecified; I25.10 Atherosclerotic heart disease of native coronary artery without angina pectoris; F41.9 Anxiety disorder, unspecified; F32.9 Major depressive disorder, single episode, unspecified; Z79.01 Long term (current) use of anticoagulants; Z79.899 Other long term (current) drug therapy; Z88.8 Allergy status to other drugs, medicaments and biological substances
CPT/HCPCS: 51702; 51798; 99283

== ENCOUNTER 2018-09-12 10:44 | Emergency (ER) | payer MEDICARE, OTHER ==
[2018-09-12] MEDS ORDERED: Lidocaine 2% Jelly 10 ML Urojet ONE (11:25)
--- NOTE | 2018-09-12 18:07 | ER ---
DATE OF SERVICE: SUBJECTIVE: The patient is an 83-year-old male, comes in today with a chief complaint of urinary retention. He notes he has had this several times in the past. He has not had any fevers or chills. He does not have any nausea or vomiting. He notes he just cannot go to the bathroom. The last time he went to the bathroom was early this morning. He does not complain of dysuria either. PHYSICAL EXAMINATION: GENERAL: He is alert, oriented, no apparent distress. HEENT: Unremarkable. LUNGS: Clear. HEART: Regular sinus rhythm. ABDOMEN: Benign. EXTREMITIES: No clubbing, cyanosis, or edema. VITAL SIGNS: His vital signs are good. Blood pressure is 124/72, O2 saturation is 88%, the patient does have 2 L per nasal cannula, and his temperature was 98.4. We placed a Ghosh catheter. The patient had 225 mL of blood-tinged urine with 1 clot in it out. The urine was sent to the lab and the patient was semi-packed with red cells, 0 to 5 white cells, it dipped negative for leukocyte esterase. ASSESSMENT: Urinary retention. PLAN: The patient has an appointment with his urologist on Thursday, which is the day after tomorrow. I have left the Ghosh in with a leg bag. I have recommended he follow up as already scheduled. KIMBERLEE /[id number] MTDD
== END 2018-09-12 12:00 | disposition home or self-care (01) ==
LOC: LB.ED 10:44
DX: R33.9 Retention of urine, unspecified (principal)
CPT/HCPCS: 51702; 81001; 99283

== ENCOUNTER 2018-09-17 13:46 | Observation (INO) | payer MEDICARE, OTHER ==
[2018-09-17] MEDS: Sodium Chloride 0.9% 1,000 ML IV SCH (15:05)
--- NOTE | 2018-09-17 15:20 | PCM.HP ---
H&P History of Present Illness - General Date of Service: 09/17/18 Source of Information: Patient, Family, Old Records - History of Present Illness Initial Comments - Free Text/Narative: This is an 83yo M with a recent TURP here for concerns of fatigue, memory issues , confusion and weakness. He has hematuria of the leg bag. Patient's son is present and concerned that his father is not following instructions from the Surgeon. He was suppose to stop aggrenox and flomax which he has not. His son is concerned that the patient is more confused and unable to care for himself. The patient is suppose to drink 8 glasses of water a day and his son notes he maybe drinks 2 and is unsure if he even drinks that. Per son his leg bag should be clear but remains bloody as well. Duration of Symptoms: Reports: Day(s):, Getting Worse Location: Reports: Generalized Improves with: Reports: None Worsens with: Reports: None Associated Symptoms: Reports: Confusion, Loss of Appetite, Weakness - Related Data Allergies/Adverse Reactions: Allergies Allergy/AdvReac Type Severity Reaction Status Date / Time quinine [Quinine] Allergy Rash Verified 09/17/18 15:55 monohydrochloride Allergy Rash Uncoded 02/12/18 22:29 Home Medications: Home Meds Fluticasone/Salmeterol [Advair 250-50] 1 puff INH BID 08/27/14 [History] Simvastatin 40 mg PO QPM 08/27/14 [History] Multivit-Min/FA/Lycopene/Lut [Sentry Senior Tablet] 1 each PO DAILY 02/19/15 [ History] Sertraline HCl 50 mg PO DAILY 02/19/15 [History] Aspirin/Dipyridamole [Aggrenox 200-25 MG] 1 cap PO BID 11/02/15 [History] Albuterol/Ipratropium [DuoNeb 3.0-0.5 MG/3 ML] 3 ml NEB QID PRN 03/28/16 [ History] Acetaminophen [Tylenol Extra Strength] 500 mg PO Q6HR PRN 10/29/17 [History] Sennosides/Docusate Sodium [Senna-Docusate Sodium] 1 each PO BID 10/29/17 [ History] Past Medical History HEENT History: Reports: Hard of Hearing, Other (See Below) Other HEENT History: Wears hearing aids Cardiovascular History: Reports: CAD, Heart Failure, High Cholesterol, Hypertension, [place], SOB on Exertion, Stents Respiratory History: Reports: COPD Gastrointestinal History: Reports: Bowel Obstruction Genitourinary History: Reports: Other (See Below) Other Genitourinary History: Bladder Ca Musculoskeletal History: Reports: Arthritis Neurological History: Reports: CVA 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 Psychiatric History: Reports: Anxiety, Depression Hematologic History: Reports: Anticoagulation Therapy Oncologic (Cancer) History: Reports: Bladder, Prostate 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 - Infectious Disease History Infectious Disease History: Reports: Chicken Pox - Past Surgical History HEENT Surgical History: Reports: Cataract Surgery Cardiovascular Surgical History: Reports: Coronary Artery Stent GI Surgical History: Reports: Colonoscopy, Hernia, Inguinal, Hernia Repair/Other Dermatological Surgical History: Reports: None Social & Family History - Family History Family Medical History: Noncontributory - Caffeine Use Caffeine Use: Reports: Coffee Other Caffeine Use: 2-3 cups/day Caffeine Use Comment: 3 cups coffee a day H&P Review of Systems - Review of Systems: Review Of Systems: ROS reveals no pertinent complaints other than HPI. Exam - Exam Exam: See Below - Exam Quality Assessment: Supplemental Oxygen General: Other (short term memory impairment) Neck: Supple, Trachea Midline Lungs: Clear to Auscultation, Normal Respiratory Effort Cardiovascular: Regular Rhythm, Systolic Murmur GI/Abdominal Exam: Normal Bowel Sounds, Soft, Non-Tender Back Exam: Normal Inspection Extremities: Normal Inspection Peripheral Pulses: 2+: Dorsalis Pedis (L), Dorsalis Pedis (R) Skin: Warm, Dry, Intact - Patient Data Lab Results Last 24 hrs: Laboratory Results - last 24 hr 09/17/18 09/17/18 09/17/18 Range/Units 14:00 14:00 14:00 WBC 7.4 D (4.0-11.0) K/uL RBC 3.44 L (4.50-6.50) M/uL Hgb 8.7 L (13.0-18.0) g/dL Hct 29.2 L (40.0-54.0) % MCV 85 (76-96) fL MCH 25.3 L (27.0-32.0) pg MCHC 29.8 L (31.0-35.0) g/dL RDW 14.1 (11.0-16.0) % Plt Count 245 (150-400) K/uL MPV 9.1 (6.0-10.0) fL Neut % (Auto) 74.2 H (45.0-70.0) % Lymph % (Auto) 13.9 L (20.0-40.0) % [place] % (Auto) 9.1 (3.0-10.0) % Eos % (Auto) 2.3 (1.0-5.0) % Baso % (Auto) 0.5 (0.0-0.5) % Neut # (Auto) 5.46 (2.00-7.50) K/uL Lymph # (Auto) 1.02 L (1.50-4.00) K/uL [place] # (Auto) 0.67 (0.20-0.80) K/uL Eos # (Auto) 0.17 (0.04-0.40) K/uL Baso # (Auto) 0.04 (0.02-0.10) K/uL Sodium 142 (136-145) mmol/L Potassium 3.8 (3.5-5.1) mmol/L Chloride 102 (98-107) mmol/L Carbon Dioxide 30.7 (21.0-32.0) mmol/L Anion Gap 13.1 (5.0-15.0) mmol/L BUN 29 H (8-26) mg/dL Creatinine 1.47 H (0.70-1.30) mg/dL Est Cr Clr Drug Dosing TNP Estimated GFR (MDRD) 46 L (>60) MLS/MIN BUN/Creatinine Ratio 19.7 (6-25) Glucose 93 (74-100) mg/dL Calcium 8.2 L (8.5-10.1) mg/dL Urine Color Red Urine Appearance Cloudy (CLEAR) Urine pH 5.5 (5.0-8.0) Ur Specific [place] 1.010 (1.003-1.030) Urine Protein Unable to report (NEGATIVE) mg/dL Urine Glucose (UA) Negative (NEGATIVE) mg/dL Urine Ketones Unable to report (NEGATIVE) mg/dL Urine Occult Blood Large H (NEGATIVE) Urine Nitrite Negative (NEGATIVE) Urine Bilirubin Unable to report (NEGATIVE) Urine Urobilinogen 1.0 (0.2-1.0) E.U./dL Ur Leukocyte Esterase Unable to report (NEGATIVE) Urine RBC >100 H /HPF Urine WBC 5-10 H /HPF Ur Squamous Epith Cells Few /HPF Urine Bacteria Few /HPF Result Diagrams: 09/17/18 14:00 09/17/18 14:00 - Problem List (1) Generalized weakness SNOMED Code(s): 13429606 ICD Code: R53.1 - WEAKNESS Status: Acute Current Visit: Yes (2) Hematuria SNOMED Code(s): 66595383 ICD Code: R31.9 - HEMATURIA, UNSPECIFIED Status: Acute Current Visit: Yes (3) History of prostate surgery SNOMED Code(s): 818328882 ICD Code: Z98.890 - OTHER SPECIFIED POSTPROCEDURAL STATES Status: Acute Current Visit: Yes (4) Confusion SNOMED Code(s): 354673330 ICD Code: R41.0 - DISORIENTATION, UNSPECIFIED Status: Acute Current Visit : Yes (5) Anemia SNOMED Code(s): 863532779 ICD Code: D64.9 - ANEMIA, UNSPECIFIED Status: Acute Current Visit: Yes (6) Renal dysfunction Status: Acute Current Visit: Yes Problem List Initiated/Reviewed/Updated: Yes Orders Last 24hrs: Active Orders 24 hr Category Date Time Status Sodium Chloride 0.9% [Normal Saline] 1,000 ml Med 09/17/18 15:00 Ordered IV ASDIRECTED Medication Orders Sodium Chloride (Normal Saline) 1,000 mls @ 100 mls/hr IV ASDIRECTED JACOB Assessment/Plan Comment:: Patient placed in observation and monitoring. He has been having issues with memory, some confusion and we will monitor his medications. We will hold flomax and aggrenox per instructions from [place] per the son. IVF hydration only 1L. F/u urine output for clearing of hematuria - once hematuria is clear he can have his blood catheter removed. Follow up daily mental checks at this time for worsening memory concerns. PT/OT for weakness and deconditioning.
[2018-09-17] MEDS ORDERED: ACETAMINOPHEN 500 MG PO PRN (16:47)
[2018-09-17] MEDS ORDERED: Albuterol/Ipratropium 3.0-0.5 MG/3 ML Neb Soln NEB PRN (16:47)
[2018-09-17] MEDS: Simvastatin 40 MG Tab **OWN MED PO SCH (20:45)
[2018-09-18] MEDS: MULTIVITAMIN PO SCH (08:10)
[2018-09-18] MEDS: Sertraline 50 MG Tab **OWN MED PO SCH (08:11)
[2018-09-18] MEDS: Sodium Chloride 0.9% 1,000 ML IV SCH ×2 (10:08→20:25)
[2018-09-18] MEDS: Formoterol/Mometasone 200-5 MCG 8.8 GM Inhaler IH SCH ×2 (11:04→19:11)
--- NOTE | 2018-09-18 12:21 | PN ---
DATE OF VISIT: 09/18/2018 SUBJECTIVE: The patient is admitted to this facility with postop issues. The patient underwent a TURP surgery 2 days ago. He has been having problems with a lot of hematuria, confusion, and weakness. The patient was admitted to our facility yesterday. He was given a liter of IV fluid. The patient has not been complaining of any pain and states that he does feel a little better today. Nursing staff states that he has not had any issues other than his liquid intake has been less than ideal. They have been urging him to drink more. He is able to drink. He just does not do much of it. He has not been running a fever. The patient does have history of COPD and he usually uses oxygen at home at least at night. OBJECTIVE: VITAL SIGNS: This morning reveal he is afebrile, blood pressure 122/69, O2 sats were at 88%, he was put on 2 L of O2 and this brought his oxygen sats to 93% or 94%. GENERAL: Upon entering the room, the patient is resting quietly in bed. He is pleasant, in no obvious distress. The patient has no complaints at this time. LUNGS: Have slightly reduced air exchange with end-expiratory wheezes scattered throughout. CARDIAC: Heart sounds distinct without murmurs. ABDOMEN: Soft, nontender with light palpation. SKIN: Warm and dry. : In looking at the patient's Ghosh bag, there is still a lot of blood in the urine. LABORATORY DATA: Labs taken yesterday reveal he has a normal white count. Chem panel reveals a BUN of 29 and a creatinine of 1.47. He has a large amount of blood in his urine in cloudy appearance. ASSESSMENT AND PLAN: We will give the patient 1 more liter of IV fluid at 100 mL an hour. He is to work on increasing his liquid intake. We will monitor the patient and I will follow up with him tomorrow. CRS/MODL /[id number]
[2018-09-18] MEDS: Simvastatin 40 MG Tab **OWN MED PO SCH (19:11)
[2018-09-19] MEDS: MULTIVITAMIN PO SCH (08:17)
[2018-09-19] MEDS: Formoterol/Mometasone 200-5 MCG 8.8 GM Inhaler IH SCH (08:17)
[2018-09-19] MEDS: Sertraline 50 MG Tab **OWN MED PO SCH (08:17)
[2018-09-19] MEDS ORDERED: Ferrous Sulfate 325 MG Tab PO SCH (11:00)
[2018-09-19 12:01] VITALS: BP 120/72
--- NOTE | 2018-09-19 22:55 | DISCH ---
This patient was admitted on observation 2 days ago with weakness and mild confusion. He was status post a TURP procedure the day before. He has had a Ghosh catheter in. He was rehydrated with couple liters of fluid. The patient has had hematuria that has been slowly improving. The patient has been doing fairly well in other terms. He has been independent going to the bathroom with standby assist. He has not been complaining of any weakness today. His appetite has been good. His liquid intake has been better. The IV was discontinued last evening. Nursing staff states that the patient has not been complaining of any pain and has not been running a fever. Vital signs have been good. The patient's hemoglobin was at 8.7 when he got here. We rechecked it today, it is slightly lower at 8.0. Upon entering the patient's room, he was resting quietly. He is smiley and pleasant. He denies any pain. Examining the Ghosh bag reveals just pink tinged blood in the tubing. The patient has no pain with palpation over the lower abdomen or bladder area. Abdomen is soft. Lungs are clear with moderately reduced air exchange. Skin is warm and dry. Labs were repeated today including a CBC again showing hemoglobin now of 8.0, hematocrit 27.1. Metabolic panel is okay. The patient's kidney function has improved from 2 days ago. His BUN is within normal range, creatinine at 1.4. ASSESSMENT AND PLAN: The patient will be discharged today. We will start him on ferrous sulfate 325 mg. He will get 1 tablet here in the hospital today and I will send him a script home for 10 more tablets. The patient is to go home with supervision and rest. He is to take his ferrous sulfate daily. He is not to use any NSAIDs or aspirin type products and he is to focus on increasing his liquid intake using small frequent drinks. I want the patient to follow up in the clinic here hopefully tomorrow, no later than Thursday for recheck. The patient has no further questions. CRS/MODL /[id number]
== END 2018-09-19 11:28 | disposition home or self-care (01) ==
LOC: LB.CLINIC 13:46 → LB.MS 14:07 → UNDOADMOB 14:07 → LB.MS 16:45
PROVIDERS: ADMIT Family Medicine; ATTEND Family Medicine
DX: R53.1 Weakness (principal); R41.0 Disorientation, unspecified; D64.9 Anemia, unspecified; I11.0 Hypertensive heart disease with heart failure; I50.9 Heart failure, unspecified; I25.10 Atherosclerotic heart disease of native coronary artery without angina pectoris; I25.2 Old myocardial infarction; I69.954 Hemiplegia and hemiparesis following unspecified cerebrovascular disease affecting left non-dominant side; E78.00 Pure hypercholesterolemia, unspecified; J44.9 Chronic obstructive pulmonary disease, unspecified; Z88.8 Allergy status to other drugs, medicaments and biological substances; Z90.79 Acquired absence of other genital organ(s); Z99.81 Dependence on supplemental oxygen; Z95.5 Presence of coronary angioplasty implant and graft; Z79.51 Long term (current) use of inhaled steroids; Z79.82 Long term (current) use of aspirin; Z79.899 Other long term (current) drug therapy
CPT/HCPCS: 36415; 80048; 81001; 85025; 96360; 96361; 99217; 99219; 99224; A9270-GY; G0378; J7030; J7620-GY

== ENCOUNTER 2018-11-14 17:48 | Observation (INO) | payer MEDICARE, OTHER ==
--- NOTE | 2018-11-14 18:15 | EDM.PDOC ---
ED HPI GENERAL MEDICAL PROBLEM - General Chief Complaint: General Stated Complaint: SHAKING AND DISORIENTED Time Seen by Provider: 11/14/18 17:55 Source of Information: Reports: Patient History Limitations: Reports: No Limitations - History of Present Illness INITIAL COMMENTS - FREE TEXT/NARRATIVE: Pt is a 83 year old male with with bladder and prostate cancer who is back on radiation therapy presently. he does have bloody urine form his radiation. Apparently son who is giving the history, claims that he went to see patient. Patient was found weak , confused and shaky and he was not having his oxygen on and his SPO2 was around 88%. He called ambulance. when the ambulance reached, home patient was alert but confused and shaky, not in acute distress. He was placed on oxygen, and brought into emergency room. pt is alert, His SPO2 has improved in the emergency room to 95-97% on 1 litre oxygen.Pt does use 2 liters at home. He appears confused and also has been running a temp of 102F. - Related Data Allergies Allergy/AdvReac Type Severity Reaction Status Date / Time quinine [Quinine] Allergy Rash Verified 09/17/18 15:55 monohydrochloride Allergy Rash Uncoded 02/12/18 22:29 Home Meds: Home Meds Simvastatin 40 mg PO QPM 08/27/14 [History] Sertraline HCl 50 mg PO DAILY 02/19/15 [History] Aspirin/Dipyridamole [Aggrenox 200-25 MG] 1 cap PO BID 11/02/15 [History] Albuterol/Ipratropium [DuoNeb 3.0-0.5 MG/3 ML] 3 ml NEB QID PRN 03/28/16 [ History] Acetaminophen [Tylenol Extra Strength] 500 mg PO Q6HR PRN 10/29/17 [History] Sennosides/Docusate Sodium [Senna-Docusate Sodium] 1 each PO BID PRN 10/29/17 [ History] Ferrous Sulfate [Iron] 1 cap PO DAILY 11/14/18 [History] Furosemide [Lasix] 20 mg PO DAILY 11/14/18 [History] Mometasone/Formoterol [Dulera 200 MCG/5 MCG] 1 puff IN BID 11/14/18 [History] Past Medical History HEENT History: Reports: Hard of Hearing, Other (See Below) Other HEENT History: Wears hearing aids Cardiovascular History: Reports: CAD, Heart Failure, High Cholesterol, Hypertension, PA, SOB on Exertion, Stents Respiratory History: Reports: COPD Gastrointestinal History: Reports: Bowel Obstruction Genitourinary History: Reports: Other (See Below) Other Genitourinary History: Bladder Ca Musculoskeletal History: Reports: Arthritis Neurological History: Reports: CVA 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 Psychiatric History: Reports: Anxiety, Depression Hematologic History: Reports: Anticoagulation Therapy Oncologic (Cancer) History: Reports: Bladder, Prostate 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 - Infectious Disease History Infectious Disease History: Reports: Chicken Pox - Past Surgical History HEENT Surgical History: Reports: Cataract Surgery Cardiovascular Surgical History: Reports: Coronary Artery Stent GI Surgical History: Reports: Colonoscopy, Hernia, Inguinal, Hernia Repair/Other Dermatological Surgical History: Reports: None Social & Family History - Family History Family Medical History: Noncontributory - Caffeine Use Caffeine Use: Reports: Coffee Other Caffeine Use: 2-3 cups/day Caffeine Use Comment: 3 cups coffee a day ED ROS GENERAL - Review of Systems Review Of Systems: See Below Constitutional: Reports: Chills, Weakness HEENT: Denies: Ear Pain, Rhinitis, Throat Pain Respiratory: Denies: Shortness of Breath, Pleuritic Chest Pain, Cough, Sputum Cardiovascular: Denies: Chest Pain, Lightheadedness, Syncope GI/Abdominal: Denies: Abdominal Pain, Constipation, Diarrhea, Nausea, Vomiting : 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) Musculoskeletal: Denies: Joint Pain, Joint Swelling Skin: Denies: Bruising, Pruritis, Rash Neurological: Denies: Confusion, Dizziness, Headache, Numbness, Tingling ED EXAM, GENERAL - Physical Exam Exam: See Below Exam Limited By: No Limitations General Appearance: Alert, WD/WN, No Apparent Distress, Other (febrile and confused) Eye Exam: Bilateral Eye: EOMI, PERRL Ears: Normal External Exam, Normal Canal, Hearing Grossly Normal, Normal TMs Ear Exam: Bilateral Ear: Auricle Normal, Canal Normal, TM normal Nose: Normal Inspection, Normal Mucosa, No Blood Throat/Mouth: Normal Inspection, Normal Lips, Normal Teeth, Normal Gums, Normal Oropharynx, Normal Voice, No Airway Compromise Head: Atraumatic, Normocephalic Neck: Normal Inspection, Supple, Non-Tender, Full Range of Motion Respiratory/Chest: Decreased Breath Sounds (b/l). No: No Accessory Muscle Use, Chest Non-Tender Cardiovascular: Normal Peripheral Pulses, Regular Rate, Rhythm, No Edema, No Gallop, No JVD, No Murmur, No Rub GI/Abdominal: Normal Bowel Sounds, Soft, Non-Tender, No Organomegaly, No Distention, No Abnormal Bruit, No Mass Extremities: Normal Inspection, Normal Range of Motion, Non-Tender, Normal Capillary Refill, No Pedal Edema Neurological: Alert, Confused Skin Exam: Warm, Intact Course - Vital Signs Text/Narrative:: 83 year old male with PMH of COPD with bladder and prostate cancer who recently had radiation therapy, presents with confusion and chills. He is running a temp of 102F. Also patient has COPD and is O2 dependent and he was without oxygen for a while, until his son went and checked on him. His confusion might be from hypoxia too. Pt is confused and very weak. Not able to stand by himself. Also he is febrile. hence complete sepsis workup was done. His CBC shows normal white count of 9.4, but his neutrophils are elevated at 90%.CT head is negative. His chest x-ray shows chronic interstitial disease with left lower lobe atelectasis versus pneumonitis. His BMP shows potassium of 3 and his creat is mildly elevated form his baseline of 1.4 to 1.6. His UA does show clumps of WBC with 5-10 WBC. His lactic acid is normal. He might have low grade UTI with fever, which could be the cause of his confusion too. Also His potassium is low at 3. Will start patient on NS with 20 meq of potassium at 100cc/hr. Also will empirically cover him for UTI and pneumonitis with IV azithromycin 500mg daily. Will admit him to hospital for observation. Should improve with hydration and correction of his potassium. Last Recorded V/S: Last Vital Signs Temp 102.8 F H 11/14/18 18:10 Pulse 85 11/14/18 18:10 Resp 16 11/14/18 18:10 BP 130/61 11/14/18 18:10 Pulse Ox 93 L 11/14/18 18:10 - Orders/Labs/Meds Orders: Active Orders 24 hr Category Date Time Status Chest 1V Frontal [CR] Stat Exams 11/14/18 18:17 Taken Head wo Cont [CT] Stat Exams 11/14/18 18:18 Taken CULTURE BLOOD [BC] Stat Lab 11/14/18 19:00 Received CULTURE BLOOD [BC] Stat Lab 11/14/18 19:00 Received NS + KCl 20mEq/L [Normal Saline with 20 mEq KCl] 1,000 Med 11/14/18 19:45 Active ml IV ASDIRECTED Sodium Chloride 0.9% [Normal Saline] 1,000 ml Med 11/14/18 19:00 Active IV ASDIRECTED Medication Orders Sodium Chloride (Normal Saline) 1,000 mls @ 100 mls/hr IV ASDIRECTED JACOB Last Admin: 11/14/18 19:27 Dose: 100 mls/hr Potassium Chloride/Sodium Chloride (Normal Saline With 20 Meq Kcl) 1,000 mls @ 100 mls/hr IV ASDIRECTED JACOB Labs: Laboratory Tests 11/14/18 11/14/18 11/14/18 Range/Units 19:00 19:00 19:00 WBC 9.6 D (4.0-11.0) K/uL RBC 4.44 L (4.50-6.50) M/uL Hgb 11.5 L D (13.0-18.0) g/dL Hct 36.7 L D (40.0-54.0) % MCV 83 (76-96) fL MCH 25.9 L (27.0-32.0) pg MCHC 31.3 (31.0-35.0) g/dL RDW 15.7 (11.0-16.0) % Plt Count 178 (150-400) K/uL MPV 9.0 (6.0-10.0) fL Neut % (Auto) 90.5 H (45.0-70.0) % Lymph % (Auto) 2.4 L (20.0-40.0) % Mathews % (Auto) 7.1 (3.0-10.0) % Eos % (Auto) 0.0 L (1.0-5.0) % Baso % (Auto) 0.0 (0.0-0.5) % Neut # (Auto) 8.66 H (2.00-7.50) K/uL Lymph # (Auto) 0.23 L (1.50-4.00) K/uL Mathews # (Auto) 0.68 (0.20-0.80) K/uL Eos # (Auto) 0.00 L (0.04-0.40) K/uL Baso # (Auto) 0.00 L (0.02-0.10) K/uL Sodium 146 H (136-145) mmol/L Potassium 3.0 L D (3.5-5.1) mmol/L Chloride 106 (98-107) mmol/L Carbon Dioxide 29.4 (21.0-32.0) mmol/L Anion Gap 13.6 (5.0-15.0) mmol/L BUN 24 D (8-26) mg/dL Creatinine 1.67 H (0.70-1.30) mg/dL Est Cr Clr Drug Dosing TNP Estimated GFR (MDRD) 39 L (>60) MLS/MIN BUN/Creatinine Ratio 14.4 (6-25) Glucose 121 H (74-100) mg/dL Lactic Acid 1.01 (0.90-1.70) mmol/L Calcium 8.5 (8.5-10.1) mg/dL Total Bilirubin 0.3 D (0.0-1.0) mg/dL AST 20 (15-37) U/L ALT 14 (12-78) U/L Alkaline Phosphatase 70 (46-116) U/L Total Protein 7.8 (6.4-8.2) g/dL Albumin 3.3 L (3.4-5.0) g/dL Globulin 4.5 H (2.2-4.2) g/dL Albumin/Globulin Ratio 0.7 L (0.8-2.0) Urine Color Urine Appearance (CLEAR) Urine pH (5.0-8.0) Ur Specific [place] (1.003-1.030) Urine Protein (NEGATIVE) mg/dL Urine Glucose (UA) (NEGATIVE) mg/dL Urine Ketones (NEGATIVE) mg/dL Urine Occult Blood (NEGATIVE) Urine Nitrite (NEGATIVE) Urine Bilirubin (NEGATIVE) Urine Urobilinogen (0.2-1.0) E.U./dL Ur Leukocyte Esterase (NEGATIVE) Urine RBC /HPF Urine WBC /HPF Urine WBC Clumps /HPF Urine Bacteria /HPF 11/14/18 Range/Units 19:00 WBC (4.0-11.0) K/uL RBC (4.50-6.50) M/uL Hgb (13.0-18.0) g/dL Hct (40.0-54.0) % MCV (76-96) fL MCH (27.0-32.0) pg MCHC (31.0-35.0) g/dL RDW (11.0-16.0) % Plt Count (150-400) K/uL MPV (6.0-10.0) fL Neut % (Auto) (45.0-70.0) % Lymph % (Auto) (20.0-40.0) % Mathews % (Auto) (3.0-10.0) % Eos % (Auto) (1.0-5.0) % Baso % (Auto) (0.0-0.5) % Neut # (Auto) (2.00-7.50) K/uL Lymph # (Auto) (1.50-4.00) K/uL Mathews # (Auto) (0.20-0.80) K/uL Eos # (Auto) (0.04-0.40) K/uL Baso # (Auto) (0.02-0.10) K/uL Sodium (136-145) mmol/L Potassium (3.5-5.1) mmol/L Chloride (98-107) mmol/L Carbon Dioxide (21.0-32.0) mmol/L Anion Gap (5.0-15.0) mmol/L BUN (8-26) mg/dL Creatinine (0.70-1.30) mg/dL Est Cr Clr Drug Dosing Estimated GFR (MDRD) (>60) MLS/MIN BUN/Creatinine Ratio (6-25) Glucose (74-100) mg/dL Lactic Acid (0.90-1.70) mmol/L Calcium (8.5-10.1) mg/dL Total Bilirubin (0.0-1.0) mg/dL AST (15-37) U/L ALT (12-78) U/L Alkaline Phosphatase (46-116) U/L Total Protein (6.4-8.2) g/dL Albumin (3.4-5.0) g/dL Globulin (2.2-4.2) g/dL Albumin/Globulin Ratio (0.8-2.0) Urine Color Yellow Urine Appearance Slightly cloudy (CLEAR) Urine pH 5.0 (5.0-8.0) Ur Specific [place] 1.015 (1.003-1.030) Urine Protein Trace H (NEGATIVE) mg/dL Urine Glucose (UA) Negative (NEGATIVE) mg/dL Urine Ketones Negative (NEGATIVE) mg/dL Urine Occult Blood Large H (NEGATIVE) Urine Nitrite Negative (NEGATIVE) Urine Bilirubin Negative (NEGATIVE) Urine Urobilinogen 0.2 (0.2-1.0) E.U./dL Ur Leukocyte Esterase Small H (NEGATIVE) Urine RBC 5-10 H /HPF Urine WBC 5-10 H /HPF Urine WBC Clumps Occasional /HPF Urine Bacteria Many H /HPF Meds: Medications Generic Name Dose Route Start Last Admin Trade Name Freq PRN Reason Stop Dose Admin Sodium Chloride 1,000 mls @ 100 mls/hr 11/14/18 19:00 11/14/18 19:27 Normal Saline IV 100 mls/hr ASDIRECTED JACOB Administration Potassium Chloride/Sodium Chloride 1,000 mls @ 100 mls/hr 11/14/18 19:45 Normal Saline With 20 Meq Kcl IV ASDIRECTED JACOB Discontinued Medications Generic Name Dose Route Start Last Admin Trade Name Freq PRN Reason Stop Dose Admin Acetaminophen Confirm 11/14/18 19:02 11/14/18 19:28 Tylenol Administered 11/14/18 19:03 Not Given Dose 650 mg .ROUTE .STK-MED ONE Acetaminophen 650 mg 11/14/18 18:58 11/14/18 19:27 Tylenol PO 11/14/18 18:59 650 mg NOW ONE Administration Departure - Departure Time of Disposition: 20:00 Disposition: Refer to Observation Condition: Fair Clinical Impression: Hypokalemia, UTI (urinary tract infection) - Discharge Information *PRESCRIPTION DRUG MONITORING PROGRAM REVIEWED*: Not Applicable *COPY OF PRESCRIPTION DRUG MONITORING REPORT IN PATIENT DESEAN: Not Applicable Forms: ED Department Discharge - Problem List & Annotations (1) Weakness SNOMED Code(s): 91087668 Code(s): R53.1 - WEAKNESS Status: Acute Current Visit: No (2) Hypokalemia SNOMED Code(s): 91663249 Code(s): E87.6 - HYPOKALEMIA Status: Acute Current Visit: Yes (3) UTI (urinary tract infection) SNOMED Code(s): 99234904 Code(s): N39.0 - URINARY TRACT INFECTION, SITE NOT SPECIFIED Status: Acute Current Visit: Yes - Problem List Review Problem List Initiated/Reviewed/Updated: Yes - My Orders Last 24 Hours: My Active Orders 11/14/18 18:17 Chest 1V Frontal [CR] Stat 11/14/18 18:18 Head wo Cont [CT] Stat 11/14/18 19:00 CULTURE BLOOD [BC] Stat CULTURE BLOOD [BC] Stat Sodium Chloride 0.9% [Normal Saline] 1,000 ml IV ASDIRECTED 11/14/18 19:45 NS + KCl 20mEq/L [Normal Saline with 20 mEq KCl] 1,000 ml IV ASDIRECTED - Assessment/Plan Last 24 Hours: My Active Orders 11/14/18 18:17 Chest 1V Frontal [CR] Stat 11/14/18 18:18 Head wo Cont [CT] Stat 11/14/18 19:00 CULTURE BLOOD [BC] Stat CULTURE BLOOD [BC] Stat Sodium Chloride 0.9% [Normal Saline] 1,000 ml IV ASDIRECTED 11/14/18 19:45 NS + KCl 20mEq/L [Normal Saline with 20 mEq KCl] 1,000 ml IV ASDIRECTED Assessment:: Hypokalemia UTI Plan: 83 year old male with PMH of COPD with bladder and prostate cancer who recently had radiation therapy, presents with confusion and chills. He is running a temp of 102F. Also patient has COPD and is O2 dependent and he was without oxygen for a while, until his son went and checked on him. His confusion might be from hypoxia too. Pt is confused and very weak. Not able to stand by himself. Also he is febrile. hence complete sepsis workup was done. His CBC shows normal white count of 9.4, but his neutrophils are elevated at 90%.CT head is negative. His chest x-ray shows chronic interstitial disease with left lower lobe atelectasis versus pneumonitis. His BMP shows potassium of 3 and his creat is mildly elevated form his baseline of 1.4 to 1.6. His UA does show clumps of WBC with 5-10 WBC. His lactic acid is normal. He might have low grade UTI with fever, which could be the cause of his confusion too. Also His potassium is low at 3. Will start patient on NS with 20 meq of potassium at 100cc/hr. Also will empirically cover him for UTI and pneumonitis with IV azithromycin 500mg daily. Will admit him to hospital for observation. Should improve with hydration and correction of his potassium. Will repeat CBC and BMP in am.
[2018-11-14] MEDS ORDERED: Acetaminophen 325 MG Tab PO ONE (18:58)
[2018-11-14] MEDS ORDERED: Sodium Chloride 0.9% 1,000 ML IV SCH (19:00)
[2018-11-14] MEDS ORDERED: Acetaminophen 325 MG Tab ONE (19:02)
[2018-11-14] MEDS: NS + KCl 20mEq/L 1,000 ML IV SCH (19:49)
[2018-11-14] MEDS ORDERED: Sodium Chloride 0.9% 10 ML Syringe FLUSH PRN (19:59)
[2018-11-14] MEDS ORDERED: Azithromycin 500 MG in Sodium Chloride 0.9% 250 ML IV SCH (20:00)
[2018-11-14] MEDS ORDERED: Acetaminophen 325 MG Tab PO PRN (20:05)
[2018-11-14] MEDS ORDERED: Albuterol/Ipratropium 3.0-0.5 MG/3 ML Neb Soln NEB PRN (20:06)
--- NOTE | 2018-11-15 05:06 | CT ---
DATE OF SERVICE: 11/14/18 CLINICAL DATA: Confusion. UNENHANCED BRAIN CT: Multislice acquisition through the brain without IV contrast was performed. Comparison is made to a prior exam dated 08/21/09. There is diffuse cerebral atrophy. There are extensive periventricular lucencies bilaterally consistent with small vessel ischemic change. There is a focal lucency in the left basal ganglia consistent with an old lacunar infarct. No masses or mass effect. No intracranial hemorrhage. No evidence of acute or subacute infarct. No osseous abnormalities. There is mild mucosal thickening in the ethmoid sinuses consistent with chronic sinusitis. There are relative low density lesions in the left maxillary sinus consistent with retention cyst or polyps. IMPRESSION: No acute intracranial abnormalities. [id number] [facility]
--- NOTE | 2018-11-15 05:09 | CR ---
DATE OF SERVICE: 11/14/18 CLINICAL DATA: Fever and confusion. AP PORTABLE CHEST: Comparison is made to a prior exam dated 09/13/18. The heart size is stable. The cardiac pacer and pacer wires remained unchanged in position. There is calcification of the aortic arch. There are mild interstitial changes throughout both lungs. There are densities in both lung bases, left greater than right, consistent with basilar atelectasis or infiltrate. Pneumonia should be considered. There is slight blunting of all costophrenic angles suggesting small bilateral pleural effusion. No other interval changes from the prior study. [id number] [facility]
[2018-11-15] MEDS: NS + KCl 20mEq/L 1,000 ML IV SCH (06:24)
[2018-11-15] MEDS ORDERED: Formoterol/Mometasone 200-5 MCG 8.8 GM Inhaler IH SCH (08:00)
[2018-11-15] MEDS ORDERED: Sertraline 50 MG Tab PO SCH (08:00)
[2018-11-15] MEDS ORDERED: Furosemide 20 MG Tab PO SCH (08:00)
[2018-11-15] MEDS ORDERED: Ferrous Sulfate 325 MG Tab PO SCH (08:00)
[2018-11-15] MEDS ORDERED: Aspirin/Dipyridamole 200-25 MG Cap.ER PO SCH (08:00)
[2018-11-15] MEDS ORDERED: Azithromycin 500 MG in Sodium Chloride 0.9% 250 ML IV SCH (08:08)
[2018-11-15] MEDS ORDERED: Acetaminophen 500 MG Tab PO PRN (08:09)
--- NOTE | 2018-11-15 08:56 | PCM.DCSUM1 ---
Discharge Summary - Hospital Course Free Text/Narrative:: Pt presented to emergency room yesterday with weakness and confusion. Pt was diagnosed with mild UTI, and hypoxia from his COPD and him not using oxygen. Also his potassium was at 3.0 slightly low. Pt was admitted for Potassium replenishment and also for IV azithromycin for UTI. On today's visit. Pt is alert and oriented. He is eating his breakfast. Has walked to the toilet and back. He claims he feels fine and energetic. No complaints today. His Blood draining pinkish urine, which he has always had. His CBC shows white count of 9 and his potassium today is 3.1 His acute confusion yesterday could be related to hypoxia , UTI or even the fever he had yesterday. Pt reassured. He is tolerating diet and is at his baseline level of functioning.Will DC his IV and Blood catheter. Plan is to start him on K-dur 10meq BID, recheck potassium in 3-5 days. Also as he has low grade UTI, will have him on azithromycin 250mg daily for next 4 days. Plan is to discharge patient home today. He could continue with Everardo Zarate for his radiation therapy today. Brief History: Presented to emergency room, with weakness confusion and fever. Kindly see H&P for details. Diagnosis: Stroke: No Modified Wayne Scale: No Symptoms at All Modified Amy Scale Score: 0 - Discharge Data Discharge Date: 11/15/18 Discharge Disposition: Home, Self-Care 01 Condition: Good - Discharge Diagnosis/Problem(s) (1) Weakness SNOMED Code(s): 15701632 ICD Code: R53.1 - WEAKNESS Status: Acute Current Visit: No (2) Hypokalemia SNOMED Code(s): 05892547 ICD Code: E87.6 - HYPOKALEMIA Status: Acute Current Visit: Yes (3) UTI (urinary tract infection) SNOMED Code(s): 82994144 ICD Code: N39.0 - URINARY TRACT INFECTION, SITE NOT SPECIFIED Status: Acute Current Visit: Yes - Patient Instructions Diet: Regular Diet as Tolerated Fluid Restriction: 1500 mL Activity: As Tolerated Showering/Bathing: May Shower - Discharge Plan *PRESCRIPTION DRUG MONITORING PROGRAM REVIEWED*: Not Applicable *COPY OF PRESCRIPTION DRUG MONITORING REPORT IN PATIENT DESEAN: Not Applicable Home Medications: Home Meds Simvastatin 40 mg PO QPM 08/27/14 [History] Sertraline HCl 50 mg PO DAILY 02/19/15 [History] Aspirin/Dipyridamole [Aggrenox 200-25 MG] 1 cap PO BID 11/02/15 [History] Albuterol/Ipratropium [DuoNeb 3.0-0.5 MG/3 ML] 3 ml NEB QID PRN 03/28/16 [ History] Acetaminophen [Tylenol Extra Strength] 500 mg PO Q6HR PRN 10/29/17 [History] Sennosides/Docusate Sodium [Senna-Docusate Sodium] 1 each PO BID PRN 10/29/17 [ History] Ferrous Sulfate [Iron] 1 cap PO DAILY 11/14/18 [History] Furosemide [Lasix] 20 mg PO DAILY 11/14/18 [History] Mometasone/Formoterol [Dulera 200 MCG/5 MCG] 1 puff IN BID 11/14/18 [History] Oxygen Therapy Mode: Nasal Cannula Oxygen Flow Rate (L/min): 2 Forms: ED Department Discharge Referrals: PCP,None [Primary Care Provider] - - Discharge Summary/Plan Comment DC Time >30 min.: Yes Discharge Summary/Plan Comment: Plan is to start him on K-dur 10meq BID, recheck potassium in 3-5 days. Also as he has low grade UTI, will have him on azithromycin 250mg daily for next 4 days. Plan is to discharge patient home today. He could continue with Everardo Zarate for his radiation therapy today. - General Info Date of Service: 11/15/18 Subjective Update: Pt claims he feels fine today. HE is not confused. No fever or chills. NO cough. Has been eating his breakfast. Has been walking around without support in his room and to bathroom. Feels strong and energetic. Functional Status: Reports: Pain Controlled, Tolerating Diet, Ambulating, Urinating (has indwelling blood) - Review of Systems General: Denies: Fever, Weakness, Fatigue HEENT: Denies: Ear Pain, Headaches, Sore Throat, Rhinitis Pulmonary: Denies: Cough, Sputum Cardiovascular: Denies: Chest Pain, Lightheadedness Gastrointestinal: Denies: Abdominal Pain, Diarrhea, Nausea, Vomiting Genitourinary: Reports: Hematuria. Denies: Dysuria, Frequency Musculoskeletal: Denies: Joint Pain, Joint Swelling Skin: Denies: Bruising, Pruritis, Rash Neurological: Denies: Confusion, Dizziness, Headache, Numbness, Tingling Psychiatric: Denies: Confusion, Depression - Patient Data Vitals - Most Recent: Last Vital Signs Temp 98 F 11/15/18 06:05 Pulse 74 11/15/18 06:05 Resp 19 11/15/18 06:05 BP 127/80 11/15/18 06:05 Pulse Ox 97 11/15/18 06:05 Weight - Most Recent: 63.503 kg I&O - Last 24 hours: Intake & Output 11/14/18 11/15/18 11/15/18 22:59 06:59 14:59 Intake Total 30 Output Total 100 Balance -100 30 Lab Results - Last 24 hrs: Laboratory Results - last 24 hr 11/14/18 11/14/18 11/14/18 Range/Units 19:00 19:00 19:00 WBC 9.6 D (4.0-11.0) K/uL RBC 4.44 L (4.50-6.50) M/uL Hgb 11.5 L D (13.0-18.0) g/dL Hct 36.7 L D (40.0-54.0) % MCV 83 (76-96) fL MCH 25.9 L (27.0-32.0) pg MCHC 31.3 (31.0-35.0) g/dL RDW 15.7 (11.0-16.0) % Plt Count 178 (150-400) K/uL MPV 9.0 (6.0-10.0) fL Neut % (Auto) 90.5 H (45.0-70.0) % Lymph % (Auto) 2.4 L (20.0-40.0) % [place] % (Auto) 7.1 (3.0-10.0) % Eos % (Auto) 0.0 L (1.0-5.0) % Baso % (Auto) 0.0 (0.0-0.5) % Neut # (Auto) 8.66 H (2.00-7.50) K/uL Lymph # (Auto) 0.23 L (1.50-4.00) K/uL [place] # (Auto) 0.68 (0.20-0.80) K/uL Eos # (Auto) 0.00 L (0.04-0.40) K/uL Baso # (Auto) 0.00 L (0.02-0.10) K/uL Sodium 146 H (136-145) mmol/L Potassium 3.0 L D (3.5-5.1) mmol/L Chloride 106 (98-107) mmol/L Carbon Dioxide 29.4 (21.0-32.0) mmol/L Anion Gap 13.6 (5.0-15.0) mmol/L BUN 24 D (8-26) mg/dL Creatinine 1.67 H (0.70-1.30) mg/dL Est Cr Clr Drug Dosing TNP Estimated GFR (MDRD) 39 L (>60) MLS/MIN BUN/Creatinine Ratio 14.4 (6-25) Glucose 121 H (74-100) mg/dL Lactic Acid 1.01 (0.90-1.70) mmol/L Calcium 8.5 (8.5-10.1) mg/dL Total Bilirubin 0.3 D (0.0-1.0) mg/dL AST 20 (15-37) U/L ALT 14 (12-78) U/L Alkaline Phosphatase 70 (46-116) U/L Total Protein 7.8 (6.4-8.2) g/dL Albumin 3.3 L (3.4-5.0) g/dL Globulin 4.5 H (2.2-4.2) g/dL Albumin/Globulin Ratio 0.7 L (0.8-2.0) Urine Color Urine Appearance (CLEAR) Urine pH (5.0-8.0) Ur Specific [place] (1.003-1.030) Urine Protein (NEGATIVE) mg/dL Urine Glucose (UA) (NEGATIVE) mg/dL Urine Ketones (NEGATIVE) mg/dL Urine Occult Blood (NEGATIVE) Urine Nitrite (NEGATIVE) Urine Bilirubin (NEGATIVE) Urine Urobilinogen (0.2-1.0) E.U./dL Ur Leukocyte Esterase (NEGATIVE) Urine RBC /HPF Urine WBC /HPF Urine WBC Clumps /HPF Urine Bacteria /HPF 11/14/18 11/15/18 11/15/18 Range/Units 19:00 07:15 07:15 WBC 9.0 (4.0-11.0) K/uL RBC 3.80 L (4.50-6.50) M/uL Hgb 9.8 L (13.0-18.0) g/dL Hct 31.6 L (40.0-54.0) % MCV 83 (76-96) fL MCH 25.8 L (27.0-32.0) pg MCHC 31.0 (31.0-35.0) g/dL RDW 15.9 (11.0-16.0) % Plt Count 146 L (150-400) K/uL MPV 9.1 (6.0-10.0) fL Neut % (Auto) (45.0-70.0) % Lymph % (Auto) (20.0-40.0) % [place] % (Auto) (3.0-10.0) % Eos % (Auto) (1.0-5.0) % Baso % (Auto) (0.0-0.5) % Neut # (Auto) (2.00-7.50) K/uL Lymph # (Auto) (1.50-4.00) K/uL [place] # (Auto) (0.20-0.80) K/uL Eos # (Auto) (0.04-0.40) K/uL Baso # (Auto) (0.02-0.10) K/uL Sodium 148 H (136-145) mmol/L Potassium 3.1 L (3.5-5.1) mmol/L Chloride 110 H (98-107) mmol/L Carbon Dioxide 30.4 (21.0-32.0) mmol/L Anion Gap 10.7 (5.0-15.0) mmol/L BUN 23 (8-26) mg/dL Creatinine 1.58 H (0.70-1.30) mg/dL Est Cr Clr Drug Dosing 31.26 Estimated GFR (MDRD) 42 L (>60) MLS/MIN BUN/Creatinine Ratio 14.6 (6-25) Glucose 101 H (74-100) mg/dL Lactic Acid (0.90-1.70) mmol/L Calcium 8.0 L (8.5-10.1) mg/dL Total Bilirubin (0.0-1.0) mg/dL AST (15-37) U/L ALT (12-78) U/L Alkaline Phosphatase (46-116) U/L Total Protein (6.4-8.2) g/dL Albumin (3.4-5.0) g/dL Globulin (2.2-4.2) g/dL Albumin/Globulin Ratio (0.8-2.0) Urine Color Yellow Urine Appearance Slightly cloudy (CLEAR) Urine pH 5.0 (5.0-8.0) Ur Specific [place] 1.015 (1.003-1.030) Urine Protein Trace H (NEGATIVE) mg/dL Urine Glucose (UA) Negative (NEGATIVE) mg/dL Urine Ketones Negative (NEGATIVE) mg/dL Urine Occult Blood Large H (NEGATIVE) Urine Nitrite Negative (NEGATIVE) Urine Bilirubin Negative (NEGATIVE) Urine Urobilinogen 0.2 (0.2-1.0) E.U./dL Ur Leukocyte Esterase Small H (NEGATIVE) Urine RBC 5-10 H /HPF Urine WBC 5-10 H /HPF Urine WBC Clumps Occasional /HPF Urine Bacteria Many H /HPF Med Orders - Current: Current Medications Acetaminophen (Tylenol Extra Strength) 500 mg PO Q6H PRN PRN Reason: PAIN Albuterol/Ipratropium (Duoneb 3.0-0.5 Mg/3 Ml) 3 ml NEB QID PRN PRN Reason: Shortness of Breath Dipyridamole/Aspirin (Aggrenox 200-25 Mg) 1 cap PO BID [facility] Ferrous Sulfate (Ferrous Sulfate) 325 mg PO DAILY [facility] Furosemide (Lasix) 20 mg PO DAILY [facility] Sodium Chloride (Normal Saline) 1,000 mls @ 100 mls/hr IV ASDIRECTED JACOB Last Admin: 11/14/18 19:27 Dose: 100 mls/hr Potassium Chloride/Sodium Chloride (Normal Saline With 20 Meq Kcl) 1,000 mls @ 100 mls/hr IV ASDIRECTED JACOB Last Admin: 11/15/18 06:24 Dose: 100 mls/hr Azithromycin 500 mg/ Sodium (Chloride) 250 mls @ 250 mls/hr IV Q24H JAC[facility] Mometasone Furoate/Formoterol Fumar (Dulera 200-5 Mcg) 1 puff IH BID JACOB Senna/Docusate Sodium (Senna Plus) 1 tab PO BID PRN PRN Reason: Constipation Sertraline HCl (Zoloft) 50 mg PO DAILY JACOB Simvastatin (Zocor) 40 mg PO QPM JACOB Sodium Chloride (Saline Flush) 10 ml FLUSH ASDIRECTED PRN PRN Reason: Keep Vein Open Discontinued Medications Acetaminophen (Tylenol) Confirm Administered Dose 650 mg .ROUTE .STK-MED ONE Stop: 11/14/18 19:03 Last Admin: 11/14/18 19:28 Dose: Not Given Acetaminophen (Tylenol) 650 mg PO NOW ONE Stop: 11/14/18 18:59 Last Admin: 11/14/18 19:27 Dose: 650 mg Azithromycin 500 mg/ Sodium (Chloride) 250 mls @ 250 mls/hr IV Q24H JACOB Last Admin: 11/14/18 20:33 Dose: 250 mls/hr - Exam General: Reports: Alert, Oriented, Cooperative HEENT: Reports: Pupils Equal, Pupils Reactive, EOMI, Mucous Membr. Moist/[place] Neck: Reports: Supple Lungs: Reports: Normal Respiratory Effort, Decreased Breath Sounds (B/L chronic) Cardiovascular: Reports: Regular Rate, Regular Rhythm GI/Abdominal Exam: Normal Bowel Sounds, Soft, Non-Tender, No Organomegaly, No Distention, No Abnormal Bruit, No Mass, Pelvis Stable Extremities: Normal Inspection, Normal Range of Motion, Non-Tender, No Pedal Edema, Normal Capillary Refill Skin: Reports: Warm, Intact Neurological: Reports: No New Focal Deficit
[2018-11-15 09:07] VITALS: BP 125/77
[2018-11-15] MEDS ORDERED: Simvastatin 40 MG Tab PO SCH (20:00)
== END 2018-11-15 10:55 | disposition home or self-care (01) ==
LOC: LB.ED 17:48 → LB.MS 19:54 → UNDOADMOB 19:54 → LB.MS 19:59
PROVIDERS: ADMIT Family Medicine; ATTEND Family Medicine
DX: N39.0 Urinary tract infection, site not specified (principal); E87.6 Hypokalemia; R53.1 Weakness; J44.9 Chronic obstructive pulmonary disease, unspecified; R09.02 Hypoxemia; I11.0 Hypertensive heart disease with heart failure; I50.9 Heart failure, unspecified; I25.10 Atherosclerotic heart disease of native coronary artery without angina pectoris; I25.2 Old myocardial infarction; I69.954 Hemiplegia and hemiparesis following unspecified cerebrovascular disease affecting left non-dominant side; C61 Malignant neoplasm of prostate; C67.9 Malignant neoplasm of bladder, unspecified; E78.00 Pure hypercholesterolemia, unspecified; Z88.8 Allergy status to other drugs, medicaments and biological substances; Z99.81 Dependence on supplemental oxygen; Z95.5 Presence of coronary angioplasty implant and graft; Z79.82 Long term (current) use of aspirin; Z79.899 Other long term (current) drug therapy
CPT/HCPCS: 36415; 51702; 70450; 71045; 80048; 80053; 81001; 83605; 85025; 85027; 87040; 87086; 87088; 96374; 99285; A0425; A0429; A9270; J0456; J3480; J7030; J7050; 87186

== ENCOUNTER 2019-04-17 20:48 | Inpatient (IN) | payer MEDICARE, OTHER ==
[2019-04-17] MEDS ORDERED: Albuterol/Ipratropium 3.0-0.5 MG/3 ML Neb Soln NEB PRN (22:42)
[2019-04-17] MEDS ORDERED: Acetaminophen 500 MG Tab PO PRN (22:42)
--- NOTE | 2019-04-17 22:47 | ER ---
HISTORY OF PRESENT ILLNESS: 83-year-old male who comes in by ambulance with complaints of shortness of breath and being shaky. His son was called to check on the patient when he hit his [employer] alert button and when he arrived, the patient was chilled, lying in bed, and complaining that he could not breathe right. His oxygen saturation level was in the upper 70s and the ambulance was called at that time. The patient states he was feeling better earlier today. Upon arrival to the ER, his O2 sats were 89% and nasal cannula was applied initially at 2 L and then it increased to 4 L and this maintained his sats in around 90% or just a little above. The patient denies any pain. He does not really feel sick. He just does not feel right and all this just started late this afternoon. PAST MEDICAL HISTORY: Includes: 1. COPD. 2. CHF. 3. History of confusion. 4. Electrolyte imbalance. 5. History of pneumonia. 6. Atrial fibrillation. 7. History of weakness and dizziness. OBJECTIVE: GENERAL APPEARANCE: The patient is awake and alert. VITAL SIGNS: Initially revealed a low-grade temp of 99.5; blood pressure 150/93; pulse 93; O2 sats are currently 89% at 2 L, this was then increased to 4 L and this brought the patient up into the low 90s. HEENT: Oral mucous membranes are dry. Tonsils are not enlarged or injected. NECK: Supple. LUNG: Reveals reduced air exchange throughout the lung sal[place]ana. I do not hear any rhonchi, rales, or wheezing at this time, but the patient is not taking very good breath. CARDIAC: Heart sounds distinct. No murmurs noted. ABDOMEN: Soft, nontender. SKIN: Warm and dry. EXTREMITIES: There is no lower extremity edema. LAB AND X-RAY FINDINGS: Chest x-ray is obtained. There appears to be possibly a small pneumonia on the right side and a small amount of fluid in both costophrenic angles. Labs include a CBC showing a normal white count. Neutrophils have elevated to 84.6, resulting in the left shift. metabolic panel shows an elevated sodium level of 150, potassium level is normal. BUN is high at 30, creatinine 1.51. BNP is 4030. DIAGNOSES: 1. Congestive heart failure exacerbation. 2. Possible early stage pneumonia. 3. Hypernatremia. 4. Dehydration. TREATMENT PLAN: The patient will be admitted to the hospital here. He will be started on some IV Lasix. He is on some already. We will increase the dose. We will start him on some IV antibiotics which should correct kidney function and hypernatremia and he will be given just a small amount of IV fluid in addition to Lasix. CRS/MODL /[id number]
[2019-04-17] MEDS ORDERED: Azithromycin 500 MG AdvVial IV SCH (22:55)
[2019-04-17] MEDS ORDERED: Furosemide 40 MG/4 ML VIAL IVPUSH ONE (22:55)
[2019-04-17] MEDS: Sodium Chloride 0.9% 1,000 ML IV SCH (23:34)
[2019-04-17] MEDS: Azithromycin 500 MG in Sodium Chloride 0.9% 250 ML IV SCH (23:48)
[2019-04-18] MEDS ORDERED: Sodium Chloride 0.9% 10 ML Syringe FLUSH PRN (02:16)
[2019-04-18] MEDS ORDERED: Aspirin/Dipyridamole 200-25 MG Cap.ER PO SCH (08:00)
[2019-04-18] MEDS: Ferrous Sulfate 325 MG Tab PO SCH (08:06)
[2019-04-18] MEDS: Formoterol/Mometasone 200-5 MCG 8.8 GM Inhaler IH SCH ×2 (08:06→20:46)
[2019-04-18] MEDS: Sertraline 50 MG Tab PO SCH (08:07)
--- NOTE | 2019-04-18 08:27 | ADMIT ---
This patient is an 83-year-old male, who was admitted through the emergency room with what looks like early stage pneumonia, CHF exacerbation, weakness, and shortness of breath. He also has mild dehydration. The patient became ill this afternoon. He activated his Med Alert, and his son went to check on him and found his oxygen saturation in the upper 90s, and the patient was shivering in bed with blankets on. Upon arriving at the ER, his O2 sats have improved, O2 had been started by nasal cannula here in the emergency room and his sats hovered around 89% on 2 L, it was increased to 4 L and his sats improved to the low 90s. The patient was not having any respiratory distress upon initial evaluation. Chest x-ray shows what is possibly a pneumonia on the right side. Labs show a normal white count, but neutrophils are elevated resulting in a left shift. Basic metabolic panel shows increased sodium level of 150, BUN is 30, creatinine is 1.51. BNP is 4,030. UA also shows a few bacteria, cloudy appearance, and some subtle changes. No obvious urinary tract infection. TREATMENT AND PLAN: The patient will be admitted. He will be given Zithromax 500 mg IV, Lasix 40 mg will be given IV, and most of his current medications will be continued, except his p.o. Lasix. We will start an IV at a low rate of 50 mL per hour. He has both CHF plus some dehydration symptoms going on, so we will try a very low dose of fluid and see how it goes overnight. The patient is comfortable upon arrival to his room and has no further questions. He actually was sleeping in the emergency room before being transferred over to an inpatient bed. CRS/MODL /[id number]
--- NOTE | 2019-04-18 09:20 | CR ---
Date of Service: 04/17/19 Clinical Data: SOB AP PORTABLE CHEST: Comparison was made to a prior exam dated 11/14/18. The cardiac pacer and pacer wires remain unchanged in position. The heart remains mildly enlarged. The pulmonary vasculature remains prominent with cephalization of flow consistent with pulmonary venous congestion. There are densities in both lung bases consistent with basilar atelectasis or infiltrate. No pneumothorax. No pleural effusions. [id number] [facility]
[2019-04-18] MEDS: Sodium Chloride 0.9% 1,000 ML IV SCH (19:17)
--- NOTE | 2019-04-18 20:03 | PCM.PN ---
- General Info Date of Service: 04/18/19 Subjective Update: Patient continues to feel weak and tired. He is very unsteady on his feet and has shortness of breath. He does note that he is feeling improved. He denies fever or chills. Functional Status: Reports: Ambulating - Review of Systems General: Reports: Weakness, Fatigue HEENT: Reports: No Symptoms Pulmonary: Reports: No Symptoms Cardiovascular: Reports: Dyspnea on Exertion Gastrointestinal: Reports: No Symptoms Genitourinary: Reports: Frequency, Hematuria Musculoskeletal: Reports: No Symptoms Skin: Reports: No Symptoms Neurological: Reports: Difficulty Walking, Weakness Psychiatric: Reports: No Symptoms - Patient Data Vitals - Most Recent: Last Vital Signs Temp 36.3 C 04/18/19 15:30 Pulse 66 04/18/19 15:30 Resp 18 04/18/19 15:30 BP 116/61 04/18/19 15:30 Pulse Ox 98 04/18/19 15:30 Weight - Most Recent: 63.641 kg I&O - Last 24 Hours: Intake & Output 04/18/19 04/18/19 04/18/19 06:59 14:59 22:59 Intake Total 669 983 Output Total 1100 1000 Balance -431 -17 Lab Results Last 24 Hours: Laboratory Results - last 24 hr 04/17/19 04/17/19 04/17/19 Range/Units 21:23 21:23 21:24 WBC 7.8 D (4.0-11.0) K/uL RBC 4.13 L (4.50-6.50) M/uL Hgb 11.4 L (13.0-18.0) g/dL Hct 36.4 L (40.0-54.0) % MCV 88 (76-96) fL MCH 27.6 (27.0-32.0) pg MCHC 31.3 (31.0-35.0) g/dL RDW 14.2 (11.0-16.0) % Plt Count 175 (150-400) K/uL MPV 9.2 (6.0-10.0) fL Neut % (Auto) 84.6 H (45.0-70.0) % Lymph % (Auto) 8.3 L (20.0-40.0) % [place] % (Auto) 6.0 (3.0-10.0) % Eos % (Auto) 0.8 L (1.0-5.0) % Baso % (Auto) 0.3 (0.0-0.5) % Neut # (Auto) 6.63 (2.00-7.50) K/uL Lymph # (Auto) 0.65 L (1.50-4.00) K/uL [place] # (Auto) 0.47 (0.20-0.80) K/uL Eos # (Auto) 0.06 (0.04-0.40) K/uL Baso # (Auto) 0.02 (0.02-0.10) K/uL Sodium 150 H (136-145) mmol/L Potassium 3.6 (3.5-5.1) mmol/L Chloride 108 H (98-107) mmol/L Carbon Dioxide 32.2 H (21.0-32.0) mmol/L Anion Gap 13.4 (5.0-15.0) mmol/L BUN 30 H (8-26) mg/dL Creatinine 1.51 H (0.70-1.30) mg/dL Est Cr Clr Drug Dosing TNP Estimated GFR (MDRD) 44 L (>60) MLS/MIN BUN/Creatinine Ratio 19.9 (6-25) Glucose 137 H D (74-100) mg/dL Calcium 8.8 (8.5-10.1) mg/dL Total Bilirubin 0.4 D (0.0-1.0) mg/dL AST 23 (15-37) U/L ALT 14 (12-78) U/L Alkaline Phosphatase 75 (46-116) U/L B-Natriuretic Peptide 4030 H (0-450) pg/mL Total Protein 7.8 (6.4-8.2) g/dL Albumin 3.5 (3.4-5.0) g/dL Globulin 4.3 H (2.2-4.2) g/dL Albumin/Globulin Ratio 0.8 (0.8-2.0) Urine Color Urine Appearance (CLEAR) Urine pH (5.0-8.0) Ur Specific [place] (1.003-1.030) Urine Protein (NEGATIVE) mg/dL Urine Glucose (UA) (NEGATIVE) mg/dL Urine Ketones (NEGATIVE) mg/dL Urine Occult Blood (NEGATIVE) Urine Nitrite (NEGATIVE) Urine Bilirubin (NEGATIVE) Urine Urobilinogen (0.2-1.0) E.U./dL Ur Leukocyte Esterase (NEGATIVE) Urine RBC /HPF Urine WBC /HPF Ur Squamous Epith Cells /HPF Urine Bacteria /HPF 04/17/19 04/18/19 Range/Units 21:25 09:50 WBC 9.5 D (4.0-11.0) K/uL RBC 3.59 L (4.50-6.50) M/uL Hgb 10.0 L (13.0-18.0) g/dL Hct 32.0 L (40.0-54.0) % MCV 89 (76-96) fL MCH 27.9 (27.0-32.0) pg MCHC 31.3 (31.0-35.0) g/dL RDW 14.3 (11.0-16.0) % Plt Count 145 L (150-400) K/uL MPV 9.2 (6.0-10.0) fL Neut % (Auto) 86.2 H (45.0-70.0) % Lymph % (Auto) 5.8 L (20.0-40.0) % [place] % (Auto) 7.4 (3.0-10.0) % Eos % (Auto) 0.4 L (1.0-5.0) % Baso % (Auto) 0.2 (0.0-0.5) % Neut # (Auto) 8.20 H (2.00-7.50) K/uL Lymph # (Auto) 0.55 L (1.50-4.00) K/uL [place] # (Auto) 0.70 (0.20-0.80) K/uL Eos # (Auto) 0.04 (0.04-0.40) K/uL Baso # (Auto) 0.02 (0.02-0.10) K/uL Sodium (136-145) mmol/L Potassium (3.5-5.1) mmol/L Chloride (98-107) mmol/L Carbon Dioxide (21.0-32.0) mmol/L Anion Gap (5.0-15.0) mmol/L BUN (8-26) mg/dL Creatinine (0.70-1.30) mg/dL Est Cr Clr Drug Dosing Estimated GFR (MDRD) (>60) MLS/MIN BUN/Creatinine Ratio (6-25) Glucose (74-100) mg/dL Calcium (8.5-10.1) mg/dL Total Bilirubin (0.0-1.0) mg/dL AST (15-37) U/L ALT (12-78) U/L Alkaline Phosphatase (46-116) U/L B-Natriuretic Peptide (0-450) pg/mL Total Protein (6.4-8.2) g/dL Albumin (3.4-5.0) g/dL Globulin (2.2-4.2) g/dL Albumin/Globulin Ratio (0.8-2.0) Urine Color Red Urine Appearance Cloudy (CLEAR) Urine pH 6.5 (5.0-8.0) Ur Specific [place] 1.020 (1.003-1.030) Urine Protein 100 H (NEGATIVE) mg/dL Urine Glucose (UA) Negative (NEGATIVE) mg/dL Urine Ketones Negative (NEGATIVE) mg/dL Urine Occult Blood Large H (NEGATIVE) Urine Nitrite Negative (NEGATIVE) Urine Bilirubin Small H (NEGATIVE) Urine Urobilinogen 0.2 (0.2-1.0) E.U./dL Ur Leukocyte Esterase Trace H (NEGATIVE) Urine RBC Packed H /HPF Urine WBC 0-5 H /HPF Ur Squamous Epith Cells Few /HPF Urine Bacteria Few /HPF Med Orders - Current: Current Medications Acetaminophen (Tylenol Extra Strength) 500 mg PO Q6HR PRN PRN Reason: Pain Albuterol/Ipratropium (Duoneb 3.0-0.5 Mg/3 Ml) 3 ml NEB QID PRN PRN Reason: Shortness of Breath Ferrous Sulfate (Ferrous Sulfate) 325 mg PO DAILY [facility] Last Admin: 04/18/19 08:06 Dose: 325 mg Sodium Chloride (Normal Saline) 1,000 mls @ 50 mls/hr IV ASDIRECTED [facility] Last Admin: 04/18/19 19:17 Dose: 50 mls/hr Azithromycin 500 mg/ Sodium (Chloride) 250 mls @ 250 mls/hr IV Q24H [facility] Last Admin: 04/17/19 23:48 Dose: 250 mls/hr Mometasone Furoate/Formoterol Fumar (Dulera 200-5 Mcg) 1 puff IH BID [facility] Last Admin: 04/18/19 08:06 Dose: 5 mcg Senna/Docusate Sodium (Senna Plus) 1 tab PO BID PRN PRN Reason: Constipation Sertraline HCl (Zoloft) 50 mg PO DAILY [facility] Last Admin: 04/18/19 08:07 Dose: 50 mg Simvastatin (Zocor) 40 mg PO QPM [facility] Sodium Chloride (Saline Flush) 10 ml FLUSH BID PRN PRN Reason: Keep Vein Open Discontinued Medications Furosemide (Lasix) 40 mg IVPUSH NOW ONE Stop: 04/17/19 22:56 Last Admin: 04/17/19 23:35 Dose: 40 mg - Exam General: Alert, Oriented HEENT: Pupils Equal, Pupils Reactive, EOMI Neck: Supple Lungs: Clear to Auscultation, Normal Respiratory Effort Cardiovascular: Regular Rate, Regular Rhythm, Murmurs (systolic ejection) GI/Abdominal Exam: Normal Bowel Sounds Extremities: Normal Inspection Peripheral Pulses: 2+: Dorsalis Pedis (L), Dorsalis Pedis (R) Skin: Warm, Dry, Intact Neurological: No New Focal Deficit Psy/Mental Status: Alert, Normal Affect, Normal Mood - Problem List & Annotations (1) Severe muscle deconditioning SNOMED Code(s): 480107857 Code(s): R29.898 - OTH SYMPTOMS AND SIGNS INVOLVING THE MUSCULOSKELETAL SYSTEM Status: Resolved Priority: High Current Visit: Yes (2) Weakness generalized SNOMED Code(s): 41236776 Code(s): R53.1 - WEAKNESS Status: Resolved Priority: High Current Visit : Yes (3) Dehydration SNOMED Code(s): 30604606 Code(s): E86.0 - DEHYDRATION Status: Acute Priority: High Current Visit : Yes (4) Pneumonia SNOMED Code(s): 019689025 Code(s): J18.9 - PNEUMONIA, UNSPECIFIED ORGANISM Status: Acute Priority: High Current Visit: Yes (5) UTI (urinary tract infection) SNOMED Code(s): 66463941 Code(s): N39.0 - URINARY TRACT INFECTION, SITE NOT SPECIFIED Status: Acute Priority: High Current Visit: Yes (6) CHF exacerbation SNOMED Code(s): 547516675, 53947760011620 Code(s): I50.9 - HEART FAILURE, UNSPECIFIED Status: Acute Priority: High Current Visit: Yes Onset Date: 06/08/17 Qualifiers: Heart failure type: unspecified Qualified Code(s): I50.9 - Heart failure, unspecified Annotation/Comment:: 06-08-2017- Congestive heart failure exacerbation. Also an elevated temperature. - Problem List Review Problem List Initiated/Reviewed/Updated: Yes - My Orders Last 24 Hours: My Active Orders 04/18/19 09:47 PT Evaluation and Treatment [CONS] Routine 04/18/19 09:48 OT Evaluation and Treatment [CONS] Routine - Plan Plan:: Patient will continue on current diuretics and BP management. We will continue PT/OT and strengthening. F/u labs in am. Continue close monitoring and CHF management.
[2019-04-18] MEDS: Simvastatin 40 MG Tab PO SCH (20:47)
[2019-04-18] MEDS: Azithromycin 500 MG in Sodium Chloride 0.9% 250 ML IV SCH (22:46)
[2019-04-19] MEDS: Formoterol/Mometasone 200-5 MCG 8.8 GM Inhaler IH SCH ×2 (08:25→19:57)
[2019-04-19] MEDS: Sertraline 50 MG Tab PO SCH (08:25)
[2019-04-19] MEDS: Ferrous Sulfate 325 MG Tab PO SCH (08:25)
[2019-04-19] MEDS: Furosemide 40 MG Tab PO SCH (11:23)
--- NOTE | 2019-04-19 16:01 | PCM.PN ---
- General Info Date of Service: 04/19/19 Subjective Update: Patient states he feels better than yesterday. He has improved strength but still weak and wobbly on his feet. He denies any chest pain and no shortness of breath at this time. He denies fever or chills. Functional Status: Reports: Tolerating Diet - Review of Systems General: Reports: Weakness HEENT: Reports: No Symptoms Pulmonary: Reports: No Symptoms Cardiovascular: Reports: No Symptoms Gastrointestinal: Reports: No Symptoms Musculoskeletal: Reports: No Symptoms Skin: Reports: No Symptoms Neurological: Reports: Weakness Psychiatric: Reports: No Symptoms - Patient Data Vitals - Most Recent: Last Vital Signs Temp 36.5 C 04/19/19 11:26 Pulse 70 04/19/19 11:26 Resp 18 04/19/19 11:26 BP 130/68 04/19/19 11:26 Pulse Ox 98 04/19/19 11:26 Weight - Most Recent: 136 kg I&O - Last 24 Hours: Intake & Output 04/19/19 04/19/19 04/19/19 06:59 14:59 22:59 Intake Total 1000 Output Total 325 Balance 675 Lab Results Last 24 Hours: Laboratory Results - last 24 hr 04/19/19 04/19/19 Range/Units 09:10 09:10 WBC 7.5 D (4.0-11.0) K/uL RBC 3.72 L (4.50-6.50) M/uL Hgb 10.5 L (13.0-18.0) g/dL Hct 33.1 L (40.0-54.0) % MCV 89 (76-96) fL MCH 28.2 (27.0-32.0) pg MCHC 31.7 (31.0-35.0) g/dL RDW 14.2 (11.0-16.0) % Plt Count 144 L (150-400) K/uL MPV 9.2 (6.0-10.0) fL Neut % (Auto) 81.8 H (45.0-70.0) % Lymph % (Auto) 7.9 L (20.0-40.0) % [place] % (Auto) 8.0 (3.0-10.0) % Eos % (Auto) 2.0 (1.0-5.0) % Baso % (Auto) 0.3 (0.0-0.5) % Neut # (Auto) 6.12 (2.00-7.50) K/uL Lymph # (Auto) 0.59 L (1.50-4.00) K/uL [place] # (Auto) 0.60 (0.20-0.80) K/uL Eos # (Auto) 0.15 (0.04-0.40) K/uL Baso # (Auto) 0.02 (0.02-0.10) K/uL Sodium 148 H (136-145) mmol/L Potassium 3.3 L (3.5-5.1) mmol/L Chloride 107 (98-107) mmol/L Carbon Dioxide 32.7 H (21.0-32.0) mmol/L Anion Gap 11.6 (5.0-15.0) mmol/L BUN 26 (8-26) mg/dL Creatinine 1.29 (0.70-1.30) mg/dL Est Cr Clr Drug Dosing 46.79 mL/min Estimated GFR (MDRD) 53 L (>60) MLS/MIN BUN/Creatinine Ratio 20.2 (6-25) Glucose 99 (74-100) mg/dL Calcium 8.3 L (8.5-10.1) mg/dL Ilya Results Last 24 Hours: Microbiology 04/17/19 22:49 Aerobic Blood Culture - Preliminary Blood - Arm, Right NO GROWTH AFTER 1 DAY Anaerobic Blood Culture - Preliminary NO GROWTH AFTER 1 DAY 04/18/19 02:40 MRSA Surveillance Culture - Final Nares, Unspecified NO MRSA ISOLATED Med Orders - Current: Current Medications Acetaminophen (Tylenol Extra Strength) 500 mg PO Q6HR PRN PRN Reason: Pain Albuterol/Ipratropium (Duoneb 3.0-0.5 Mg/3 Ml) 3 ml NEB QID PRN PRN Reason: Shortness of Breath Ferrous Sulfate (Ferrous Sulfate) 325 mg PO DAILY [facility] Last Admin: 04/19/19 08:25 Dose: 325 mg Furosemide (Lasix) 40 mg PO DAILY [facility] Last Admin: 04/19/19 11:23 Dose: 40 mg Sodium Chloride (Normal Saline) 1,000 mls @ 50 mls/hr IV ASDIRECTED [facility] Last Admin: 04/18/19 19:17 Dose: 50 mls/hr Azithromycin 500 mg/ Sodium (Chloride) 250 mls @ 250 mls/hr IV Q24H [facility] Last Admin: 04/18/19 22:46 Dose: 250 mls/hr Mometasone Furoate/Formoterol Fumar (Dulera 200-5 Mcg) 1 puff IH BID [facility] Last Admin: 04/19/19 08:25 Dose: 1 puff Senna/Docusate Sodium (Senna Plus) 1 tab PO BID PRN PRN Reason: Constipation Sertraline HCl (Zoloft) 50 mg PO DAILY [facility] Last Admin: 04/19/19 08:25 Dose: 50 mg Simvastatin (Zocor) 40 mg PO QPM [facility] Last Admin: 04/18/19 20:47 Dose: 40 mg Sodium Chloride (Saline Flush) 10 ml FLUSH BID PRN PRN Reason: Keep Vein Open Discontinued Medications Furosemide (Lasix) 40 mg IVPUSH NOW ONE Stop: 04/17/19 22:56 Last Admin: 04/17/19 23:35 Dose: 40 mg - Exam General: Alert, Oriented, Cooperative HEENT: Pupils Equal, Pupils Reactive, EOMI Neck: Supple Lungs: Clear to Auscultation, Normal Respiratory Effort Cardiovascular: Regular Rate, Regular Rhythm, Murmurs (systolic ejection) GI/Abdominal Exam: Normal Bowel Sounds, Soft, Non-Tender Extremities: Normal Inspection Skin: Warm, Dry, Intact Neurological: No New Focal Deficit Psy/Mental Status: Alert, Normal Affect, Normal Mood - Problem List & Annotations (1) CHF exacerbation SNOMED Code(s): 637574393, 65940187392253 Code(s): I50.9 - HEART FAILURE, UNSPECIFIED Status: Acute Priority: High Current Visit: Yes Onset Date: 06/08/17 Qualifiers: Heart failure type: unspecified Qualified Code(s): I50.9 - Heart failure, unspecified Annotation/Comment:: 06-08-2017- Congestive heart failure exacerbation. Also an elevated temperature. (2) Dehydration SNOMED Code(s): 28029760 Code(s): E86.0 - DEHYDRATION Status: Acute Priority: High Current Visit : Yes (3) Pneumonia SNOMED Code(s): 164801674 Code(s): J18.9 - PNEUMONIA, UNSPECIFIED ORGANISM Status: Acute Priority: High Current Visit: Yes (4) UTI (urinary tract infection) SNOMED Code(s): 71226225 Code(s): N39.0 - URINARY TRACT INFECTION, SITE NOT SPECIFIED Status: Acute Priority: High Current Visit: Yes (5) Severe muscle deconditioning SNOMED Code(s): 473286714 Code(s): R29.898 - OTH SYMPTOMS AND SIGNS INVOLVING THE MUSCULOSKELETAL SYSTEM Status: Resolved Priority: High Current Visit: Yes (6) Weakness generalized SNOMED Code(s): 25751983 Code(s): R53.1 - WEAKNESS Status: Resolved Priority: High Current Visit : Yes (7) Hematuria SNOMED Code(s): 48713426 Code(s): R31.9 - HEMATURIA, UNSPECIFIED Status: Acute Current Visit: No (8) Hematuria due to cystitis SNOMED Code(s): 690363826848424 Code(s): N30.91 - CYSTITIS, UNSPECIFIED WITH HEMATURIA Status: Acute Current Visit: No (9) History of prostate surgery SNOMED Code(s): 303533030 Code(s): Z98.890 - OTHER SPECIFIED POSTPROCEDURAL STATES Status: Acute Current Visit: No - Problem List Review Problem List Initiated/Reviewed/Updated: Yes - My Orders Last 24 Hours: My Active Orders 04/19/19 11:00 Furosemide [Lasix] 40 mg PO DAILY - Plan Plan:: Patient to continue current antibiotics and management. We will continue rehabilitation and f/u PT/OT recommendations. Considering d/c to swing. F/u labs in am.
[2019-04-19] MEDS ORDERED: Sodium Chloride 0.45% with KCl 1,000 ML IV SCH (16:15)
[2019-04-19] MEDS: Simvastatin 40 MG Tab PO SCH (19:57)
[2019-04-19] MEDS: Azithromycin 500 MG in Sodium Chloride 0.9% 250 ML IV SCH (23:28)
[2019-04-20] MEDS: Furosemide 40 MG Tab PO SCH (07:46)
[2019-04-20] MEDS: Sertraline 50 MG Tab PO SCH (07:46)
[2019-04-20] MEDS: Formoterol/Mometasone 200-5 MCG 8.8 GM Inhaler IH SCH (07:46)
[2019-04-20] MEDS: Ferrous Sulfate 325 MG Tab PO SCH (07:46)
--- NOTE | 2019-04-20 10:18 | PCM.DCSUM1 ---
Discharge Summary - Discharge Data Discharge Date: 04/20/19 Discharge Disposition: DC/Tfer W/I Hosp To Swing 61 Condition: Fair - Referral to Home Health Primary Care Physician: PCP None - Patient Summary/Data Consults: Consultations 04/18/19 09:47 PT Evaluation and Treatment [CONS] Routine Please Evaluate and Treat. PT Reason for Consult: Strengthening This query below is only for informational purposes and is not editable. Admission Diagnosis/Problem: CHF, Congestive heart failure 04/18/19 09:48 OT Evaluation and Treatment [CONS] Routine Please Evaluate and Treat. OT Reason for Consult: Discharge Planning This query below is only for informational purposes and is not editable. Admission Diagnosis/Problem: CHF, Congestive heart failure - Patient Instructions Diet: Usual Diet as Tolerated Activity: As Tolerated Driving: Do Not Drive - Discharge Plan Home Medications: Home Meds Simvastatin 40 mg PO BEDTIME 08/27/14 [History] Sertraline HCl 50 mg PO DAILY 02/19/15 [History] Aspirin/Dipyridamole [Aggrenox 200-25 MG] 1 cap PO BID 11/02/15 [History] Albuterol/Ipratropium [DuoNeb 3.0-0.5 MG/3 ML] 3 ml NEB QID PRN 03/28/16 [ History] Acetaminophen [Tylenol Extra Strength] 500 mg PO Q6HR PRN 10/29/17 [History] Sennosides/Docusate Sodium [Senna-Docusate Sodium] 1 each PO BID PRN 10/29/17 [ History] Ferrous Sulfate [Iron] 1 cap PO DAILY 11/14/18 [History] Furosemide [Lasix] 40 mg PO DAILY 11/14/18 [History] Enzalutamide [Xtandi] 4 cap PO DAILY 04/18/19 [History] Formoterol Fumarate [Perforomist] 20 mcg IH BID 04/18/19 [History] Leuprolide [Lupron Depot] 3.75 mg IM ASDIRECTED 04/18/19 [History] Nebivolol [Bystolic] 10 mg PO BID 04/18/19 [History] Prochlorperazine [Compazine] 0.5 tab PO QID PRN 04/18/19 [History] Forms: ED Department Discharge Referrals: PCP,None [Primary Care Provider] - - Discharge Summary/Plan Comment DC Time >30 min.: No Discharge Summary/Plan Comment: This is a 83yo M to be discharged to swing bed for PT/OT and rehabilitation due to weakness and unsteady gait and fall risk. He has improved symptomatically and does feel better. He is looking forward to going home and denies any current chest complaints or pains. - Patient Data Vitals - Most Recent: Last Vital Signs Temp 36.9 C 04/20/19 04:00 Pulse 71 04/20/19 04:00 Resp 15 04/20/19 04:00 BP 132/84 04/20/19 04:00 Pulse Ox 93 L 04/20/19 04:00 Weight - Most Recent: 61.689 kg I&O - Last 24 hours: Intake & Output 04/19/19 04/20/19 04/20/19 22:59 06:59 14:59 Intake Total 1388 1209 Output Total 1200 500 Balance 188 709 Lab Results - Last 24 hrs: Laboratory Results - last 24 hr 04/19/19 04/20/19 04/20/19 Range/Units 09:10 07:50 07:50 WBC 6.7 (4.0-11.0) K/uL RBC 3.59 L (4.50-6.50) M/uL Hgb 10.0 L (13.0-18.0) g/dL Hct 31.9 L (40.0-54.0) % MCV 89 (76-96) fL MCH 27.9 (27.0-32.0) pg MCHC 31.3 (31.0-35.0) g/dL RDW 14.1 (11.0-16.0) % Plt Count 140 L (150-400) K/uL MPV 9.3 (6.0-10.0) fL Neut % (Auto) 78.1 H (45.0-70.0) % Lymph % (Auto) 9.2 L (20.0-40.0) % [place] % (Auto) 9.9 (3.0-10.0) % Eos % (Auto) 2.5 (1.0-5.0) % Baso % (Auto) 0.3 (0.0-0.5) % Neut # (Auto) 5.26 (2.00-7.50) K/uL Lymph # (Auto) 0.62 L (1.50-4.00) K/uL [place] # (Auto) 0.67 (0.20-0.80) K/uL Eos # (Auto) 0.17 (0.04-0.40) K/uL Baso # (Auto) 0.02 (0.02-0.10) K/uL Sodium 148 H 146 H (136-145) mmol/L Potassium 3.3 L 3.7 (3.5-5.1) mmol/L Chloride 107 106 (98-107) mmol/L Carbon Dioxide 32.7 H 32.4 H (21.0-32.0) mmol/L Anion Gap 11.6 11.3 (5.0-15.0) mmol/L BUN 26 23 (8-26) mg/dL Creatinine 1.29 1.23 (0.70-1.30) mg/dL Est Cr Clr Drug Dosing 46.79 39.01 mL/min Estimated GFR (MDRD) 53 L 56 L (>60) MLS/MIN BUN/Creatinine Ratio 20.2 18.7 (6-25) Glucose 99 81 (74-100) mg/dL Calcium 8.3 L 8.0 L (8.5-10.1) mg/dL ADAN Results - Last 24 hrs: Microbiology 04/17/19 22:49 Aerobic Blood Culture - Preliminary Blood - Arm, Right NO GROWTH AFTER 2 DAYS Anaerobic Blood Culture - Preliminary NO GROWTH AFTER 2 DAYS 04/18/19 02:40 MRSA Surveillance Culture - Final Nares, Unspecified NO MRSA ISOLATED Med Orders - Current: Current Medications Acetaminophen (Tylenol Extra Strength) 500 mg PO Q6HR PRN PRN Reason: Pain Albuterol/Ipratropium (Duoneb 3.0-0.5 Mg/3 Ml) 3 ml NEB QID PRN PRN Reason: Shortness of Breath Ferrous Sulfate (Ferrous Sulfate) 325 mg PO DAILY [facility] Last Admin: 04/20/19 07:46 Dose: 325 mg Furosemide (Lasix) 40 mg PO DAILY [facility] Last Admin: 04/20/19 07:46 Dose: 40 mg Azithromycin 500 mg/ Sodium (Chloride) 250 mls @ 250 mls/hr IV Q24H [facility] Last Admin: 04/19/19 23:28 Dose: 250 mls/hr Potassium Chloride/Sodium Chloride (1/2 Ns With 20 Meq Kcl) 1,000 mls @ 100 mls /hr IV ASDIRECTED [facility] Last Infusion: 04/19/19 20:00 Dose: 50 mls/hr Mometasone Furoate/Formoterol Fumar (Dulera 200-5 Mcg) 1 puff IH BID [facility] Last Admin: 04/20/19 07:46 Dose: 1 puff Senna/Docusate Sodium (Senna Plus) 1 tab PO BID PRN PRN Reason: Constipation Sertraline HCl (Zoloft) 50 mg PO DAILY [facility] Last Admin: 04/20/19 07:46 Dose: 50 mg Simvastatin (Zocor) 40 mg PO QPM [facility] Last Admin: 04/19/19 19:57 Dose: 40 mg Sodium Chloride (Saline Flush) 10 ml FLUSH BID PRN PRN Reason: Keep Vein Open Discontinued Medications Furosemide (Lasix) 40 mg IVPUSH NOW ONE Stop: 04/17/19 22:56 Last Admin: 04/17/19 23:35 Dose: 40 mg Sodium Chloride (Normal Saline) 1,000 mls @ 50 mls/hr IV ASDIRECTED [facility] Last Admin: 04/18/19 19:17 Dose: 50 mls/hr
[2019-04-20 10:51] VITALS: BP 150/76; PULSE 72
== END 2019-04-20 11:58 | disposition swing bed (61) | DRG 291 ==
LOC: LB.ED 20:48 → LB.MS 22:25 → UNDOADMIN 22:25 → LB.MS 22:39
PROVIDERS: ADMIT Physician Assistant; ATTEND Physician Assistant
DX: I11.0 Hypertensive heart disease with heart failure (principal); J18.9 Pneumonia, unspecified organism; E87.0 Hyperosmolality and hypernatremia; N30.01 Acute cystitis with hematuria; I50.9 Heart failure, unspecified; J44.9 Chronic obstructive pulmonary disease, unspecified; I48.91 Unspecified atrial fibrillation; E86.0 Dehydration; I25.10 Atherosclerotic heart disease of native coronary artery without angina pectoris; K21.9 Gastro-esophageal reflux disease without esophagitis; F41.9 Anxiety disorder, unspecified; H54.7 Unspecified visual loss; F32.9 Major depressive disorder, single episode, unspecified; Z99.81 Dependence on supplemental oxygen; Z98.890 Other specified postprocedural states; Z79.899 Other long term (current) drug therapy; Z79.82 Long term (current) use of aspirin; I25.2 Old myocardial infarction; Z98.49 Cataract extraction status, unspecified eye; Z85.51 Personal history of malignant neoplasm of bladder; Z79.01 Long term (current) use of anticoagulants; Z87.891 Personal history of nicotine dependence; Z86.73 Personal history of transient ischemic attack (TIA), and cerebral infarction without residual deficits
CPT/HCPCS: 36415; 51702; 71045; 80048; 80053; 81001; 83880; 85025; 87040; 97110-GP; 97116-GP; 97161-GP; 97165-GO; 97530-GP; 99285-25; A9270-GY; J0456; J1940; J3480; J7030; J7050

== ENCOUNTER 2019-04-20 10:06 | Inpatient (IN) | payer MEDICARE, OTHER ==
--- NOTE | 2019-04-20 10:52 | PCM.HP.2 ---
H&P History of Present Illness - General Date of Service: 04/20/19 Admit Problem/Dx: Admission Diagnosis/Problem Admission Diagnosis/Problem Muscular deconditioning Source of Information: Patient History Limitations: Reports: No Limitations - History of Present Illness Initial Comments - Free Text/Narative: This is a 83yo F here for physical rehabilitation and weakness. He is a significant fall risk with a very high morbidity if he were to fall and injure himself. He has recently recovered from a CHF exacerbation, pneumonia and dehydration and would benefit greatly with this rehabilitation. Onset of Symptoms: Reports: Gradual Duration of Symptoms: Reports: Constant Location: Reports: Generalized - Related Data Allergies/Adverse Reactions: Allergies Allergy/AdvReac Type Severity Reaction Status Date / Time quinine [Quinine] Allergy Rash Verified 04/18/19 00:34 monohydrochloride Allergy Rash Uncoded 04/18/19 00:34 Home Medications: Home Meds Simvastatin 40 mg PO BEDTIME 08/27/14 [History] Sertraline HCl 50 mg PO DAILY 02/19/15 [History] Aspirin/Dipyridamole [Aggrenox 200-25 MG] 1 cap PO BID 11/02/15 [History] Albuterol/Ipratropium [DuoNeb 3.0-0.5 MG/3 ML] 3 ml NEB QID PRN 03/28/16 [ History] Acetaminophen [Tylenol Extra Strength] 500 mg PO Q6HR PRN 10/29/17 [History] Sennosides/Docusate Sodium [Senna-Docusate Sodium] 1 each PO BID PRN 10/29/17 [ History] Ferrous Sulfate [Iron] 1 cap PO DAILY 11/14/18 [History] Furosemide [Lasix] 40 mg PO DAILY 11/14/18 [History] Enzalutamide [Xtandi] 4 cap PO DAILY 04/18/19 [History] Formoterol Fumarate [Perforomist] 20 mcg IH BID 04/18/19 [History] Leuprolide [Lupron Depot] 3.75 mg IM ASDIRECTED 04/18/19 [History] Nebivolol [Bystolic] 10 mg PO BID 04/18/19 [History] Prochlorperazine [Compazine] 0.5 tab PO QID PRN 04/18/19 [History] Past Medical History HEENT History: Reports: Hard of Hearing, Impaired Vision, Other (See Below) Other HEENT History: Wears hearing aids Cardiovascular History: Reports: CAD, Heart Failure, High Cholesterol, Hypertension, GA, SOB on Exertion, Stents Respiratory History: Reports: COPD Gastrointestinal History: Reports: Bowel Obstruction, GERD Genitourinary History: Reports: Other (See Below) Other Genitourinary History: Bladder Ca, Daily radiation Musculoskeletal History: Reports: Arthritis Neurological History: Reports: CVA 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 Psychiatric History: Reports: Anxiety, Depression Hematologic History: Reports: Anticoagulation Therapy Oncologic (Cancer) History: Reports: Bladder, Prostate 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 - Infectious Disease History Infectious Disease History: Reports: Chicken Pox - Past Surgical History HEENT Surgical History: Reports: Cataract Surgery Cardiovascular Surgical History: Reports: Coronary Artery Stent, Pacer GI Surgical History: Reports: Colonoscopy, Hernia, Inguinal, Hernia Repair/Other Dermatological Surgical History: Reports: None Social & Family History - Family History Family Medical History: Noncontributory - Caffeine Use Caffeine Use: Reports: Coffee Other Caffeine Use: 2-3 cups/day Caffeine Use Comment: 3 cups coffee a day H&P Review of Systems - Review of Systems: Review Of Systems: Comprehensive ROS is negative, except as noted in HPI. Exam - Exam Exam: See Below - Exam General: Alert, Oriented, Cooperative HEENT: PERRLA, Conjunctiva Clear, EACs Clear Neck: Supple, Trachea Midline Lungs: Clear to Auscultation, Normal Respiratory Effort Cardiovascular: Regular Rate, Regular Rhythm, Systolic Murmur GI/Abdominal Exam: Normal Bowel Sounds, Soft, Non-Tender Back Exam: Normal Inspection Extremities: Normal Inspection Peripheral Pulses: 2+: Dorsalis Pedis (L), Dorsalis Pedis (R) Skin: Warm, Dry, Intact Neurological: Strength Equal Bilateral Neuro Extensive - Mental Status: Alert, Oriented x3 Psychiatric: Alert, Normal Affect, Normal Mood - Problem List (1) CHF exacerbation SNOMED Code(s): 865807265, [id number] ICD Code: I50.9 - HEART FAILURE, UNSPECIFIED Status: Acute Priority: High Onset Date: 06/08/17 Problem Details: 06-08-2017- Congestive heart failure exacerbation. Also an elevated temperature. Qualifiers: Heart failure type: unspecified Qualified Code(s): I50.9 - Heart failure, unspecified (2) Severe muscle deconditioning SNOMED Code(s): 543544140 ICD Code: R29.898 - OTH SYMPTOMS AND SIGNS INVOLVING THE MUSCULOSKELETAL SYSTEM Status: Resolved Priority: High (3) Weakness generalized SNOMED Code(s): 41358800 ICD Code: R53.1 - WEAKNESS Status: Resolved Priority: High (4) COLD, Chronic obstructive lung disease SNOMED Code(s): 53638461 ICD Code: J44.9 - CHRONIC OBSTRUCTIVE PULMONARY DISEASE, UNSPECIFIED Status : Chronic Priority: Medium Problem List Initiated/Reviewed/Updated: Yes Orders Last 24hrs: Active Orders 24 hr Category Date Time Status Patient Status [ADT] Routine ADT 04/20/19 10:42 Ordered Oxygen Therapy [RC] PRN Care 04/20/19 10:42 Ordered VTE/DVT Education [RC] Per Unit Routine Care 04/20/19 10:42 Ordered Vital Signs [RC] PER UNIT ROUTINE Care 04/20/19 10:42 Ordered OT Evaluation and Treatment [CONS] Routine Cons 04/20/19 10:42 Ordered PT Evaluation and Treatment [CONS] Routine Cons 04/20/19 10:42 Ordered Heart Healthy Diet [DIET] Diet 04/20/19 Lunch Ordered Assessment/Plan Comment:: Patient to be admitted to Swing bed for rehabilitation. He will benefit greatly with rehabilitation and strength training. He is a fall risk and his morbidity is very high if he were to injure himself.
[2019-04-20] MEDS ORDERED: Albuterol/Ipratropium 3.0-0.5 MG/3 ML Neb Soln ONE (13:46)
[2019-04-20] MEDS ORDERED: Prochlorperazine 10 MG Tab PO PRN (14:37)
[2019-04-20] MEDS ORDERED: Albuterol/Ipratropium 3.0-0.5 MG/3 ML Neb Soln NEB PRN (14:37)
[2019-04-20] MEDS ORDERED: LEUPROLIDE 3.75 MG IM SCH (14:45)
[2019-04-20] MEDS: Trolamine Salicylate/Aloe Vera 10% Crm 85 GM Tube TOP SCH (17:05)
[2019-04-20] MEDS ORDERED: Acetaminophen 500 MG Tab PO SCH (18:00)
[2019-04-20] MEDS: Albuterol 0.083% 2.5 MG/3 ML Neb Soln INH SCH (18:08)
[2019-04-20] MEDS ORDERED: Tuberculin, PPD 5 Units/0.1 ML 1 ML MDV IDERM ONE (18:49)
[2019-04-20] MEDS: Simvastatin 40 MG Tab PO SCH (19:49)
[2019-04-20] MEDS ORDERED: Aspirin/Dipyridamole 200-25 MG Cap.ER PO SCH (20:00)
[2019-04-21] MEDS: Acetaminophen 500 MG Tab PO PRN ×2 (01:25→07:46)
[2019-04-21] MEDS: Albuterol 0.083% 2.5 MG/3 ML Neb Soln INH SCH ×4 (01:27→17:37)
[2019-04-21] MEDS: Furosemide 40 MG Tab PO SCH (07:39)
[2019-04-21] MEDS: Sertraline 50 MG Tab PO SCH (07:39)
[2019-04-21] MEDS: Ferrous Sulfate 325 MG Tab PO SCH (07:39)
[2019-04-21] MEDS: Trolamine Salicylate/Aloe Vera 10% Crm 85 GM Tube TOP SCH ×3 (07:40→17:37)
[2019-04-21] MEDS ORDERED: ENZALUTAMIDE PO SCH (08:00)
[2019-04-21] MEDS ORDERED: Melatonin 10 MG Cap PO PRN (12:19)
[2019-04-21] MEDS: Simvastatin 40 MG Tab PO SCH (20:11)
[2019-04-22] MEDS: Albuterol 0.083% 2.5 MG/3 ML Neb Soln INH SCH ×4 (00:23→17:39)
[2019-04-22] MEDS: Acetaminophen 500 MG Tab PO PRN (05:11)
[2019-04-22] MEDS: Sertraline 50 MG Tab PO SCH (07:59)
[2019-04-22] MEDS: Ferrous Sulfate 325 MG Tab PO SCH (07:59)
[2019-04-22] MEDS: Furosemide 40 MG Tab PO SCH (07:59)
[2019-04-22] MEDS: Trolamine Salicylate/Aloe Vera 10% Crm 85 GM Tube TOP SCH ×3 (08:00→17:39)
[2019-04-22] MEDS: Simvastatin 40 MG Tab PO SCH (20:46)
[2019-04-23] MEDS: Albuterol 0.083% 2.5 MG/3 ML Neb Soln INH SCH ×4 (01:29→17:33)
[2019-04-23] MEDS: Sertraline 50 MG Tab PO SCH (08:19)
[2019-04-23] MEDS: Trolamine Salicylate/Aloe Vera 10% Crm 85 GM Tube TOP SCH ×3 (08:20→16:46)
[2019-04-23] MEDS: Ferrous Sulfate 325 MG Tab PO SCH (08:20)
[2019-04-23] MEDS: Furosemide 40 MG Tab PO SCH (08:20)
[2019-04-23] MEDS: Simvastatin 40 MG Tab PO SCH (19:13)
[2019-04-24] MEDS: Albuterol 0.083% 2.5 MG/3 ML Neb Soln INH SCH ×4 (01:10→17:36)
[2019-04-24] MEDS: Ferrous Sulfate 325 MG Tab PO SCH (08:31)
[2019-04-24] MEDS: Sertraline 50 MG Tab PO SCH (08:31)
[2019-04-24] MEDS: Furosemide 40 MG Tab PO SCH (08:31)
[2019-04-24] MEDS: Trolamine Salicylate/Aloe Vera 10% Crm 85 GM Tube TOP SCH ×3 (08:43→17:35)
[2019-04-24] MEDS: Simvastatin 40 MG Tab PO SCH (19:08)
[2019-04-25] MEDS: Albuterol 0.083% 2.5 MG/3 ML Neb Soln INH SCH ×4 (03:32→18:19)
[2019-04-25] MEDS: Trolamine Salicylate/Aloe Vera 10% Crm 85 GM Tube TOP SCH ×3 (08:31→17:59)
[2019-04-25] MEDS: Ferrous Sulfate 325 MG Tab PO SCH (08:32)
[2019-04-25] MEDS: Furosemide 40 MG Tab PO SCH (08:32)
[2019-04-25] MEDS: Sertraline 50 MG Tab PO SCH (08:32)
--- NOTE | 2019-04-25 09:48 | PCM.PN ---
- General Info Date of Service: 04/25/19 Subjective Update: Patient has improved gait. He is eating well and has no concerns at this time. He does note that he continues to feel weak and tired compared to baseline. Functional Status: Reports: Pain Controlled, Tolerating Diet, Ambulating - Review of Systems General: Reports: Weakness HEENT: Reports: No Symptoms Pulmonary: Reports: No Symptoms Cardiovascular: Reports: No Symptoms Gastrointestinal: Reports: No Symptoms Genitourinary: Reports: No Symptoms Musculoskeletal: Reports: No Symptoms Neurological: Reports: No Symptoms - Patient Data Vitals - Most Recent: Last Vital Signs Temp 36.6 C 04/25/19 08:00 Pulse 66 04/25/19 08:00 Resp 18 04/24/19 08:00 BP 134/70 04/25/19 08:00 Pulse Ox 95 04/25/19 08:00 Weight - Most Recent: 61.507 kg Med Orders - Current: Current Medications Acetaminophen (Tylenol Extra Strength) 500 mg PO Q6HR PRN PRN Reason: Other Last Admin: 04/22/19 05:11 Dose: 500 mg Albuterol (Proventil Neb Soln) 2.5 mg INH Q6HR [facility] Last Admin: 04/25/19 08:47 Dose: Not Given Albuterol/Ipratropium (Duoneb 3.0-0.5 Mg/3 Ml) 3 ml NEB QID PRN PRN Reason: Shortness of Breath Last Admin: 04/20/19 15:01 Dose: 3 ml Dipyridamole/Aspirin (Aggrenox 200-25 Mg) 1 cap PO BID [facility] Ferrous Sulfate (Ferrous Sulfate) 325 mg PO DAILY [facility] Last Admin: 04/25/19 08:32 Dose: 325 mg Furosemide (Lasix) 40 mg PO DAILY [facility] Last Admin: 04/25/19 08:32 Dose: 40 mg Leuprolide Acetate (Lupron Depot 1-Month) 3.75 mg IM ASDIRECTED [facility] Melatonin (Melatonin) 10 mg PO BEDTIME PRN PRN Reason: Insomnia Last Admin: 04/21/19 20:56 Dose: 10 mg Non-Formulary Medication (Enzalutamide [Xtandi]) 4 cap PO DAILY [facility] Prochlorperazine Maleate (Compazine) 5 mg PO QID PRN PRN Reason: Nausea Senna/Docusate Sodium (Senna Plus) 1 tab PO BID PRN PRN Reason: Constipation Sertraline HCl (Zoloft) 50 mg PO DAILY [facility] Last Admin: 04/25/19 08:32 Dose: 50 mg Simvastatin (Zocor) 40 mg PO BEDTIME [facility] Last Admin: 04/24/19 19:08 Dose: 40 mg Trolamine Salicylate (Aspercreme 10%) 1 gm TOP TID@0800,1200,1700 [facility] Last Admin: 04/25/19 08:31 Dose: 1 applic Discontinued Medications Acetaminophen (Tylenol Extra Strength) 500 mg PO Q6HR [facility] Last Admin: 04/20/19 18:08 Dose: 500 mg Albuterol/Ipratropium (Duoneb 3.0-0.5 Mg/3 Ml) Confirm Administered Dose 3 ml .ROUTE .STK-MED ONE Stop: 04/20/19 13:47 Last Admin: 04/20/19 15:01 Dose: Not Given Dipyridamole/Aspirin (Aggrenox 200-25 Mg) 1 cap PO BID [facility] Influenza Virus Vaccine (Fluzone High-Dose 2019-20 Syringe) 180 mcg IM .ONCE ONE Stop: 04/20/19 14:01 Nebivolol (Bystolic) 10 mg PO BID [facility] Last Admin: 04/20/19 19:51 Dose: Not Given Tuberculin PPD (Aplisol) 5 unit IDERM ONETIME ONE Stop: 04/20/19 18:50 Last Admin: 04/20/19 19:47 Dose: 5 unit - Exam General: Alert, Oriented, Cooperative HEENT: Pupils Equal, Pupils Reactive Lungs: Clear to Auscultation, Normal Respiratory Effort Cardiovascular: Regular Rate, Regular Rhythm GI/Abdominal Exam: Normal Bowel Sounds, Soft, Non-Tender Back Exam: Normal Inspection Extremities: Normal Inspection Peripheral Pulses: 2+: Dorsalis Pedis (L), Dorsalis Pedis (R) Skin: Warm, Dry, Intact - Problem List & Annotations (1) CHF exacerbation SNOMED Code(s): 755572037, 45803335804802 Code(s): I50.9 - HEART FAILURE, UNSPECIFIED Status: Resolved Priority: High Current Visit: Yes Onset Date: 06/08/17 Qualifiers: Heart failure type: unspecified Qualified Code(s): I50.9 - Heart failure, unspecified Annotation/Comment:: 06-08-2017- Congestive heart failure exacerbation. Also an elevated temperature. (2) Severe muscle deconditioning SNOMED Code(s): 328041425 Code(s): R29.898 - [facility] SYMPTOMS AND SIGNS INVOLVING THE MUSCULOSKELETAL SYSTEM Status: Resolved Priority: High Current Visit: Yes (3) Weakness generalized SNOMED Code(s): 80342584 Code(s): R53.1 - WEAKNESS Status: Resolved Priority: High Current Visit : Yes (4) COLD, Chronic obstructive lung disease SNOMED Code(s): 85357311 Code(s): J44.9 - CHRONIC OBSTRUCTIVE PULMONARY DISEASE, UNSPECIFIED Status : Chronic Priority: Medium Current Visit: Yes - Problem List Review Problem List Initiated/Reviewed/Updated: Yes - My Orders Last 24 Hours: My Active Orders 04/25/19 20:00 Aspirin/Dipyridamole [Aggrenox 200-25 MG] 1 cap PO BID - Plan Plan:: Patient to be admitted to Swing bed for rehabilitation. He will benefit greatly with rehabilitation and strength training. He is a fall risk and his morbidity is very high if he were to injure himself. 04/25/19 Patient has been doing well and improving gradually. He is improving gradually to baseline and is likely to recover his strength in time with PT/OT. No other changes at this time.
[2019-04-25] MEDS: Aspirin/Dipyridamole 200-25 MG Cap.ER PO SCH (19:50)
[2019-04-25] MEDS: Simvastatin 40 MG Tab PO SCH (19:50)
[2019-04-26] MEDS: Albuterol 0.083% 2.5 MG/3 ML Neb Soln INH SCH ×3 (03:33→14:27)
[2019-04-26] MEDS: Ferrous Sulfate 325 MG Tab PO SCH (07:42)
[2019-04-26] MEDS: Aspirin/Dipyridamole 200-25 MG Cap.ER PO SCH (07:42)
[2019-04-26] MEDS: Furosemide 40 MG Tab PO SCH (07:43)
[2019-04-26] MEDS: Sertraline 50 MG Tab PO SCH (07:43)
[2019-04-26] MEDS: Trolamine Salicylate/Aloe Vera 10% Crm 85 GM Tube TOP SCH ×2 (07:44→14:27)
[2019-04-26 08:46] VITALS: BP 101/72; PULSE 73
--- NOTE | 2019-04-26 14:10 | PCM.DCSUM1 ---
Discharge Summary - Discharge Data Discharge Date: 04/26/19 Discharge Disposition: Home, Self-Care 01 Condition: Good - Referral to Home Health Primary Care Physician: Quentin Vidales MD - Discharge Diagnosis/Problem(s) (1) CHF exacerbation SNOMED Code(s): 378882264, 51299466101357 ICD Code: I50.9 - HEART FAILURE, UNSPECIFIED Status: Resolved Priority: High Current Visit: Yes Onset Date: 06/08/17 Problem Details: 06-08-2017- Congestive heart failure exacerbation. Also an elevated temperature. Qualifiers: Heart failure type: unspecified Qualified Code(s): I50.9 - Heart failure, unspecified (2) Severe muscle deconditioning SNOMED Code(s): 211645350 ICD Code: R29.898 - OTH SYMPTOMS AND SIGNS INVOLVING THE MUSCULOSKELETAL SYSTEM Status: Resolved Priority: High Current Visit: Yes (3) Weakness generalized SNOMED Code(s): 12689840 ICD Code: R53.1 - WEAKNESS Status: Resolved Priority: Medium Current Visit: Yes (4) COLD, Chronic obstructive lung disease SNOMED Code(s): 62870412 ICD Code: J44.9 - CHRONIC OBSTRUCTIVE PULMONARY DISEASE, UNSPECIFIED Status : Chronic Priority: Medium Current Visit: Yes - Patient Summary/Data Consults: Consultations 04/20/19 10:42 OT Evaluation and Treatment [CONS] Routine Please Evaluate and Treat. OT Reason for Consult: ADL's This query below is only for informational purposes and is not editable. PT Evaluation and Treatment [CONS] Routine Please Evaluate and Treat. PT Reason for Consult: Ambulation This query below is only for informational purposes and is not editable. - Patient Instructions Diet: Heart Healthy Diet Activity: As Tolerated Showering/Bathing: May Shower - Discharge Plan Home Medications: Home Meds Simvastatin 40 mg PO BEDTIME 08/27/14 [History] Sertraline HCl 50 mg PO DAILY 02/19/15 [History] Aspirin/Dipyridamole [Aggrenox 200-25 MG] 1 cap PO BID 11/02/15 [History] Albuterol/Ipratropium [DuoNeb 3.0-0.5 MG/3 ML] 3 ml NEB QID PRN 03/28/16 [ History] Acetaminophen [Tylenol Extra Strength] 500 mg PO Q6HR PRN 10/29/17 [History] Sennosides/Docusate Sodium [Senna-Docusate Sodium] 1 each PO BID PRN 10/29/17 [ History] Ferrous Sulfate [Iron] 1 cap PO DAILY 11/14/18 [History] Furosemide [Lasix] 40 mg PO DAILY 11/14/18 [History] Enzalutamide [Xtandi] 4 cap PO DAILY 04/18/19 [History] Formoterol Fumarate [Perforomist] 20 mcg IH BID 04/18/19 [History] Leuprolide [Lupron Depot] 3.75 mg IM ASDIRECTED 04/18/19 [History] Prochlorperazine [Compazine] 0.5 tab PO QID PRN 04/18/19 [History] Patient Handouts: Heart Failure, [id number] - Discharge Summary/Plan Comment DC Time >30 min.: Yes Discharge Summary/Plan Comment: Discussed discharge planning and management. Patient to continue outpatient PT/ OT as directed and f/u in clinic with PCP as routine. Continue f/u with Urology as directed. - Patient Data Vitals - Most Recent: Last Vital Signs Temp 36.4 C 04/26/19 07:35 Pulse 73 04/26/19 07:35 Resp 18 04/26/19 07:35 BP 101/72 04/26/19 07:35 Pulse Ox 92 L 04/26/19 07:35 Weight - Most Recent: 61.235 kg Med Orders - Current: Current Medications Acetaminophen (Tylenol Extra Strength) 500 mg PO Q6HR PRN PRN Reason: Other Last Admin: 04/22/19 05:11 Dose: 500 mg Albuterol (Proventil Neb Soln) 2.5 mg INH Q6HR [facility] Last Admin: 04/26/19 06:10 Dose: Not Given Albuterol/Ipratropium (Duoneb 3.0-0.5 Mg/3 Ml) 3 ml NEB QID PRN PRN Reason: Shortness of Breath Last Admin: 04/20/19 15:01 Dose: 3 ml Dipyridamole/Aspirin (Aggrenox 200-25 Mg) 1 cap PO BID [facility] Last Admin: 04/26/19 07:42 Dose: 1 cap Ferrous Sulfate (Ferrous Sulfate) 325 mg PO DAILY [facility] Last Admin: 04/26/19 07:42 Dose: 325 mg Furosemide (Lasix) 40 mg PO DAILY [facility] Last Admin: 04/26/19 07:43 Dose: 40 mg Leuprolide Acetate (Lupron Depot 1-Month) 3.75 mg IM ASDIRECTED [facility] Melatonin (Melatonin) 10 mg PO BEDTIME PRN PRN Reason: Insomnia Last Admin: 04/21/19 20:56 Dose: 10 mg Non-Formulary Medication (Enzalutamide [Xtandi]) 4 cap PO DAILY [facility] Prochlorperazine Maleate (Compazine) 5 mg PO QID PRN PRN Reason: Nausea Senna/Docusate Sodium (Senna Plus) 1 tab PO BID PRN PRN Reason: Constipation Sertraline HCl (Zoloft) 50 mg PO DAILY [facility] Last Admin: 04/26/19 07:43 Dose: 50 mg Simvastatin (Zocor) 40 mg PO BEDTIME [facility] Last Admin: 04/25/19 19:50 Dose: 40 mg Trolamine Salicylate (Aspercreme 10%) 1 gm TOP TID@0800,1200,1700 [facility] Last Admin: 04/26/19 07:44 Dose: 1 applic Discontinued Medications Acetaminophen (Tylenol Extra Strength) 500 mg PO Q6HR [facility] Last Admin: 04/20/19 18:08 Dose: 500 mg Albuterol/Ipratropium (Duoneb 3.0-0.5 Mg/3 Ml) Confirm Administered Dose 3 ml .ROUTE .STK-MED ONE Stop: 04/20/19 13:47 Last Admin: 04/20/19 15:01 Dose: Not Given Dipyridamole/Aspirin (Aggrenox 200-25 Mg) 1 cap PO BID [facility] Influenza Virus Vaccine (Fluzone High-Dose 2018- Syringe) 180 mcg IM .ONCE ONE Stop: 04/20/19 14:01 Nebivolol (Bystolic) 10 mg PO BID [facility] Last Admin: 04/20/19 19:51 Dose: Not Given Tuberculin PPD (Aplisol) 5 unit IDERM ONETIME ONE Stop: 04/20/19 18:50 Last Admin: 04/20/19 19:47 Dose: 5 unit
== END 2019-04-26 14:42 | disposition home or self-care (01) | DRG 948 ==
LOC: LB.MS 10:42
PROVIDERS: ADMIT Family Medicine; ATTEND Family Medicine
DX: R53.1 Weakness (principal); R29.898 Other symptoms and signs involving the musculoskeletal system; I50.9 Heart failure, unspecified; E86.0 Dehydration; H54.7 Unspecified visual loss; I25.10 Atherosclerotic heart disease of native coronary artery without angina pectoris; I11.0 Hypertensive heart disease with heart failure; E78.00 Pure hypercholesterolemia, unspecified; J44.9 Chronic obstructive pulmonary disease, unspecified; K21.9 Gastro-esophageal reflux disease without esophagitis; M19.90 Unspecified osteoarthritis, unspecified site; F41.9 Anxiety disorder, unspecified; F32.9 Major depressive disorder, single episode, unspecified; H91.90 Unspecified hearing loss, unspecified ear; Z88.8 Allergy status to other drugs, medicaments and biological substances; Z79.82 Long term (current) use of aspirin; Z23 Encounter for immunization; Z79.899 Other long term (current) drug therapy; I25.2 Old myocardial infarction; Z95.5 Presence of coronary angioplasty implant and graft; Z85.51 Personal history of malignant neoplasm of bladder; Z86.73 Personal history of transient ischemic attack (TIA), and cerebral infarction without residual deficits; Z79.01 Long term (current) use of anticoagulants; Z98.49 Cataract extraction status, unspecified eye; Z98.890 Other specified postprocedural states; Z91.81 History of falling
CPT/HCPCS: 51798; 86580; 90662; 97110-GO; 97110-GP; 97116-GP; 97530-GO; 97530-GP; 97535-GO; A0425; A0429; A9270-GY; J7620-GY

== ENCOUNTER 2019-11-08 14:36 | Inpatient (IN) | payer MEDICARE, OTHER ==
--- NOTE | 2019-11-08 15:26 | EDM.PDOC ---
ED HPI GENERAL MEDICAL PROBLEM - General Chief Complaint: General Stated Complaint: FALL AT HOMERE Time Seen by Provider: 11/08/19 14:50 Source of Information: Reports: Patient, Mcc Records, RN - History of Present Illness INITIAL COMMENTS - FREE TEXT/NARRATIVE: pt presents to the ER from his assisted living quarters that he fell after getting tangled in his oxygen tubing. assisted living staff state pt had been experiencing increased confusion, incontinent loose stools, pt confirms this occurring over the past several weeks as late as two months ago. also incontinent of urine, care staff and family state urine is concentrated and malodorous. pt denies new SOB, fever, chill, cough, pain, unilateral weakness. pt states he did hit his head when he fell, but no LOC, visual changes, headache. - Related Data Allergies Allergy/AdvReac Type Severity Reaction Status Date / Time quinine [Quinine] Allergy Rash Verified 11/08/19 15:18 monohydrochloride Allergy Rash Uncoded 11/08/19 15:18 Home Meds: Home Meds Simvastatin 40 mg PO BEDTIME 08/27/14 [History] Sertraline HCl 50 mg PO DAILY 02/19/15 [History] Aspirin/Dipyridamole [Aggrenox 200-25 MG] 1 cap PO BID 11/02/15 [History] Albuterol/Ipratropium [DuoNeb 3.0-0.5 MG/3 ML] 3 ml NEB QID PRN 03/28/16 [ History] Acetaminophen [Tylenol Extra Strength] 500 mg PO Q6HR PRN 10/29/17 [History] Sennosides/Docusate Sodium [Senna-Docusate Sodium] 1 each PO BID PRN 10/29/17 [ History] Ferrous Sulfate [Iron] 1 cap PO DAILY 11/14/18 [History] Furosemide [Lasix] 40 mg PO DAILY 11/14/18 [History] Enzalutamide [Xtandi] 4 cap PO DAILY 04/18/19 [History] Formoterol Fumarate [Perforomist] 20 mcg IH BID 04/18/19 [History] Leuprolide [Lupron Depot] 3.75 mg IM ASDIRECTED 04/18/19 [History] Prochlorperazine [Compazine] 0.5 tab PO QID PRN 04/18/19 [History] Past Medical History HEENT History: Reports: Hard of Hearing, Impaired Vision, Other (See Below) Other HEENT History: Wears hearing aids Cardiovascular History: Reports: CAD, Heart Failure, High Cholesterol, Hypertension, PA, SOB on Exertion, Stents Respiratory History: Reports: COPD Gastrointestinal History: Reports: Bowel Obstruction, GERD Genitourinary History: Reports: Other (See Below) Other Genitourinary History: Bladder Ca, Daily radiation Musculoskeletal History: Reports: Arthritis Neurological History: Reports: CVA 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 Psychiatric History: Reports: Anxiety, Depression Hematologic History: Reports: Anticoagulation Therapy Oncologic (Cancer) History: Reports: Bladder, Prostate 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 - Infectious Disease History Infectious Disease History: Reports: Chicken Pox - Past Surgical History HEENT Surgical History: Reports: Cataract Surgery Cardiovascular Surgical History: Reports: Coronary Artery Stent, Pacer GI Surgical History: Reports: Colonoscopy, Hernia, Inguinal, Hernia Repair/Other Dermatological Surgical History: Reports: None Social & Family History - Family History Family Medical History: Noncontributory - Caffeine Use Caffeine Use: Reports: Coffee Other Caffeine Use: 2-3 cups/day Caffeine Use Comment: 3 cups coffee a day - Recreational Drug Use Recreational Drug Use: No ED ROS GENERAL - Review of Systems Review Of Systems: Comprehensive ROS is negative, except as noted in HPI. ED EXAM, GENERAL - Physical Exam Exam: See Below Exam Limited By: No Limitations General Appearance: Alert, WD/WN, No Apparent Distress Eye Exam: Bilateral Eye: EOMI, PERRL Throat/Mouth: Normal Inspection, Normal Oropharynx, Normal Voice, No Airway Compromise Head: Atraumatic, Normocephalic Neck: Normal Inspection Respiratory/Chest: No Respiratory Distress, Chest Non-Tender, Rhonchi ( throughout) Cardiovascular: Normal Peripheral Pulses, Regular Rate, Rhythm Peripheral Pulses: 2+: Radial (L), Radial (R), Dorsalis Pedis (L), Dorsalis Pedis (R) GI/Abdominal: Normal Bowel Sounds, Soft, Non-Tender Back Exam: Normal Inspection, Full Range of Motion Extremities: Normal Inspection, Normal Range of Motion, Non-Tender, No Pedal Edema Neurological: Alert, Oriented, CN II-XII Intact, No Motor/Sensory Deficits, Confused Psychiatric: Normal Affect, Normal Mood Skin Exam: Warm, Dry, Intact, Normal Color, No Rash Lymphatic: No Adenopathy Course - Vital Signs Last Recorded V/S: Last Vital Signs Temp 100.3 F 11/08/19 14:44 Pulse 87 11/08/19 14:44 Resp 18 11/08/19 14:44 BP 125/73 11/08/19 14:44 Pulse Ox 96 11/08/19 14:44 - Orders/Labs/Meds Orders: Active Orders 24 hr Category Date Time Status Chest 2V [CR] Stat Exams 11/08/19 14:58 Ordered CBC WITH AUTO DIFF [HEME] Stat Lab 11/08/19 14:58 Ordered COMPREHENSIVE METABOLIC PN,CMP [CHEM] Stat Lab 11/08/19 14:58 Ordered Departure - Departure Time of Disposition: 16:20 Disposition: Refer to Observation Condition: Fair Clinical Impression: Complicated UTI (urinary tract infection) - Discharge Information *PRESCRIPTION DRUG MONITORING PROGRAM REVIEWED*: Not Applicable *COPY OF PRESCRIPTION DRUG MONITORING REPORT IN PATIENT DESEAN: Not Applicable Referrals: PCP,None [Primary Care Provider] - Sepsis Event Note (ED) - Evaluation Sepsis Screening Result: No Definite Risk - Focused Exam Vital Signs: Vital Signs Temp Pulse Resp BP Pulse Ox 11/08/19 14:44 100.3 F 87 18 125/73 96 - Problem List & Annotations (1) Dehydration SNOMED Code(s): 69757333 Code(s): E86.0 - DEHYDRATION Status: Acute Priority: High Current Visit : No Onset Date: 11/08/19 (2) Complicated UTI (urinary tract infection) SNOMED Code(s): 46580574 Code(s): N39.0 - URINARY TRACT INFECTION, SITE NOT SPECIFIED Status: Acute Current Visit: Yes Onset Date: 11/08/19 - Problem List Review Problem List Initiated/Reviewed/Updated: Yes - My Orders Last 24 Hours: My Active Orders 11/08/19 14:58 Chest 2V [CR] Stat CBC WITH AUTO DIFF [HEME] Stat COMPREHENSIVE METABOLIC PN,CMP [CHEM] Stat - Assessment/Plan Admission H&P: Please use this note as an admission H&P Last 24 Hours: My Active Orders 11/08/19 14:58 Chest 2V [CR] Stat CBC WITH AUTO DIFF [HEME] Stat COMPREHENSIVE METABOLIC PN,CMP [CHEM] Stat Assessment:: complicated UTI Dehydration Plan: will obs overnight with rocephin BID for complicated UTI with likely BERTHA vs UTI in setting of CKD. unsure at this time as pt is likely chronically dehydrated therefore kidney perfusion is chronically low. will provide IV fluids to see if improvement over the next 24 hours improves labs and pt status. likely discharge home tomorrow afternoon on cipro BID.
--- NOTE | 2019-11-08 15:54 | CR ---
DATE OF SERVICE: 11/08/2019 CLINICAL DATA: Shortness of breath, fever AP and lateral chest: Comparison is made to a prior exam dated 08 June 2019. The patient is rotated to the left. The heart is mildly enlarged. The cardiac pacer and pacer wires remain unchanged in position. There are mild atelectatic changes in both lung bases. The lungs are otherwise clear. No pneumothorax. No pleural effusions. MTDD
[2019-11-08] MEDS ORDERED: Sodium Chloride 0.9% 1,000 ML IV SCH (16:30)
[2019-11-08] MEDS ORDERED: Formoterol/Mometasone 200-5 MCG 8.8 GM Inhaler IH PRN (17:00)
[2019-11-08] MEDS ORDERED: traMADol 50 MG Tab PO PRN ×2 (17:00→21:50)
[2019-11-08] MEDS: cefTRIAXone 1 GM in Sodium Chloride 0.9% 50 ML IV SCH (17:30)
[2019-11-08] MEDS: Acetaminophen 500 MG Tab PO PRN (18:44)
[2019-11-08] MEDS ORDERED: Simvastatin 40 MG Tab PO SCH (20:00)
[2019-11-08] MEDS: Albuterol/Ipratropium 3.0-0.5 MG/3 ML Neb Soln NEB SCH (20:00)
[2019-11-08] MEDS: Simvastatin 40 MG Tab **OWN MED PO SCH (20:00)
[2019-11-08] MEDS ORDERED: DULERA IH PRN (21:45)
[2019-11-09] MEDS: Ferrous Sulfate 325 MG Tab PO SCH (08:00)
[2019-11-09] MEDS ORDERED: DULERA IH PRN (08:46)
--- NOTE | 2019-11-09 13:49 | PN ---
DATE OF VISIT: 11/09/2019 SUBJECTIVE: An 84-year-old male who is here on observation with symptoms of UTI and confusion. The patient was given Rocephin last evening. He will get it again this morning. Nursing staff tells me that he is doing better. He does not seem as confused, but he is incontinent of BM multiple times. The patient is on 2 laxatives, senna and docusate. A urine culture is pending. The patient is here from the [facility]. Nursing staff tells me he is able to get up and go to the bathroom, but he is still incontinent of BM on a regular basis. He has underlying history of COPD and CHF which seemed to be well controlled. Upon entering the patient's room, he is sleeping. He wakes easily with physical stimuli. The patient tells me he feels okay. He is not having any pain and he has no questions. OBJECTIVE: GENERAL: The patient is awake and alert. No obvious distress. VITAL SIGNS: Stable as listed by nursing staff. LUNGS: Clear with slightly reduced air exchange throughout the lung saldana. ABDOMEN: Soft, flat, nontender to palpation. SKIN: The patient does not have any swelling or discoloration of the skin involving his lower legs, ankles, or feet. TREATMENT UPDATE: At this point, we will hold his laxatives today and see about restarting one of them at least tomorrow. We will continue with the 2nd course of Rocephin. The urine culture again is pending and we will see how the patient does over the next 24 hours with his incontinence issue. CRS/MODL /[id number]
[2019-11-09] MEDS: cefTRIAXone 1 GM in Sodium Chloride 0.9% 50 ML IV SCH (17:00)
[2019-11-09] MEDS: Albuterol/Ipratropium 3.0-0.5 MG/3 ML Neb Soln NEB SCH (19:53)
[2019-11-09] MEDS: Simvastatin 40 MG Tab **OWN MED PO SCH (19:53)
[2019-11-09] MEDS ORDERED: Ciprofloxacin 500 MG Tab PO SCH (20:00)
[2019-11-09] MEDS ORDERED: Ciprofloxacin 500 MG Tab PO ONE (20:00)
[2019-11-10] MEDS: cefTRIAXone 1 GM in Sodium Chloride 0.9% 50 ML IV SCH (05:00)
[2019-11-10] MEDS: Albuterol/Ipratropium 3.0-0.5 MG/3 ML Neb Soln NEB SCH ×4 (07:15→19:33)
[2019-11-10] MEDS: Aspirin 81 MG Tab.Chew PO SCH ×2 (08:09→08:10)
[2019-11-10] MEDS: Ferrous Sulfate 325 MG Tab PO SCH (08:10)
[2019-11-10] MEDS: Sertraline 50 MG Tab PO SCH (08:12)
[2019-11-10] MEDS: Furosemide 40 MG Tab PO SCH (08:12)
[2019-11-10] MEDS: Ciprofloxacin 250 MG Tab PO SCH ×2 (08:32→19:33)
[2019-11-10] MEDS ORDERED: Potassium Chloride 40 MEQ/20 ML SDV IV STA (09:31)
[2019-11-10] MEDS ORDERED: Menthol/Zinc Oxide Ointment 113 GM Tube TOP PRN (09:34)
[2019-11-10] MEDS ORDERED: Sodium Chloride 0.9% 1,000 ML IV SCH (09:45)
--- NOTE | 2019-11-10 10:46 | PCM.HP.2 ---
H&P History of Present Illness - General Date of Service: 11/10/19 Admit Problem/Dx: Admission Diagnosis/Problem Admission Diagnosis/Problem Hypokalemia Source of Information: Patient History Limitations: Reports: No Limitations - History of Present Illness Initial Comments - Free Text/Narative: pt was originally seen in ed on 07 November and diagnosed with UTI with possible AK I. during his observation course pt has been continuing his episodes of bladder and bowel incontinence which has been ongoing the last month according to him, family states urinary incontinence and UTI is not unusual the past several years. lab evaluation today found pt with critical hypokalemia pending magnesium results. pt states he is feeling slightly better with no change to his generalized weakness. he has been on oral cipro starting yesterday but he feels he is not at his baseline. pt has been intermittently spiking fevers for the observation period and improving with PO tylenol. pt denies any new pain, headache, body aches, SOB, chest pain, palpitations. - Related Data Allergies/Adverse Reactions: Allergies Allergy/AdvReac Type Severity Reaction Status Date / Time quinine [Quinine] Allergy Rash Verified 11/08/19 15:18 monohydrochloride Allergy Rash Uncoded 11/08/19 15:18 Home Medications: Home Meds Simvastatin 40 mg PO BEDTIME 08/27/14 [History] Sertraline HCl 50 mg PO DAILY 02/19/15 [History] Albuterol/Ipratropium [DuoNeb 3.0-0.5 MG/3 ML] 3 ml NEB QID PRN 03/28/16 [History] Sennosides/Docusate Sodium [Senna-Docusate Sodium] 1 each PO BID PRN 10/29/17 [History] Ferrous Sulfate [Iron] 1 cap PO DAILY 11/14/18 [History] Furosemide [Lasix] 40 mg PO DAILY 11/14/18 [History] Enzalutamide [Xtandi] 4 cap PO DAILY 04/18/19 [History] Leuprolide [Lupron Depot] 3.75 mg IM ASDIRECTED 04/18/19 [History] Aspirin [Lo-Dose Aspirin EC] 81 mg PO DAILY 11/09/19 [History] Melatonin 12 mg PO BEDTIME PRN 11/09/19 [History] Mometasone/Formoterol [Dulera 200 MCG/5 MCG] 2 puff PO BID PRN 11/09/19 [History] Multivit-Min/FA/Lycopene/Lut [Senior Tabs] 1 tab PO DAILY 11/09/19 [History] traMADol [Ultram] 25 mg PO Q8HR 11/09/19 [History] Past Medical History HEENT History: Reports: Hard of Hearing, Impaired Vision, Other (See Below) Other HEENT History: Wears hearing aids Cardiovascular History: Reports: CAD, Heart Failure, High Cholesterol, Hypertension, [place], SOB on Exertion, Stents Respiratory History: Reports: COPD Gastrointestinal History: Reports: Bowel Obstruction, GERD Genitourinary History: Reports: Other (See Below) Other Genitourinary History: Bladder Ca, Daily radiation Musculoskeletal History: Reports: Arthritis Neurological History: Reports: CVA 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 Psychiatric History: Reports: Anxiety, Depression Hematologic History: Reports: Anticoagulation Therapy Oncologic (Cancer) History: Reports: Bladder, Prostate 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 - Infectious Disease History Infectious Disease History: Reports: Chicken Pox - Past Surgical History HEENT Surgical History: Reports: Cataract Surgery Cardiovascular Surgical History: Reports: Coronary Artery Stent, Pacer GI Surgical History: Reports: Colonoscopy, Hernia, Inguinal, Hernia Repair/Other Dermatological Surgical History: Reports: None Social & Family History - Family History Family Medical History: Noncontributory - Tobacco Use Smoking Status *Q: Unknown Ever Smoked Second Hand Smoke Exposure: No - Caffeine Use Caffeine Use: Reports: Coffee Other Caffeine Use: 2-3 cups/day Caffeine Use Comment: 3 cups coffee a day - Recreational Drug Use Recreational Drug Use: No H&P Review of Systems - Review of Systems: Review Of Systems: Comprehensive ROS is negative, except as noted in HPI. Exam - Exam Exam: See Below - Vital Signs Vital Signs: Last Vital Signs Temp 99.6 F 11/10/19 08:00 Pulse 88 11/10/19 08:00 Resp 18 11/10/19 08:00 BP 113/61 11/10/19 08:00 Pulse Ox 100 11/10/19 08:00 Weight: 145 lb - Exam Quality Assessment: Supplemental Oxygen General: Alert, Oriented, Cooperative HEENT: PERRLA, EOMI, Mucosa Moist & Soper Neck: Trachea Midline Lungs: Normal Respiratory Effort, Rhonchi (bilateral) Cardiovascular: Regular Rate, Regular Rhythm, Normal S1, Normal S2, Systolic Murmur (2/6) Extremities: Normal Inspection, Normal Range of Motion, Non-Tender, No Pedal Edema Peripheral Pulses: 2+: Radial (L), Radial (R), Posterior Tibial (L), Posterior Tibial (R), Dorsalis Pedis (L), Dorsalis Pedis (R) Skin: Warm, Dry, Intact Neurological: Cranial Nerves Intact Neuro Extensive - Mental Status: Alert, Normal Mood/Affect, Normal Cognition, Disorientation to Time Neuro Extensive - Motor, Sensory, Reflexes: CN II-XII Intact Psychiatric: Alert, Normal Affect, Normal Mood - Patient Data Lab Results Last 24 hrs: Laboratory Results - last 24 hr 11/09/19 11/10/19 11/10/19 Range/Units 15:30 08:40 08:50 WBC 6.1 (4.0-11.0) K/uL RBC 3.57 L (4.50-6.50) M/uL Hgb 9.8 L (13.0-18.0) g/dL Hct 30.8 L (40.0-54.0) % MCV 86 (76-96) fL MCH 27.5 (27.0-32.0) pg MCHC 31.8 (31.0-35.0) g/dL RDW 13.8 (11.0-16.0) % Plt Count 183 (150-400) K/uL MPV 8.6 (6.0-10.0) fL Neut % (Auto) 90.4 H (45.0-70.0) % Lymph % (Auto) 2.9 L (20.0-40.0) % Hutchinson % (Auto) 6.5 (3.0-10.0) % Eos % (Auto) 0.0 L (1.0-5.0) % Baso % (Auto) 0.2 (0.0-0.5) % Neut # (Auto) 5.54 (2.00-7.50) K/uL Lymph # (Auto) 0.18 L (1.50-4.00) K/uL Hutchinson # (Auto) 0.40 (0.20-0.80) K/uL Eos # (Auto) 0.00 L (0.04-0.40) K/uL Baso # (Auto) 0.01 L (0.02-0.10) K/uL Sodium 143 (136-145) mmol/L Potassium 2.9 L* D (3.5-5.1) mmol/L Chloride 104 (98-107) mmol/L Carbon Dioxide 31.3 (21.0-32.0) mmol/L Anion Gap 10.6 (5.0-15.0) mmol/L BUN 27 H (8-26) mg/dL Creatinine 1.67 H (0.70-1.30) mg/dL Est Cr Clr Drug Dosing 30.08 mL/min Estimated GFR (MDRD) 39 L (>60) MLS/MIN BUN/Creatinine Ratio 16.2 (6-25) Glucose 141 H (74-100) mg/dL Calcium 8.2 L (8.5-10.1) mg/dL Magnesium 1.7 L (1.8-2.4) mg/dL Total Bilirubin 0.3 D (0.0-1.0) mg/dL AST 35 (15-37) U/L ALT 16 (12-78) U/L Alkaline Phosphatase 163 H (46-116) U/L Total Protein 6.6 (6.4-8.2) g/dL Albumin 2.6 L (3.4-5.0) g/dL Globulin 4.0 (2.2-4.2) g/dL Albumin/Globulin Ratio 0.7 L (0.8-2.0) Result Diagrams: 11/09/19 15:30 11/10/19 08:50 Ilya Results Last 24 hrs: Microbiology 11/08/19 16:00 Urine Culture - Final Urine, Voided Klebsiella Pneumoniae Sepsis Event Note - Evaluation Sepsis Screening Result: No Definite Risk - Focused Exam Vital Signs: Vital Signs Temp Pulse Resp BP Pulse Ox 11/10/19 08:00 99.6 F 88 18 113/61 100 11/10/19 06:14 98.6 F 102 H 18 132/84 95 11/10/19 04:00 16 Date Exam was Performed: 11/10/19 Time Exam was Performed: 10:26 - Problem List (1) Dehydration SNOMED Code(s): 97825962 ICD Code: E86.0 - DEHYDRATION Status: Acute Priority: High Current Visit: No Onset Date: 11/08/19 (2) Complicated UTI (urinary tract infection) SNOMED Code(s): 44662910 ICD Code: N39.0 - URINARY TRACT INFECTION, SITE NOT SPECIFIED Status: Acute Current Visit: Yes Onset Date: 11/08/19 (3) Hypokalemia SNOMED Code(s): 51704349 ICD Code: E87.6 - HYPOKALEMIA Status: Acute Current Visit: No (4) Hypomagnesemia SNOMED Code(s): 144190087 ICD Code: E83.42 - HYPOMAGNESEMIA Status: Acute Current Visit: Yes Problem List Initiated/Reviewed/Updated: Yes Orders Last 24hrs: Active Orders 24 hr Category Date Time Status Ciprofloxacin [Ciprofloxacin HCl] Med 11/10/19 08:00 Active 250 mg PO BID Menthol/Zinc Oxide [Calmoseptine] Med 11/10/19 09:34 Active 1 gm TOP QID PRN Potassium Chloride 40 meq Med 11/10/19 10:30 Ordered Sodium Chloride 0.9% [Normal Saline] 1,000 ml IV ASDIRECTED Simvastatin [Zocor] Med 11/09/19 20:00 Active 40 mg PO BEDTIME Medication Orders Acetaminophen (Tylenol Extra Strength) 1,000 mg PO Q6H PRN PRN Reason: Fever Last Admin: 11/08/19 18:44 Dose: 1,000 mg Documented by: KAITLIN Albuterol/Ipratropium (Duoneb 3.0-0.5 Mg/3 Ml) 3 ml NEB TID [facility] Last Admin: 11/10/19 07:15 Dose: 3 ml Documented by: Admin: 11/10/19 07:15 Dose: 3 ml Documented by: Admin: 11/09/19 19:53 Dose: 3 ml Documented by: Admin: 11/08/19 20:00 Dose: 3 ml Documented by: JAYE Aspirin (Aspirin) 81 mg PO DAILY [facility] Last Admin: 11/10/19 08:10 Dose: 81 mg Documented by: Admin: 11/10/19 08:09 Dose: Not Given Documented by: NGOC Calamine/Phenol (Calmoseptine) 1 gm TOP QID PRN PRN Reason: barrier Ciprofloxacin (Ciprofloxacin Hcl) 250 mg PO BID [facility] Stop: 11/13/19 23:59 Last Admin: 11/10/19 08:32 Dose: 250 mg Documented by: NGOC Ferrous Sulfate (Ferrous Sulfate) 325 mg PO DAILY@0800 [facility] Last Admin: 11/10/19 08:10 Dose: 325 mg Documented by: NGOC Furosemide (Lasix) 40 mg PO DAILY [facility] Last Admin: 11/10/19 08:12 Dose: 40 mg Documented by: NGOC Potassium Chloride 40 meq/ (Sodium Chloride) 1,020 mls @ 100 mls/hr IV ASDIRECTED [facility] Melatonin (Melatonin) 12 mg PO BEDTIME PRN PRN Reason: sleep Mometasone Furoate/Formoterol Fumar (Dulera 200-5 Mcg) 2 puff IH BID PRN PRN Reason: short of breath Sertraline HCl (Zoloft) 50 mg PO DAILY [facility] Last Admin: 11/10/19 08:12 Dose: 50 mg Documented by: NGOC Simvastatin (Zocor) 40 mg PO BEDTIME [facility] Last Admin: 11/09/19 19:53 Dose: 40 mg Documented by: Admin: 11/08/19 20:00 Dose: 40 mg Documented by: JAYE Tramadol HCl (Ultram) 25 mg PO Q8H PRN PRN Reason: Pain - Mortality Measure Prognosis:: Good
[2019-11-10] MEDS ORDERED: Sodium Chloride 0.9% with KCl 1,000 ML IV SCH (12:00)
[2019-11-10] MEDS: Magnesium Oxide 400 MG Tab PO SCH ×2 (14:43→19:33)
[2019-11-11] MEDS: Simvastatin 40 MG Tab **OWN MED PO SCH ×3 (04:30→19:58)
[2019-11-11] MEDS: Ciprofloxacin 250 MG Tab PO SCH ×2 (08:01→19:46)
[2019-11-11] MEDS: Furosemide 40 MG Tab PO SCH (08:03)
[2019-11-11] MEDS: Ferrous Sulfate 325 MG Tab PO SCH (08:03)
[2019-11-11] MEDS: Aspirin 81 MG Tab.Chew PO SCH (08:04)
[2019-11-11] MEDS: Sertraline 50 MG Tab PO SCH ×2 (08:04→08:08)
[2019-11-11] MEDS: Albuterol/Ipratropium 3.0-0.5 MG/3 ML Neb Soln NEB SCH ×3 (08:05→19:47)
[2019-11-11] MEDS: Magnesium Oxide 400 MG Tab PO SCH ×2 (08:05→19:46)
[2019-11-11] MEDS: Acetaminophen 500 MG Tab PO PRN ×2 (11:30→23:00)
--- NOTE | 2019-11-11 14:48 | PCM.PN ---
- General Info Date of Service: 11/11/19 Admission Dx/Problem (Free Text): complicated UTI BERTHA hypokalemia Subjective Update: pt admitted acute care yesterday after a period of observation for complicated UTI where he recieved IV rocephin and was then switched to PO cipro. pt UTI symptoms have been improving re: urinary frequency, color, odor, but he remains incontinent of bowel and bladder. overall his lab values have improved, including CBC and electrolytes with his potassium returning to normal limits this morning at 3.5 after 1L of NS with 40mEq Kdur. renal function has improved markedly with gentle IV rehydration to an almost normalized Creatinine and improved GFR which pt has not been documented to have in several years. pt and nursing also state improved fevers over the last 24hr. PT and OT care team have noted that pt could improve with strengthening and ADLs which would lower his chance of NH placement on disposition and he could return to assisted living. pt denies new SOB, chest pain, body aches, cough, edema. - Review of Systems General: Reports: Other (all other systems reviewed and found negative except as noted in HPI ) - Patient Data Vitals - Most Recent: Last Vital Signs Temp 98.4 F 11/11/19 12:00 Pulse 68 11/11/19 12:00 Resp 18 11/11/19 08:00 BP 122/79 11/11/19 12:00 Pulse Ox 97 11/11/19 08:00 Weight - Most Recent: 144 lb I&O - Last 24 Hours: Intake & Output 11/10/19 11/11/19 11/11/19 22:59 06:59 14:59 Intake Total 2660 150 Balance 2660 150 Lab Results Last 24 Hours: Laboratory Results - last 24 hr 11/10/19 11/11/19 11/11/19 Range/Units 21:00 07:15 07:18 WBC 3.5 L D (4.0-11.0) K/uL RBC 2.99 L (4.50-6.50) M/uL Hgb 8.2 L (13.0-18.0) g/dL Hct 26.1 L (40.0-54.0) % MCV 87 (76-96) fL MCH 27.4 (27.0-32.0) pg MCHC 31.4 (31.0-35.0) g/dL RDW 13.8 (11.0-16.0) % Plt Count 150 (150-400) K/uL MPV 8.5 (6.0-10.0) fL Neut % (Auto) 75.1 H (45.0-70.0) % Lymph % (Auto) 9.0 L (20.0-40.0) % [place] % (Auto) 13.0 H (3.0-10.0) % Eos % (Auto) 2.6 (1.0-5.0) % Baso % (Auto) 0.3 (0.0-0.5) % Neut # (Auto) 2.59 (2.00-7.50) K/uL Lymph # (Auto) 0.31 L (1.50-4.00) K/uL [place] # (Auto) 0.45 (0.20-0.80) K/uL Eos # (Auto) 0.09 (0.04-0.40) K/uL Baso # (Auto) 0.01 L (0.02-0.10) K/uL Sodium 142 (136-145) mmol/L Potassium 3.3 L 3.5 (3.5-5.1) mmol/L Chloride 106 (98-107) mmol/L Carbon Dioxide 30.4 (21.0-32.0) mmol/L Anion Gap 9.1 (5.0-15.0) mmol/L BUN 25 (8-26) mg/dL Creatinine 1.43 H (0.70-1.30) mg/dL Est Cr Clr Drug Dosing 35.13 mL/min Estimated GFR (MDRD) 47 L (>60) MLS/MIN BUN/Creatinine Ratio 17.5 (6-25) Glucose 91 D (74-100) mg/dL Calcium 8.0 L (8.5-10.1) mg/dL Magnesium 1.8 (1.8-2.4) mg/dL Total Bilirubin 0.3 (0.0-1.0) mg/dL AST 38 H (15-37) U/L ALT 18 (12-78) U/L Alkaline Phosphatase 140 H (46-116) U/L Total Protein 6.0 L (6.4-8.2) g/dL Albumin 2.4 L (3.4-5.0) g/dL Globulin 3.6 (2.2-4.2) g/dL Albumin/Globulin Ratio 0.7 L (0.8-2.0) Ilya Results Last 24 Hours: Microbiology 11/09/19 Unknown MRSA Surveillance Culture - Final Nares, Left NO MRSA ISOLATED Med Orders - Current: Current Medications Acetaminophen (Tylenol Extra Strength) 1,000 mg PO Q6H PRN PRN Reason: Fever Last Admin: 11/11/19 11:30 Dose: 1,000 mg Documented by: Albuterol/Ipratropium (Duoneb 3.0-0.5 Mg/3 Ml) 3 ml NEB TID [facility] Last Admin: 11/11/19 13:14 Dose: 3 ml Documented by: Aspirin (Aspirin) 81 mg PO DAILY [facility] Last Admin: 11/11/19 08:04 Dose: 81 mg Documented by: Calamine/Phenol (Calmoseptine) 1 gm TOP QID PRN PRN Reason: barrier Ciprofloxacin (Ciprofloxacin Hcl) 250 mg PO BID [facility] Stop: 11/13/19 23:59 Last Admin: 11/11/19 08:01 Dose: 250 mg Documented by: Ferrous Sulfate (Ferrous Sulfate) 325 mg PO DAILY@0800 [facility] Last Admin: 11/11/19 08:03 Dose: 325 mg Documented by: Furosemide (Lasix) 40 mg PO DAILY [facility] Last Admin: 11/11/19 08:03 Dose: 40 mg Documented by: Potassium Chloride/Sodium Chloride (Normal Saline With 40 Meq Kcl) 1,000 mls @ 100 mls/hr IV ASDIRECTED [facility] Last Admin: 11/10/19 09:50 Dose: 100 mls/hr Documented by: Lactated Ringer's (Ringers, Lactated) 1,000 mls @ 75 mls/hr IV ASDIRECTED [facility] Magnesium Oxide (Magnesium Oxide) 400 mg PO BID [facility] Last Admin: 11/11/19 08:05 Dose: 400 mg Documented by: Melatonin (Melatonin) 12 mg PO BEDTIME PRN PRN Reason: sleep Mometasone Furoate/Formoterol Fumar (Dulera 200-5 Mcg) 2 puff IH BID PRN PRN Reason: short of breath Sertraline HCl (Zoloft) 50 mg PO DAILY [facility] Last Admin: 11/11/19 08:08 Dose: 50 mg Documented by: Simvastatin (Zocor) 40 mg PO BEDTIME [facility] Last Admin: 11/11/19 04:30 Dose: Not Given Documented by: Tramadol HCl (Ultram) 25 mg PO Q8H PRN PRN Reason: Pain Discontinued Medications Ciprofloxacin (Ciprofloxacin Hcl) 500 mg PO BID [facility] Stop: 11/14/19 20:01 Ciprofloxacin (Ciprofloxacin Hcl) 500 mg PO ONETIME ONE Stop: 11/09/19 20:01 Ceftriaxone Sodium 1 gm/ (Sodium Chloride) 50 mls @ 100 mls/hr IV Q12H [facility] Last Admin: 11/08/19 17:30 Dose: 100 mls/hr Documented by: Sodium Chloride (Normal Saline) 1,000 mls @ 75 mls/hr IV ASDIRECTED [facility] Last Admin: 11/08/19 17:28 Dose: 75 mls/hr Documented by: Sodium Chloride (Normal Saline) 1,000 mls @ 75 mls/hr IV ASDIRECTED [facility] Mometasone Furoate/Formoterol Fumar (Dulera 200-5 Mcg) 2 puff IH BID PRN PRN Reason: short of breath Mometasone Furoate/Formoterol Fumar (Dulera 200-5 Mcg) 0 puff IH BID PRN PRN Reason: short of breath Simvastatin (Zocor) 40 mg PO BEDTIME [facility] Tramadol HCl (Ultram) 25 mg PO Q8H PRN PRN Reason: Pain - Exam Quality Assessment: Supplemental Oxygen General: Alert, Oriented, Cooperative, No Acute Distress HEENT: Pupils Equal, Pupils Reactive, EOMI, Mucous Membr. Moist/[place] Lungs: Clear to Auscultation, Normal Respiratory Effort Cardiovascular: Regular Rate, Regular Rhythm GI/Abdominal Exam: Normal Bowel Sounds, Soft, Non-Tender Extremities: Normal Inspection, Normal Range of Motion, Non-Tender, No Pedal Edema, Normal Capillary Refill Peripheral Pulses: 2+: Radial (L), Radial (R) Skin: Warm, Dry, Intact Neurological: No New Focal Deficit Psy/Mental Status: Alert Sepsis Event Note - Evaluation Sepsis Screening Result: No Definite Risk - Focused Exam Vital Signs: Vital Signs Temp Pulse Resp BP Pulse Ox 11/11/19 12:00 98.4 F 68 122/79 11/11/19 08:00 98.0 F 60 18 136/77 97 11/11/19 04:00 98.0 F 100 18 114/76 93 L Date Exam was Performed: 11/11/19 Time Exam was Performed: 14:32 - Problem List & Annotations (1) Dehydration SNOMED Code(s): 36794497 Code(s): E86.0 - DEHYDRATION Status: Acute Priority: High Current Visit: No Onset Date: 11/08/19 (2) Complicated UTI (urinary tract infection) SNOMED Code(s): 29206338 Code(s): N39.0 - URINARY TRACT INFECTION, SITE NOT SPECIFIED Status: Acute Current Visit: Yes Onset Date: 11/08/19 (3) Hypokalemia SNOMED Code(s): 46552422 Code(s): E87.6 - HYPOKALEMIA Status: Resolved Current Visit: No Onset Date: ~11/10/19 (4) Hypomagnesemia SNOMED Code(s): 343010611 Code(s): E83.42 - HYPOMAGNESEMIA Status: Resolved Current Visit: Yes Onset Date: ~11/10/19 (5) BERTHA (acute kidney injury) SNOMED Code(s): 15761598, 53961438 Code(s): N17.9 - ACUTE KIDNEY FAILURE, UNSPECIFIED Status: Acute Current Visit: Yes Onset Date: ~11/08/19 - Problem List Review Problem List Initiated/Reviewed/Updated: Yes - My Orders Last 24 Hours: My Active Orders 11/11/19 14:45 Lactated Ringers @ 75 MLS/HR(1000ml) Lactated Ringers [Ringers, Lactated] 1,000 ml IV ASDIRECTED 11/12/19 05:11 BASIC METABOLIC PANEL,BMP [CHEM] AM CBC WITH AUTO DIFF [HEME] AM 11/13/19 05:11 BASIC METABOLIC PANEL,BMP [CHEM] AM CBC WITH AUTO DIFF [HEME] AM 11/14/19 05:11 BASIC METABOLIC PANEL,BMP [CHEM] AM CBC WITH AUTO DIFF [HEME] AM - Assessment Assessment:: assessment: 1.hypokalemia; resolved as of this AM with K of 3.5 (low normal). will start PO Kdur BID 2.hypomagnesemia: resolved as of this AM, 1.8 currently. started on PO mag Ox 3.Complicated UTI: PO cipro. urine color and odor improving. 4. BERTHA: creat improved from obs 16June from 1.89;1.67;1.43 today, respectively. GFR improvements from 07 November 34;39;47, respectively. BUN improvements from 30;27;25, respectively. plan: continue PT and OT as well as IV fluids through the weekend in attempt to reconcile this BERTHA as pt's PO fluid intake is less than adequate, his IV fluids can run continuously while he sleeps. during this time nursing will work with pt on his self cares re: management of his incontinence with adult briefs to also better his chance at returning to assisted living on dispo.
[2019-11-11] MEDS: Potassium Chloride 10 MEQ Tab.ER PO SCH ×2 (17:07→19:58)
[2019-11-11] MEDS: Lactated Ringers 1,000 ML IV SCH (18:16)
[2019-11-11] MEDS: cefTRIAXone 1 GM in Sodium Chloride 0.9% 50 ML IV SCH (19:23)
[2019-11-12] MEDS: traMADol 50 MG Tab PO PRN ×2 (04:27→17:10)
[2019-11-12] MEDS: Acetaminophen 500 MG Tab PO PRN ×2 (05:48→11:34)
[2019-11-12] MEDS: Lactated Ringers 1,000 ML IV SCH (05:49)
[2019-11-12] MEDS: Sertraline 50 MG Tab PO SCH (07:46)
[2019-11-12] MEDS: Albuterol/Ipratropium 3.0-0.5 MG/3 ML Neb Soln NEB SCH ×3 (07:46→19:44)
[2019-11-12] MEDS: Ciprofloxacin 250 MG Tab PO SCH ×2 (07:47→19:44)
[2019-11-12] MEDS: Potassium Chloride 10 MEQ Tab.ER PO SCH ×2 (07:47→19:44)
[2019-11-12] MEDS: Aspirin 81 MG Tab.Chew PO SCH (07:47)
[2019-11-12] MEDS: Furosemide 40 MG Tab PO SCH ×2 (07:47→10:51)
[2019-11-12] MEDS: Ferrous Sulfate 325 MG Tab PO SCH (07:47)
[2019-11-12] MEDS: Magnesium Oxide 400 MG Tab PO SCH ×2 (07:47→19:44)
--- NOTE | 2019-11-12 15:09 | PCM.PN ---
- General Info Date of Service: 11/12/19 Admission Dx/Problem (Free Text): complicated UTI BERTHA hypokalemia Subjective Update: Patient without new complaint today. Has been eating and drinking without difficulty. Currently on Cipro for UTI. Continued incontinence. - Review of Systems General: Reports: No Symptoms Gastrointestinal: Reports: No Symptoms - Patient Data Vitals - Most Recent: Last Vital Signs Temp 97.7 F 11/12/19 11:42 Pulse 68 11/12/19 11:42 Resp 18 11/12/19 11:42 BP 112/74 11/12/19 11:42 Pulse Ox 99 11/12/19 11:42 Weight - Most Recent: 65.317 kg I&O - Last 24 Hours: Intake & Output 11/12/19 11/12/19 11/12/19 06:59 14:59 22:59 Intake Total 855 Balance 855 Lab Results Last 24 Hours: Laboratory Results - last 24 hr 11/12/19 11/12/19 Range/Units 09:00 09:00 WBC 3.5 L (4.0-11.0) K/uL RBC 3.35 L (4.50-6.50) M/uL Hgb 9.0 L (13.0-18.0) g/dL Hct 29.5 L (40.0-54.0) % MCV 88 (76-96) fL MCH 26.9 L (27.0-32.0) pg MCHC 30.5 L (31.0-35.0) g/dL RDW 13.8 (11.0-16.0) % Plt Count 164 (150-400) K/uL MPV 9.2 (6.0-10.0) fL Neut % (Auto) 72.8 H (45.0-70.0) % Lymph % (Auto) 13.0 L (20.0-40.0) % [place] % (Auto) 8.8 (3.0-10.0) % Eos % (Auto) 5.1 H (1.0-5.0) % Baso % (Auto) 0.3 (0.0-0.5) % Neut # (Auto) 2.57 (2.00-7.50) K/uL Lymph # (Auto) 0.46 L (1.50-4.00) K/uL [place] # (Auto) 0.31 (0.20-0.80) K/uL Eos # (Auto) 0.18 (0.04-0.40) K/uL Baso # (Auto) 0.01 L (0.02-0.10) K/uL Sodium 146 H (136-145) mmol/L Potassium 3.5 (3.5-5.1) mmol/L Chloride 106 (98-107) mmol/L Carbon Dioxide 31.9 (21.0-32.0) mmol/L Anion Gap 11.6 (5.0-15.0) mmol/L BUN 21 (8-26) mg/dL Creatinine 1.47 H (0.70-1.30) mg/dL Est Cr Clr Drug Dosing 33.94 mL/min Estimated GFR (MDRD) 46 L (>60) MLS/MIN BUN/Creatinine Ratio 14.3 (6-25) Glucose 107 H (74-100) mg/dL Calcium 8.2 L (8.5-10.1) mg/dL Med Orders - Current: Current Medications Acetaminophen (Tylenol Extra Strength) 1,000 mg PO Q6H PRN PRN Reason: Fever Last Admin: 11/12/19 11:34 Dose: 1,000 mg Documented by: Albuterol/Ipratropium (Duoneb 3.0-0.5 Mg/3 Ml) 3 ml NEB TID [facility] Last Admin: 11/12/19 07:46 Dose: 3 ml Documented by: Aspirin (Aspirin) 81 mg PO DAILY [facility] Last Admin: 11/12/19 07:47 Dose: 81 mg Documented by: Calamine/Phenol (Calmoseptine) 1 gm TOP QID PRN PRN Reason: barrier Ciprofloxacin (Ciprofloxacin Hcl) 250 mg PO BID [facility] Stop: 11/13/19 23:59 Last Admin: 11/12/19 07:47 Dose: 250 mg Documented by: Ferrous Sulfate (Ferrous Sulfate) 325 mg PO DAILY@0800 [facility] Last Admin: 11/12/19 07:47 Dose: 325 mg Documented by: Furosemide (Lasix) 40 mg PO DAILY [facility] Last Admin: 11/12/19 10:51 Dose: 40 mg Documented by: Magnesium Oxide (Magnesium Oxide) 400 mg PO BID [facility] Last Admin: 11/12/19 07:47 Dose: 400 mg Documented by: Melatonin (Melatonin) 12 mg PO BEDTIME PRN PRN Reason: sleep Mometasone Furoate/Formoterol Fumar (Dulera 200-5 Mcg) 2 puff IH BID PRN PRN Reason: short of breath Potassium Chloride (Klor-Con 10) 10 meq PO BID [facility] Last Admin: 11/12/19 07:47 Dose: 10 meq Documented by: Sertraline HCl (Zoloft) 50 mg PO DAILY [facility] Last Admin: 11/12/19 07:46 Dose: 50 mg Documented by: Simvastatin (Zocor) 40 mg PO BEDTIME [facility] Last Admin: 11/11/19 19:58 Dose: Not Given Documented by: Tramadol HCl (Ultram) 25 mg PO Q8H PRN PRN Reason: Pain Last Admin: 11/12/19 04:27 Dose: 25 mg Documented by: Discontinued Medications Ciprofloxacin (Ciprofloxacin Hcl) 500 mg PO BID [facility] Stop: 11/14/19 20:01 Ciprofloxacin (Ciprofloxacin Hcl) 500 mg PO ONETIME ONE Stop: 11/09/19 20:01 Ceftriaxone Sodium 1 gm/ (Sodium Chloride) 50 mls @ 100 mls/hr IV Q12H [facility] Last Admin: 11/11/19 19:23 Dose: Not Given Documented by: Sodium Chloride (Normal Saline) 1,000 mls @ 75 mls/hr IV ASDIRECTED [facility] Last Admin: 11/08/19 17:28 Dose: 75 mls/hr Documented by: Sodium Chloride (Normal Saline) 1,000 mls @ 75 mls/hr IV ASDIRECTED [facility] Potassium Chloride/Sodium Chloride (Normal Saline With 40 Meq Kcl) 1,000 mls @ 100 mls/hr IV ASDIRECTED [facility] Last Admin: 11/10/19 09:50 Dose: 100 mls/hr Documented by: Lactated Ringer's (Ringers, Lactated) 1,000 mls @ 75 mls/hr IV ASDIRECTED [facility] Last Admin: 11/12/19 05:49 Dose: 75 mls/hr Documented by: Mometasone Furoate/Formoterol Fumar (Dulera 200-5 Mcg) 2 puff IH BID PRN PRN Reason: short of breath Mometasone Furoate/Formoterol Fumar (Dulera 200-5 Mcg) 0 puff IH BID PRN PRN Reason: short of breath Simvastatin (Zocor) 40 mg PO BEDTIME [facility] Tramadol HCl (Ultram) 25 mg PO Q8H PRN PRN Reason: Pain Tramadol HCl (Ultram) 25 mg PO Q8H PRN PRN Reason: Pain - Exam General: Alert, Oriented Lungs: Clear to Auscultation, Normal Respiratory Effort Cardiovascular: Regular Rate, Regular Rhythm GI/Abdominal Exam: Soft, Non-Tender Skin: Warm, Dry Psy/Mental Status: Alert, Normal Affect Sepsis Event Note - Evaluation Sepsis Screening Result: No Definite Risk - Focused Exam Vital Signs: Vital Signs Temp Temp Pulse Resp BP BP Pulse Ox 11/12/19 11:42 97.7 F 68 18 112/74 99 11/12/19 08:00 97.2 F 53 L 16 105/62 84 L 11/12/19 04:00 97.2 F 74 16 130/78 97 Date Exam was Performed: 11/12/19 Time Exam was Performed: 15:10 - Problem List Review Problem List Initiated/Reviewed/Updated: Yes - My Orders Last 24 Hours: My Active Orders 11/12/19 11:38 BASIC METABOLIC PANEL,BMP [CHEM] Routine - Assessment Assessment:: assessment: 1.hypokalemia; resolved as of this AM with K of 3.5 (low normal). will start PO Kdur BID 2.hypomagnesemia: resolved as of this AM, 1.8 currently. started on PO mag Ox 3.Complicated UTI: PO cipro. urine color and odor improving. 4. BERTHA: creat improved from obs from 1.89;1.67;1.43 today, respectively. GFR improvements from 07 November 34;39;47, respectively. BUN improvements from 30;27;25, respectively. plan: continue PT and OT as well as IV fluids through the weekend in attempt to reconcile this BERTHA as pt's PO fluid intake is less than adequate, his IV fluids can run continuously while he sleeps. during this time nursing will work with pt on his self cares re: management of his incontinence with adult briefs to also better his chance at returning to assisted living on dispo. 11/12/2019 1 Hypokalemia improved Will continue to monitor 2 Hypomagnesemia Resolved . Continue Po magnesium 3 Complicated UTI continue cipro as above 4 BERTHA vs CKD Patient with mild elevation of creatinine . Will monitor with repeat Basic profile in am. Will monitor po intake and outputs. Will change to hep lock and monitor. May restart IV tomorrow if BUN /CR rise tomorrow . Patient to have bladder scan by RN. Patient to continue PT
[2019-11-12] MEDS: Melatonin 3 MG Tab PO PRN (19:45)
[2019-11-12] MEDS: Simvastatin 40 MG Tab **OWN MED PO SCH (22:55)
[2019-11-13] MEDS: Albuterol/Ipratropium 3.0-0.5 MG/3 ML Neb Soln NEB SCH ×3 (07:23→20:00)
[2019-11-13] MEDS: Magnesium Oxide 400 MG Tab PO SCH ×2 (07:23→19:57)
[2019-11-13] MEDS: Aspirin 81 MG Tab.Chew PO SCH (07:23)
[2019-11-13] MEDS: Ferrous Sulfate 325 MG Tab PO SCH (07:24)
[2019-11-13] MEDS: Ciprofloxacin 250 MG Tab PO SCH ×2 (07:24→19:57)
[2019-11-13] MEDS: Potassium Chloride 10 MEQ Tab.ER PO SCH ×2 (07:24→19:58)
[2019-11-13] MEDS: Sertraline 50 MG Tab PO SCH (07:24)
[2019-11-13] MEDS: Furosemide 40 MG Tab PO SCH (07:24)
[2019-11-13] MEDS: traMADol 50 MG Tab PO PRN ×2 (09:32→19:56)
--- NOTE | 2019-11-13 12:24 | PCM.PN ---
- General Info Date of Service: 11/13/19 Admission Dx/Problem (Free Text): complicated UTI BERTHA hypokalemia Subjective Update: Patient without new complaint today. Has been eating and drinking without difficulty. Currently on Cipro for UTI. Continued incontinence. - Review of Systems General: Reports: No Symptoms, Other (Patient up in chair today appears stronger than yesterday) Pulmonary: Reports: No Symptoms - Patient Data Vitals - Most Recent: Last Vital Signs Temp 97.9 F 11/13/19 07:36 Pulse 67 11/13/19 08:00 Resp 18 11/13/19 07:36 BP 118/68 11/13/19 07:36 Pulse Ox 97 11/13/19 07:36 Weight - Most Recent: 65.317 kg I&O - Last 24 Hours: Intake & Output 11/12/19 11/13/19 11/13/19 22:59 06:59 14:59 Intake Total 2420 200 Output Total 225 200 Balance 2195 0 Lab Results Last 24 Hours: Laboratory Results - last 24 hr 11/13/19 11/13/19 Range/Units 09:00 09:00 WBC 3.8 L (4.0-11.0) K/uL RBC 3.25 L (4.50-6.50) M/uL Hgb 8.8 L (13.0-18.0) g/dL Hct 28.7 L (40.0-54.0) % MCV 88 (76-96) fL MCH 27.1 (27.0-32.0) pg MCHC 30.7 L (31.0-35.0) g/dL RDW 13.7 (11.0-16.0) % Plt Count 163 (150-400) K/uL MPV 9.1 (6.0-10.0) fL Neut % (Auto) 75.2 H (45.0-70.0) % Lymph % (Auto) 12.8 L (20.0-40.0) % Perry % (Auto) 7.3 (3.0-10.0) % Eos % (Auto) 4.4 (1.0-5.0) % Baso % (Auto) 0.3 (0.0-0.5) % Neut # (Auto) 2.88 (2.00-7.50) K/uL Lymph # (Auto) 0.49 L (1.50-4.00) K/uL Perry # (Auto) 0.28 (0.20-0.80) K/uL Eos # (Auto) 0.17 (0.04-0.40) K/uL Baso # (Auto) 0.01 L (0.02-0.10) K/uL Sodium 145 (136-145) mmol/L Potassium 4.2 (3.5-5.1) mmol/L Chloride 108 H (98-107) mmol/L Carbon Dioxide 32.2 H (21.0-32.0) mmol/L Anion Gap 9.0 (5.0-15.0) mmol/L BUN 20 (8-26) mg/dL Creatinine 1.32 H (0.70-1.30) mg/dL Est Cr Clr Drug Dosing 37.80 mL/min Estimated GFR (MDRD) 52 L (>60) MLS/MIN BUN/Creatinine Ratio 15.2 (6-25) Glucose 120 H (74-100) mg/dL Calcium 8.1 L (8.5-10.1) mg/dL Med Orders - Current: Current Medications Acetaminophen (Tylenol Extra Strength) 1,000 mg PO Q6H PRN PRN Reason: Fever Last Admin: 11/12/19 11:34 Dose: 1,000 mg Documented by: Albuterol/Ipratropium (Duoneb 3.0-0.5 Mg/3 Ml) 3 ml NEB TID [facility] Last Admin: 11/13/19 07:23 Dose: 3 ml Documented by: Aspirin (Aspirin) 81 mg PO DAILY [facility] Last Admin: 11/13/19 07:23 Dose: 81 mg Documented by: Calamine/Phenol (Calmoseptine) 1 gm TOP QID PRN PRN Reason: barrier Ciprofloxacin (Ciprofloxacin Hcl) 250 mg PO BID [facility] Stop: 11/13/19 23:59 Last Admin: 11/13/19 07:24 Dose: 250 mg Documented by: Ferrous Sulfate (Ferrous Sulfate) 325 mg PO DAILY@0800 [facility] Last Admin: 11/13/19 07:24 Dose: 325 mg Documented by: Furosemide (Lasix) 40 mg PO DAILY [facility] Last Admin: 11/13/19 07:24 Dose: 40 mg Documented by: Magnesium Oxide (Magnesium Oxide) 400 mg PO BID [facility] Last Admin: 11/13/19 07:23 Dose: 400 mg Documented by: Melatonin (Melatonin) 12 mg PO BEDTIME PRN PRN Reason: sleep Last Admin: 11/12/19 19:45 Dose: 12 mg Documented by: Mometasone Furoate/Formoterol Fumar (Dulera 200-5 Mcg) 2 puff IH BID PRN PRN Reason: short of breath Potassium Chloride (Klor-Con 10) 10 meq PO BID [facility] Last Admin: 11/13/19 07:24 Dose: 10 meq Documented by: Sertraline HCl (Zoloft) 50 mg PO DAILY [facility] Last Admin: 11/13/19 07:24 Dose: 50 mg Documented by: Simvastatin (Zocor) 40 mg PO BEDTIME [facility] Last Admin: 11/12/19 22:55 Dose: Not Given Documented by: Tramadol HCl (Ultram) 25 mg PO Q8H PRN PRN Reason: Pain Last Admin: 11/13/19 09:32 Dose: 25 mg Documented by: Discontinued Medications Ciprofloxacin (Ciprofloxacin Hcl) 500 mg PO BID [facility] Stop: 11/14/19 20:01 Last Admin: 11/09/19 20:00 Dose: Not Given Documented by: Ciprofloxacin (Ciprofloxacin Hcl) 500 mg PO ONETIME ONE Stop: 11/09/19 20:01 Last Admin: 11/09/19 20:00 Dose: Not Given Documented by: Ceftriaxone Sodium 1 gm/ (Sodium Chloride) 50 mls @ 100 mls/hr IV Q12H [facility] Last Admin: 11/11/19 19:23 Dose: Not Given Documented by: Sodium Chloride (Normal Saline) 1,000 mls @ 75 mls/hr IV ASDIRECTED [facility] Last Admin: 11/08/19 17:28 Dose: 75 mls/hr Documented by: Sodium Chloride (Normal Saline) 1,000 mls @ 75 mls/hr IV ASDIRECTED [facility] Potassium Chloride/Sodium Chloride (Normal Saline With 40 Meq Kcl) 1,000 mls @ 100 mls/hr IV ASDIRECTED [facility] Last Admin: 11/10/19 09:50 Dose: 100 mls/hr Documented by: Lactated Ringer's (Ringers, Lactated) 1,000 mls @ 75 mls/hr IV ASDIRECTED [facility] Last Admin: 11/12/19 05:49 Dose: 75 mls/hr Documented by: Mometasone Furoate/Formoterol Fumar (Dulera 200-5 Mcg) 2 puff IH BID PRN PRN Reason: short of breath Mometasone Furoate/Formoterol Fumar (Dulera 200-5 Mcg) 0 puff IH BID PRN PRN Reason: short of breath Simvastatin (Zocor) 40 mg PO BEDTIME JACOB Tramadol HCl (Ultram) 25 mg PO Q8H PRN PRN Reason: Pain Tramadol HCl (Ultram) 25 mg PO Q8H PRN PRN Reason: Pain - Exam Quality Assessment: Supplemental Oxygen General: Alert, Cooperative, No Acute Distress Lungs: Clear to Auscultation Cardiovascular: Regular Rate, Regular Rhythm GI/Abdominal Exam: Soft, Non-Tender Psy/Mental Status: Alert, Normal Mood Sepsis Event Note - Evaluation Sepsis Screening Result: No Definite Risk - Focused Exam Vital Signs: Vital Signs Temp Pulse Resp BP Pulse Ox 11/13/19 08:00 67 11/13/19 07:36 97.9 F 67 18 118/68 97 11/13/19 05:50 96.8 F L 70 16 110/64 99 Date Exam was Performed: 11/14/19 Time Exam was Performed: 08:36 - Problem List Review Problem List Initiated/Reviewed/Updated: Yes - My Orders Last 24 Hours: My Active Orders 11/12/19 15:31 Bladder Scan [RC] ASDIRECTED 11/12/19 15:32 Intake and Output [RC] 06,18 11/12/19 18:51 Urinary Catheter Assessment [RC] ASDIRECTED 11/12/19 19:00 Insert Ghosh Catheter [Insert Urinary Catheter] [OM.PC] Q24H - Assessment Assessment:: assessment: 1.hypokalemia; resolved as of this AM with K of 3.5 (low normal). will start PO Kdur BID 2.hypomagnesemia: resolved as of this AM, 1.8 currently. started on PO mag Ox 3.Complicated UTI: PO cipro. urine color and odor improving. 4. BERTHA: creat improved from obs from 1.89;1.67;1.43 today, respectively. GFR improvements from 07 November 34;39;47, respectively. BUN improvements from 30;27;25, respectively. plan: continue PT and OT as well as IV fluids through the weekend in attempt to reconcile this BERTHA as pt's PO fluid intake is less than adequate, his IV fluids can run continuously while he sleeps. during this time nursing will work with pt on his self cares re: management of his incontinence with adult briefs to also better his chance at returning to assisted living on dispo. 11/12/2019 1 Hypokalemia improved Will continue to monitor 2 Hypomagnesemia Resolved . Continue Po magnesium 3 Complicated UTI continue cipro as above 4 BERTHA vs CKD Patient with mild elevation of creatinine . Will monitor with repeat Basic profile in am. Will monitor po intake and outputs. Will change to hep lock and monitor. May restart IV tomorrow if BUN /CR rise tomorrow . Patient to have bladder scan by RN. Patient to continue PT 11/12 Hypokalemia resolved Continue po potassium Hypomagnessmia resolved Continue po magnesium Complicated UTI continue cipro Creatinine mild improvement off of IV fluids Yesterday patient had Ghosh placed to assess for residual urine. 75 ml obtained. NO evidence of obstructive uropathy Patient to have P{T and be considered fro prison placement
[2019-11-13] MEDS: Melatonin 3 MG Tab PO PRN (19:58)
[2019-11-13] MEDS ORDERED: Simvastatin 40 MG Tab PO SCH (20:00)
[2019-11-14] MEDS: Aspirin 81 MG Tab.Chew PO SCH (07:22)
[2019-11-14] MEDS: Sertraline 50 MG Tab PO SCH (07:22)
[2019-11-14] MEDS: Albuterol/Ipratropium 3.0-0.5 MG/3 ML Neb Soln NEB SCH (07:22)
[2019-11-14] MEDS: Furosemide 40 MG Tab PO SCH (07:22)
[2019-11-14] MEDS: Magnesium Oxide 400 MG Tab PO SCH (07:22)
[2019-11-14] MEDS: Ferrous Sulfate 325 MG Tab PO SCH (07:22)
[2019-11-14 07:49] VITALS: BP 129/82; PULSE 75
[2019-11-14] MEDS: Potassium Chloride 10 MEQ Tab.ER PO SCH (08:09)
[2019-11-14] MEDS ORDERED: Acetaminophen 325 MG Tab PO PRN (10:05)
[2019-11-14] MEDS ORDERED: Albuterol/Ipratropium 3.0-0.5 MG/3 ML Neb Soln NEB PRN (10:17)
[2019-11-14] MEDS ORDERED: Formoterol/Mometasone 200-5 MCG 8.8 GM Inhaler IH PRN (10:17)
[2019-11-14] MEDS ORDERED: Melatonin 3 MG Tab PO PRN (10:17)
--- NOTE | 2019-11-14 11:41 | PCM.DCSUM1 ---
Discharge Summary - Hospital Course Brief History: Fuad is an 84-year-old gentleman admitted from the emergency department initially observation with symptoms of confusion, weakness coincide with his UTI and acute kidney injury versus chronic kidney disease. Patient was initially treated with Rocephin IV and then the next day upon evaluation was found to have severe hypokalemia which was a considerable change from the previous days potassium, hypokalemia of 2.9. He was admitted inpatient for acute care and correcting his electrolyte abnormalities of hypokalemia and hypomagnesemia over the next several days and ensure improvements maintained. During his inpatient course his renal function improved markedly, almost returning to normal kidney function levels but after IV fluids were stopped they declined, but not to patient's baseline renal function. Throughout the weekend patient had made some improvements with activities of daily living changing his own incontinent underwear, but not to the level of safety for staying at an independent living facility. concerns stemming with his potential memory d ifficulties, COPD, generalized deconditioning. Patient agreeable to swing bed status for ADL training regarding incontinent cares several times a day while at assisted living for safety and cleanliness. Physical therapy for maintenance of strength and some balance training. - Discharge Data Discharge Date: 11/14/19 Discharge Disposition: DC/Tfer W/I Hosp To Swing Condition: Good - Referral to Home Health Primary Care Physician: PCP None - Discharge Diagnosis/Problem(s) (1) Dehydration SNOMED Code(s): 83812183 ICD Code: E86.0 - DEHYDRATION Status: Acute Priority: High Onset Date: 11/08/19 (2) Complicated UTI (urinary tract infection) SNOMED Code(s): 83462749 ICD Code: N39.0 - URINARY TRACT INFECTION, SITE NOT SPECIFIED Status: Acute Onset Date: 11/08/19 (3) Hypokalemia SNOMED Code(s): 14038931 ICD Code: E87.6 - HYPOKALEMIA Status: Resolved Onset Date: ~11/10/19 (4) Hypomagnesemia SNOMED Code(s): 543395100 ICD Code: E83.42 - HYPOMAGNESEMIA Status: Resolved Onset Date: ~11/10/19 (5) BERTHA (acute kidney injury) SNOMED Code(s): 41225725, 03716870 ICD Code: N17.9 - ACUTE KIDNEY FAILURE, UNSPECIFIED Status: Acute Onset Date: ~11/08/19 (6) CKD (chronic kidney disease) stage 2, GFR 60-89 ml/min SNOMED Code(s): 214894456 ICD Code: N18.2 - CHRONIC KIDNEY DISEASE, STAGE 2 (MILD) Status: Acute - Patient Summary/Data Consults: Consultations 11/10/19 11:41 OT Evaluation and Treatment [CONS] Routine Please Evaluate and Treat. OT Reason for Consult: ADL's This query below is only for informational purposes and is not editable. Admission Diagnosis/Problem: Hypokalemia PT Evaluation and Treatment [CONS] Routine Please Evaluate and Treat. PT Reason for Consult: weak This query below is only for informational purposes and is not editable. Admission Diagnosis/Problem: Hypokalemia - Patient Instructions Diet: Heart Healthy Diet - Discharge Plan *PRESCRIPTION DRUG MONITORING PROGRAM REVIEWED*: Not Applicable *COPY OF PRESCRIPTION DRUG MONITORING REPORT IN PATIENT DESEAN: Not Applicable Home Medications: Home Meds Simvastatin 40 mg PO BEDTIME 08/27/14 [History] Sertraline HCl 50 mg PO DAILY 02/19/15 [History] Albuterol/Ipratropium [DuoNeb 3.0-0.5 MG/3 ML] 3 ml NEB QID PRN 03/28/16 [History] Sennosides/Docusate Sodium [Senna-Docusate Sodium] 1 each PO BID PRN 10/29/17 [History] Ferrous Sulfate [Iron] 1 cap PO DAILY 11/14/18 [History] Furosemide [Lasix] 40 mg PO DAILY 11/14/18 [History] Enzalutamide [Xtandi] 4 cap PO DAILY 04/18/19 [History] Leuprolide [Lupron Depot] 3.75 mg IM ASDIRECTED 04/18/19 [History] Aspirin [Lo-Dose Aspirin EC] 81 mg PO DAILY 11/09/19 [History] Melatonin 12 mg PO BEDTIME PRN 11/09/19 [History] Mometasone/Formoterol [Dulera 200 MCG/5 MCG] 2 puff PO BID PRN 11/09/19 [History] Multivit-Min/FA/Lycopene/Lut [Senior Tabs] 1 tab PO DAILY 11/09/19 [History] traMADol [Ultram] 25 mg PO Q8HR 11/09/19 [History] Forms: ED Department Discharge Referrals: PCP,None [Primary Care Provider] - - Discharge Summary/Plan Comment DC Time >30 min.: Yes - General Info Date of Service: 11/14/19 Admission Dx/Problem (Free Text: complicated UTI BERTHA hypokalemia hypomagnesemia Subjective Update: Current difficulties with incontinence, patient wakes up needing total bed change at times after laying down to rest, patient states he is unaware of incontinent episodes when they occur but has been managing this at home unsuccessfully. Patient states his fevers and body aches have improved markedly, and weakness has resolved since being admitted. Functional Status: Reports: Pain Controlled - Review of Systems General: Reports: No Symptoms Gastrointestinal: Reports: Other (Incontinence) Genitourinary: Reports: Incontinence - Patient Data Vitals - Most Recent: Last Vital Signs Temp 98.4 F 11/14/19 07:49 Pulse 75 11/14/19 07:49 Resp 20 11/14/19 07:49 BP 129/82 11/14/19 07:49 Pulse Ox 99 11/14/19 10:06 Weight - Most Recent: 144 lb I&O - Last 24 hours: Intake & Output 11/13/19 11/14/19 11/14/19 22:59 06:59 14:59 Intake Total 1400 100 Balance 1400 100 Lab Results - Last 24 hrs: Laboratory Results - last 24 hr 11/14/19 11/14/19 11/14/19 Range/Units 07:10 07:10 07:10 WBC 3.5 L (4.0-11.0) K/uL RBC 3.04 L (4.50-6.50) M/uL Hgb 8.1 L (13.0-18.0) g/dL Hct 26.9 L (40.0-54.0) % MCV 89 (76-96) fL MCH 26.6 L (27.0-32.0) pg MCHC 30.1 L (31.0-35.0) g/dL RDW 13.6 (11.0-16.0) % Plt Count 183 (150-400) K/uL MPV 8.9 (6.0-10.0) fL Neut % (Auto) 67.6 (45.0-70.0) % Lymph % (Auto) 14.9 L (20.0-40.0) % Mcmullen % (Auto) 10.9 H (3.0-10.0) % Eos % (Auto) 6.3 H (1.0-5.0) % Baso % (Auto) 0.3 (0.0-0.5) % Neut # (Auto) 2.35 (2.00-7.50) K/uL Lymph # (Auto) 0.52 L (1.50-4.00) K/uL Mcmullen # (Auto) 0.38 (0.20-0.80) K/uL Eos # (Auto) 0.22 (0.04-0.40) K/uL Baso # (Auto) 0.01 L (0.02-0.10) K/uL Sodium 144 (136-145) mmol/L Potassium 4.4 (3.5-5.1) mmol/L Chloride 104 (98-107) mmol/L Carbon Dioxide 32.2 H (21.0-32.0) mmol/L Anion Gap 12.2 (5.0-15.0) mmol/L BUN 19 (8-26) mg/dL Creatinine 1.42 H (0.70-1.30) mg/dL Est Cr Clr Drug Dosing 35.14 mL/min Estimated GFR (MDRD) 47 L (>60) MLS/MIN BUN/Creatinine Ratio 13.4 (6-25) Glucose 86 (74-100) mg/dL Calcium 8.0 L (8.5-10.1) mg/dL Magnesium 2.1 (1.8-2.4) mg/dL Med Orders - Current: Current Medications Acetaminophen (Tylenol Extra Strength) 1,000 mg PO Q6H PRN PRN Reason: Fever Last Admin: 11/12/19 11:34 Dose: 1,000 mg Documented by: Acetaminophen (Tylenol) 650 mg PO Q4H PRN PRN Reason: Pain (Mild 1-3)/fever Albuterol/Ipratropium (Duoneb 3.0-0.5 Mg/3 Ml) 3 ml NEB TID JACOB Last Admin: 11/14/19 07:22 Dose: 3 ml Documented by: Albuterol/Ipratropium (Duoneb 3.0-0.5 Mg/3 Ml) 3 ml NEB QID PRN PRN Reason: Shortness of Breath Aspirin (Aspirin) 81 mg PO DAILY [facility] Last Admin: 11/14/19 07:22 Dose: 81 mg Documented by: Calamine/Phenol (Calmoseptine) 1 gm TOP QID PRN PRN Reason: barrier Ferrous Sulfate (Ferrous Sulfate) 325 mg PO DAILY@0800 [facility] Last Admin: 11/14/19 07:22 Dose: 325 mg Documented by: Furosemide (Lasix) 40 mg PO DAILY [facility] Last Admin: 11/14/19 07:22 Dose: 40 mg Documented by: Magnesium Oxide (Magnesium Oxide) 400 mg PO BID [facility] Last Admin: 11/14/19 07:22 Dose: 400 mg Documented by: Melatonin (Melatonin) 12 mg PO BEDTIME PRN PRN Reason: sleep Last Admin: 11/13/19 19:58 Dose: 12 mg Documented by: Mometasone Furoate/Formoterol Fumar (Dulera 200-5 Mcg) 2 puff IH BID PRN PRN Reason: Shortness of Breath Multivitamins/Minerals (Thera M Plus) 1 tab PO DAILY [facility] Potassium Chloride (Klor-Con 10) 10 meq PO BID [facility] Last Admin: 11/14/19 08:09 Dose: 10 meq Documented by: Sertraline HCl (Zoloft) 50 mg PO DAILY [facility] Last Admin: 11/14/19 07:22 Dose: 50 mg Documented by: Simvastatin (Zocor) 40 mg PO BEDTIME [facility] Last Admin: 11/13/19 19:58 Dose: 40 mg Documented by: Tramadol HCl (Ultram) 25 mg PO Q8H PRN PRN Reason: Pain Last Admin: 11/13/19 19:56 Dose: 25 mg Documented by: Discontinued Medications Ciprofloxacin (Ciprofloxacin Hcl) 500 mg PO BID [facility] Stop: 11/14/19 20:01 Last Admin: 11/09/19 20:00 Dose: Not Given Documented by: Ciprofloxacin (Ciprofloxacin Hcl) 500 mg PO ONETIME ONE Stop: 11/09/19 20:01 Last Admin: 11/09/19 20:00 Dose: Not Given Documented by: Ciprofloxacin (Ciprofloxacin Hcl) 250 mg PO BID [facility] Stop: 11/13/19 23:59 Last Admin: 11/13/19 19:57 Dose: 250 mg Documented by: Ceftriaxone Sodium 1 gm/ (Sodium Chloride) 50 mls @ 100 mls/hr IV Q12H JACOB Last Admin: 11/11/19 19:23 Dose: Not Given Documented by: Sodium Chloride (Normal Saline) 1,000 mls @ 75 mls/hr IV ASDIRECTED JACOB Last Admin: 11/08/19 17:28 Dose: 75 mls/hr Documented by: Sodium Chloride (Normal Saline) 1,000 mls @ 75 mls/hr IV ASDIRECTED JACOB Potassium Chloride/Sodium Chloride (Normal Saline With 40 Meq Kcl) 1,000 mls @ 100 mls/hr IV ASDIRECTED JACOB Last Admin: 11/10/19 09:50 Dose: 100 mls/hr Documented by: Lactated Ringer's (Ringers, Lactated) 1,000 mls @ 75 mls/hr IV ASDIRECTED JACOB Last Admin: 11/12/19 05:49 Dose: 75 mls/hr Documented by: Mometasone Furoate/Formoterol Fumar (Dulera 200-5 Mcg) 2 puff IH BID PRN PRN Reason: short of breath Mometasone Furoate/Formoterol Fumar (Dulera 200-5 Mcg) 0 puff IH BID PRN PRN Reason: short of breath Simvastatin (Zocor) 40 mg PO BEDTIME JACOB Simvastatin (Zocor) 40 mg PO BEDTIME [facility]AC[facility] Last Admin: 11/12/19 22:55 Dose: Not Given Documented by: Tramadol HCl (Ultram) 25 mg PO Q8H PRN PRN Reason: Pain Tramadol HCl (Ultram) 25 mg PO Q8H PRN PRN Reason: Pain - Exam Quality Assessment: Reports: Supplemental Oxygen General: Reports: Alert, Cooperative, No Acute Distress HEENT: Reports: Pupils Equal, Pupils Reactive, EOMI Lungs: Reports: Clear to Auscultation, Normal Respiratory Effort Cardiovascular: Reports: Regular Rate, Regular Rhythm, No Murmurs GI/Abdominal Exam: Normal Bowel Sounds, Soft, Non-Tender Rectal (Males) Exam: Decreased Rectal Tone Extremities: Normal Inspection, Normal Range of Motion, Non-Tender, No Pedal Edema Skin: Reports: Warm, Dry, Intact Neurological: Reports: No New Focal Deficit Psy/Mental Status: Reports: Alert, Normal Affect
[2019-11-14] MEDS ORDERED: traMADol 50 MG Tab PO SCH (14:00)
[2019-11-14] MEDS ORDERED: Simvastatin 40 MG Tab PO SCH (20:00)
[2019-11-15] MEDS ORDERED: Furosemide 20 MG Tab PO SCH (08:00)
[2019-11-15] MEDS ORDERED: Aspirin 81 MG Tab.EC PO SCH (08:00)
[2019-11-15] MEDS ORDERED: MULTIVIT MIN PO SCH (08:00)
[2019-11-15] MEDS ORDERED: [UNRECOGNIZED DRUG - OTHER] PO SCH (08:00)
[2019-11-15] MEDS ORDERED: Sertraline 50 MG Tab PO SCH (08:00)
[2019-11-15] MEDS ORDERED: LYCOPENE PO SCH (08:00)
[2019-11-15] MEDS ORDERED: Multivitamins with Iron/Calcium/Folic Acid/Minerals Tab PO SCH (08:00)
[2019-11-15] MEDS ORDERED: LUT PO SCH (08:00)
[2019-11-15] MEDS ORDERED: Ferrous Sulfate 325 MG Tab PO SCH (08:00)
== END 2019-11-14 11:38 | disposition swing bed (61) | DRG 683 ==
LOC: LB.ED 14:36 → INTOOBSV 16:26 → LB.MS 16:26 → OBSVTOIN 11-10 10:13
PROVIDERS: ADMIT Registered Nurse; ATTEND Registered Nurse
DX: N17.9 Acute kidney failure, unspecified (principal); N39.0 Urinary tract infection, site not specified; I13.0 Hypertensive heart and chronic kidney disease with heart failure and stage 1 through stage 4 chronic kidney disease, or unspecified chronic kidney disease; E86.0 Dehydration; E87.6 Hypokalemia; R53.1 Weakness; E83.42 Hypomagnesemia; R15.9 Full incontinence of feces; N18.2 Chronic kidney disease, stage 2 (mild); H91.93 Unspecified hearing loss, bilateral; R32 Unspecified urinary incontinence; E78.00 Pure hypercholesterolemia, unspecified; I11.0 Hypertensive heart disease with heart failure; H54.7 Unspecified visual loss; H91.90 Unspecified hearing loss, unspecified ear; I50.9 Heart failure, unspecified; I25.10 Atherosclerotic heart disease of native coronary artery without angina pectoris; J44.9 Chronic obstructive pulmonary disease, unspecified; K21.9 Gastro-esophageal reflux disease without esophagitis; I69.354 Hemiplegia and hemiparesis following cerebral infarction affecting left non-dominant side; C67.9 Malignant neoplasm of bladder, unspecified; M19.90 Unspecified osteoarthritis, unspecified site; F41.9 Anxiety disorder, unspecified; Z95.0 Presence of cardiac pacemaker; F32.9 Major depressive disorder, single episode, unspecified; Z79.82 Long term (current) use of aspirin; Z79.899 Other long term (current) drug therapy; Z88.8 Allergy status to other drugs, medicaments and biological substances; Z85.46 Personal history of malignant neoplasm of prostate; Z92.3 Personal history of irradiation; W19.XXXA Unspecified fall, initial encounter; Z97.4 Presence of external hearing-aid; I25.2 Old myocardial infarction; Z95.5 Presence of coronary angioplasty implant and graft; Z85.51 Personal history of malignant neoplasm of bladder; Z79.01 Long term (current) use of anticoagulants; Z98.49 Cataract extraction status, unspecified eye; Z98.890 Other specified postprocedural states
CPT/HCPCS: 36415; 51701; 71046; 80048; 80053; 81001; 83735; 84132; 85025; 87086; 87088; 87186; 94640; 97110-GP; 97161-GP; 97165-GO; 97530-GO; 97530-GP; 97535-GO; 99285-25; A9270-GY; J0696; J3480; J7030; J7050; J7120; J7620-GY

== ENCOUNTER 2019-11-14 10:30 | Inpatient (IN) | payer MEDICARE, OTHER ==
--- NOTE | 2019-11-14 11:39 | PCM.HP.2 ---
H&P History of Present Illness - General Date of Service: 11/14/19 Admit Problem/Dx: Admission Diagnosis/Problem Admission Diagnosis/Problem Incontinence of feces fecal incontinence Source of Information: Patient History Limitations: Reports: No Limitations - History of Present Illness Initial Comments - Free Text/Narative: Patient admitted swing bed status as he has been inappropriately managing his fecal and urinary incontinence at home, likely resulting into the complicated UTI he had last week. Patient had generalized deconditioning which had improved after antibiotics and reaching stabilization in his electrolytes. No improvements in his bowel and bladder incontinence during his inpatient stay, but this is the goal for swing bed to return to assisted living instead of closer management in a skilled nursing with continuous cares by nursing staff. Patient denies fever, chills, nausea, vomiting, dizziness or lightheadedness. - Related Data Allergies/Adverse Reactions: Allergies Allergy/AdvReac Type Severity Reaction Status Date / Time quinine [Quinine] Allergy Rash Verified 11/08/19 15:18 monohydrochloride Allergy Rash Uncoded 11/08/19 15:18 Home Medications: Home Meds Simvastatin 40 mg PO BEDTIME 08/27/14 [History] Sertraline HCl 50 mg PO DAILY 02/19/15 [History] Albuterol/Ipratropium [DuoNeb 3.0-0.5 MG/3 ML] 3 ml NEB QID PRN 03/28/16 [History] Ferrous Sulfate [Iron] 1 cap PO DAILY 11/14/18 [History] Furosemide [Lasix] 40 mg PO DAILY 11/14/18 [History] Aspirin [Lo-Dose Aspirin EC] 81 mg PO DAILY 11/09/19 [History] Melatonin 12 mg PO BEDTIME PRN 11/09/19 [History] Mometasone/Formoterol [Dulera 200 MCG/5 MCG] 2 puff PO BID PRN 11/09/19 [History] traMADol [Ultram] 25 mg PO Q8HR 11/09/19 [History] Acetaminophen [Tylenol] 2 tab PO Q4H PRN 11/14/19 [History] Magnesium Oxide 400 mg PO DAILY 11/14/19 [History] Potassium Chloride [Klor-Con 10] 1 tab PO BID 11/14/19 [History] Past Medical History HEENT History: Reports: Hard of Hearing, Impaired Vision, Other (See Below) Other HEENT History: Wears hearing aids Cardiovascular History: Reports: CAD, Heart Failure, High Cholesterol, Hypertension, IA, SOB on Exertion, Stents Respiratory History: Reports: COPD Gastrointestinal History: Reports: Bowel Obstruction, GERD Genitourinary History: Reports: Other (See Below) Other Genitourinary History: Bladder Ca, Daily radiation Musculoskeletal History: Reports: Arthritis Neurological History: Reports: CVA 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 Psychiatric History: Reports: Anxiety, Depression Hematologic History: Reports: Anticoagulation Therapy Oncologic (Cancer) History: Reports: Bladder, Prostate 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 - Infectious Disease History Infectious Disease History: Reports: Chicken Pox - Past Surgical History HEENT Surgical History: Reports: Cataract Surgery Cardiovascular Surgical History: Reports: Coronary Artery Stent, Pacer GI Surgical History: Reports: Colonoscopy, Hernia, Inguinal, Hernia Repair/Other Dermatological Surgical History: Reports: None Social & Family History - Family History Family Medical History: Noncontributory - Caffeine Use Caffeine Use: Reports: Coffee Other Caffeine Use: 2-3 cups/day Caffeine Use Comment: 3 cups coffee a day H&P Review of Systems - Review of Systems: Review Of Systems: Comprehensive ROS is negative, except as noted in HPI. Exam - Exam Exam: See Below - Exam Quality Assessment: Supplemental Oxygen General: Alert, Cooperative HEENT: PERRLA, Conjunctiva Clear, EOMI, Hearing Intact (Hard of hearing) Neck: Trachea Midline Lungs: Clear to Auscultation, Normal Respiratory Effort Cardiovascular: Regular Rate, Regular Rhythm, Normal S1, Normal S2 GI/Abdominal Exam: Normal Bowel Sounds, Soft, Non-Tender Back Exam: Normal Inspection, Full Range of Motion Extremities: Normal Inspection, Normal Range of Motion, Non-Tender, No Pedal Edema Peripheral Pulses: 2+: Radial (L), Radial (R), Posterior Tibial (L), Posterior Tibial (R) Skin: Warm, Dry, Intact Neurological: Cranial Nerves Intact Neuro Extensive - Mental Status: Alert, Normal Mood/Affect Neuro Extensive - Motor, Sensory, Reflexes: CN II-XII Intact Psychiatric: Alert, Normal Affect, Normal Mood Sepsis Event Note - Focused Exam Date Exam was Performed: 11/14/19 Time Exam was Performed: 13:50 - Problem List (1) Incontinence of urine SNOMED Code(s): 916744197 ICD Code: R32 - UNSPECIFIED URINARY INCONTINENCE Status: Acute Current Visit: Yes (2) Incontinence of bowel SNOMED Code(s): 51023809 ICD Code: R15.9 - FULL INCONTINENCE OF FECES Status: Acute Current Visit: Yes (3) CKD (chronic kidney disease) stage 2, GFR 60-89 ml/min SNOMED Code(s): 287758346 ICD Code: N18.2 - CHRONIC KIDNEY DISEASE, STAGE 2 (MILD) Status: Acute Current Visit: No (4) Complicated UTI (urinary tract infection) SNOMED Code(s): 26523571 ICD Code: N39.0 - URINARY TRACT INFECTION, SITE NOT SPECIFIED Status: Acute Current Visit: No Onset Date: 11/08/19 (5) Dehydration SNOMED Code(s): 15398934 ICD Code: E86.0 - DEHYDRATION Status: Acute Priority: High Current Visit: No Onset Date: 11/08/19 Problem List Initiated/Reviewed/Updated: Yes Orders Last 24hrs: Active Orders 24 hr Category Date Time Status Patient Status [ADT] Routine ADT 11/14/19 11:18 Ordered Oxygen Therapy [RC] PRN Care 11/14/19 11:18 Ordered Oxygen Therapy [RC] PRN Care 11/14/19 11:21 Ordered VTE/DVT Education [RC] Per Unit Routine Care 11/14/19 11:18 Ordered VTE/DVT Education [RC] Per Unit Routine Care 11/14/19 11:21 Ordered Vital Signs [RC] PER UNIT ROUTINE Care 11/14/19 11:18 Ordered Vital Signs [RC] PER UNIT ROUTINE Care 11/14/19 11:21 Ordered OT Evaluation and Treatment [CONS] Routine Cons 11/14/19 11:21 Ordered PT Evaluation and Treatment [CONS] Routine Cons 11/14/19 11:21 Ordered Heart Healthy Diet [DIET] Diet 11/14/19 Lunch Ordered Resuscitation Status Routine Resus Stat 11/14/19 11:18 Ordered Assessment/Plan Comment:: Patient admitted swing bed for ADL training to manage incontinence in a more safe and clean manner than patient has historically been managing. We will continue physical therapy for maintenance of strength and balance while patient improves on his self-care with OT. - Mortality Measure Prognosis:: Good
[2019-11-14] MEDS ORDERED: Tuberculin, PPD 5 Units/0.1 ML 1 ML MDV IDERM ONE (13:30)
[2019-11-14] MEDS ORDERED: Acetaminophen 500 MG Tab PO PRN (13:42)
[2019-11-14] MEDS ORDERED: Albuterol/Ipratropium 3.0-0.5 MG/3 ML Neb Soln NEB PRN (13:42)
[2019-11-14] MEDS ORDERED: Ferrous Sulfate 325 MG Tab PO SCH (17:00)
[2019-11-14] MEDS: Sertraline 50 MG Tab PO SCH (19:57)
[2019-11-14] MEDS: Formoterol/Mometasone 200-5 MCG 8.8 GM Inhaler IH SCH (19:57)
[2019-11-14] MEDS: Potassium Chloride 10 MEQ Tab.ER PO SCH (19:57)
[2019-11-14] MEDS: Magnesium Oxide 400 MG Tab PO SCH (19:58)
[2019-11-14] MEDS: Ciprofloxacin 250 MG Tab PO SCH (19:58)
[2019-11-14] MEDS: Melatonin 3 MG Tab PO SCH (19:58)
[2019-11-14] MEDS: Simvastatin 40 MG Tab PO SCH (19:58)
[2019-11-14] MEDS ORDERED: Melatonin 3 MG Tab PO SCH (20:00)
[2019-11-14] MEDS: Menthol/Zinc Oxide Ointment 113 GM Tube TOP SCH ×2 (20:01→20:11)
[2019-11-15] MEDS: traMADol 50 MG Tab PO PRN (03:52)
[2019-11-15] MEDS: Multivitamins with Iron/Calcium/Folic Acid/Minerals Tab PO SCH (08:03)
[2019-11-15] MEDS: Aspirin 81 MG Tab.Chew PO SCH (08:03)
[2019-11-15] MEDS: Ciprofloxacin 250 MG Tab PO SCH ×2 (08:03→20:35)
[2019-11-15] MEDS: Potassium Chloride 10 MEQ Tab.ER PO SCH ×2 (08:04→20:35)
[2019-11-15] MEDS: Ferrous Sulfate 325 MG Tab PO SCH (08:04)
[2019-11-15] MEDS: Furosemide 40 MG Tab PO SCH (08:04)
[2019-11-15] MEDS: Magnesium Oxide 400 MG Tab PO SCH ×2 (08:04→20:34)
[2019-11-15] MEDS: Formoterol/Mometasone 200-5 MCG 8.8 GM Inhaler IH SCH ×2 (08:07→20:37)
[2019-11-15] MEDS: Menthol/Zinc Oxide Ointment 113 GM Tube TOP SCH ×2 (09:29→20:34)
[2019-11-15] MEDS: Melatonin 3 MG Tab PO SCH (20:34)
[2019-11-15] MEDS: Simvastatin 40 MG Tab PO SCH (20:35)
[2019-11-15] MEDS: Sertraline 50 MG Tab PO SCH (20:37)
[2019-11-16] MEDS: Formoterol/Mometasone 200-5 MCG 8.8 GM Inhaler IH SCH ×2 (07:39→20:29)
[2019-11-16] MEDS: Ciprofloxacin 250 MG Tab PO SCH ×2 (07:39→20:29)
[2019-11-16] MEDS: Multivitamins with Iron/Calcium/Folic Acid/Minerals Tab PO SCH (07:39)
[2019-11-16] MEDS: Aspirin 81 MG Tab.Chew PO SCH (07:39)
[2019-11-16] MEDS: Ferrous Sulfate 325 MG Tab PO SCH (07:39)
[2019-11-16] MEDS: Furosemide 40 MG Tab PO SCH (07:40)
[2019-11-16] MEDS: Potassium Chloride 10 MEQ Tab.ER PO SCH ×2 (07:40→20:26)
[2019-11-16] MEDS: Magnesium Oxide 400 MG Tab PO SCH ×2 (07:40→20:26)
[2019-11-16] MEDS ORDERED: Acetaminophen 325 MG Tab ONE (07:42)
[2019-11-16] MEDS: Menthol/Zinc Oxide Ointment 113 GM Tube TOP SCH ×2 (07:43→20:28)
[2019-11-16] MEDS ORDERED: Acetaminophen 325 MG Tab PO SCH ×2 (11:00)
[2019-11-16] MEDS: Sertraline 50 MG Tab PO SCH (20:27)
[2019-11-16] MEDS: Melatonin 3 MG Tab PO SCH (20:27)
[2019-11-16] MEDS: Simvastatin 40 MG Tab PO SCH (20:28)
[2019-11-16] MEDS: traMADol 50 MG Tab PO PRN (22:50)
[2019-11-17] MEDS: Magnesium Oxide 400 MG Tab PO SCH ×2 (09:05→19:47)
[2019-11-17] MEDS: Furosemide 40 MG Tab PO SCH (09:05)
[2019-11-17] MEDS: Potassium Chloride 10 MEQ Tab.ER PO SCH ×2 (09:05→19:47)
[2019-11-17] MEDS: Aspirin 81 MG Tab.Chew PO SCH (09:06)
[2019-11-17] MEDS: Ciprofloxacin 250 MG Tab PO SCH (09:06)
[2019-11-17] MEDS: Multivitamins with Iron/Calcium/Folic Acid/Minerals Tab PO SCH (09:06)
[2019-11-17] MEDS: Ferrous Sulfate 325 MG Tab PO SCH (09:06)
[2019-11-17] MEDS: Formoterol/Mometasone 200-5 MCG 8.8 GM Inhaler IH SCH ×2 (09:07→19:46)
[2019-11-17] MEDS: Menthol/Zinc Oxide Ointment 113 GM Tube TOP SCH ×2 (09:07→19:46)
--- NOTE | 2019-11-17 09:12 | PCM.PN ---
- General Info Date of Service: 11/17/19 Subjective Update: Patient alert and oriented to person, place and month and year. He cannot recall the date. His hearing does appear to be off and acknowledges despite not answering questions. There appears to be confusion from the baseline. He remains weak but appetite is improving. - Review of Systems General: Reports: Weakness HEENT: Reports: No Symptoms Pulmonary: Reports: No Symptoms Cardiovascular: Reports: No Symptoms Gastrointestinal: Reports: No Symptoms Genitourinary: Reports: Incontinence Musculoskeletal: Reports: No Symptoms Skin: Reports: No Symptoms Neurological: Reports: Confusion, Weakness Psychiatric: Reports: Confusion - Patient Data Vitals - Most Recent: Last Vital Signs Temp 36.6 C 11/16/19 20:00 Pulse 80 11/16/19 20:00 Resp 18 11/16/19 20:00 BP 113/74 11/16/19 20:00 Pulse Ox 96 11/16/19 20:00 Weight - Most Recent: 58.786 kg Med Orders - Current: Current Medications Acetaminophen (Tylenol) 650 mg PO Q12H PRN PRN Reason: Pain Albuterol/Ipratropium (Duoneb 3.0-0.5 Mg/3 Ml) 3 ml NEB Q4H PRN PRN Reason: Dyspnea Aspirin (Aspirin) 81 mg PO DAILY [facility] Last Admin: 11/16/19 07:39 Dose: 81 mg Documented by: Calamine/Phenol (Calmoseptine) 1 gm TOP BID [facility] Last Admin: 11/16/19 20:28 Dose: 1 applic Documented by: Ferrous Sulfate (Ferrous Sulfate) 325 mg PO DAILY [facility] Last Admin: 11/16/19 07:39 Dose: 325 mg Documented by: Furosemide (Lasix) 40 mg PO DAILY [facility] Last Admin: 11/16/19 07:40 Dose: 40 mg Documented by: Magnesium Oxide (Magnesium Oxide) 400 mg PO BID [facility] Last Admin: 11/16/19 20:26 Dose: 400 mg Documented by: Melatonin (Melatonin) 12 mg PO BEDTIME [facility] Last Admin: 11/16/19 20:27 Dose: 12 mg Documented by: Mometasone Furoate/Formoterol Fumar (Dulera 200-5 Mcg) 2 puff IH BID [facility] Last Admin: 11/16/19 20:29 Dose: 2 puff Documented by: Multivitamins/Minerals (Thera M Plus) 1 tab PO DAILY [facility] Last Admin: 11/16/19 07:39 Dose: 1 tab Documented by: Potassium Chloride (Klor-Con 10) 10 meq PO BID [facility] Last Admin: 11/16/19 20:26 Dose: 10 meq Documented by: Sertraline HCl (Zoloft) 50 mg PO BEDTIME [facility] Last Admin: 11/16/19 20:27 Dose: 50 mg Documented by: Simvastatin (Zocor) 40 mg PO BEDTIME [facility] Last Admin: 11/16/19 20:28 Dose: 40 mg Documented by: Tramadol HCl (Ultram) 25 mg PO Q8H PRN PRN Reason: Pain Last Admin: 11/16/19 22:50 Dose: 25 mg Documented by: Discontinued Medications Acetaminophen (Tylenol Extra Strength) 650 mg PO Q12H PRN PRN Reason: Fever Last Admin: 11/16/19 07:43 Dose: 650 mg Documented by: Acetaminophen (Tylenol) Confirm Administered Dose 650 mg .ROUTE .STK-MED ONE Stop: 11/16/19 07:43 Last Admin: 11/16/19 09:40 Dose: Not Given Documented by: Acetaminophen (Tylenol) 650 mg PO Q6H [facility] Acetaminophen (Tylenol) 650 mg PO Q12H [facility] Ciprofloxacin (Ciprofloxacin Hcl) 250 mg PO BID [facility] Stop: 11/17/19 09:00 Last Admin: 11/16/19 20:29 Dose: 250 mg Documented by: Ferrous Sulfate (Ferrous Sulfate) 325 mg PO BIDMEALS [facility] Melatonin (Melatonin) 9 mg PO BEDTIME [facility] Tuberculin PPD (Aplisol) 5 unit IDERM ONETIME ONE Stop: 11/14/19 13:31 Last Admin: 11/14/19 14:07 Dose: 5 unit Documented by: - Exam General: Alert, Oriented (not at baseline but improving orientation), Cooperative HEENT: Pupils Equal, Pupils Reactive, EOMI Neck: Supple Lungs: Clear to Auscultation, Normal Respiratory Effort Cardiovascular: Regular Rate, Regular Rhythm GI/Abdominal Exam: Normal Bowel Sounds Extremities: Normal Inspection Sepsis Event Note - Evaluation Sepsis Screening Result: No Definite Risk - Focused Exam Date Exam was Performed: 11/17/19 Time Exam was Performed: 09:07 - Problem List Review Problem List Initiated/Reviewed/Updated: Yes - Plan Plan:: Patient admitted swing bed for ADL training to manage incontinence in a more safe and clean manner than patient has historically been managing. We will continue physical therapy for maintenance of strength and balance while patient improves on his self-care with OT. 11/17/19 Patient to continue management of incontinence. Continue PT/OT at this time. No changes to plan of care but we will also continue to monitor his cognition and orientation due to some confusion from either sundowning or other. Overall he is improving daily.
[2019-11-17] MEDS: Melatonin 3 MG Tab PO SCH (19:46)
[2019-11-17] MEDS: Sertraline 50 MG Tab PO SCH (19:47)
[2019-11-17] MEDS: Simvastatin 40 MG Tab PO SCH (19:47)
[2019-11-18] MEDS: Furosemide 40 MG Tab PO SCH (08:13)
[2019-11-18] MEDS: Magnesium Oxide 400 MG Tab PO SCH ×2 (08:13→20:07)
[2019-11-18] MEDS: Aspirin 81 MG Tab.Chew PO SCH (08:13)
[2019-11-18] MEDS: Multivitamins with Iron/Calcium/Folic Acid/Minerals Tab PO SCH (08:13)
[2019-11-18] MEDS: Potassium Chloride 10 MEQ Tab.ER PO SCH ×2 (08:13→20:07)
[2019-11-18] MEDS: Ferrous Sulfate 325 MG Tab PO SCH (08:13)
[2019-11-18] MEDS: Formoterol/Mometasone 200-5 MCG 8.8 GM Inhaler IH SCH ×2 (08:13→20:07)
[2019-11-18] MEDS: Menthol/Zinc Oxide Ointment 113 GM Tube TOP SCH ×2 (08:16→20:07)
[2019-11-18] MEDS: Simvastatin 40 MG Tab PO SCH (20:07)
[2019-11-18] MEDS: Melatonin 3 MG Tab PO SCH (20:07)
[2019-11-18] MEDS: Sertraline 50 MG Tab PO SCH (20:07)
[2019-11-19] MEDS: traMADol 50 MG Tab PO PRN ×2 (00:32→08:30)
[2019-11-19] MEDS: Acetaminophen 325 MG Tab PO PRN ×2 (00:33→12:30)
[2019-11-19] MEDS: Furosemide 40 MG Tab PO SCH (07:40)
[2019-11-19] MEDS: Aspirin 81 MG Tab.Chew PO SCH (07:40)
[2019-11-19] MEDS: Multivitamins with Iron/Calcium/Folic Acid/Minerals Tab PO SCH (07:40)
[2019-11-19] MEDS: Ferrous Sulfate 325 MG Tab PO SCH (07:40)
[2019-11-19] MEDS: Potassium Chloride 10 MEQ Tab.ER PO SCH ×2 (07:40→19:49)
[2019-11-19] MEDS: Formoterol/Mometasone 200-5 MCG 8.8 GM Inhaler IH SCH ×2 (07:41→19:48)
[2019-11-19] MEDS: Magnesium Oxide 400 MG Tab PO SCH ×2 (07:41→19:49)
[2019-11-19] MEDS: Menthol/Zinc Oxide Ointment 113 GM Tube TOP SCH ×2 (07:41→19:48)
[2019-11-19] MEDS: Sertraline 50 MG Tab PO SCH (19:49)
[2019-11-19] MEDS: Simvastatin 40 MG Tab PO SCH (19:49)
[2019-11-19] MEDS: Melatonin 3 MG Tab PO SCH (19:49)
[2019-11-20] MEDS: Potassium Chloride 10 MEQ Tab.ER PO SCH ×2 (07:01→20:02)
[2019-11-20] MEDS: Multivitamins with Iron/Calcium/Folic Acid/Minerals Tab PO SCH (07:01)
[2019-11-20] MEDS: Magnesium Oxide 400 MG Tab PO SCH ×2 (07:01→20:01)
[2019-11-20] MEDS: Aspirin 81 MG Tab.Chew PO SCH (07:01)
[2019-11-20] MEDS: Ferrous Sulfate 325 MG Tab PO SCH (07:01)
[2019-11-20] MEDS: Furosemide 40 MG Tab PO SCH (07:01)
[2019-11-20] MEDS: Formoterol/Mometasone 200-5 MCG 8.8 GM Inhaler IH SCH ×2 (07:02→20:01)
[2019-11-20] MEDS: Menthol/Zinc Oxide Ointment 113 GM Tube TOP SCH ×2 (07:02→20:03)
[2019-11-20] MEDS: traMADol 50 MG Tab PO PRN ×2 (07:02→15:51)
[2019-11-20] MEDS: Acetaminophen 325 MG Tab PO PRN (20:01)
[2019-11-20] MEDS: Melatonin 3 MG Tab PO SCH (20:01)
[2019-11-20] MEDS: Sertraline 50 MG Tab PO SCH (20:01)
[2019-11-20] MEDS: Simvastatin 40 MG Tab PO SCH (20:03)
[2019-11-21] MEDS: traMADol 50 MG Tab PO PRN (06:19)
[2019-11-21] MEDS: Menthol/Zinc Oxide Ointment 113 GM Tube TOP SCH (07:50)
[2019-11-21] MEDS: Multivitamins with Iron/Calcium/Folic Acid/Minerals Tab PO SCH (07:53)
[2019-11-21] MEDS: Furosemide 40 MG Tab PO SCH (07:53)
[2019-11-21] MEDS: Potassium Chloride 10 MEQ Tab.ER PO SCH ×2 (07:53→19:53)
[2019-11-21] MEDS: Magnesium Oxide 400 MG Tab PO SCH ×2 (07:53→19:52)
[2019-11-21] MEDS: Ferrous Sulfate 325 MG Tab PO SCH (07:53)
[2019-11-21] MEDS: Aspirin 81 MG Tab.Chew PO SCH (07:53)
[2019-11-21] MEDS: Formoterol/Mometasone 200-5 MCG 8.8 GM Inhaler IH SCH ×2 (07:54→19:54)
[2019-11-21] MEDS: Melatonin 3 MG Tab PO SCH (19:50)
[2019-11-21] MEDS: Simvastatin 40 MG Tab PO SCH (19:51)
[2019-11-21] MEDS: Sertraline 50 MG Tab PO SCH (19:51)
[2019-11-22] MEDS: Aspirin 81 MG Tab.Chew PO SCH (08:34)
[2019-11-22] MEDS: Ferrous Sulfate 325 MG Tab PO SCH (08:34)
[2019-11-22] MEDS: Menthol/Zinc Oxide Ointment 113 GM Tube TOP SCH ×3 (08:34→20:30)
[2019-11-22] MEDS: Magnesium Oxide 400 MG Tab PO SCH ×2 (08:35→20:18)
[2019-11-22] MEDS: Furosemide 40 MG Tab PO SCH (08:35)
[2019-11-22] MEDS: Multivitamins with Iron/Calcium/Folic Acid/Minerals Tab PO SCH (08:35)
[2019-11-22] MEDS: Potassium Chloride 10 MEQ Tab.ER PO SCH ×2 (08:35→20:19)
[2019-11-22] MEDS: Formoterol/Mometasone 200-5 MCG 8.8 GM Inhaler IH SCH ×2 (08:35→20:21)
[2019-11-22] MEDS: traMADol 50 MG Tab PO PRN (08:38)
[2019-11-22] MEDS: Sertraline 50 MG Tab PO SCH (20:18)
[2019-11-22] MEDS: Simvastatin 40 MG Tab PO SCH (20:18)
[2019-11-22] MEDS: Melatonin 3 MG Tab PO SCH (20:18)
[2019-11-22] MEDS: Acetaminophen 325 MG Tab PO PRN (20:20)
[2019-11-23] MEDS: traMADol 50 MG Tab PO PRN ×2 (03:07→19:58)
[2019-11-23] MEDS: Acetaminophen 325 MG Tab PO PRN (04:18)
[2019-11-23] MEDS ORDERED: Menthol/Zinc Oxide Ointment 113 GM Tube TOP PRN (04:51)
[2019-11-23] MEDS: Potassium Chloride 10 MEQ Tab.ER PO SCH ×2 (08:17→19:40)
[2019-11-23] MEDS: Furosemide 40 MG Tab PO SCH (08:17)
[2019-11-23] MEDS: Formoterol/Mometasone 200-5 MCG 8.8 GM Inhaler IH SCH ×2 (08:17→19:39)
[2019-11-23] MEDS: Ferrous Sulfate 325 MG Tab PO SCH (08:17)
[2019-11-23] MEDS: Magnesium Oxide 400 MG Tab PO SCH ×2 (08:17→19:40)
[2019-11-23] MEDS: Aspirin 81 MG Tab.Chew PO SCH (08:17)
[2019-11-23] MEDS: Multivitamins with Iron/Calcium/Folic Acid/Minerals Tab PO SCH (08:17)
--- NOTE | 2019-11-23 14:45 | PCM.PN ---
- General Info Date of Service: 11/23/19 Admission Dx/Problem (Free Text): This is a 84yo M with chronic respiratory failure secondary to COPD. He has been on oxygen 15/12. He will desaturate with ambulation and exercise. Subjective Update: This is a 84yo M with continued confusion and respirato - Review of Systems HEENT: Reports: No Symptoms Pulmonary: Reports: Shortness of Breath Cardiovascular: Reports: No Symptoms Gastrointestinal: Reports: No Symptoms Genitourinary: Reports: No Symptoms Musculoskeletal: Reports: No Symptoms Neurological: Reports: No Symptoms Psychiatric: Reports: No Symptoms - Patient Data Vitals - Most Recent: Last Vital Signs Temp 36.4 C 11/23/19 10:00 Pulse 74 11/23/19 10:00 Resp 17 11/23/19 10:00 BP 122/67 11/23/19 10:00 Pulse Ox 99 11/23/19 11:00 Weight - Most Recent: 57.4 kg Med Orders - Current: Current Medications Acetaminophen (Tylenol) 650 mg PO Q12H PRN PRN Reason: Pain Last Admin: 11/23/19 04:18 Dose: 650 mg Documented by: Albuterol/Ipratropium (Duoneb 3.0-0.5 Mg/3 Ml) 3 ml NEB Q4H PRN PRN Reason: Dyspnea Last Admin: 11/19/19 08:30 Dose: 3 ml Documented by: Aspirin (Aspirin) 81 mg PO DAILY [facility] Last Admin: 11/23/19 08:17 Dose: 81 mg Documented by: Calamine/Phenol (Calmoseptine) 1 gm TOP BID PRN PRN Reason: skin excoriation/soreness Ferrous Sulfate (Ferrous Sulfate) 325 mg PO DAILY [facility] Last Admin: 11/23/19 08:17 Dose: 325 mg Documented by: Furosemide (Lasix) 40 mg PO DAILY [facility] Last Admin: 11/23/19 08:17 Dose: 40 mg Documented by: Magnesium Oxide (Magnesium Oxide) 400 mg PO BID [facility] Last Admin: 11/23/19 08:17 Dose: 400 mg Documented by: Melatonin (Melatonin) 12 mg PO BEDTIME [facility] Last Admin: 11/22/19 20:18 Dose: 12 mg Documented by: Mometasone Furoate/Formoterol Fumar (Dulera 200-5 Mcg) 2 puff IH BID [facility] Last Admin: 11/23/19 08:17 Dose: 2 puff Documented by: Multivitamins/Minerals (Thera M Plus) 1 tab PO DAILY [facility] Last Admin: 11/23/19 08:17 Dose: 1 tab Documented by: Potassium Chloride (Klor-Con 10) 10 meq PO BID [facility] Last Admin: 11/23/19 08:17 Dose: 10 meq Documented by: Sertraline HCl (Zoloft) 50 mg PO BEDTIME [facility] Last Admin: 11/22/19 20:18 Dose: 50 mg Documented by: Simvastatin (Zocor) 40 mg PO BEDTIME [facility] Last Admin: 11/22/19 20:18 Dose: 40 mg Documented by: Tramadol HCl (Ultram) 50 mg PO Q8H PRN PRN Reason: Pain Last Admin: 11/23/19 03:07 Dose: 50 mg Documented by: Discontinued Medications Acetaminophen (Tylenol Extra Strength) 650 mg PO Q12H PRN PRN Reason: Fever Last Admin: 11/16/19 07:43 Dose: 650 mg Documented by: Acetaminophen (Tylenol) Confirm Administered Dose 650 mg .ROUTE .STK-MED ONE Stop: 11/16/19 07:43 Last Admin: 11/16/19 09:40 Dose: Not Given Documented by: Acetaminophen (Tylenol) 650 mg PO Q6H [facility] Acetaminophen (Tylenol) 650 mg PO Q12H [facility] Calamine/Phenol (Calmoseptine) 1 gm TOP BID [facility] Last Admin: 11/22/19 20:30 Dose: Not Given Documented by: Ciprofloxacin (Ciprofloxacin Hcl) 250 mg PO BID [facility] Stop: 11/17/19 09:00 Last Admin: 11/17/19 09:06 Dose: 250 mg Documented by: Ferrous Sulfate (Ferrous Sulfate) 325 mg PO BIDMEALS [facility] Melatonin (Melatonin) 9 mg PO BEDTIME [facility] Tramadol HCl (Ultram) 25 mg PO Q8H PRN PRN Reason: Pain Last Admin: 11/19/19 08:30 Dose: 25 mg Documented by: Tuberculin PPD (Aplisol) 5 unit IDERM ONETIME ONE Stop: 11/14/19 13:31 Last Admin: 11/14/19 14:07 Dose: 5 unit Documented by: - Exam General: Alert Sepsis Event Note - Evaluation Sepsis Screening Result: No Definite Risk - Focused Exam Vital Signs: Vital Signs Temp Pulse Resp BP Pulse Ox Pulse Ox 11/23/19 11:00 99 11/23/19 10:00 36.4 C 74 17 122/67 99 Date Exam was Performed: 11/30/19 Time Exam was Performed: 14:47 - Plan Plan:: Patient admitted swing bed for ADL training to manage incontinence in a more safe and clean manner than patient has historically been managing. We will con tinue physical therapy for maintenance of strength and balance while patient improves on his self-care with OT. 11/17/19 Patient to continue management of incontinence. Continue PT/OT at this time. No changes to plan of care but we will also continue to monitor his cognition and orientation due to some confusion from either sundowning or other. Overall he is improving daily.
[2019-11-23] MEDS: Melatonin 3 MG Tab PO SCH (19:40)
[2019-11-23] MEDS: Sertraline 50 MG Tab PO SCH (19:40)
[2019-11-23] MEDS: Simvastatin 40 MG Tab PO SCH (19:40)
[2019-11-24] MEDS: Aspirin 81 MG Tab.Chew PO SCH (08:16)
[2019-11-24] MEDS: Magnesium Oxide 400 MG Tab PO SCH ×2 (08:16→20:11)
[2019-11-24] MEDS: Ferrous Sulfate 325 MG Tab PO SCH (08:16)
[2019-11-24] MEDS: Multivitamins with Iron/Calcium/Folic Acid/Minerals Tab PO SCH (08:16)
[2019-11-24] MEDS: Furosemide 40 MG Tab PO SCH (08:16)
[2019-11-24] MEDS: Potassium Chloride 10 MEQ Tab.ER PO SCH ×2 (08:16→20:10)
[2019-11-24] MEDS: Formoterol/Mometasone 200-5 MCG 8.8 GM Inhaler IH SCH ×2 (08:18→20:10)
[2019-11-24] MEDS: Melatonin 3 MG Tab PO SCH (20:10)
[2019-11-24] MEDS: Sertraline 50 MG Tab PO SCH (20:11)
[2019-11-24] MEDS: Simvastatin 40 MG Tab PO SCH (20:11)
[2019-11-25] MEDS: Acetaminophen 325 MG Tab PO PRN (03:32)
[2019-11-25] MEDS: traMADol 50 MG Tab PO PRN ×2 (03:33→20:06)
[2019-11-25] MEDS: Magnesium Oxide 400 MG Tab PO SCH ×2 (08:24→20:06)
[2019-11-25] MEDS: Aspirin 81 MG Tab.Chew PO SCH (08:24)
[2019-11-25] MEDS: Potassium Chloride 10 MEQ Tab.ER PO SCH ×2 (08:24→20:06)
[2019-11-25] MEDS: Ferrous Sulfate 325 MG Tab PO SCH (08:24)
[2019-11-25] MEDS: Multivitamins with Iron/Calcium/Folic Acid/Minerals Tab PO SCH (08:24)
[2019-11-25] MEDS: Furosemide 40 MG Tab PO SCH (08:25)
[2019-11-25] MEDS: Formoterol/Mometasone 200-5 MCG 8.8 GM Inhaler IH SCH ×2 (08:26→20:05)
[2019-11-25] MEDS ORDERED: Acetaminophen 325 MG Tab PO PRN (10:56)
[2019-11-25] MEDS: Melatonin 3 MG Tab PO SCH (20:06)
[2019-11-25] MEDS: Simvastatin 40 MG Tab PO SCH (20:06)
[2019-11-25] MEDS: Sertraline 50 MG Tab PO SCH (20:07)
[2019-11-26] MEDS: Magnesium Oxide 400 MG Tab PO SCH ×2 (08:40→19:14)
[2019-11-26] MEDS: Multivitamins with Iron/Calcium/Folic Acid/Minerals Tab PO SCH (08:40)
[2019-11-26] MEDS: Formoterol/Mometasone 200-5 MCG 8.8 GM Inhaler IH SCH ×2 (08:40→19:14)
[2019-11-26] MEDS: Aspirin 81 MG Tab.Chew PO SCH (08:40)
[2019-11-26] MEDS: Potassium Chloride 10 MEQ Tab.ER PO SCH ×2 (08:40→19:14)
[2019-11-26] MEDS: Furosemide 40 MG Tab PO SCH (08:40)
[2019-11-26] MEDS: Ferrous Sulfate 325 MG Tab PO SCH (08:40)
[2019-11-26] MEDS: Simvastatin 40 MG Tab PO SCH (19:14)
[2019-11-26] MEDS: Melatonin 3 MG Tab PO SCH (19:14)
[2019-11-26] MEDS: Sertraline 50 MG Tab PO SCH (19:14)
[2019-11-26] MEDS: traMADol 50 MG Tab PO PRN (19:25)
[2019-11-27] MEDS: Ferrous Sulfate 325 MG Tab PO SCH (08:01)
[2019-11-27] MEDS: Magnesium Oxide 400 MG Tab PO SCH ×2 (08:01→20:48)
[2019-11-27] MEDS: Aspirin 81 MG Tab.Chew PO SCH (08:01)
[2019-11-27] MEDS: Potassium Chloride 10 MEQ Tab.ER PO SCH ×2 (08:02→20:48)
[2019-11-27] MEDS: Multivitamins with Iron/Calcium/Folic Acid/Minerals Tab PO SCH (08:02)
[2019-11-27] MEDS: Furosemide 40 MG Tab PO SCH (08:02)
[2019-11-27] MEDS: Formoterol/Mometasone 200-5 MCG 8.8 GM Inhaler IH SCH ×2 (08:04→20:50)
[2019-11-27] MEDS: Simvastatin 40 MG Tab PO SCH (20:48)
[2019-11-27] MEDS: Sertraline 50 MG Tab PO SCH (20:48)
[2019-11-27] MEDS: Melatonin 3 MG Tab PO SCH (20:49)
[2019-11-28] MEDS: Potassium Chloride 10 MEQ Tab.ER PO SCH ×2 (07:52→19:51)
[2019-11-28] MEDS: Aspirin 81 MG Tab.Chew PO SCH (07:52)
[2019-11-28] MEDS: Furosemide 40 MG Tab PO SCH (07:52)
[2019-11-28] MEDS: Ferrous Sulfate 325 MG Tab PO SCH (07:52)
[2019-11-28] MEDS: Multivitamins with Iron/Calcium/Folic Acid/Minerals Tab PO SCH (07:53)
[2019-11-28] MEDS: Magnesium Oxide 400 MG Tab PO SCH ×2 (07:54→19:51)
[2019-11-28] MEDS: Melatonin 3 MG Tab PO SCH (19:50)
[2019-11-28] MEDS: Formoterol/Mometasone 200-5 MCG 8.8 GM Inhaler IH SCH (19:50)
[2019-11-28] MEDS: traMADol 50 MG Tab PO PRN (19:51)
[2019-11-28] MEDS: Sertraline 50 MG Tab PO SCH (19:51)
[2019-11-28] MEDS: Simvastatin 40 MG Tab PO SCH (19:51)
[2019-11-29] MEDS: Formoterol/Mometasone 200-5 MCG 8.8 GM Inhaler IH SCH ×2 (07:31→07:56)
[2019-11-29] MEDS: Aspirin 81 MG Tab.Chew PO SCH (07:55)
[2019-11-29] MEDS: Furosemide 40 MG Tab PO SCH (07:56)
[2019-11-29] MEDS: Ferrous Sulfate 325 MG Tab PO SCH (07:56)
[2019-11-29] MEDS: Multivitamins with Iron/Calcium/Folic Acid/Minerals Tab PO SCH (07:56)
[2019-11-29] MEDS: Potassium Chloride 10 MEQ Tab.ER PO SCH (07:56)
[2019-11-29] MEDS: Magnesium Oxide 400 MG Tab PO SCH (07:56)
--- NOTE | 2019-11-29 09:06 | PCM.PN ---
- General Info Date of Service: 11/29/19 Subjective Update: Patient alert and oriented. He does not recall who I am and has difficulty hearing. He does seem to revert to his hearing difficulty if he cannot answer a question. He is oriented to place, self and date. - Review of Systems General: Reports: Weakness HEENT: Reports: No Symptoms Pulmonary: Reports: No Symptoms Cardiovascular: Reports: No Symptoms Gastrointestinal: Reports: No Symptoms Musculoskeletal: Reports: No Symptoms Neurological: Reports: Pre-Existing Deficit - Patient Data Vitals - Most Recent: Last Vital Signs Temp 36.3 C 11/28/19 10:00 Pulse 69 11/28/19 10:00 Resp 18 11/28/19 10:00 BP 134/72 11/28/19 10:00 Pulse Ox 100 11/28/19 10:00 Weight - Most Recent: 56.427 kg Med Orders - Current: Current Medications Acetaminophen (Tylenol) 650 mg PO Q6H PRN PRN Reason: Pain Last Admin: 11/25/19 12:19 Dose: 650 mg Documented by: Albuterol/Ipratropium (Duoneb 3.0-0.5 Mg/3 Ml) 3 ml NEB Q4H PRN PRN Reason: Dyspnea Last Admin: 11/19/19 08:30 Dose: 3 ml Documented by: Aspirin (Aspirin) 81 mg PO DAILY [facility] Last Admin: 11/29/19 07:55 Dose: 81 mg Documented by: Calamine/Phenol (Calmoseptine) 1 gm TOP BID PRN PRN Reason: skin excoriation/soreness Ferrous Sulfate (Ferrous Sulfate) 325 mg PO DAILY [facility] Last Admin: 11/29/19 07:56 Dose: 325 mg Documented by: Furosemide (Lasix) 40 mg PO DAILY [facility] Last Admin: 11/29/19 07:56 Dose: 40 mg Documented by: Magnesium Oxide (Magnesium Oxide) 400 mg PO BID [facility] Last Admin: 11/29/19 07:56 Dose: 400 mg Documented by: Melatonin (Melatonin) 12 mg PO BEDTIME [facility] Last Admin: 11/28/19 19:50 Dose: 12 mg Documented by: Mometasone Furoate/Formoterol Fumar (Dulera 200-5 Mcg) 2 puff IH BID [facility] Last Admin: 11/29/19 07:56 Dose: 2 puff Documented by: Multivitamins/Minerals (Thera M Plus) 1 tab PO DAILY [facility] Last Admin: 11/29/19 07:56 Dose: 1 tab Documented by: Potassium Chloride (Klor-Con 10) 10 meq PO BID [facility] Last Admin: 11/29/19 07:56 Dose: 10 meq Documented by: Sertraline HCl (Zoloft) 50 mg PO BEDTIME [facility] Last Admin: 11/28/19 19:51 Dose: 50 mg Documented by: Simvastatin (Zocor) 40 mg PO BEDTIME [facility] Last Admin: 11/28/19 19:51 Dose: 40 mg Documented by: Tramadol HCl (Ultram) 50 mg PO Q6H PRN PRN Reason: Pain Last Admin: 11/28/19 19:51 Dose: 50 mg Documented by: Discontinued Medications Acetaminophen (Tylenol Extra Strength) 650 mg PO Q12H PRN PRN Reason: Fever Last Admin: 11/16/19 07:43 Dose: 650 mg Documented by: Acetaminophen (Tylenol) Confirm Administered Dose 650 mg .ROUTE .STK-MED ONE Stop: 11/16/19 07:43 Last Admin: 11/16/19 09:40 Dose: Not Given Documented by: Acetaminophen (Tylenol) 650 mg PO Q6H [facility] Acetaminophen (Tylenol) 650 mg PO Q12H [facility] Acetaminophen (Tylenol) 650 mg PO Q12H PRN PRN Reason: Pain Last Admin: 11/25/19 03:32 Dose: 650 mg Documented by: Calamine/Phenol (Calmoseptine) 1 gm TOP BID [facility] Last Admin: 11/22/19 20:30 Dose: Not Given Documented by: Ciprofloxacin (Ciprofloxacin Hcl) 250 mg PO BID [facility] Stop: 11/17/19 09:00 Last Admin: 11/17/19 09:06 Dose: 250 mg Documented by: Ferrous Sulfate (Ferrous Sulfate) 325 mg PO BIDMEALS [facility] Melatonin (Melatonin) 9 mg PO BEDTIME [facility] Tramadol HCl (Ultram) 25 mg PO Q8H PRN PRN Reason: Pain Last Admin: 11/19/19 08:30 Dose: 25 mg Documented by: Tramadol HCl (Ultram) 50 mg PO Q8H PRN PRN Reason: Pain Last Admin: 11/25/19 03:33 Dose: 50 mg Documented by: Tuberculin PPD (Aplisol) 5 unit IDERM ONETIME ONE Stop: 11/14/19 13:31 Last Admin: 11/14/19 14:07 Dose: 5 unit Documented by: - Exam Quality Assessment: Supplemental Oxygen General: Alert, Oriented, Cooperative HEENT: Pupils Equal, Pupils Reactive, EOMI Neck: Supple Lungs: Normal Respiratory Effort, Decreased Breath Sounds, Rhonchi Cardiovascular: Regular Rate, Regular Rhythm Back Exam: Normal Inspection Extremities: Normal Inspection Sepsis Event Note - Evaluation Sepsis Screening Result: No Definite Risk - Focused Exam Date Exam was Performed: 11/29/19 Time Exam was Performed: 09:02 - Problem List & Annotations (1) Acute bronchitis with COPD SNOMED Code(s): 386803568585450 Code(s): J44.0 - CHR OBSTRUCTIVE PULMON DISEASE WITH (ACUTE) LOWER RESP INFCT; J20.9 - ACUTE BRONCHITIS, UNSPECIFIED Status: Chronic Priority: High Current Visit: Yes (2) CKD (chronic kidney disease) stage 2, GFR 60-89 ml/min SNOMED Code(s): 802073811 Code(s): N18.2 - CHRONIC KIDNEY DISEASE, STAGE 2 (MILD) Status: Chronic Priority: Medium Current Visit: No (3) Severe muscle deconditioning SNOMED Code(s): 208130831 Code(s): R29.898 - OT SYMPTOMS AND SIGNS INVOLVING THE MUSCULOSKELETAL SYSTEM Status: Chronic Priority: High Current Visit: Yes - Problem List Review Problem List Initiated/Reviewed/Updated: Yes - Plan Plan:: Patient admitted swing bed for ADL training to manage incontinence in a more safe and clean manner than patient has historically been managing. We will continue physical therapy for maintenance of strength and balance while patient improves on his self-care with OT. 11/17/19 Patient to continue management of incontinence. Continue PT/OT at this t shannan. No changes to plan of care but we will also continue to monitor his cognition and orientation due to some confusion from either sundowning or other. Overall he is improving daily. 11/29/19 Patient plan to be eventually placed in the care center for further management and cares. We will continue PT/OT as needed.
[2019-11-29 10:11] VITALS: BP 129/66; PULSE 66
== END 2019-11-29 11:15 | disposition home or self-care (01) | DRG 392 ==
LOC: LB.MS 11:18
PROVIDERS: ADMIT Registered Nurse; ATTEND Family Medicine
DX: R15.9 Full incontinence of feces (principal); N39.0 Urinary tract infection, site not specified; J44.0 Chronic obstructive pulmonary disease with (acute) lower respiratory infection; I13.0 Hypertensive heart and chronic kidney disease with heart failure and stage 1 through stage 4 chronic kidney disease, or unspecified chronic kidney disease; R32 Unspecified urinary incontinence; N18.2 Chronic kidney disease, stage 2 (mild); E86.0 Dehydration; J20.9 Acute bronchitis, unspecified; R29.898 Other symptoms and signs involving the musculoskeletal system; I25.10 Atherosclerotic heart disease of native coronary artery without angina pectoris; E78.00 Pure hypercholesterolemia, unspecified; I50.9 Heart failure, unspecified; K21.9 Gastro-esophageal reflux disease without esophagitis; F41.9 Anxiety disorder, unspecified; F32.9 Major depressive disorder, single episode, unspecified; Z88.8 Allergy status to other drugs, medicaments and biological substances; Z79.82 Long term (current) use of aspirin; Z79.899 Other long term (current) drug therapy; I25.2 Old myocardial infarction; Z86.73 Personal history of transient ischemic attack (TIA), and cerebral infarction without residual deficits; Z79.01 Long term (current) use of anticoagulants; Z95.5 Presence of coronary angioplasty implant and graft
CPT/HCPCS: 36415; 80053; 81001; 82800; 84443; 85025; 86580; 87086; 97164-GP; 97530-GO; 97530-GP; 97535-GO; A9270-GY; J7620-GY

== ENCOUNTER 2020-03-01 05:38 | Observation (INO) | payer MEDICARE, OTHER ==
[2020-03-01] MEDS ORDERED: Albuterol/Ipratropium 3.0-0.5 MG/3 ML Neb Soln NEB ONE (05:54)
[2020-03-01] MEDS ORDERED: Budesonide 0.5 MG/2 ML Neb Susp NEB ONE (05:55)
[2020-03-01] MEDS ORDERED: Furosemide 40 MG/4 ML VIAL IVPUSH ONE (07:07)
--- NOTE | 2020-03-01 07:26 | EDM.PDOC ---
ED HPI GENERAL MEDICAL PROBLEM - General Chief Complaint: Respiratory Problem Stated Complaint: sob and congestion Time Seen by Provider: 03/01/20 07:00 Source of Information: Reports: Provider (Jaden) History Limitations: Reports: Other (pleasantly confused) - History of Present Illness INITIAL COMMENTS - FREE TEXT/NARRATIVE: Taking over Jaden (SAVANNA) care of this patient. He is found to be in CHF exacerbation with respiratory distress. Neb treatments improved symptoms, as well as supplemental oxygen. Elevated BNP. No signs of infection. Patient is pleasantly confused and I am told this is his baseline. - Related Data Allergies Allergy/AdvReac Type Severity Reaction Status Date / Time quinine [Quinine] Allergy Rash Verified 11/08/19 15:18 monohydrochloride Allergy Rash Uncoded 11/08/19 15:18 Home Meds: Home Meds Simvastatin 40 mg PO BEDTIME 08/27/14 [History] Sertraline HCl 50 mg PO DAILY 02/19/15 [History] Albuterol/Ipratropium [DuoNeb 3.0-0.5 MG/3 ML] 3 ml NEB QID PRN 03/28/16 [History] Ferrous Sulfate [Iron] 1 cap PO DAILY 11/14/18 [History] Furosemide [Lasix] 40 mg PO DAILY 11/14/18 [History] Aspirin [Lo-Dose Aspirin EC] 81 mg PO DAILY 11/09/19 [History] Melatonin 12 mg PO BEDTIME PRN 11/09/19 [History] Mometasone/Formoterol [Dulera 200 MCG/5 MCG] 2 puff PO BID PRN 11/09/19 [History] traMADol [Ultram] 25 mg PO Q8HR PRN 11/09/19 [History] Acetaminophen [Tylenol] 2 tab PO Q4H PRN 11/14/19 [History] Magnesium Oxide 400 mg PO DAILY 11/14/19 [History] Potassium Chloride [Klor-Con 10] 1 tab PO BID 11/14/19 [History] traMADol [Ultram] 50 mg PO Q6H PRN #60 tablet 11/29/19 [Rx] Past Medical History HEENT History: Reports: Hard of Hearing, Impaired Vision, Other (See Below) Other HEENT History: Wears hearing aids Cardiovascular History: Reports: CAD, Heart Failure, High Cholesterol, Hypertension, AR, SOB on Exertion, Stents Respiratory History: Reports: COPD Gastrointestinal History: Reports: Bowel Obstruction, GERD Genitourinary History: Reports: Other (See Below) Other Genitourinary History: Bladder Ca, Daily radiation Musculoskeletal History: Reports: Arthritis Neurological History: Reports: CVA 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 Psychiatric History: Reports: Anxiety, Depression Hematologic History: Reports: Anticoagulation Therapy Oncologic (Cancer) History: Reports: Bladder, Prostate 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 - Infectious Disease History Infectious Disease History: Reports: Chicken Pox - Past Surgical History HEENT Surgical History: Reports: Cataract Surgery Cardiovascular Surgical History: Reports: Coronary Artery Stent, Pacer GI Surgical History: Reports: Colonoscopy, Hernia, Inguinal, Hernia Repair/Other Dermatological Surgical History: Reports: None Social & Family History - Family History Family Medical History: Noncontributory - Tobacco Use Smoking Status *Q: Unknown Ever Smoked - Caffeine Use Caffeine Use: Reports: Coffee Other Caffeine Use: 2-3 cups/day Caffeine Use Comment: 3 cups coffee a day ED ROS GENERAL - Review of Systems Review Of Systems: Unable To Obtain Reason Not Obtained: Patient's baseline mental status ED EXAM, GENERAL - Physical Exam Exam: See Below Exam Limited By: Other (baseline mental status) General Appearance: Alert, No Apparent Distress Head: Atraumatic, Normocephalic Neck: Normal Inspection, Supple, Non-Tender Respiratory/Chest: No Respiratory Distress, No Accessory Muscle Use, Decreased Breath Sounds, Crackles Cardiovascular: Normal Peripheral Pulses, Regular Rate, Rhythm, No Edema, No Murmur Neurological: Alert Skin Exam: Warm, Dry Lymphatic: No Adenopathy Course - Vital Signs Text/Narrative:: patient received pulmicort and duonebs. Labs show CHF exacerbation. On 2 L NC oxygen. Last Recorded V/S: Last Vital Signs Temp 36.8 C 03/01/20 05:38 Pulse 102 H 03/01/20 05:38 Resp 31 H 03/01/20 05:38 BP 91/51 L 03/01/20 05:38 Pulse Ox 86 L 03/01/20 05:38 - Orders/Labs/Meds Orders: Active Orders 24 hr Category Date Time Status Admission Status [Patient Status] [ADT] Routine ADT 03/01/20 07:09 Active Ghosh Catheter Insertion [Insert Urinary Catheter] [OM. Care 03/01/20 07:15 Ordered PC] Q24H RT Aerosol Therapy [RC] ASDIRECTED Care 03/01/20 05:55 Active RT Aerosol Therapy [RC] ASDIRECTED Care 03/01/20 05:56 Active RT Aerosol Therapy [RC] ASDIRECTED Care 03/01/20 07:08 Active Urinary Catheter Assessment [RC] ASDIRECTED Care 03/01/20 07:07 Active Chest 1V Frontal [CR] Stat Exams 03/01/20 05:59 Taken CORONAVIRUS COVID-19 RAPID [MOLEC] Stat Lab 03/01/20 07:06 Ordered Albuterol/Ipratropium [DuoNeb 3.0-0.5 MG/3 ML] Med 03/01/20 07:15 Active 3 ml NEB Q4H Budesonide [Pulmicort] Med 03/01/20 07:15 Ordered 0.25 mg NEB BIDRT Medication Orders Albuterol/Ipratropium (Duoneb 3.0-0.5 Mg/3 Ml) 3 ml NEB Q4H JACOB Budesonide (Pulmicort) 0.25 mg NEB BIDRT JACOB Labs: Laboratory Tests 03/01/20 03/01/20 Range/Units 06:15 06:15 WBC 10.6 D (4.0-11.0) K/uL RBC 3.43 L (4.50-6.50) M/uL Hgb 8.7 L (13.0-18.0) g/dL Hct 29.7 L (40.0-54.0) % MCV 87 (76-96) fL MCH 25.4 L (27.0-32.0) pg MCHC 29.3 L (31.0-35.0) g/dL RDW 16.7 H (11.0-16.0) % Plt Count 304 (150-400) K/uL MPV 8.7 (6.0-10.0) fL Neut % (Auto) 89.6 H (45.0-70.0) % Lymph % (Auto) 3.2 L (20.0-40.0) % [place] % (Auto) 6.7 (3.0-10.0) % Eos % (Auto) 0.3 L (1.0-5.0) % Baso % (Auto) 0.2 (0.0-0.5) % Neut # (Auto) 9.45 H (2.00-7.50) K/uL Lymph # (Auto) 0.34 L (1.50-4.00) K/uL [place] # (Auto) 0.71 (0.20-0.80) K/uL Eos # (Auto) 0.03 L (0.04-0.40) K/uL Baso # (Auto) 0.02 (0.02-0.10) K/uL Sodium 147 H (136-145) mmol/L Potassium 4.1 (3.5-5.1) mmol/L Chloride 107 (98-107) mmol/L Carbon Dioxide 31.6 (21.0-32.0) mmol/L Anion Gap 12.5 (5.0-15.0) mmol/L BUN 37 H (8-26) mg/dL Creatinine 1.33 H (0.70-1.30) mg/dL Est Cr Clr Drug Dosing TNP Estimated GFR (MDRD) 51 L (>60) MLS/MIN BUN/Creatinine Ratio 27.8 H (6-25) Glucose 136 H D (74-100) mg/dL Calcium 8.3 L (8.5-10.1) mg/dL B-Natriuretic Peptide 4099 H D (0-450) pg/mL Meds: Medications Generic Name Dose Route Start Last Admin Trade Name Freq PRN Reason Stop Dose Admin Albuterol/Ipratropium 3 ml 03/01/20 07:15 Duoneb 3.0-0.5 Mg/3 Ml NEB Q4H JACOB Budesonide 0.25 mg 03/01/20 07:15 Pulmicort NEB BIDRT JACOB Discontinued Medications Generic Name Dose Route Start Last Admin Trade Name Freq PRN Reason Stop Dose Admin Albuterol/Ipratropium 3 ml 03/01/20 05:54 03/01/20 06:05 Duoneb 3.0-0.5 Mg/3 Ml NEB 03/01/20 05:55 3 ml ONETIME ONE Administration Budesonide 0.5 mg 03/01/20 05:55 03/01/20 06:43 Pulmicort NEB 03/01/20 05:56 0.5 mg ONETIME ONE Administration Furosemide 40 mg 03/01/20 07:07 Lasix IVPUSH 03/01/20 07:08 NOW ONE Departure - Departure Time of Disposition: 07:20 Disposition: Refer to Observation Condition: Fair Clinical Impression: Congestive heart failure Qualifiers: Heart failure type: unspecified Heart failure chronicity: acute on chronic Qualified Code(s): I50.9 - Heart failure, unspecified - Discharge Information *PRESCRIPTION DRUG MONITORING PROGRAM REVIEWED*: Not Applicable *COPY OF PRESCRIPTION DRUG MONITORING REPORT IN PATIENT DESEAN: Not Applicable Sepsis Event Note (ED) - Evaluation Sepsis Screening Result: Possible Severe Sepsis Risk - Focused Exam Vital Signs: Vital Signs Temp Pulse Resp BP Pulse Ox 03/01/20 05:38 36.8 C 102 H 31 H 91/51 L 86 L - My Orders Last 24 Hours: My Active Orders 03/01/20 07:06 CORONAVIRUS COVID-19 RAPID [MOLEC] Stat 03/01/20 07:07 Urinary Catheter Assessment [RC] ASDIRECTED 03/01/20 07:08 RT Aerosol Therapy [RC] ASDIRECTED 03/01/20 07:09 Admission Status [Patient Status] [ADT] Routine 03/01/20 07:15 Ghosh Catheter Insertion [Insert Urinary Catheter] [OM.PC] Q24H Albuterol/Ipratropium [DuoNeb 3.0-0.5 MG/3 ML] 3 ml NEB Q4H Budesonide [Pulmicort] 0.25 mg NEB BIDRT - Assessment/Plan Last 24 Hours: My Active Orders 03/01/20 07:06 CORONAVIRUS COVID-19 RAPID [MOLEC] Stat 03/01/20 07:07 Urinary Catheter Assessment [RC] ASDIRECTED 03/01/20 07:08 RT Aerosol Therapy [RC] ASDIRECTED 03/01/20 07:09 Admission Status [Patient Status] [ADT] Routine 03/01/20 07:15 Ghosh Catheter Insertion [Insert Urinary Catheter] [OM.PC] Q24H Albuterol/Ipratropium [DuoNeb 3.0-0.5 MG/3 ML] 3 ml NEB Q4H Budesonide [Pulmicort] 0.25 mg NEB BIDRT Plan: Will admit to observation. Ghosh catheter ordered, lasix ordered. Will have Dr. Sobeida amado.
[2020-03-01] MEDS: Budesonide 0.25 MG/2 ML Neb Susp NEB SCH ×2 (08:15→19:34)
--- NOTE | 2020-03-01 08:59 | CR ---
Date of Service: 03/01/20 Clinical Data: SOB AP CHEST: Comparison is made to a prior exam dated 11/08/19. The patient is in an apical lordotic position. The cardiac pacer pacer wires remain unchanged in position. The heart size is within normal limits. There is calcification of the aortic arch. The pulmonary vasculature does appear more prominent than on the prior exam with cephalization of flow suggesting pulmonary venous congestion. There are scattered reticular opacities in both lungs. No areas of consolidation. No pneumothorax. No pleural effusions. [id number] [facility]
[2020-03-01] MEDS: Albuterol/Ipratropium 3.0-0.5 MG/3 ML Neb Soln NEB SCH ×5 (11:15→23:25)
--- NOTE | 2020-03-01 13:27 | ER ---
HISTORY OF PRESENT ILLNESS: An 84-year-old assisted resident who is brought over with complaints of shortness of breath. The patient did receive two DuoNeb treatments; one last evening and one a couple of hours ago. His breathing does not seem to be improving. His sats were dropping into the 80s and he is brought here for evaluation. The patient has not been running a fever. He has a history of COPD and CHF. OBJECTIVE: GENERAL APPEARANCE: The patient is awake and alert. He is in mild respiratory distress. Respirations are 24 to 26, O2 sats right now are at 91% on 5 L. Blood pressure 91/39. He is afebrile. LUNGS: The patient is moving a very little air at this point. He is using accessory muscles with respirations. ABDOMEN: Soft and nontender. SKIN: Warm and dry. There is no edema of the patient's ankles. INITIAL TREATMENT: A DuoNeb was given followed by Pulmicort treatment. This improved the patient's status significantly. His oxygen saturation increased to the upper 90s. We reduced the O2 to 2 L. Chest x-ray was obtained showing mild pulmonary congestion. LABORATORY DATA: Labs include a CBC which is normal. Basic metabolic panel has only minor changes and the BNP is just over 4000. DIAGNOSIS: Congestive heart failure exacerbation with underlying chronic obstructive pulmonary disease. TREATMENT PLAN: At this point, my shift is ending. I will discuss the patient's care with the oncoming provider. I would expect the patient would need to be diuresed and he most likely could go back to the assisted. CRS/MODL /[id number]
[2020-03-01] MEDS ORDERED: Melatonin 3 MG Tab PO PRN (13:52)
[2020-03-01] MEDS ORDERED: traMADol 50 MG Tab PO PRN (13:52)
[2020-03-01] MEDS ORDERED: Acetaminophen 325 MG Tab PO PRN (13:52)
[2020-03-01] MEDS ORDERED: Albuterol/Ipratropium 3.0-0.5 MG/3 ML Neb Soln NEB PRN (13:52)
--- NOTE | 2020-03-01 13:59 | PCM.SN.2 ---
- Free Text/Narrative Note: Discussed with Tucker and will keep patient in obs another day and monitor. She recommended treating with antibiotics (no signs of infection, but repeat labs and CXR and vital signs initially were concerning for sepsis). Rocephin and doxy. EKG with pacemaker and RBBB, unchanged from previous EKG. Hospitalist discouraged any more lasix. Will continue to monitor.
--- NOTE | 2020-03-01 14:20 | PCM.CONSN ---
- General Info Date of Service: 03/01/20 - Patient Data Vitals - Most Recent: Last Vital Signs Temp 36.4 C 03/01/20 09:39 Pulse 91 03/01/20 09:39 Resp 28 H 03/01/20 09:39 BP 133/64 03/01/20 09:39 Pulse Ox 92 L 03/01/20 09:39 Weight - Most Recent: 46.72 kg Lab Results Last 24 Hours: Laboratory Results - last 24 hr 03/01/20 03/01/20 Range/Units 06:15 06:15 WBC 10.6 D (4.0-11.0) K/uL RBC 3.43 L (4.50-6.50) M/uL Hgb 8.7 L (13.0-18.0) g/dL Hct 29.7 L (40.0-54.0) % MCV 87 (76-96) fL MCH 25.4 L (27.0-32.0) pg MCHC 29.3 L (31.0-35.0) g/dL RDW 16.7 H (11.0-16.0) % Plt Count 304 (150-400) K/uL MPV 8.7 (6.0-10.0) fL Neut % (Auto) 89.6 H (45.0-70.0) % Lymph % (Auto) 3.2 L (20.0-40.0) % Greer % (Auto) 6.7 (3.0-10.0) % Eos % (Auto) 0.3 L (1.0-5.0) % Baso % (Auto) 0.2 (0.0-0.5) % Neut # (Auto) 9.45 H (2.00-7.50) K/uL Lymph # (Auto) 0.34 L (1.50-4.00) K/uL Greer # (Auto) 0.71 (0.20-0.80) K/uL Eos # (Auto) 0.03 L (0.04-0.40) K/uL Baso # (Auto) 0.02 (0.02-0.10) K/uL Sodium 147 H (136-145) mmol/L Potassium 4.1 (3.5-5.1) mmol/L Chloride 107 (98-107) mmol/L Carbon Dioxide 31.6 (21.0-32.0) mmol/L Anion Gap 12.5 (5.0-15.0) mmol/L BUN 37 H (8-26) mg/dL Creatinine 1.33 H (0.70-1.30) mg/dL Est Cr Clr Drug Dosing TNP Estimated GFR (MDRD) 51 L (>60) MLS/MIN BUN/Creatinine Ratio 27.8 H (6-25) Glucose 136 H D (74-100) mg/dL Calcium 8.3 L (8.5-10.1) mg/dL B-Natriuretic Peptide 4099 H D (0-450) pg/mL Med Orders - Current: Current Medications Acetaminophen (Tylenol) 650 mg PO Q4H PRN PRN Reason: Pain Albuterol/Ipratropium (Duoneb 3.0-0.5 Mg/3 Ml) 3 ml NEB Q4H JAC[facility] Albuterol/Ipratropium (Duoneb 3.0-0.5 Mg/3 Ml) 3 ml NEB QID PRN PRN Reason: Shortness of Breath Aspirin (Halfprin) 81 mg PO DAILY JACOB Budesonide (Pulmicort) 0.25 mg NEB BID JACOB Doxycycline Hyclate (Vibramycin) 100 mg PO Q12H JACOB Ferrous Sulfate (Ferrous Sulfate) mg PO DAILY JACOB Ceftriaxone Sodium 1 gm/ (Sodium Chloride) 50 mls @ 200 mls/hr IV ONETIME ONE Stop: 03/01/20 14:05 Melatonin (Melatonin) 12 mg PO BEDTIME PRN PRN Reason: Insomnia Non-Formulary Medication (Magnesium Oxide [Magnesium Oxide]) 400 mg PO DAILY JACOB Sertraline HCl (Zoloft) 50 mg PO DAILY JACOB Simvastatin (Zocor) 40 mg PO BEDTIME JACOB Tramadol HCl (Ultram) 25 mg PO Q8HR PRN PRN Reason: Pain Discontinued Medications Albuterol/Ipratropium (Duoneb 3.0-0.5 Mg/3 Ml) 3 ml NEB ONETIME ONE Stop: 03/01/20 05:55 Last Admin: 03/01/20 06:05 Dose: 3 ml Documented by: Budesonide (Pulmicort) 0.5 mg NEB ONETIME ONE Stop: 03/01/20 05:56 Last Admin: 03/01/20 06:43 Dose: 0.5 mg Documented by: Furosemide (Lasix) 40 mg IVPUSH NOW ONE Stop: 03/01/20 07:08 Last Admin: 03/01/20 08:15 Dose: 40 mg Documented by: Sepsis Event Note - Evaluation Sepsis Screening Result: No Definite Risk - Focused Exam Vital Signs: Vital Signs Temp Pulse Resp BP Pulse Ox 03/01/20 09:39 36.4 C 91 28 H 133/64 92 L 03/01/20 05:38 36.8 C 102 H 31 H 91/51 L 86 L Consult PN Assessment/Plan Procedures: Procedures AIRWAY INHALATION TREATMENT (11/10/19) ALANINE AMINO (ALT) (SGPT) (02/20/14) ASSAY OF CREATININE (08/09/18) ASSAY OF LACTIC ACID (06/08/19) ASSAY OF MAGNESIUM (11/10/19) ASSAY OF NATRIURETIC PEPTIDE (07/04/19) ASSAY OF SERUM POTASSIUM (12/21/19) ASSAY OF TROPONIN QUANT (10/28/17) BLOOD CULTURE FOR BACTERIA (04/17/19) BLOOD PH (06/08/19) BONE IMAGING WHOLE BODY (08/09/18) CARDIOVASCULAR STRESS TEST (03/31/16) CHEST X-RAY 1 VIEW FRONTAL (10/10/16) CHEST X-RAY 2VW FRONTAL&LATL (01/22/17) COMPLETE CBC AUTOMATED (11/14/18) COMPLETE CBC W/AUTO DIFF WBC (02/22/20) COMPREHEN METABOLIC PANEL (11/10/19) CONTRST X-RAY URINARY TRACT (05/30/13) CT ABD & PELV 1/> REGNS (08/19/16) CT ABD & PELVIS W/O CONTRAST (12/09/19) CT HEAD/BRAIN W/O DYE (11/14/18) CT THORAX W/DYE (11/05/15) CT THORAX W/O DYE (08/11/18) CULTURE AEROBIC IDENTIFY (08/21/14) CULTURE OTHR SPECIMN AEROBIC (10/10/16) ELECTROCARDIOGRAM TRACING (02/03/18) EMERGENCY DEPT VISIT (11/10/19) EMERGENCY DEPT VISIT (09/12/18) EMERGENCY DEPT VISIT (02/12/18) EMERGENCY DEPT VISIT (11/07/17) EMERGENCY DEPT VISIT (10/28/17) EMERGENCY DEPT VISIT (10/24/17) EMERGENCY DEPT VISIT (10/24/17) EMERGENCY DEPT VISIT (06/08/17) EMERGENCY DEPT VISIT (01/06/16) EMERGENCY DEPT VISIT (11/05/15) EMERGENCY DEPT VISIT (02/21/15) FIBRIN DEGRADATION QUANT (11/05/15) GAIT TRAINING THERAPY (04/17/19) HT MUSCLE IMAGE SPECT MULT (03/31/16) HYDRATE IV INFUSION ADD-ON (09/17/18) HYDRATION IV INFUSION INIT (09/17/18) INFLUENZA ASSAY W/OPTIC (06/08/17) INITIAL OBSERVATION CARE (11/14/18) INITIAL OBSERVATION CARE (09/17/18) INSERT BLADDER CATHETER (11/10/19) INSERT TEMP BLADDER CATH (04/17/19) LAP ING HERNIA REPAIR INIT (02/20/15) LIPID PANEL (01/30/16) METABOLIC PANEL TOTAL CA (02/22/20) MICROBE SUSCEPTIBLE ADAN (11/10/19) OBSERVATION CARE DISCHARGE (11/14/18) OT EVAL LOW COMPLEX 30 MIN (11/10/19) PHONE E/M PHYS/QHP 5-10 MIN (10/24/17) PROTHROMBIN TIME (08/01/17) PRP I/LAINEY INIT REDUC >5 YR (11/02/15) PT EVAL LOW COMPLEX 20 MIN (11/10/19) ROUTINE VENIPUNCTURE (02/22/20) SELF CARE MNGMENT TRAINING (11/10/19) SMEAR GRAM STAIN (10/10/16) SUBSEQUENT OBSERVATION CARE (09/17/18) THER/DIAG CONCURRENT INF (11/14/18) THER/PROPH/DIAG INJ IV PUSH (06/08/17) THER/PROPH/DIAG IV INF ADDON (11/14/18) THER/PROPH/DIAG IV INF INIT (11/14/18) THERAPEUTIC ACTIVITIES (11/10/19) THERAPEUTIC EXERCISES (11/10/19) TRANSFERASE (AST) (SGOT) (02/20/14) TTE W/DOPPLER COMPLETE (09/10/16) TX/PRO/DX INJ NEW DRUG ADDON (11/14/18) TX/PRO/DX INJ SAME DRUG [employer]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) URINALYSIS AUTO W/O SCOPE (08/26/14) URINALYSIS AUTO W/SCOPE (01/21/20) URINE BACTERIA CULTURE (11/10/19) URINE CULTURE/COLONY COUNT (01/21/20) US URINE CAPACITY MEASURE (08/25/18) X-RAY EXAM ABDOMEN 1 VIEW (06/08/17) X-RAY EXAM ABDOMEN 2 VIEWS (06/08/17) X-RAY EXAM CHEST 1 VIEW (04/17/19) X-RAY EXAM CHEST 2 VIEWS (11/10/19) (1) Acute and chronic respiratory failure with hypoxia SNOMED Code(s): 66380874, 310954709 Code(s): J96.21 - ACUTE AND CHRONIC RESPIRATORY FAILURE WITH HYPOXIA Current Visit: Yes (2) Acute and chronic respiratory failure with hypoxia SNOMED Code(s): 73757111, 387071272 Code(s): J96.21 - ACUTE AND CHRONIC RESPIRATORY FAILURE WITH HYPOXIA Current Visit: Yes Problem List Initiated/Reviewed/Updated: Yes [facility]: eHospitalist was contacted by SAVANNA Hartmann with request of consultation for CHF exacerbation: Reason for consult: CHFe? HPI: Patient is an 84-year-old male with past medical history of CHF, paroxysmal A. fib, CKD who presented to the ED in [place] last night from [facility] for increased shortness of breath. Initial vitals with HR 102, BP 91/51, respiratory rate 31, 86% on 3 L O2. CXR showing bilateral interstitial infiltrates concerning for pulmonary edema but also viral pneumonia, has ICD in place. Labs obtained this morning: WBC 10.6, hemoglobin 8.7, hematocrit 29.7, platelets 304. NA 147, potassium 4.1, chloride 107, bicarb 31.6, BUN 37, creatinine 1.33 (baseline). BNP 4099 (BNP chronically elevated ~2000). Pertinent Medical History: CHF s/p ICD, pAfib, CKD Pertinent Social History: Lives in a shelter Video evaluation declined. Assessment and Plan: Patient is an 84-year-old male with pmh of CHF s/p ICD, A. fib, CKD who was brought to the ED with increased shortness of breath. Was given 40 mg of IV Lasix and DuoNeb's with which his blood pressures and respiratory status improved. He has not received any antibiotics. #Sepsis with likely pneumonia source. Acute hypoxic respiratory failure likely multifactorial from CHF exacerbation given elevated BNP from baseline, pulmonary edema and improvement with IV Lasix. Although he has returned to his baseline O2 requirements, would not rule out viral or bacterial pneumonia. -Recommend starting Rocephin and azithromycin. -Obtain lactic acid. -Obtain COVID-19 PCR -Follow-up repeat labs tomorrow am. Thank you for including Tucker Hankins in the patients care. This service is available for further assistance as requested by your care team by calling [phone].
[2020-03-01] MEDS ORDERED: Potassium Chloride 10 MEQ Tab.ER ONE (14:52)
[2020-03-01] MEDS: Potassium Chloride 10 MEQ Tab.ER PO SCH (15:05)
[2020-03-01] MEDS: Doxycycline 100 MG Cap PO SCH (15:05)
[2020-03-01] MEDS: cefTRIAXone 1 GM in Sodium Chloride 0.9% 50 ML IV SCH (15:06)
--- NOTE | 2020-03-01 15:21 | CR ---
CLINICAL DATA: CHF post Lasix. AP CHEST, 01 MARCH 2020: Comparison made to a prior exam from earlier in the day. The heart size is stable. The cardiac pacer and pacer wires remain unchanged in position. There is persistent pulmonary vascular congestion with mild progression from the prior study. There are interstitial infiltrates in both lungs suggesting pulmonary edema. There are also subtle ground-glass opacities in both lungs, suggesting the possibility of pneumonia/pneumonitis. No pneumothorax. No pleural effusions. Job: [id number] MTDD
[2020-03-01] MEDS ORDERED: Simvastatin 40 MG Tab PO SCH (20:00)
[2020-03-02] MEDS: Doxycycline 100 MG Cap PO SCH ×3 (00:28→13:19)
[2020-03-02] MEDS: Albuterol/Ipratropium 3.0-0.5 MG/3 ML Neb Soln NEB SCH ×4 (06:04→15:20)
[2020-03-02] MEDS: Potassium Chloride 10 MEQ Tab.ER PO SCH (07:45)
[2020-03-02] MEDS: cefTRIAXone 1 GM in Sodium Chloride 0.9% 50 ML IV SCH (07:46)
[2020-03-02] MEDS: Budesonide 0.25 MG/2 ML Neb Susp NEB SCH (07:46)
[2020-03-02] MEDS ORDERED: Magnesium Oxide 400 MG Tab PO SCH (08:00)
[2020-03-02] MEDS ORDERED: Sertraline 50 MG Tab PO SCH (08:00)
[2020-03-02] MEDS ORDERED: Aspirin 81 MG Tab.EC PO SCH (08:00)
[2020-03-02] MEDS ORDERED: Ferrous Sulfate 325 MG Tab PO SCH (08:00)
[2020-03-02] MEDS ORDERED: Non-Formulary Medication 1 Each (Magnesium Oxide [Magnesium Oxide] 400 MG) PO SCH (08:00)
[2020-03-02] MEDS ORDERED: Diltiazem 25 MG/5 ML SDV IVPUSH ONE (09:09)
[2020-03-02] MEDS ORDERED: Sodium Chloride 0.9% 500 ML IV ONE ×2 (09:17→10:30)
--- NOTE | 2020-03-02 13:51 | PCM.PN ---
- General Info Date of Service: 03/02/20 Subjective Update: Patient is an 84 y/o male, admitted yesterday for CHF and COPD exacerbation. PMHx pacemaker, anemia, and AFIB. Patient started on abx (rocephin and doxycycline) for possible pneumonia (although past CXR look similar). Patient feels great and 1 L of fluid was removed after Lasix 40 mg IV. Patient is eating normally and has more energy. Functional Status: Reports: Pain Controlled, Tolerating Diet - Review of Systems General: Reports: No Symptoms Pulmonary: Reports: No Symptoms Cardiovascular: Reports: No Symptoms Gastrointestinal: Reports: No Symptoms Skin: Reports: No Symptoms Neurological: Reports: No Symptoms - Patient Data Vitals - Most Recent: Last Vital Signs Temp 36.6 C 03/02/20 12:00 Pulse 109 H 03/02/20 12:00 Resp 24 H 03/02/20 12:00 BP 113/66 03/02/20 12:00 Pulse Ox 95 03/02/20 12:00 Weight - Most Recent: 51.369 kg I&O - Last 24 Hours: Intake & Output 03/01/20 03/02/20 03/02/20 22:59 06:59 14:59 Intake Total 100 Output Total 450 Balance -350 Lab Results Last 24 Hours: Laboratory Results - last 24 hr 03/01/20 03/02/20 03/02/20 Range/Units 15:00 07:40 07:40 WBC 8.5 (4.0-11.0) K/uL RBC 3.21 L (4.50-6.50) M/uL Hgb 8.2 L (13.0-18.0) g/dL Hct 27.6 L (40.0-54.0) % MCV 86 (76-96) fL MCH 25.5 L (27.0-32.0) pg MCHC 29.7 L (31.0-35.0) g/dL RDW 16.7 H (11.0-16.0) % Plt Count 283 (150-400) K/uL MPV 9.1 (6.0-10.0) fL Neut % (Auto) 88.7 H (45.0-70.0) % Lymph % (Auto) 4.3 L (20.0-40.0) % Harney % (Auto) 5.7 (3.0-10.0) % Eos % (Auto) 1.1 (1.0-5.0) % Baso % (Auto) 0.2 (0.0-0.5) % Neut # (Auto) 7.52 H (2.00-7.50) K/uL Lymph # (Auto) 0.36 L (1.50-4.00) K/uL Harney # (Auto) 0.48 (0.20-0.80) K/uL Eos # (Auto) 0.09 (0.04-0.40) K/uL Baso # (Auto) 0.02 (0.02-0.10) K/uL Sodium (136-145) mmol/L Potassium (3.5-5.1) mmol/L Chloride (98-107) mmol/L Carbon Dioxide (21.0-32.0) mmol/L Anion Gap (5.0-15.0) mmol/L BUN (8-26) mg/dL Creatinine (0.70-1.30) mg/dL Est Cr Clr Drug Dosing mL/min Estimated GFR (MDRD) (>60) MLS/MIN BUN/Creatinine Ratio (6-25) Glucose (74-100) mg/dL Lactic Acid 1.0 (0.4-2.0) mmol/L Calcium (8.5-10.1) mg/dL Total Bilirubin (0.0-1.0) mg/dL AST (15-37) U/L ALT (12-78) U/L Alkaline Phosphatase (46-116) U/L B-Natriuretic Peptide (0-450) pg/mL Total Protein (6.4-8.2) g/dL Albumin (3.4-5.0) g/dL Globulin (2.2-4.2) g/dL Albumin/Globulin Ratio (0.8-2.0) SARS CoV-2 RNA Rapid ANTOINETTE Negative 03/02/20 Range/Units 07:40 WBC (4.0-11.0) K/uL RBC (4.50-6.50) M/uL Hgb (13.0-18.0) g/dL Hct (40.0-54.0) % MCV (76-96) fL MCH (27.0-32.0) pg MCHC (31.0-35.0) g/dL RDW (11.0-16.0) % Plt Count (150-400) K/uL MPV (6.0-10.0) fL Neut % (Auto) (45.0-70.0) % Lymph % (Auto) (20.0-40.0) % Harney % (Auto) (3.0-10.0) % Eos % (Auto) (1.0-5.0) % Baso % (Auto) (0.0-0.5) % Neut # (Auto) (2.00-7.50) K/uL Lymph # (Auto) (1.50-4.00) K/uL Harney # (Auto) (0.20-0.80) K/uL Eos # (Auto) (0.04-0.40) K/uL Baso # (Auto) (0.02-0.10) K/uL Sodium 146 H (136-145) mmol/L Potassium 3.8 (3.5-5.1) mmol/L Chloride 108 H (98-107) mmol/L Carbon Dioxide 32.7 H (21.0-32.0) mmol/L Anion Gap 9.1 (5.0-15.0) mmol/L BUN 38 H (8-26) mg/dL Creatinine 1.36 H (0.70-1.30) mg/dL Est Cr Clr Drug Dosing 26.24 mL/min Estimated GFR (MDRD) 50 L (>60) MLS/MIN BUN/Creatinine Ratio 27.9 H (6-25) Glucose 109 H (74-100) mg/dL Lactic Acid (0.4-2.0) mmol/L Calcium 8.4 L (8.5-10.1) mg/dL Total Bilirubin 0.4 D (0.0-1.0) mg/dL AST 75 H (15-37) U/L ALT 24 (12-78) U/L Alkaline Phosphatase 502 H (46-116) U/L B-Natriuretic Peptide 5081 H (0-450) pg/mL Total Protein 6.8 (6.4-8.2) g/dL Albumin 2.4 L (3.4-5.0) g/dL Globulin 4.4 H (2.2-4.2) g/dL Albumin/Globulin Ratio 0.6 L (0.8-2.0) SARS CoV-2 RNA Rapid ANTOINETTE Med Orders - Current: Current Medications Acetaminophen (Tylenol) 650 mg PO Q4H PRN PRN Reason: Pain Albuterol/Ipratropium (Duoneb 3.0-0.5 Mg/3 Ml) 3 ml NEB Q4H [facility] Last Admin: 03/02/20 11:30 Dose: 3 ml Documented by: Albuterol/Ipratropium (Duoneb 3.0-0.5 Mg/3 Ml) 3 ml NEB QID PRN PRN Reason: Shortness of Breath Aspirin (Halfprin) 81 mg PO DAILY [facility] Last Admin: 03/02/20 07:45 Dose: 81 mg Documented by: Budesonide (Pulmicort) 0.25 mg NEB BID [facility] Last Admin: 03/02/20 07:46 Dose: 0.25 mg Documented by: Doxycycline Hyclate (Vibramycin) 100 mg PO Q12H [facility] Last Admin: 03/02/20 13:19 Dose: 100 mg Documented by: Ferrous Sulfate (Ferrous Sulfate) 325 mg PO DAILY [facility] Last Admin: 03/02/20 07:45 Dose: 325 mg Documented by: Magnesium Oxide (Magnesium Oxide) 400 mg PO DAILY [facility] Last Admin: 03/02/20 07:46 Dose: 400 mg Documented by: Melatonin (Melatonin) 12 mg PO BEDTIME PRN PRN Reason: Insomnia Last Admin: 03/02/20 00:26 Dose: 12 mg Documented by: Potassium Chloride (Klor-Con 10) 10 meq PO DAILY [facility] Last Admin: 03/02/20 07:45 Dose: 10 meq Documented by: Sertraline HCl (Zoloft) 50 mg PO DAILY [facility] Last Admin: 03/02/20 07:46 Dose: 50 mg Documented by: Simvastatin (Zocor) 40 mg PO BEDTIME [facility] Last Admin: 03/01/20 19:34 Dose: 40 mg Documented by: Tramadol HCl (Ultram) 25 mg PO Q8HR PRN PRN Reason: Pain Discontinued Medications Albuterol/Ipratropium (Duoneb 3.0-0.5 Mg/3 Ml) 3 ml NEB ONETIME ONE Stop: 03/01/20 05:55 Last Admin: 10/08/20 06:05 Dose: 3 ml Documented by: Budesonide (Pulmicort) 0.5 mg NEB ONETIME ONE Stop: 03/01/20 05:56 Last Admin: 03/01/20 06:43 Dose: 0.5 mg Documented by: Diltiazem HCl (Diltiazem) 10 mg IVPUSH ONETIME ONE Stop: 03/02/20 09:10 Last Admin: 03/02/20 09:51 Dose: 10 mg Documented by: Furosemide (Lasix) 40 mg IVPUSH NOW ONE Stop: 03/01/20 07:08 Last Admin: 03/01/20 08:15 Dose: 40 mg Documented by: Ceftriaxone Sodium 1 gm/ (Sodium Chloride) 50 mls @ 200 mls/hr IV DAILY JACOB Last Admin: 03/02/20 07:46 Dose: 200 mls/hr Documented by: Sodium Chloride (Normal Saline) 500 mls @ 500 mls/hr IV BOLUS ONE Stop: 03/02/20 10:16 Last Admin: 03/02/20 09:30 Dose: 500 mls/hr Documented by: Sodium Chloride (Normal Saline) 500 mls @ 500 mls/hr IV BOLUS ONE Stop: 03/02/20 11:29 Last Admin: 03/02/20 10:30 Dose: 500 mls/hr Documented by: Potassium Chloride (Klor-Con 10) Confirm Administered Dose 10 meq .ROUTE .STK- MED ONE Stop: 03/01/20 14:53 Last Admin: 03/01/20 19:25 Dose: Not Given Documented by: - Exam General: Alert, Oriented, Cooperative Neck: Supple Lungs: Clear to Auscultation, Normal Respiratory Effort Cardiovascular: Irregular Rhythm, Tachycardia GI/Abdominal Exam: Normal Bowel Sounds, Soft, Non-Tender, No Distention Extremities: Normal Inspection, No Pedal Edema Skin: Warm, Dry, Intact Neurological: No New Focal Deficit Psy/Mental Status: Alert Sepsis Event Note - Evaluation Sepsis Screening Result: No Definite Risk - Focused Exam Vital Signs: Vital Signs Temp Pulse Resp BP BP Pulse Ox 03/02/20 12:00 36.6 C 109 H 24 H 113/66 95 03/02/20 11:34 85 26 H 103/64 95 03/02/20 10:27 71 98/58 L 97 03/02/20 10:17 77 96/63 98 03/02/20 10:00 99/63 100 03/02/20 09:07 127 H 92/43 L 88 L 03/02/20 09:02 36.9 C 118 H 89/62 L 90 L 03/02/20 08:00 36.2 C 66 22 H 101/57 L 98 - Problem List Review Problem List Initiated/Reviewed/Updated: Yes - My Orders Last 24 Hours: My Active Orders 03/01/20 13:52 Acetaminophen [TylenoL] 650 mg PO Q4H PRN Albuterol/Ipratropium [DuoNeb 3.0-0.5 MG/3 ML] 3 ml NEB QID PRN Melatonin 12 mg PO BEDTIME PRN traMADol [Ultram] 25 mg PO Q8HR PRN 03/01/20 14:00 Doxycycline [Vibramycin] 100 mg PO Q12H 03/01/20 20:00 Simvastatin [Zocor] 40 mg PO BEDTIME 03/02/20 08:00 Aspirin [Halfprin] 81 mg PO DAILY Ferrous Sulfate 325 mg PO DAILY Magnesium Oxide 400 mg PO DAILY Sertraline [Zoloft] 50 mg PO DAILY 03/02/20 09:36 EKG Documentation Completion [RC] ASDIRECTED - Assessment Assessment:: Patient tachycardia in the 130s. Cardizem 10 mg IV given and improved HR of 80- 90s. BP was 90s/60s and 1 L of fluid given. BNP increased to 5K, but all other labs unremarkable. Discussed with hospitalist (Dr. 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 Updated Yazmin ([id number]). All IV fluids held and awaiting room assignment to telemetry. Patient went by EMS around 1630. HR remained in the 80s and 90s.
[2020-03-02] MEDS ORDERED: Menthol/Zinc Oxide Ointment 113 GM Tube TOP PRN (13:56)
[2020-03-02] MEDS ORDERED: Non-Formulary Medication 1 Each TOP PRN (14:01)
[2020-03-02] MEDS ORDERED: Albuterol/Ipratropium 3.0-0.5 MG/3 ML Neb Soln ONE (15:12)
[2020-03-02 15:30] VITALS: BP 116/73; PULSE 116
== END 2020-03-02 16:45 | disposition critical access hospital (66) ==
LOC: LB.ED 05:38 → LB.MS 07:09 → UNDODISOB 03-02 14:55
PROVIDERS: ADMIT Physician Assistant; ATTEND Family Medicine
DX: A41.9 Sepsis, unspecified organism (principal); J96.21 Acute and chronic respiratory failure with hypoxia; J44.1 Chronic obstructive pulmonary disease with (acute) exacerbation; I50.9 Heart failure, unspecified; Z95.0 Presence of cardiac pacemaker; I48.91 Unspecified atrial fibrillation; D64.9 Anemia, unspecified; Z88.8 Allergy status to other drugs, medicaments and biological substances; Z79.899 Other long term (current) drug therapy; R65.20 Severe sepsis without septic shock; I13.0 Hypertensive heart and chronic kidney disease with heart failure and stage 1 through stage 4 chronic kidney disease, or unspecified chronic kidney disease; N18.9 Chronic kidney disease, unspecified; Z20.828 Contact with and (suspected) exposure to other viral communicable diseases
CPT/HCPCS: 36415; 51702; 71045; 80048; 80053; 83605; 83880; 85025; 93005; 96361; 96365; 96375; 96376; 99217; 99219; 99285-25; A9270-GY; G0378; J0696; J1940; J3490; J7040; J7050; J7620-GY; U0002

== ENCOUNTER 2020-03-18 15:18 | Emergency (ER) | payer MEDICARE, OTHER | END 2020-03-18 16:30 | disposition home or self-care (01) | LOC: LB.ED 15:18 | DX: Z53.21 Procedure and treatment not carried out due to patient leaving prior to being seen by health care provider (principal) | CPT/HCPCS: U0002 ==